=== PATIENT | male | born 1950 | race Caucasian/White ===

== ENCOUNTER → 2021-08-31 | Outpatient (CLI) | payer OTHER, SELFPAY ==
--- NOTE | 2021-08-31 08:19 | PR.HP_ITS ---
History of Present Illness Arrival date:: 08/31/21 Arrival time:: 08:23 Date of Referral:: 08/04/21 Date of Evaluation: 08/31/21 [facility] History of Present Illness: COPD [facility] Breathless Scale: When is the patient short of breath? Y/N Grade: Description of Breathlessness: 0 I only get breathless with strenuous exercise. 1 I get short of breath when hurrying on level ground or walking up a slight hill. 2 On level ground, I walk slower than people of the same age because of breathless, or have to stop for breath when walking at my own pace. 3 I stop for breath after walking 100 yards or after a few minutes on level ground. 4 I am too breathless to leave the house or I am breathless when dressing. Respiratory Problems: Yes: Fatigue, Able to Speak in Full Sentences, Dyspnea with Activity - Secretions Thin:: Yes Cough:: Yes A.T.C.: Yes Hx of Sleep Apnea: Yes Do you snore loudly (louder than talking or can be heard through closed doors)?: Yes Do you often feel tired/ fatigued/ sleepy during daytime?: Yes Has anyone observed you stop breathing during sleep?: Yes History of Hypertension (for STOP score): Yes - Patient diagnosed with DALIA; has home CPAP device STOP Results: Positive Home Medications: Home Medications albuterol 90 mcg/actuation aerosol inhaler mcg inhalation 08/31/21 albuterol sulfate 2.5 mg inhalation Q4H PRN Shortness Of Breath Or Wheezing 08/31/21 apple cider vinegar 300 mg tablet mg PO 08/31/21 atorvastatin 40 mg tablet 40 mg PO DAILY 08/31/21 benzonatate 100 mg capsule 100 mg PO TID PRN Cough 08/31/21 buspirone 5 mg tablet 5 mg PO BID 08/31/21 cetirizine 10 mg tablet 10 mg PO DAILY 08/31/21 cholecalciferol (vitamin D3) 125 mcg (5,000 unit) tablet 125 mcg PO DAILY 08/31/21 fluticasone propionate 50 mcg/actuation nasal spray,suspension 1 spray intranasa l DAILY 08/31/21 losartan 50 mg tablet 50 mg PO DAILY 08/31/21 mometasone-formoterol HFA 200 mcg-5 mcg/actuation aerosol inhaler 2 puff inhalation Q12H 08/31/21 tiotropium bromide 2.5 mcg/actuation mist for inhalation 2 puff inhalation DAILY 08/31/21 tumeric 100 mg-crow 150 mg-olive 50 mg-oreg 150 mg-caprylate capsule cap PO 08/31/21 vitamin B complex cap 08/31/21 Allergies/Adverse Reactions: Allergies meloxicam Adverse Reaction (Verified 08/31/21 08:32) Nausea Medical Utilization Do you use a peak flow meter at home?: No Do you use a spacer device with your inhalers?: No Number of hospital visits in the last year?: 0 Number of emergency room visits in the last year?: 1 Do you see your physician on a regular schedule?: Yes How often?: 3 months and as needed Advanced Directives - Advanced Directives Power of Patient Relations Manager: No Living Will: No Advance Directives Information Provided: Yes Advance Directives on File: No DNR Order?:: No - MOLST See MOLST form: No Past Medical History - Covid-19 Screening Fever: No Unexplained muscle aches: No - H/O Chronic Back Pain Current respiratory symptoms: Yes - CHRONIC OBSTRUCTIVE PULMONARY DISEASE Upper respiratory infections symptoms: No Gastro-intestinal symptoms: No Thx-Lpjs-Iwfdgy symptoms: No Has tested positive for COVID-19 in last 30 days: No Date of testin08/31/21 - has not been vaccinated Had contact w/person w/symptoms or Covid-19 (+) last 14 days: No Has High Risk Exposures ID'd by Health dept/Inf Control team: No 65 years or older:: Yes Lives in Assisted Living facility:: No Has a chronic lung disease or moderate to severe asthma:: Yes Immunocompromised:: No Severely obese (Body Mass Index of 40 or higher):: Yes Diabetic:: No Has chronic kidney disease undergoing dialysis:: No Has liver disease:: No Medical History: Past Medical History (Last Updated 08/31/21 @ 08:36 by Moreno Jones, FAB[employer]UT[employer], BLOCK SAWYER, BS) Allergic rhinitis J30.9 Chronic back pain M54.9, G89.29 Chronic sinusitis J32.9 COPD (chronic obstructive pulmonary disease) J44.9 Coronary artery disease I25.10 Former smoker Z87.891 Hyperlipidemia E78.5 Hypertension I10 DALIA (obstructive sleep apnea) G47.33 Social History - Smoking History Smoking Status: Former smoker Hx Tobacco Use: Yes Hx Smoking Exposure: Yes - Alcohol Use Alcohol Usage: Yes - 2-3 beers daily - Occupation Occupation (List type of work in comments):: Retired - - Hobbies, Recreation, Social Activities Hobbies: Sports - fishing & hunting, Other - grandchildren & great grandchildren Recreational Activities: I am able to engage in most, but not all activities, I am able to engage in a few activities Functioning ADL/IADL - Current Ability Current Ability: Independent Self-Care (e.g.,grooming, dressing, & bathing), Independent Ambulation, Independent Transfer, Independent Household tasks (e.g., light meal prep, laundry, shopping) - Pt Functioning Prior to Problem Prior Functioning: Self-Care (e.g.,grooming, dressing, & bathing): Independent, Ambulation: Independent, Transfer: Independent, Household tasks (e.g., light meal prep, laundry, shopping): Independent Social Environment - Status Marital Status: - - Current Living Arrangements Living Environment:: Spouse - Children How many children do you have?: 3 Do any of your children live nearby?: Yes - Safety Do you feel safe in your surroundings?: Yes - Assistance Do you need any assistance at home?: NO Review of Systems Review of Systems: Right click = Denies ([place]). Left click = Reports ([place]) Respiratory: Reports: Cough, SOB upon Exertion, Sputum production, Wheezing, Fatigue Is Patient Pain Free?: No Pain Location: back - crushed vertebrae in 1981 had several back surgeries Pain Level: 06/12 Risk Factor Assessment - Chief Complaint Chief Complaint: PURNIMA IS A 70 MALE [address]ET OF THE [employer] [facility] WHO PRESENTS TO PULMONARY REHAB TODAY FOR HIS COPD. - Vital Signs Temperature: 97.8 F Pulse Rate: 68 Pulse Rhythm: Regular Respiratory Rate: 18 Pulse Ox: 93 Blood Pressure: 132/68 - Diabetes Nutrition Referral for Diabetes: No - Obesity Height: 5 ft 6 in Weight:: 242 lb Weight in Pounds: 242.0 lbs Weight Source: Standing Scale Body Mass Index (BMI): 39.0 Nutritional Referral for Obesity: Yes - Physical Activity Physical Inactivity: None - Risk Stratification Risk Guidelines: Lowest Risk: Risk Factor for Smoking, Risk Factor for Dyslipidemia - N/A NO LABS PROVIDED, Risk Factor for Depression, Moderate Risk: Risk Factor for Hypertension - 132/68, Risk Factor for Sedentary Lifestyle, Highest Risk: Risk Factor for Obesity - BMI 39+ Motivation - Motivation to Participate On a scale of 1 to 10, how prepared are you to commit to attending program?: 10 What do you see as barriers to successfully being able to complete the program?: chronic back pain What do you see as the benefits of succesfully completing the program? In other words, what do you hope to get out of participating in the program?: health, relieve shortness of breath and congestion Are there issues you are dealing with that will interfere with completing the program?: chronic sinusitus Do you have a spouse or signficant other, family or friends who will help support you to complete the program?: yes Diagnostic Data Review - Pulmonary Function Test FEV1:: 1.59 - 59% PREDICTED FVC:: 3.02 - 88% PREDICTED FEV1/FVC%:: 52 - 68% PREDICTED
--- NOTE | 2021-08-31 09:01 | PCM.PR.TP ---
General Information2 - General Information Admitting Diagnosis: Chronic Obstructive Pulmonary Disease (COPD) Gold Classification:: GOLD 2: Moderate - PFT FEV1:: 1.59 FVC:: 3.02 FEV1/FVC%:: 52 - Personal Learning Style/Barriers Personal Learning Style:: Audio/Visual, Written Barriers to Learning: None Stage of change r/t lifestyle modifications: Prepared Educational Classes ND: Living with Chronic Lung Disease: Initial Assessment, Breathing Retraining: Initial Assessment, Exercise: Initial Assessment, Energy Conservation: Initial Assessment, Preventing infection: Initial Assessment - Education/Goals Individual Counseling: Initial Assessment: High Blood Pressure, Overweight/Obesity ND Patient Goals: Increase muscle strength: Initial Assessment, Experience less dyspnea: Initial Assessment, Improve energy level: Initial Assessment, Participate in home exercise: Initial Assessment, Improve the ability to cope with ADLs: Initial Assessment, Improve knowledge of lung disease: Initial Assessment, Understand how to use medications: Initial Assessment, Increase knowledge of oxygen use: Initial Assessment, Control panic/anxiety: Initial Assessment, Improve diet and nutrition: Initial Assessment, Improve my quality of life: Initial Assessment, Reduce Stress/relaxation techniques: Initial Assessment Exercise - Initial Assessment - Visit Date of Eval: 08/31/21 Session Number:: 0 - pre-pulm rehab - Problem/Goals Problems: Deconditioning, Knowledge deficit exercise guidelines, Knowledge deficit exercise safety Goals:: ND: 2-3/wk for 18 weeks [36 sessions] - Physician Prescribed Exercise Modalities: Treadmill, Airdyne, NuStep Frequency (days/week): 3 Duration (Minutes):: 30-45 Intensity: 60-80% of age predicted maximum heart rate reserve Current METSs:: 3.0 Target HR:: 128 - THHR 98-128 Resting Blood Pressure: 132/68 EKG Type: NSR - Plan Plan and Plan to Review:: Benefits of exercise, Core components of exercise, How to measure dyspnea level, How to monitor dyspnea level, Exercise intensity, Exercise safety guideline, Home exercise guidelines, Sheryl: 3-4/11-13 Nutrition/Wt Mgmt - Initial - Visit Date of Eval: 08/31/21 Session Number:: 0 - pre-pulm rehab - Problems/Goals Problems: Overweight Goals: Wt Loss 1-2 lbs per week - Weight Management Knowledge Deficit Management of:: Overweight Admit Height:: 5 ft 6 in Admit Weight:: 242 lb Admit BMI:: 39.0 - Intervention Referral to dietitian:: Yes - Why Weight Program Intervention/Plan: Instruct on ideal BMI & set weight loss goal w/patient, Assist pt to ID & incorporate diet changes for weight loss by S9, Refer to Structured Weight Loss program as appropriate, Encourage goal of using 250-300dcal per session for weight loss - Plan Nutrition Plan: Yes Review BMI or WC & identify target wt & strategies for wt control, Yes Nutrition education class:, Yes Weight control education class: Psychosocial - Initial Assess - Visit Date of Eval: 08/31/21 Session Number:: 0 - Pre-pulm rehab - Problems/Goals Psychosocial Goals: 1. Patient is free from overwhelming symtoms of depression (or anxiety, 2. Identifies personal stressors & states the strategies for managing, 3. Identifies activities to decrease isolation and/or symptoms of, 4. Improved psychosocial coping skills., 5. Verbalizes coping strategies., 6. Adequate treatment of depression., 7. Improved Q.O.L. - Psychosocial Test Tool Used:: Pulmonary QOL, PHQ-9 Questionnaire - Referral to Behavioral Health PS - Interventions: Yes Attend Stress Management Classes, No Referral to Behavioral Health if PHQ-9 score >9:, No Referral to [facility], No Referral to Physician if PHQ-9 if score is 5-9: - Intervention/Plan: See List Interventions/Plan:: Assess stressors,coping strategies & signs of derpression on admission, Instruct/assist pt to develop coping & personal stress Mgt strategies, Instruct patient to recognize signs & symptoms of depression, Instruct patient to recog Oxygen & Oxygen Titration Init - Visit Date of Eval: 08/31/21 Session Number:: 0 - pre-pulm rehab - Initial Assessment Oxygen on Admission: None Patient Reports:: Non-productive cough - Goal Oxygen & Oxygen Tritration Goals: Effective hypoxemia control - Plans Plan: Monitor SpO2 rest & with exercise, Train O2 safety & systems Reviewed prescribed medications:: Purpose, Schedule, Side effects, Importance of compliance Instruct correct technique/timing & care:: MDI, Nebulizer, Return demo use of inhaler Bronchial Hygiene Plan: Controlled cough, Vibratory PEP device, NS Nasal spray, Hydration, Hand hygiene, Evaluate sputum, When to call MD, Signs/symptoms to report: Core Components - Initial - Visit Date of Eval: 08/31/21 Session Number:: 0 - pre-pulm rehab - Hypertension Hypertension Diagnosis:: Hypertension ICD-10 I10 BP: 132/68 Citizen [place] [employer] Hypertension Guidelines: Citizen [place] [employer] Hypertension Guidelines. Normal BP Less than 120/80. Elevated BP 120/80. Hypertension Stage 1: BP 130-139/80-89. Hypertesnion Stage 2: BP 140 or higher/90 or higher. Hypertension Crisis: BP higher than 180/120 Blood Pressure: 132/68 Low Sodium diet: No Outcomes/Goals: Able to verbalize/achieve optimal blood pressure <130/80, Incorporates diet changes & exercise for blood pressure control by DC - Exacerbation Mgmt & Airway Clearance Problems:: Poor knowledge of O2 use/safety Bronchial Hygiene Problems:: Ineffective secretion clearance, Respiratory infection Prevention/Management Goals: Pt demonstrates effective cough, effective secretion clearance., Pt describes signs and symptoms of infection. Patient Reports:: Non-productive cough Plan: Monitor SpO2 rest & with exercise, Train O2 safety & systems Instruct correct technique/timing & care:: MDI, DPI, Nebulizer, Return demo use of inhaler Bronchial Hygiene Plan: Controlled cough, Vibratory PEP device, Hydration, Hand hygiene, When to call MD, Signs/symptoms to report: - Medication Interventions/plans: Instruct on medication effects & side effects Medication Goals: Correct technique/timing & care of MDI, DPI, nebulizer, and spacer. Medications: Yes MDI, Yes DPI, Yes NEB, No Spacer Reviewed prescribed medications:: Purpose, Schedule, Side effects, Importance of compliance - Diabetes Diabetes:: No Core Components - 30 DAYS Core Components - 60 DAYS Core Components - 90 DAYS Core Components - Final Patient Health Questionnaire Initial Assessment 1. Little interest or pleasure in doing things: Not at all 2. Feeling down, depressed, or hopeless: Not at all 3. Trouble falling or staying asleep, or sleeping too much: Not at all 4. Feeling tired or having little energy: Not at all 5. Poor appetite or overeating: Not at all 6. Feeling bad about yourself -- or that you are a failure or have let yourself or your family down: Not at all 7. Trouble concentrating on things, such as reading the newspaper or watching television: Not at all 8. Moving or speaking so slowly that other people could have noticed. Or the opposite - being so fidgety or restless that you have been moving around a lot more than usual: Not at all 9. Thoughts that you would be better off , or of hurting yourself in some way: Not at all How difficult have these problems made it for you to do your work, take care of things at home, or get along with other people?: Not difficult at all Total Score: 0 Knowledge Questionaire (BCKQ) - Information Information: [place] COPD Knowledge Questionnaire (BCKQ) This questionnaire is designed to find out what you know about your lung problem. It should be completed without help form anyone else. This usually takes between 10 and 20 minutes. Your answers will help us to find out what information you need to help you to understand and manage your lung condition. Gaurav the chenega which you think is the correct answer. - Questions b. COPD can only be confirmed by breathing tests: Don't know c. In COPD ther is usually gradual worsening over time: True d. In COPD oxygen levels in the blood are always low: False e. COPD is usually in people less than 40 years old: True Gerry than 80% of COPD cases are caused by cigarette smoking: Don't know b. COPD can be caused by occupational dust exposure: True c. Longstanding asthma can develop into COPD: True d. COPD is commonly an inherited disease: Don't know e. Women are less vunerable to the effects of cigarette than men: False a. Swelling of the ankles is common in COPD:: Don't know b. Fatigue [tiredness] is common in COPD: Don't know c. Wheezing is common in COPD: True d. Crushing chest pain is common in COPD: False e. Rapid weight loss is common in COPD: False a. Severe breathlessness prevents travel by air: Don't know b. Breathlessness can be worsened by eating large meals: True c. Breathlessness means that your oxygen levels are low: False d. Breathlessness is a normal response to exercise: False e. Breathlessness is primarily caused by a narrowing of the bronchial tubes: True a. Coughing phlegm is a common symptom in COPD: Don't know b. Clearing phlegm is more difficult if you get dehydrated: True c. Bronchodilator inhalers can help clear phlegm: Don't know d. Phlegm causes harm if swallowed: Don't know e. Clearing phlegm can be assisted by breathing exercises: Don't know a. Chest infections often cause coughing of blood: False b. Chest infection phlegm usually becomes coloured (ylw/grn): True cExerbations (episodes of worsening) can occur in the absence of chest infection: True d. Chest infections are always accompanied by a high temperature: False e. Steroid tablets should be taken whenever there is an exacerbation: Don't know aWalking excercises better than breathing to improve fitness: Don't know b. Exercise should be avoided as it strains the lungs: Don't know c. Exercise can help maintain your bone density: Don't know d. Exercise helps relieve depression: Don't know e. Exercise should be stopped if it makes you breathless: True a. Stopping smoking will reduce the risk of heart disease: True b. Stopping smoking will slow down further lung damage: True c. Stopping smoking is pointless as the damage is done: False d.Stopping smoking usually results in improved lung function: True eNicotine replacement therapy only available on prescription: Don't know a. A flu jab is recommended every year: True b. You can get flu from having a flu jab: False c. You can only have a flu jab if you are 65 or over: False d. A pneumonia jab protects against all forms of pneumonia: False e.You can have a pneumonia jab and a flu job on the same day: True a. Bronchodilators act quickly (within 10 minutes): False b. Both short & long acting bronchodilators can be taken on the same day: True c. Spacers (volumatic,nebuhaler,serochamber)should be dried w/atowel after washing: False d. A spacer device increases the medication to the lungs: False e. Tremor may be a side effect of bronchodilators: Don't know a. To be effective, the course should last at least 10 days: Don't know b. Excessive use of antibiotics can cause resistant bacteria (germs): Don't know c. Antibiotics will clear all chest infections: False d. Antibiotic treatment is necessary for an exacerbation (worsening) however mild: Don't know e. Seek advice if antibiotics cause severe diarrhoea: True a. Steroid tablets help strengthen muscles: Don't know b. Steroid tablets should be avoided if there is a chest infection: Don't know c. The risk of long-term side effects due to steroids is less w/short courses then w/continous treatment: Don't know dIndigestion is common side effect from using steroid tablet: Don't know e. Steroid tablets can increase your appetite: Don't know a. Inhaled steroids should be stopped if you are given steroid tablets: Don't know bSteroid inhalers can be used for rapid relief breathlessnes: Don't know c. Spacer devices reduce the risk of getting thrush in the mouth: Don't know d.Steroid inhaler should be taken before your bronchodilator: Don't know e. Inhaled steroids improve lung function in COPD: Don't know COPD Assessment Test [CAT] - Questions Never cough = 0, Cough all the time = 5: 2 No phlegm = 0, Chest full of phlegm = 5: 3 No chest tightness = 0, Chest very tight = 5: 1 No breathless w/exertion = 0, Very breathless w/exertion = 5: 4 No limitations w/activity = 0, Very limited w/activity = 5: 3 Confident leaving home = 0, Not at all confident = 5: 0 Sleep soundly = 0, Don't sleep soundly = 5: 1 Lots of energy = 0, No energy at all = 5: 3 Total CAT score:: 17 Self-Efficacy Initial Assessment We would like to know how confident you are in doing certain activities. Please select your confidence level for:: Select your confidence level for the following using the scale 1-10 where 1 is not at all confident and 10 is totally confident. Your score is the average of all 6 responses. Fatigue: How confident are you that you can keep the fatigue caused by your disease from interfering with the things you want to do? Select Number: 6 Physical Discomfort or Pain: How confident are you that you can keep the physical discomfort or pain of your disease from interfering with the things you want to do? Select Number: 6 Emotional Distress: How confident are you that you can keep the emotional distress caused by your disease from interfering with the things you want to do? Select Number: 8 Other Symptoms or Health Problems: How confident are you that you can keep other symptoms or health problems from interfering with the things you want to do? Select Number: 8 Different Tasks and Activities: How confident are you that you can do the different tasks and activities needed to manage your health condition so as to reduce your need to see a doctor? Select Number: 10 Medication: How confident are you that you can do things other than just taking medication to reduce how much your illness affects your everyday life? Select Number: 10 Total Score:: 8 Nutrition Survey - Nutrition Survey Initial Have you lost >10 lbs over the past 2 months without trying?: No Are you following a special diet at home for diabetes, low fat, or low salt?: No Are you interested in meeting with a dietitian for help understanding your diet?: Yes Do you eat less than 3 meals a day?: No Do you eat fatty meats (gonzalez, sausage, ribs, etc), fried foods, desserts, large amounts of salad dressings, margarine, butter, or cheese most days?: No Do you have food allergies? [Enter types in comment field]: No Do you eat in restaurants more than 3 times a week?: No Do you season food with salt, seasoning salt, or garlic salt?: No Do you used canned, boxed, frozen meals, or soups, seasoning packets?: Yes Total Score:: 2
[2021-08-31 09:22] VITALS: BP 132/68; PULSE 68; RESP 18; TEMP 36.6; O2SAT 93; BMI 39.0
[2021-08-31 09:46] VITALS: BP 132/68; BMI 39.0
== END | disposition home or self-care (01) ==
DX: J44.9 Chronic obstructive pulmonary disease, unspecified (principal); R06.09 Other forms of dyspnea; R53.83 Other fatigue; G47.30 Sleep apnea, unspecified

== ENCOUNTER 2021-09-30 10:30 | Outpatient (RCR) | payer OTHER, SELFPAY | END 2021-10-02 23:59 | LOC: PR 10:30 | DX: J44.9 Chronic obstructive pulmonary disease, unspecified (principal) | CPT/HCPCS: 97150; 94626 ==

== ENCOUNTER 2021-10-21 10:30 | Outpatient (RCR) | payer OTHER, SELFPAY ==
--- NOTE | 2021-10-28 09:11 | PR.ITP_ITS ---
General Information2 - General Information Admitting Diagnosis: Pt has not been attending pulmonary rehab Core Components - Initial Core Components - 30 DAYS Core Components - 60 DAYS Core Components - 90 DAYS Core Components - Final Knowledge Questionaire (BCKQ) - Information Information: [place] COPD Knowledge Questionnaire (BCKQ) This questionnaire is designed to find out what you know about your lung problem. It should be completed without help form anyone else. This usually takes between 10 and 20 minutes. Your answers will help us to find out what information you need to help you to understand and manage your lung condition. Gaurav the pala which you think is the correct answer. Nutrition Survey
== END 2021-11-02 23:59 ==
LOC: PR 10:30
DX: J44.9 Chronic obstructive pulmonary disease, unspecified (principal)
CPT/HCPCS: 97150; 94626

== ENCOUNTER 2021-11-04 07:13 | Outpatient (RCR) | payer OTHER, SELFPAY | END 2021-12-02 23:59 | LOC: PR 07:13 | DX: J44.9 Chronic obstructive pulmonary disease, unspecified (principal) | CPT/HCPCS: 97150; 94626 ==

== ENCOUNTER 2024-08-19 13:26 | Inpatient (IN) | payer OTHER, SELFPAY ==
[2024-08-19] VITALS (16 sets, daily range): BP systolic 149–190; BP diastolic 61–93; PULSE 98–113; RESP 16–22; TEMP 36.6–37.7; O2SAT 83–95; BMI 44.1; BMI 44.7
--- NOTE | 2024-08-19 14:00 | RAD_ITS ---
PROCEDURE: CHEST PA AND LATERAL 08/19/2024 REASON FOR EXAM: SOB TECHNIQUE: CHEST PA AND LATERAL COMPARISON: None FINDINGS: Right lower lobe opacity may reflect pneumonia, aspiration, and/or atelectasis. Likely underlying bibasilar subsegmental atelectasis. Mild pulmonary vascular congestion and interstitial edema. Mild cardiomegaly. No pneumothorax. Neurostimulator device is noted. No acute fractures. RAD/Chest PA and Lateral IMPRESSION: Right lower lobe opacity may reflect pneumonia, aspiration, and/or atelectasis. Likely underlying bibasilar subsegmental atelectasis. Mild pulmonary vascular congestion and interstitial edema. Mild cardiomegaly. No pneumothorax. Reading Location: [id number]
--- NOTE | 2024-08-19 14:00 | EKG12_ITS ---
Test Reason : SOB Blood Pressure : */* mmHG Vent. Rate : 111 BPM Atrial Rate : 111 BPM P-R Int : 166 ms QRS Dur : 68 ms QT Int : 328 ms P-R-T Axes : 35 11 38 degrees QTcB Int : 446 ms Sinus tachycardia Otherwise normal ECG Confirmed by YAJAIRA LESLIE, MY ([id number]), commissioning editor INDY ALMARAZ ([id number]) on 08/20/2024 8:25:52 AM Referred By: Confirmed By: MY GATES MD
--- NOTE | 2024-08-19 14:13 | EDS_ITS ---
HPI History of Present Illness Chief Complaint: Shortness of Breath Narrative Narrative: Patient is a 73-year-old male past medical history of COPD, hypertension, hyperlipidemia, CAD, DALIA who presents to the emergency department with chief complaint of fever, chills not feeling well overall. He states that he woke up this morning not feeling well and noted that he had a fever of 101.7 and states that he felt like he had bronchitis originally but given his fever and chills he came here for further evaluation management. Patient states that he does not wear oxygen on a regular basis. [facility] Medical History Hypertension Hyperlipidemia Chronic back pain Coronary artery disease Chronic sinusitis Allergic rhinitis Former smoker DALIA (obstructive sleep apnea) COPD (chronic obstructive pulmonary disease) Home Medications ?Medication ?Instructions ?Recorded ?Last Taken ?Type albuterol 90 mcg/actuation aerosol mcg inhalation 08/04 11/24 Unknown History inhaler albuterol sulfate 2.5 mg/3 mL 2.5 mg inhalation Q4H WI N 08/31/21 Unknown History (0.083 %) solution for nebulization Shortness Of Breat h Or Wheezing apple cider vinegar 300 mg tablet mg PO 08/31/21 Unkno wn History atorvastatin 40 mg tablet 40 mg PO DAILY 08/31/21 Unkn own History benzonatate 100 mg capsule 100 mg PO TID PRN Cough Unknown History buspirone 5 mg tablet 5 mg PO BID 08/31/21 Unknown History cetirizine 10 mg tablet 10 mg PO DAILY 08/31/21 Unkn own History cholecalciferol (vitamin D3) 125 125 mcg PO DAILY 08/04 11/24 Unknown History mcg (5,000 unit) tablet fluticasone propionate 50 1 spray intranasal DAILY Unknown History mcg/actuation nasal spray,suspension losartan 50 mg tablet 50 mg PO DAILY 08/31/21 Unkn own History mometasone-formoterol HFA 200 2 puff inhalation Q12H 0 08/31/21 Unknown History mcg-5 mcg/actuation aerosol inhaler tiotropium bromide 2.5 2 puff inhalation DAILY 08/04 11/24 Unknown History mcg/actuation mist for inhalation turmeric 100 mg-crow 150 cap PO 08/31/21 Unknown His tory mg-olive 50 mg-oreg 150 mg-capryl capsule vitamin B complex cap 08/31/21 Unknown History Allergy/AdvReac Type Severity Reaction Status Date / Time meloxicam AdvReac Nausea Verified 08/19/24 13:29 Social History Smoking Status: Former smoker ROS ROS ED ROS Narrative Constitutional: Complains of fever and chills noted above denies headache, l ightheadedness or dizziness Eyes: Denies change in vision double vision blurry vision Cardiovascular: Denies chest pain Respiratory: Complains of cough as noted above but states that his sputum produc tion is at his baseline Abdomen: Denies abdominal pain nausea vomit diarrhea : Denies any urinary symptoms Neurological: Denies numbness, weakness, tingling Musculoskeletal: Denies back pain Skin: Denies rashes or lesions EXAM Physical Exam Narrative Exam Narrative: General: Patient was lying in bed resting comfortably did not appear to be acute distress Head: Atraumatic, normocephalic Eyes: PERRL bilaterally, EOMI bilateral, no conjunctival injection noted Neck: Soft, supple, trachea midline Cardiovascular: Patient tachycardic with a regular rhythm Respiratory: Diminished breath sounds bilaterally Abdomen: Soft, nondistended, tender to palpation Extremities: +5/5 strength noted in the bilateral upper and lower extremities, radial pulses +2/4 in the bilateral extremities Neurological: Patient following commands knew that he was at [facility] the year is 2024 Skin: Warm, dry, tact no rashes or lesions noted Const Vital Signs: 08/19/24 13:29 08/19/24 13:34 08/19/24 13:40 Temperature 99.9 F H 99.9 F H Temperature Source Oral Oral Pulse Rate 111 H 111 H Respiratory Rate 22 H 22 H Respiratory Effort Respiratory Depth Respiratory Pattern Blood Pressure 190/61 H 190/61 H Blood Pressure Mean 104 104 Pulse Ox 88 88 83 Oxygen Delivery Method Room Air Room Air Room Air Oxygen Flow Rate (L/min) 08/19/24 13:41 08/19/24 13:43 Temperature Temperature Source Pulse Rate Respiratory Rate Respiratory Effort Short of Breath Short of Breath Labored Accessory Muscle Use Respiratory Depth Shallow Respiratory Pattern Tachypnea Tachypnea Blood Pressure Blood Pressure Mean Pulse Ox Oxygen Delivery Method Nasal Cannula Oxygen Flow Rate (L/min) 2 MDM MDM MDM Narrative Medical decision making narrative: Patient is a 73-year-old male who presents to the emergency department chief complaint of cough, fever and not feeling well. On the differential diagnosis includes but not limited to pneumonia, ACS, pneumothorax, COPD exacerbation. Once workup is obtained reviewed he will be reevaluated. Patient be given 3 DuoNebs and Solu-Medrol he will be given a 30 cc/kg bolus of IV fluids based on ideal body weight this was ordered at 1400. Once again the patient is requiring oxygen he is not chronically on oxygen at home. Discharge Plan Triage Chief Complaint: Shortness of Breath Other Complaint: Fever ED Provider: Froy Deleon Dx/Rx/DC Orders Prescriptions: No Action losartan 50 mg Tablet 50 mg PO DAILY atorvastatin 40 mg Tablet 40 mg PO DAILY buspirone 5 mg Tablet 5 mg PO BID albuterol sulfate 2.5 mg /3 mL (0.083 %) Solution For Nebulization 2.5 mg INHALATION Q4H PRN (Reason: Shortness Of Breath Or Wheezing) cetirizine 10 mg Tablet 10 mg PO DAILY benzonatate 100 mg Capsule 100 mg PO TID PRN (Reason: Cough) albuterol 90 mcg/actuation Aerosol INHALATION fluticasone propionate 50 mcg/actuation [place],Suspension 1 spray INTRANASAL DAILY Rx Instructions: administer into each nostril mometasone-formoterol 200-5 mcg/actuation Hfa Aerosol Inhaler 2 puff INHALATION Q12H tiotropium bromide 2.5 mcg/actuation Mist 2 puff INHALATION DAILY vitamin B complex Capsule apple cider vinegar 300 mg Tablet PO cholecalciferol (vitamin D3) 125 mcg (5,000 unit) Tablet 125 mcg PO DAILY pohdzqek-bliz-pyuvb-oreg-capry 100 mg-150 mg- 50 mg-150 mg Capsule PO [facility] [Primary Care Provider] - Print Language: Faroese
--- NOTE | 2024-08-19 14:13 | EX.ED.DYSGE1 ---
HPI History of Present Illness Chief Complaint: Shortness of Breath Narrative Narrative: Patient is a 73-year-old male past medical history of COPD, hypertension, hyperlipidemia, CAD, DALIA who presents to the emergency department with chief complaint of fever, chills not feeling well overall. He states that he woke up this morning not feeling well and noted that he had a fever of 101.7 and states that he felt like he had bronchitis originally but given his fever and chills he came here for further evaluation management. Patient states that he does not wear oxygen on a regular basis. [facility] Medical History Hypertension Hyperlipidemia Chronic back pain Coronary artery disease Chronic sinusitis Allergic rhinitis Former smoker DALIA (obstructive sleep apnea) COPD (chronic obstructive pulmonary disease) Home Medications ?Medication ?Instructions ?Recorded ?Last Taken ?Type albuterol sulfate 2.5 mg/3 mL 2.5 mg inhalation Q4H PRN 08/31/21 08/19/24 History (0.083 %) solution for nebulization Shortness Of Breath Or Wheezing atorvastatin 40 mg tablet 40 mg PO QHS 08/31/21 08/18/24 History benzonatate 100 mg capsule 100 mg PO TID PRN Cough 08/31/21 Unknown History buspirone 5 mg tablet 5 mg PO BID 08/31/21 08/19/24 History cetirizine 10 mg tablet 10 mg PO DAILY 08/31/21 08/19/24 History cholecalciferol (vitamin D3) 125 125 mcg PO DAILY 08/31/21 08/19/24 History mcg (5,000 unit) tablet fluticasone propionate 50 2 spray intranasal BID 08/31/21 08/19/24 History mcg/actuation nasal spray,suspension losartan 50 mg tablet 50 mg PO DAILY 08/31/21 08/19/24 History vitamin B complex 1 cap PO DAILY 08/31/21 08/19/24 History TURMUERIC CURCUMIN PO DAILY 08/19/24 08/19/24 History albuterol sulfate 90 mcg/actuation 2 inh inhalation Q6H PRN shortness 08/19/24 08/19/24 History breath activated powder inhaler of breath or wheezing aspirin 81 mg tablet,delayed 81 mg PO DAILY 08/19/24 08/19/24 History release (Adult Aspirin Regimen) budesonide 160 mcg-glycopyr 9 2 inh inhalation BID 08/19/24 08/19/24 History mcg-formot 4.8 mcg/actuation HFA inhaler (Breztri Riffynphere) Allergy/AdvReac Type Severity Reaction Status Date / Time meloxicam AdvReac Nausea Verified 08/19/24 13:29 Social History Smoking Status: Former smoker ROS ROS ED ROS Narrative Constitutional: Complains of fever and chills noted above denies headache, lightheadedness or dizziness Eyes: Denies change in vision double vision blurry vision Cardiovascular: Denies chest pain Respiratory: Complains of cough as noted above but states that his sputum production is at his baseline Abdomen: Denies abdominal pain nausea vomit diarrhea : Denies any urinary symptoms Neurological: Denies numbness, weakness, tingling Musculoskeletal: Denies back pain Skin: Denies rashes or lesions EXAM Physical Exam Narrative Exam Narrative: General: Patient was lying in bed resting comfortably did not appear to be acute distress Head: Atraumatic, normocephalic Eyes: PERRL bilaterally, EOMI bilateral, no conjunctival injection noted Neck: Soft, supple, trachea midline Cardiovascular: Patient tachycardic with a regular rhythm Respiratory: Diminished breath sounds bilaterally Abdomen: Soft, nondistended, tender to palpation Extremities: +5/5 strength noted in the bilateral upper and lower extremities, radial pulses +2/4 in the bilateral extremities Neurological: Patient following commands knew that he was at [facility] the year is 2024 Skin: Warm, dry, tact no rashes or lesions noted Const Vital Signs: 08/19/24 13:29 08/19/24 13:34 08/19/24 13:40 Temperature 99.9 F H 99.9 F H Temperature Source Oral Oral Pulse Rate 111 H 111 H Respiratory Rate 22 H 22 H Respiratory Effort Respiratory Depth Respiratory Pattern Blood Pressure 190/61 H 190/61 H Blood Pressure Mean 104 104 Pulse Ox 88 88 83 Oxygen Delivery Method Room Air Room Air Room Air Oxygen Flow Rate (L/min) 08/19/24 13:41 08/19/24 13:43 08/19/24 14:00 Temperature Temperature Source Pulse Rate Respiratory Rate Respiratory Effort Short of Breath Short of Breath Labored Accessory Muscle Use Respiratory Depth Shallow Respiratory Pattern Tachypnea Tachypnea Blood Pressure Blood Pressure Mean Pulse Ox 93 Oxygen Delivery Method Nasal Cannula Nasal Cannula Oxygen Flow Rate (L/min) 2 2 08/19/24 14:12 08/19/24 14:34 08/19/24 16:00 Temperature 99.6 F H 99 F Temperature Source Oral Oral Pulse Rate 113 H 109 H 101 H Respiratory Rate 16 18 18 Respiratory Effort Respiratory Depth Respiratory Pattern Blood Pressure 150/93 H 150/63 H Blood Pressure Mean 112 92 Pulse Ox 92 94 Oxygen Delivery Method Nasal Cannula Nasal Cannula Oxygen Flow Rate (L/min) 2 2 MDM MDM MDM Narrative Medical decision making narrative: Patient is a 73-year-old male who presents to the emergency department chief complaint of cough, fever and not feeling well. On the differential diagnosis includes but not limited to pneumonia, ACS, pneumothorax, COPD exacerbation. Once workup is obtained reviewed he will be reevaluated. Patient be given 3 DuoNebs and Solu-Medrol he will be given a 30 cc/kg bolus of IV fluids based on ideal body weight this was ordered at 1400. Once again the patient is requiring oxygen he is not chronically on oxygen at home. Patient CBC reviewed and showed a leukocytosis of 12,000, hemoglobin 15.7, plate count 171. Patient's sodium is 134, potassium normal at 4.6, creatinine normal at 0.81. Patient's AST and ALT were 39 and 33 respectively, troponin was noted to be 10. EKG reviewed showed sinus tachycardia with a rate of 111 bpm. Patient's proBNP normal at 64, urinalysis reviewed showed no evidence of infection. Patient chest x-ray reviewed by myself and by radiology which showed a right lower lobe opacity which may reflect pneumonia aspiration and/or atelectasis. Likely underlying basilar subsegmental atelectasis mild pulmonary vascular congestion and interstitial edema noted no pneumothorax. Patient was ordered Rocephin and azithromycin at 1604 for pneumonia. Reperfusion assessment was performed at 4:33 PM and patient remains hypertensive no indication for vasopressors. At this point in time will discuss case with hospitalist for admission for his acute hypoxic respiratory failure in the setting of pneumonia. Discussed case with hospitalist Dr. Black who accept patient for admission. He is requesting CT chest without contrast which was was ordered. Patient was notified as well as family bedside all course concerns answered. Lab Data Labs: Laboratory Results - last 24 hr 08/19/24 08/19/24 08/19/24 14:10 14:30 14:35 WBC 12.2 H RBC 4.69 Hgb 15.7 Hct 46.3 MCV 98.7 H MCH 33.5 H MCHC 33.9 RDW Std Deviation 50.5 H RDW Coeff of Madhavi 13.9 Plt Count 171 MPV 10.1 Immature Gran % (Auto) 0.200 Neut % (Auto) 83.9 H Lymph % (Auto) 8.3 L [place] % (Auto) 7.1 Eos % (Auto) 0.3 Baso % (Auto) 0.2 Absolute Neuts (auto) 10.3 H Absolute Lymphs (auto) 1.01 Nucleated RBC % 0 PT Cancelled INR Cancelled APTT Cancelled Sodium 134 Potassium 4.6 Chloride 100 Carbon Dioxide 21.4 Anion Gap 12 BUN 11 Creatinine 0.81 Estim Creat Clear Calc 103.31 Est GFR (MDRD) Non-Af 94 BUN/Creatinine Ratio 13.7 Glucose 95 Lactic Acid Cancelled Calcium 8.9 Total Bilirubin 1.17 AST 39 H ALT 33 Alkaline Phosphatase 101 Troponin T High Sens 10 Troponin T Hi Sens 2 Hr NT pro BNP II 64 Total Protein 6.6 Albumin 3.8 Globulin 2.9 Albumin/Globulin Ratio 1.3 Urine Color Yellow Urine Clarity Clear Urine pH 7.0 Ur Specific [place] 1.005 Urine Protein 15 H Urine Glucose (UA) Normal Urine Ketones Negative Urine Occult Blood Negative Urine Nitrite Negative Urine Bilirubin Negative Urine Urobilinogen Normal Ur Leukocyte Esterase Negative Urine RBC 0-5 SEEN Urine WBC 0-5 SEEN Ur Squamous Epith Cells 0-5 SEEN Urine Bacteria RARE Urine Mucus 2+ 08/19/24 08/19/24 15:15 16:45 WBC RBC Hgb Hct MCV MCH MCHC RDW Std Deviation RDW Coeff of Madhavi Plt Count MPV Immature Gran % (Auto) Neut % (Auto) Lymph % (Auto) [place] % (Auto) Eos % (Auto) Baso % (Auto) Absolute Neuts (auto) Absolute Lymphs (auto) Nucleated RBC % PT 14.4 INR 1.1 APTT 25.2 Sodium Potassium Chloride Carbon Dioxide Anion Gap BUN Creatinine Estim Creat Clear Calc Est GFR (MDRD) Non-Af BUN/Creatinine Ratio Glucose Lactic Acid Calcium Total Bilirubin AST ALT Alkaline Phosphatase Troponin T High Sens Troponin T Hi Sens 2 Hr 14 NT pro BNP II Total Protein Albumin Globulin Albumin/Globulin Ratio Urine Color Urine Clarity Urine pH Ur Specific [place] Urine Protein Urine Glucose (UA) Urine Ketones Urine Occult Blood Urine Nitrite Urine Bilirubin Urine Urobilinogen Ur Leukocyte Esterase Urine RBC Urine WBC Ur Squamous Epith Cells Urine Bacteria Urine Mucus Radiography Diagnostic Testing: Clinical Impression(s) from Imaging Studies Chest X-Ray 08/19/24 14:00 IMPRESSION: Right lower lobe opacity may reflect pneumonia, aspiration, and/or atelectasis. Likely underlying bibasilar subsegmental atelectasis. Mild pulmonary vascular congestion and interstitial edema. Mild cardiomegaly. No pneumothorax. Reading Location: [facility] Discharge Plan Triage Chief Complaint: Shortness of Breath Other Complaint: Fever ED Provider: Froy Deleon Dx/Rx/DC Orders Clinical Impression: Acute hypoxemic respiratory failure, Pneumonia, COPD exacerbation Prescriptions: No Action losartan 50 mg Tablet 50 mg PO DAILY atorvastatin 40 mg Tablet 40 mg PO QHS buspirone 5 mg Tablet 5 mg PO BID albuterol sulfate 2.5 mg /3 mL (0.083 %) Solution For Nebulization 2.5 mg INHALATION Q4H PRN (Reason: Shortness Of Breath Or Wheezing) cetirizine 10 mg Tablet 10 mg PO DAILY benzonatate 100 mg Capsule 100 mg PO TID PRN (Reason: Cough) fluticasone propionate 50 mcg/actuation [place],Suspension 2 spray INTRANASAL BID Rx Instructions: administer into each nostril vitamin B complex Capsule 1 cap PO DAILY cholecalciferol (vitamin D3) 125 mcg (5,000 unit) Tablet 125 mcg PO DAILY Breztri Aerosphere 160-9-4.8 mcg/actuation HFA aerosol inhaler 2 inh inhalation BID aspirin [Adult Aspirin Regimen] 81 mg tablet,delayed release (DR/EC) 81 mg PO DAILY albuterol sulfate 90 mcg/actuation aerosol powdr breath activated 2 inh inhalation Q6H PRN (Reason: shortness of breath or wheezing) TURMUERIC CURCUMIN PO DAILY [facility] [[facility] Provider] - Print Language: B[place]an Disposition Disposition: Acute Care Hospital [facility]
[2024-08-19] MEDS: Ipratropium/Albuterol Sulfate 3 ML AMPUL.NEB INHALATION ×5 (14:16→23:27)
[2024-08-19] MEDS: 0.9% Normal Saline (1000mL) 1,000 ML 999 ML IV ×3 (14:49→17:43)
[2024-08-19] MEDS: MethylPREDNISolone 125 MG/2 ML Vial IV (14:50)
[2024-08-19 14:55] LABS: Absolute Lymphocyte Count 1.01 X10^3/uL (0.83-4.51); Absolute Neutrophil Count 10.3 X10^3/uL (2.0-7.7); Basophil# 0.02 X10^3/uL; Basophil% 0.2 % (0-1); Eosinophil# 0.04 X10^3/uL; Eosinophils% 0.3 % (0-5); Hematocrit 46.3 % (40-54); Hemoglobin 15.7 g/dL (13.0-16.5); Lymphocyte # 1.01 X10^3/ul (0.83-4.51); Lymphocyte % 8.3 % (19-41); Mean Corp Hgb Conc 33.9 g/dL (32-36); Mean Corpuscular Hgb 33.5 pg (27.0-32.0); Mean Corpuscular Volume 98.7 fL (80-94); Mean Platelet Vol. 10.1 fl (6.2-12.0); Monocyte# 0.87 X10^3/uL; Monocyte% 7.1 % (0-10); NRBC Flagged by Analyzer 0 % (0-5); Neutrophil # 10.27 X10^3/uL (2.7-7.7); Neutrophil % 83.9 % (47-70); Platelet Count 171 K/mm3 (150-450); RBC Distribution Width CV 13.9 % (11.6-14.6); RBC Distribution Width SD 50.5 fl (35.1-43.9); Red Blood Count 4.69 M/mm3 (4.6-6.2); White Blood Count 12.2 K/mm3 (4.4-11.0)
[2024-08-19 15:05] LABS: Color, Urine Yellow (Yellow); Glucose, Dipstick Normal (Normal); Ketone-Dipstick Negative (Negative); Leukocyte Esterase-Dipstick Negative /ul (Negative); Nitrite-Dipstick Negative (Negative); Occult Blood-Urine Negative /ul (Negative); Protein-Dipstick 15 mg/dl (Negative); Specific Gravity, Urine 1.005 (1.002-1.030); Urine Bilirubin Dipstick Negative (Negative); Urine Clarity Clear (Clear); Urine Urobilinogen Normal (Normal)
[2024-08-19 15:26] LABS: Pro- Brain NATRIURETIC PEPTIDE 64 pg/mL (<=900); Troponin T High Sensitivity 10 ng/L (<=22)
[2024-08-19 15:40] LABS: Bacteria RARE /hpf (None Seen); Mucous, Urine 2+ /hpf (<or=2+); Red Blood Cells-Urine 0-5 SEEN /hpf (0-5); Squamous Epithelial Cells - UA 0-5 SEEN /hpf (0-5); White Blood Cells 0-5 SEEN /hpf (0-5)
[2024-08-19 15:49] LABS: ALB/GLOB Ratio 1.3 RATIO (0.9-2.4); AST(SGOT) 39 U/L (<=37); Alanine Aminotransfer ALT/SGPT 33 U/L (<=46); Albumin, Serum 3.8 g/dL (3.4-4.8); Alkaline Phosphatase 101 U/L (40-129); Anion Gap 12 (5-15); BUN 11 mg/dL (4-19); BUN/Creat Ratio 13.7 RATIO (10-20); Calcium,Total 8.9 mg/dL (7.6-11.0); Carbon Dioxide 21.4 mmol/L (21.0-32.0); Chloride 100 mmol/L (98-108); Creatinine, Serum 0.81 mg/dL (0.70-1.20); EST Glomerular Filtration Rate 94 (>60); Estimated Creatinine Clearance 103.31 ml/min (50-250); Globulin 2.9 g/dL (2.2-4.2); Glucose 95 mg/dL (70-99); Potassium 4.6 mmol/L (3.3-5.1); Protein, Total 6.6 g/dL (5.9-8.4); Sodium Level 134 mmol/L (133-145); Total Bilirubin 1.17 mg/dL (0.00-1.30)
[2024-08-19] MEDS: Ceftriaxone 2 GM in 0.9% Normal Saline (50mL MB+) 50 ML IV (16:13)
[2024-08-19] MEDS: Azithromycin 500 MG in 0.9% Normal Saline (250mL Bag) 250 ML 255 MG IV (16:15)
[2024-08-19 16:33] LABS: International Normalized Ratio 1.1; Prothrombin Time (Protime)PT. 14.4 SECONDS (11.7-14.9)
[2024-08-19 16:34] LABS: Partial Thromboplast Time 25.2 Seconds (24.1-36.2)
--- NOTE | 2024-08-19 17:00 | ED.RN ---
Pt stated that when he urinated it hurt.
--- NOTE | 2024-08-19 17:07 | PCM.HP.STD ---
HPI - General General Date of Admission: 08/19/24 Date of Service: 08/19/24 Chief Complaint: Shortness of breath and fever/chills HPI Narrative JOSE ALBERTO HERNANDEZ, is a 73 M who presented to [facility] ED on 08/19/2024 with worsening shortness of breath and fever/chills. Medical history significant for COPD, nonobstructive CAD, hypertension and hyperlipidemia. He follows with [facility] for [facility] care. 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 Patient stated he was feeling well until this morning when he developed acute onset worsening shortness of breath. He did 3 breathing treatments at home at that time with only mild improvement. He also reported fevers and chills at that time. Does not wear supplemental oxygen at baseline but does have a home pulse ox and noted that his saturations were around 70%, so he came in for further evaluation. In the ED he was in the mid 80s on room air at rest with improvement on 2 L nasal cannula. Chest x-ray showed concern for bilateral pneumonia versus pulmonary vascular congestion with interstitial edema. CT chest without contrast showed extensive bilateral lower lobe, right middle lobe and lingular airspace disease with minimal emphysematous changes. BNP normal. Patient did note that he had an echocardiogram done at the [facility] about a month ago that he was told was unremarkable. In the ED he was given a breathing treatment, IV Solu-Medrol and IV antibiotics and hospitalist was contacted for admission. I saw the patient at bedside in the ED, was present. Patient was mildly fatigued appearing but otherwise sitting back comfortably in bed, conversing normally, in no acute distress. He was breathing comfortably on 2 L nasal cannula at rest. Did note that he feels moderately improved now compared to this morning after the breathing treatment here. Denies any current fevers or chills but continues to feel fatigued and have malaise. No chest pain noted. No other acute concerns currently. Will be admitted for further management. FOR[facility]LY [facility], [facility] Medical History (Updated 08/20/24 @ 00:[address] Isiah Black, ) Depression Kidney stones GERD (gastroesophageal reflux disease) Sleep apnea Asthma Hypertension Hyperlipidemia Chronic back pain Coronary artery disease Chronic sinusitis Allergic rhinitis Former smoker DALIA (obstructive sleep apnea) COPD (chronic obstructive pulmonary disease) Home Medications ?Medication ?Instructions ?Recorded ?Last Taken ?Type albuterol sulfate 2.5 mg/3 mL 2.5 mg inhalation Q4H PRN 08/31/21 08/19/24 History (0.083 %) solution for nebulization Shortness Of Breath Or Wheezing atorvastatin 40 mg tablet 40 mg PO QHS 08/31/21 08/18/24 History benzonatate 100 mg capsule 100 mg PO TID PRN Cough 08/31/21 Unknown History buspirone 5 mg tablet 5 mg PO BID 08/31/21 08/19/24 History cetirizine 10 mg tablet 10 mg PO DAILY 08/31/21 08/19/24 History cholecalciferol (vitamin D3) 125 125 mcg PO DAILY 08/31/21 08/19/24 History mcg (5,000 unit) tablet fluticasone propionate 50 2 spray intranasal BID 08/31/21 08/19/24 History mcg/actuation nasal spray,suspension losartan 50 mg tablet 50 mg PO DAILY 08/31/21 08/19/24 History vitamin B complex 1 cap PO DAILY 08/31/21 08/19/24 History TURMUERIC CURCUMIN PO DAILY 08/19/24 08/19/24 History albuterol sulfate 90 mcg/actuation 2 inh inhalation Q6H PRN shortness 08/19/24 08/19/24 History breath activated powder inhaler of breath or wheezing aspirin 81 mg tablet,delayed 81 mg PO DAILY 08/19/24 08/19/24 History release (Adult Aspirin Regimen) budesonide 160 mcg-glycopyr 9 2 inh inhalation BID 08/19/24 08/19/24 History mcg-formot 4.8 mcg/actuation HFA inhaler (Breztri Aerosphere) carvedilol 6.25 mg tablet 6.25 mg PO BID blood pressure 08/19/24 Unknown History montelukast 10 mg tablet 10 mg PO QHS breathing 08/19/24 Unknown History (Fara) Allergy/AdvReac Type Severity Reaction Status Date / Time meloxicam AdvReac Nausea Verified 08/19/24 13:29 Surgical History (Updated 08/19/24 @ 17:52 by Olesya Braswell) History of appendectomy Social History Smoking Status: Former smoker ROS Constitutional Constitutional: Reports chills, fatigue, fever(s) and malaise; Denies weakness Eyes Eyes: Denies change in vision Cardiovascular Cardiovascular: Denies chest pain, dyspnea on exertion, edema or lightheadedness Respiratory/Chest Respiratory/Chest: Reports shortness of breath at rest; Denies cough, productive cough or wheezing Gastrointestinal Gastrointestinal: Denies abdominal pain Musculoskeletal Musculoskeletal: Denies arthralgias or myalgias Vital Signs Vital Signs Vital Signs: 08/19/24 13:29 08/19/24 13:34 08/19/24 13:40 Temperature 99.9 F H 99.9 F H Temperature Source Oral Oral Pulse Rate 111 H 111 H Respiratory Rate 22 H 22 H Respiratory Effort Respiratory Depth Respiratory Pattern Blood Pressure 190/61 H 190/61 H Blood Pressure Mean 104 104 Pulse Ox 88 88 83 Oxygen Delivery Method Room Air Room Air Room Air Oxygen Flow Rate (L/min) 08/19/24 13:41 08/19/24 13:43 08/19/24 14:00 Temperature Temperature Source Pulse Rate Respiratory Rate Respiratory Effort Short of Breath Short of Breath Labored Accessory Muscle Use Respiratory Depth Shallow Respiratory Pattern Tachypnea Tachypnea Blood Pressure Blood Pressure Mean Pulse Ox 93 Oxygen Delivery Method Nasal Cannula Nasal Cannula Oxygen Flow Rate (L/min) 2 2 08/19/24 14:12 08/19/24 14:34 08/19/24 16:00 Temperature 99.6 F H 99 F Temperature Source Oral Oral Pulse Rate 113 H 109 H 101 H Respiratory Rate 16 18 18 Respiratory Effort Respiratory Depth Respiratory Pattern Blood Pressure 150/93 H 150/63 H Blood Pressure Mean 112 92 Pulse Ox 92 94 Oxygen Delivery Method Nasal Cannula Nasal Cannula Oxygen Flow Rate (L/min) 2 2 Weight Weight: 125.8 kg Body Mass Index (BMI) 44.1 Physical Exam Const alert, oriented x3 and no apparent distress Constitutional Narrative: Pleasant elderly male, class III obesity, mildly fatigued appearing but otherwise sitting back comfortably in bed, conversing normally, in no acute distress. General Appearance: cooperative and comfortable HEENT normocephalic, head/scalp atraumatic, hearing grossly normal bilaterally, nasal mucous membranes and turbinates normal and moist oral mucous membranes Eyes PERRL, EOMs intact bilaterally and conjunctivae normal Neck full ROM Chest inspection of chest normal Resp normal respiratory effort and no use of accessory muscles Resp Narrative: Breathing comfortably on 2 L nasal cannula at rest. Diminished breath sounds in bilateral lung bases with crackles noted in the lower mid lung zones bilaterally. No wheezing noted. Cardio no murmurs and peripheral pulses 2+ throughout Cardio Narrative: Tachycardic, regular rhythm. GI normal to inspection, nondistended, normoactive bowel sounds, soft to palpation, non-tender and non-distended Back/Spine normal ROM Extremity normal to inspection, full ROM and no pedal edema Skin no rashes or lesions noted Psych mental status grossly normal Results Lab / Micro Data 08/19/24 14:35 08/19/24 14:30 Labs: Laboratory Results - last 24 hr 08/19/24 14:10: Urine Color Yellow, Urine Clarity Clear, Urine pH 7.0, Ur Specific [place] 1.005, Urine Protein 15 H, Urine Glucose (UA) Normal, Urine Ketones Negative, Urine Occult Blood Negative, Urine Nitrite Negative, Urine Bilirubin Negative, Urine Urobilinogen Normal, Ur Leukocyte Esterase Negative, Urine RBC 0-5 SEEN, Urine WBC 0-5 SEEN, Ur Squamous Epith Cells 0-5 SEEN, Urine Bacteria RARE, Urine Mucus 2+ 08/19/24 14:30: Sodium 134, Potassium 4.6, Chloride 100, Carbon Dioxide 21.4, Anion Gap 12, BUN 11, Creatinine 0.81, Estim Creat Clear Calc 103.31, Est GFR (MDRD) Non-Af 94, BUN/Creatinine Ratio 13.7, Glucose 95, Calcium 8.9, Total Bilirubin 1.17, AST 39 H, ALT 33, Alkaline Phosphatase 101, Troponin T High Sens 10, NT pro BNP II 64, Total Protein 6.6, Albumin 3.8, Globulin 2.9, Albumin/Globulin Ratio 1.3 08/19/24 14:35: WBC 12.2 H, RBC 4.69, Hgb 15.7, Hct 46.3, MCV 98.7 H, MCH 33.5 H, MCHC 33.9, RDW Std Deviation 50.5 H, RDW Coeff of Madhavi 13.9, Plt Count 171, MPV 10.1, Immature Gran % (Auto) 0.200, Neut % (Auto) 83.9 H, Lymph % (Auto) 8.3 L, Nance % (Auto) 7.1, Eos % (Auto) 0.3, Baso % (Auto) 0.2, Absolute Neuts (auto) 10.3 H, Absolute Lymphs (auto) 1.01, Nucleated RBC % 0, PT Cancelled, INR Cancelled, APTT Cancelled, Lactic Acid Cancelled 08/19/24 15:15: PT 14.4, INR 1.1, APTT 25.2 Micro: Microbiology 08/19/24 14:10 Mucosa - Nose SARS-CoV-2, Influenza & RSV (PCR) - Final Imaging Radiology Impression Chest X-Ray 08/19/24 14:00 IMPRESSION: Right lower lobe opacity may reflect pneumonia, aspiration, and/or atelectasis. Likely underlying bibasilar subsegmental atelectasis. Mild pulmonary vascular congestion and interstitial edema. Mild cardiomegaly. No pneumothorax. Reading Location: [facility] Assessment & Plan Assessment/Plan (1) Hypoxia: (2) COPD exacerbation: (3) Pneumonia: PLAN: Plan Patient is a 73-year-old male who presented to [facility] ED on 08/19/2024 with worsening shortness of breath and fever/chills. 1. Acute hypoxia secondary to COPD exacerbation with community-acquired pneumonia with bronchitis, history of chronic bronchitis ? Admit under inpatient status to PCU. Pulmonology consulted. History of COPD, follows with pulmonology at the [facility]. Not on home oxygen. Has history of chronic bronchitis and reports similar presentations in the past, though not with this degree of hypoxia in the past. CT chest without contrast showed extensive bilateral lower lobe, right middle lobe and lingular airspace disease with minimal emphysematous changes. Procalcitonin elevated. Infectious workup negative to this point. Will treat with IV steroids, IV antibiotics and scheduled DuoNebs for now. Wean supplemental oxygen as able. Continue home long-acting inhaler and Singulair. Appreciate pulmonology recommendations. 2. History of nonobstructive CAD, hypertension, hyperlipidemia ? Had echo done recently at [facility] with reportedly no concerning findings. Hypertensive to the 150s to 160s systolic and with sinus tachycardia to the low 100s on admit. Continue home aspirin, statin, Coreg and losartan. 3. Anxiety ? Continue home BuSpar. 4. Class III obesity ? BMI 44 on admit. Complicates hospital course, care and prognosis. DVT prophylaxis: Lovenox twice daily CODE STATUS: Full code, verified Expected disposition: Home, TBD Total clinical time spent by myself addressing the patient's medical issues, reviewing all the data, and collaborating with patient's care team: 75 minutes. Charges/Coding Visit Charges Inpatient E&M: 20891 Init Hosp L3
[2024-08-19 17:13] LABS: Troponin T High Sens 2 HR 14 ng/L (<=22)
--- NOTE | 2024-08-19 17:16 | CT_ITS ---
PROCEDURE: CHEST WITHOUT CONTRAST 08/19/2024 REASON FOR EXAM: SOB, PNEUMONIA TECHNIQUE: Chest CT without contrast. Coronal and Sagittal reconstruction series were provided. One or more dose reduction techniques were used (e.g., Automated exposure control, adjustment of the mA and/or kV according to patient size, use of iterative reconstruction technique RADIATION DOSE SUMMARY: CTDlvol: 19.39 mGy DLP: 712.14 mGycm COMPARISON: Current radiograph of the chest. FINDINGS: CT SCAN OF THE CHEST WITHOUT IV CONTRAST CLINICAL INDICATION: Pneumonia TECHNIQUE: Axial and reformatted sagittal and coronal images of the chest obtained without IV contrast administration. FINDINGS: Normal unenhanced main pulmonary artery and right and left pulmonary arteries. Normal bilateral peripheral pulmonary arteries. Normal thoracic aorta and visualized great vessels. Aortic arch is calcified. There is no demonstrated aortic aneurysm. Normal heart and pericardium. The coronary arteries are calcified. The aortic valve is calcified. Normal mediastinum. Normal hilar regions. Normal visualized trachea and bronchi. Extensive patches of alveolar and interstitial airspace disease is seen involving the lower lobes and to a lesser extent, right middle lobe and lingula. Minimal emphysematous changes are seen. Normal pleura. Normal chest wall structures. Normal osseous structures. Stim leads are seen with their tips at the level of T7. Normal visualized upper abdomen. CT/Chest without Contrast IMPRESSION: Extensive bilateral lower lobe, right middle lobe and lingular airspace disease . Minimal emphysematous changes. Atherosclerotic vascular disease. Reading Location[facility] [id number]
[2024-08-19 19:09] LABS: Procalcitonin 0.88 ng/mL (<=0.10)
[2024-08-19 20:52] LABS: Lactic Acid 1.7 mmol/L (0.0-2.0)
[2024-08-19 21:32] LABS: Troponin T High Sens 4 HR 11 ng/L (<=22)
[2024-08-19] MEDS: Fluticasone 0.05% 1 SPRAY NASAL.SRY 2 SPRAY NASAL (21:45)
[2024-08-19] MEDS: Acetaminophen 325 MG Tablet 650 MG PO (21:46)
[2024-08-19] MEDS: Atorvastatin Calcium 40 MG Tablet PO (21:46)
[2024-08-19] MEDS: busPIRone 5 MG Tablet PO (21:46)
[2024-08-19] MEDS: MethylPREDNISolone 125 MG/2 ML Vial 60 MG IV (21:47)
[2024-08-20] VITALS (9 sets, daily range): BP systolic 138–156; BP diastolic 60–81; PULSE 78–97; RESP 18–20; TEMP 36.2–36.6; O2SAT 90–96
--- OUTSIDE RECORDS SUMMARY | 2024-08-20 00:19 | XMS RPT_ITS | CCD ---
Author Organization [facility] Care Team Providers Care Loss Control Consultant Name Role Phone Conor Murdock MD [facility] Un[facility]ending [facility] Un[facility] Un[facility] Attending Unavailable Conor Murdock MD Primary Care Provider [phone] [facility] Unavailable Conor Murdock MD Primary Care Provider Unavailable Primary Care Provider UnavailZARI Cherry Referring Unavailabl e PROVIDER, UNKNOWN Attending Unavailable PROVIDER, UNKNOWN Admitting Unavailable [place] INTRAMURAL DIRECTOR.Sarah HARRIS Unavailable [place] INTRAMURAL DIRECTOR.STEVEN Jany A Unavailable [phone] [place] INTRAMURAL DIRECTOR.STEVEN Jany A Unavailable [phone] [place] INTRAMURAL DIRECTOR.STEVEN Jany A Unavailable [phone] Lay MCKEON, Prasanth Unavailable [phone] Lay MCKEON, Prasanth Unavailable [phone] Lay MCKEON, Prasanth Unavailable [phone] CONOR MURDOCK Referring Unavailable CONOR MURDOCK Primary Care Unavailable SELF Referring Unavailable CONOR MURDOCK Attending Unavailable CONOR MURDOCK Primary Care Unavailable BETO SHEFFIELD Referring Unavailable CONOR MURDOCK Primary Care Unavailable COONR MURDOCK Primary Care Unavailable SEVEN GRIDER Attending Unavailable CONOR MURDOCK Primary Care Unavailable CONOR MURDOCK Primary Care Unavailable CONOR MURDOCK [facility]ending [facility] Provider UnavailDr. Froy Sims DO Emergency Provider [phone] Dr. Isiah Black DO Admit Provider Dr. Isiah Black DO Attending Provider Allergies Allergy Classification Reported Allergen(s) Allergy Type Date of Onset Reaction(s) Facility NSAIDs (1 source) meloxicam Drug Allergy 02-02-2021 [facility] (20 sources) meloxicam; Translations: [MELOXICAM] Drug Allergy 02-02-2021 [facility] (1 source) meloxicam Drug Allergy 08-31-2021 [facility] Repository Medications Current Medications Medication Drug Class(es) Dates Sig (Normalized) Sig (Original) 200 actuat albuterol 0.09 mg/actuat dry powder inhaler (20 sources) beta2-Adrenergic Agonist Start: 08-19-2024 Albuterol Sulfate 90 mcg/actuation aerosol powdr breath activated Active 2 NMA INHALATION EVERY 6 HOURS as needed for shortness of breath or wheezing August 19, 2024 12:00am Start: 08-31-2021 albuterol (PRO VENTIL) 2.5 mg /3 mL (0.083 %) nebulizer solution Inhale 1 mcg as instructed. 08/31/2021 Active Start: 08-31-2021 take 2.5 mg by inhal ation every four hours as needed for wheezing Albuterol Sulfate 2.5 mg /3 mL (0.083 %) Solution For Nebulization Active 2.5 mg INHALATION Q4H as needed for Shortness Of Breath Or Wheezing August 31, 2021 12:00am Start: 08-31-2021 Albuterol Acti ve MCG INHALATION August 31, 2021 12:00am Comment on above: Inhale 1 mcg as inst ructed. amoxicillin 875 mg / clavulanate 125 mg oral tablet (8 sources) Penicillin-class Antibacterial Start: 5 End: 5 take 1 tablet by mouth twice daily amoxicillin-clavul anate potassium (AUGMENTIN) 875-125 mg per tablet Indications: Bacterial pneumonia Take 1 tablet by mouth two times a day for 5 days. 10 tablet 03/20/2024 03/25/2024 Active Start: 07-26-2023 End: 08-05-2023 take 1 tablet by mouth twice daily amoxicillin-clavulanate potassium (AUGMENTIN) 875-125 mg per tablet Indications: Acute frontal sinusitis, recurrence not specified , Acute bronchitis with chronic obstructive pulmonary disease (COPD) ([facility]) ([facility]) Take 1 tablet by mouth two times a day for 10 days. 20 tablet 0 07/26/2023 08/05/2023 Active Start: 07-16-2022 take 1 tablet by tamela th every twelve hours amoxicillin-clavulanic acid (AUGMENTIN) 875-125 mg per tablet Take 1 tablet by mouth every 12 hours 6am/6pm. 0 07/16/2022 Active Comment on above: Take 1 tablet by tamela th every 12 hours 6am/6pm. aspirin 81 mg delayed release oral tablet (5 sources) Platelet Aggregation Inhibitor, Nonsteroidal Anti-inflammatory Drug Start: 08-19-2024 take 1 tablet by mouth once daily Aspirin (Adult Aspirin Regimen) 81 mg tablet,delayed release (DR/EC) Active 81 mg PO DAILY August 19, 2024 12:00am take 1 tablet by mouth once demi y aspirin, enteric coated (ASPIRIN, ENTERIC COATED) 81 mg EC tablet Take 81 mg by mouth once daily. 0 Active Comment on above: Take 81 mg by mouth once daily. atorvastatin 40 mg oral tablet (20 sources) HMG-CoA Reductase Inhibitor Start: 3 End: take 0.5 tablet by mouth once daily atorvastatin (LIPITOR) 80 mg tablet Take 0.5 tablets by mouth once daily. 45 tablet 3 03/22/2023 11/26/2023 Discontinued (Other) Start: 08-31-2021 End: 02-10-2025 take 1 tablet by mouth once daily at bedtime atorvastatin (LIPITOR) 40 mg tablet Indications: Dyslipidemia Take 1 tablet by mouth daily at bedtime. 90 tablet 3 02/11/2024 02/10/2025 Active atorvastatin (LI PITOR) 80 mg tablet Take 40 mg by mouth once daily. 0 Active Comment on above: Take 40 mg by mouth once daily. Take 0.5 tablets by mouth once daily. azithromycin 250 mg oral tablet (1 source) Macrolide Antimicrobial Start: 03-20-19 End: 03-25-19 take 2 tablets by mouth once daily, then take 1 tablet by mouth once daily azithromycin (ZITHROMAX) 250 mg tablet Indications: Bacterial pneumonia Take 2 tablets by mouth once daily for 1 day, THEN 1 tablet once daily for 4 days. 6 tablet 03/20/2024 03/25/2024 Active benzonatate 100 mg oral capsule (14 sources) Non-narcotic Antitussive Start: 09-01-19 take 1 capsule by mouth three times daily as needed for cough Benzonatate 100 mg Capsule Active 100 mg PO THREE TIMES A DAY as needed for Cough August 31, 2021 12:00am Comment on above: Take by mouth. Dsothxwljg-Fmtclzrm-Y ormoterol (20 sources) Corticosteroid, beta2-Adrenergic Agonist Start: 08-20-19 Budesonide-Glycopyr- Formoterol (Breztri Aerosphere) 160-9-4.8 mcg/actuation HFA aerosol inhaler Active 2 NMA INHALATION TWICE A DAY August 19, 2024 12:00am Start: 07-31-2023 End: 07-30-2024 take 2 puff(s) by inhalation twice daily ditzzacosp-wzakvoxe-oylgzraevu (BREZTRI) 160-9-4.8 mcg/actuation HFA aerosol inhaler Inhale 2 Puffs as instructed two times a day. 3 Each 3 07/31/2023 07/30/2024 Active Start: 04-11-2023 End: 07-27-2023 take 2 puff(s) by inhalation twice daily xasatntsah-bohldsew-xgstmbcpco (BREZTRI) 160-9-4.8 mcg/actuation HFA aerosol inhaler Inhale 2 Puffs as instructed two times a day. 0 04/11/2023 07/27/2023 Discontinued busPIRone hydrochloride 5 mg oral tablet (20 sources) Start: 12-03-2023 End: 12-02-2024 take 1 tablet by mouth three times daily busPIRone (BUSPAR) 5 mg tablet Take 1 tablet by mouth three times a day. 90 tablet 11 12/03/2023 12/02/2024 Active Start: 11-13-2022 End: 11-13-2023 take 1 tablet by mouth three times daily busPIRone (BUSPAR) 5 mg tablet Take 1 tablet by mouth three times daily. 90 tablet 11 11/13/2022 11/13/2023 Active Start: 08-31-2021 take 1 tablet by tamela th twice daily Buspirone 5 mg Tablet Active 5 mg PO TWICE A DAY August 31, 2021 12:00am Comment on above: Take 5 mg by mouth t hree times daily. Take 1 tablet by tamela th three times daily. carvedilol 6.25 mg oral tablet (20 sources) alpha-Adrenergic Leesa, beta-Adrenergic Leesa Start: 03-22-2023 End: 06-20-2023 take 1 tablet by mouth twice daily at mealtime carvedilol (COREG) 6.25 mg tablet Take 1 tablet by mouth two times a day with meals. 60 tablet 05/21/2023 Active Start: 08-16-2022 End: 09-15-2022 take 1 tablet by mouth twice daily at mealtime carvedilol (COREG) 6.25 mg tablet Take 1 tablet by mouth twice daily with meals. 60 tablet 0 08/16/2022 Active Comment on above: Take 1 tablet by tamela th twice daily with meals. Take 1 tablet by tamela th two times a day with meals. cetirizine hydrochloride 10 mg oral tablet (20 sources) Histamine-1 Receptor Antagonist Start: 09-01-19 End: 12-29-19 take 1 tablet by mouth once daily cetirizine (ZYRTEC) 10 mg tablet Take 1 tablet by mouth once daily. 90 tablet 1 07/01/2024 12/28/2024 Active Comment on above: Take by mouth. cholecalciferol 0.125 mg oral tablet (20 sources) Vitamin D Start: 09-01-19 cholecalciferol (VITAMIN D3) 5,000 unit tab Take by mouth. 08/31/2021 Active Start: 08-31-2021 take 1 tablet by tamela th once daily Cholecalciferol (Vitamin D3) 125 mcg (5,000 unit) Tablet Active 125 ug PO DAILY August 31, 2021 12:00am Comment on above: Take by mouth. cider vinegar 300 mg oral tablet (20 sources) Start: 08-31-2021 End: 08-19-2024 Apple Cider Vinegar 300 mg tab Take by mouth. 08/31/2021 Active Start: 08-31-2021 Apple Cider Vi kait Active MG PO August 31, 2021 12:00am Comment on above: Take by mouth. cyclobenzaprine hydrochloride 10 mg oral tablet (1 source) Muscle Relaxant Start: 10-02-19 End: 10-09-19 take 1 tablet by mouth twice daily as needed for muscle spasms cyclobenzaprine (FLEXERIL) 10 mg tablet Indications: Acute midline low back pain with left-sided sciatica Take 1 tablet by mouth twice daily as needed for muscle spasm for up to 7 days. 14 tablet 0 10/01/2022 10/08/2022 Active Comment on above: Take 1 tablet by tamela twice daily as needed for muscle spasm for up to 7 days. doxycycline hyclate 100 mg oral tablet (3 sources) Tetracycline-cla ss Drug Start: 01-28-20 End: 02-07-20 take 1 tablet by mouth twice daily doxycycline (VIBRA-TABS) 100 mg tablet Indications: Acute bronchitis with chronic obstructive pulmonary disease (COPD) ([facility]) ([facility]) Take 1 tablet by mouth two times a day for 10 days. 20 tablet 01/28/2024 02/07/2024 Active Start: 08-07-2023 End: 08-17-2023 take 1 tablet by mouth twice daily doxycycline (VIBRA-TABS) 100 mg tablet Indications: Acute bronchitis with chronic obstructive pulmonary disease (COPD) (HCC) ([facility]) Take 1 tablet by mouth two times a day for 10 days. 20 tablet 0 08/07/2023 08/17/2023 Active fluticasone propionate 0.05 mg/actuat metered dose nasal spray (20 sources) Corticosteroid Start: 08-31-2021 fluticasone (F LONASE) 50 mcg/actuation nasal spray Use in the nose. 08/31/2021 Active Start: 08-31-2021 Fluticasone Pr opionate 50 mcg/actuation [place],Suspension Active 2 NMA INTRANASAL TWICE A DAY August 31, 2021 12:00am administer into each nostril Start: 08-31-2021 take 1 spray(s) nasa l route once daily Fluticasone Propionate Active 1 SPRAY INTRANASAL DAILY August 31, 2021 12:00am administer into each nostril Comment on above: Use in the nose. guaiFENesin 200 mg oral tablet (20 sources) take 2 tablets by mouth every four hours as needed guaiFENesin (HUMIBID E) 200 mg tablet Take 400 mg by mouth every 4 hours as needed. Active Comment on above: Take 400 mg by mouth every 4 hours as needed. methylPREDNISolone (2 sources) Corticosteroid Start: 2023 End: 2023 methylPREDNISolone (MEDROL, DEIRDRE,) 4 mg Dose-Pack Indications: Acute bronchitis with chronic obstructive pulmonary disease (COPD) (HCC) (HCC) Follow dosing instructions, take with food. 21 tablet 0 08/07/2023 08/13/2023 Active Start: 10-13-2022 End: 10-19-2022 methylPREDNISolone (MEDROL, DEIRDRE,) 4 mg Dose-Pack Follow dosing instructions, take with food. 21 tablet 0 10/13/2022 10/19/2022 Active Comment on above: Follow dosing instru ctions, take with food. Mometasone-Formoter ol (2 sources) Start: 09-01-19 22 take 1 puff(s) by inhalation every twelve hours Mometasone-Formoter ol Active 2 PUFF INHALATION Q12H August 31, 2021 12:00am montelukast 10 mg oral tablet (20 sources) Leukotriene Receptor Antagonist Start: 08-05-19 End: 11-14-19 23 take 1 tablet by mouth once daily at bedtime montelukast (SINGULAIR) 10 mg tablet Take 1 tablet by mouth daily at bedtime. 90 tablet 1 11/13/2022 Active Comment on above: Take 10 mg by mouth daily at bedtime. Take 1 tablet by tamela th daily at bedtime. omeprazole 40 mg delayed release oral capsule (20 sources) Proton Pump Inhibitor Start: 11-18-19 24 take 1 capsule by mouth once omeprazole (PRILOSEC) 40 mg capsule Take 1 capsule by mouth every afternoon. 11/18/2023 Active predniSONE 50 mg oral tablet (4 sources) Start: 03-20-19 End: 03-25-19 25 take 1 tablet by mouth once daily predniSONE (DELTASONE) 50 mg Indications: Bacterial pneumonia Take 1 tablet by mouth once daily for 5 days. 5 tablet 03/20/2024 03/25/2024 Active Start: 01-28-2024 End: 02-06-2024 predniSONE (DELTASONE) 10 mg tablet Indications: Acute bronchitis with chronic obstructive pulmonary disease (COPD) (HCC) (HCC) Take 4 tabs daily for 3 days, then 2 tabs daily for 3 days, then 1 tab daily for 3 days with food. 21 tablet 01/28/2024 02/06/2024 Active Start: 10-13-2022 End: 10-13-2022 take 2 tablets by mouth once daily at mealtime predniSONE (DELTASONE) 20 mg tablet Take 2 tablets by mouth once daily for 4 days. Take daily with food. 8 tablet 0 10/13/2022 10/13/2022 Discontinued (Side Effects) Start: 10-01-2022 End: 10-10-2022 predniSONE (DELTASONE) 10 mg tablet Indications: Acute midline low back pain with left-sided sciatica Take 4 tabs daily for 3 days, then 2 tabs daily for 3 days, then 1 tab daily for 3 days with food. 21 tablet 0 10/01/2022 10/10/2022 Active Comment on above: Take 4 tabs daily fo r 3 days, then 2 tabs daily for 3 days, then 1 tab daily for 3 days with food. Take 2 tablets by mo ut once daily for 4 days. Take daily with food. roflumilast 0.5 mg oral tablet (20 sources) Phosphodiesterase 4 Inhibitor Start: 09-10-2023 roflumilast (DALIRESP) 500 mcg tab Take 500 mcg by mouth. 09/10/2023 Active Mpdwpac-Nvyj-Zshbc-Ore g-Capryl (2 sources) Start: 08-31-2021 Uwkwpme-Vcdh-Fllut-Ore g-Capryl Active CAP PO August 31, 2021 12:00am TURMUERIC CURCUMIN (1 source) Start: 08-19-2024 TURMUERIC CURCUMIN Active PO DAILY August 19, 2024 12:00am Vitamin B Complex (2 sources) Start: 08-31-2021 Vitamin B Complex Active CAP August 31, 2021 12:00am Vitamin B Complex Capsule (1 source) Start: 08-31-2021 Vitamin B Complex Capsule Active 1 NMA PO DAILY August 31, 2021 12:00am VITAMIN B COMPLEX ORAL (20 sources) Start: 08-31-2021 VITAMIN B COMPLEX ORAL Vitamin B Complex Active CAP August 31, 2021 12:00am 08/31/2021 Active Start: 08-31-2021 VITAMIN B COMP TAHIR ORAL Vitamin B Complex Active CAP August 31, 2021 12:00am 0 08/31/2021 Active Comment on above: Vitamin B Complex Ac tive CAP August 31, 2021 12:00am Completed/Discontinued Medications Medication Drug Class(es) Dates Sig (Normalized) Sig (Original) Albuterol 90 mcg/actuation Aerosol (1 source) Start: 08-31-2021 End: 08-19-2024 Albuterol 90 mcg/actuation Aerosol Discontinued 90 ug INHALATION August 31, 2021 12:00am August 19, 2024 3:34pm Budesonide / formoterol (3 sources) Corticosteroid, beta2-Adrenergic Agonist End: 03-13-2022 take 2 puff(s) by inhalation twice daily budesonide-formoter ol (SYMBICORT) 80-4.5 mcg/actuation inhaler Inhale 2 Puffs as instructed twice daily. 0 03/13/2022 Discontinued (Other) take 2 puff(s) by in halation twice daily budesonide-formoterol (SYMBICORT) 80-4.5 mcg/actuation inhaler Inhale 2 Puffs as instructed twice daily. 0 Active Comment on above: Inhale 2 Puffs as in structed twice daily. 60 actuat formoterol fumarate 0.005 mg/actuat / mometasone furoate 0.2 mg/actuat metered dose inhaler (13 sources) Corticosteroid, beta2-Adrenergic Agonist Start: 3 End: take 2 puff(s) by inhalation twice daily mometasone-formotero l (DULERA) 200-5 mcg/actuation inhaler Indications: COPD with chronic bronchitis (HCC) Inhale 2 Puffs as instructed twice daily. 18 g 11 08/28/2022 05/24/2023 Discontinued Start: 01-31-2022 End: 08-28-2022 take 2 puff(s) by inhalation twice daily mometasone-formoterol (DULERA) 200-5 mcg/actuation inhaler Inhale 2 Puffs as instructed twice daily. 0 01/31/2022 08/28/2022 Discontinued Comment on above: Inhale 2 Puffs as in structed twice daily. iv contrast (will be provided with radiology test) (2 sources) Start: 05-24-2023 End: 05-25-2023 iv contrast (will be provided with radiology test) Indications: Abnormal results of liver function studies , Bile duct abnormality MRI PANC/ZAIN Inject, intravenously, once for 1 dose. No IV access, insert saline lock prior to the beginning of sedation, infusion, injection of imaging exam. Discontinue saline lock post exam. If Pt. has a central line or IVAD, may access for administration according to line specific nursing protocol. Once exam is complete flush line and de-access according to line specific nursing protocol in the MR contrast administration guidelines link. 1 Each 0 05/24/2023 05/25/2023 Start: 04-16-2023 End: 04-17-2023 iv contrast (will be provide d with radiology test) Indications: Abnormal results of liver function studies MRI PANC/ZAIN Inject, intravenously, once for 1 dose. No IV access, insert saline lock prior to the beginning of sedation, infusion, injection of imaging exam. Discontinue saline lock post exam. If Pt. has a central line or IVAD, may access for administration according to line specific nursing protocol. Once exam is complete flush line and de-access according to line specific nursing protocol in the MR contrast administration guidelines link. 1 Each 0 04/16/2023 04/17/2023 Comment on above: MRI PANC/ZAIN Inject, intravenously, once for 1 dose. No IV access, insert saline lock prior to the beginning of sedation, infusion, injection of imaging exam. Discontinue saline lock post exam. If Pt. has a central line or IVAD, may access for administration according to line specific nursing protocol. Once exam is complete flush line and de-access according to line specific nursing protocol in the MR contrast administration guidelines link. losartan potassium 50 mg oral tablet (20 sources) Angiotensin 2 Receptor Leesa Start: 08-03-2022 take 0.5 tablet by mouth once daily losartan (COZAAR) 100 mg tablet Take 0.5 tablets by mouth once daily. 90 tablet 08/03/2022 Active Start: 08-31-2021 End: 11-26-2023 take 1 tablet by mouth once daily losartan (COZAAR) 50 mg tablet Take 50 mg by mouth once daily. 05/23/2023 11/26/2023 Discontinued (Other) Start: 12-16-2020 End: 08-03-2022 losartan (COZAAR) 100 mg tab let Take 50 mg by mouth once daily. 0 12/16/2020 08/03/2022 Discontinued Start: 12-16-2020 take 1 tablet by tamela th once daily losartan (COZAAR) 100 mg tablet Take 1 tablet by mouth once daily. 0 12/16/2020 Active Comment on above: Take 1 tablet by tamela th once daily. Take 50 mg by mouth once daily. Take 0.5 tablets by mouth once daily. metoprolol tartrate 25 mg oral tablet (6 sources) beta-Adrenergic Leesa Start: 06-21-2021 End: 08-16-2022 take 0.5 tablet by mouth twice daily metoprolol tartrate, short acting, (LOPRESSOR) 25 mg tablet Take 0.5 tablets by mouth twice daily. 30 tablet 2 06/21/2021 08/16/2022 Discontinued Comment on above: Take 0.5 tablets by mouth twice daily. Mometasone-Formotero l 200-5 mcg/actuation Hfa Aerosol Inhaler (1 source) Start: 08-31-2021 End: 08-19-2024 Mometasone-Formoterol 200-5 mcg/actuation Hfa Aerosol Inhaler Discontinued 2 NMA INHALATION Q12H August 31, 2021 12:00am August 19, 2024 3:25pm MOMETASONE-FORMOTERO L INHALATION (8 sources) Start: 08-31-2021 End: 08-28-2022 MOMETASONE-FORMOTEROL INHALATION Inhale as instructed. 0 08/31/2021 08/28/2022 Discontinued Start: 08-31-2021 MOMETASONE-FOR MOTEROL INHALATION Inhale as instructed. 0 08/31/2021 Active Comment on above: Inhale as instructed . 10 actuat tiotropium 0.0025 mg/actuat inhalation spray (20 sources) Anticholinergic Start: 08-29-19 End: 05-24-19 take 2 puff(s) by inhalation once daily tiotropium bromide (SPIRIVA RESPIMAT) 2.5 mcg/actuation inhaler Inhale 2 Puffs as instructed once daily. 1 g 0 08/28/2022 05/24/2023 Discontinued Start: 08-31-2021 End: 08-19-2024 Tiotropium [place] 2.5 mcg/actuation Mist Discontinued 2 NMA INHALATION DAILY August 31, 2021 12:00am August 19, 2024 3:26pm Start: 08-31-2021 take 1 puff(s) by in halation once daily Tiotropium [place] Active 2 PUFF INHALATION DAILY August 31, 2021 12:00am End: 08-28-2022 take 2 puff(s) by inhalation once daily tiotropium bromide (SPIRIVA RESPIMAT) 2.5 mcg/actuation inhaler Inhale 2 Puffs as instructed once daily. 0 08/28/2022 Discontinued Comment on above: Inhale 2 Puffs as in structed once daily. Turmeric extract (20 sources) Start: 08-19-2024 End: 08-19-2024 take 1 capsule by mouth once daily Turmeric 400 mg capsule Discontinued 400 mg PO DAILY August 19, 2024 12:00am August 19, 2024 3:35pm take 1500 mg by mouth once daily TURMERIC ORAL Take 1,500 mg by mouth once daily. Active take 1500 mg by mouth once daily TURMERIC ORAL Take 1,500 mg by mouth once daily. 0 Active Comment on above: Take 1,500 mg by tamela th once daily. Ruvfusxg-Vvyy-Bcdvq-Or eg-Capry 100 mg-150 mg- 50 mg-150 mg Capsule (1 source) Start: 08-31-2021 End: 08-19-2024 Kqrguhwm-Rggk-Jtihk-Oreg-C apry 100 mg-150 mg- 50 mg-150 mg Capsule Discontinued NMA PO August 31, 2021 12:00am August 19, 2024 3:26pm Problems Active Problems Problem Classification Problem Date Documented Da te Episodic/Chronic Alcohol-related disorders (20 sources) Alcohol dependence; Translations: [Alcohol dependence, uncomplicated] Onset: 01-13-2021 03-30-2023 Chronic Anxiety disorders (20 sources) Panic attack; Translations: [Panic disorder [episodic paroxysmal anxiety]] Onset: 01-13-2021 01-13-2021 Chronic Asthma (20 sources) Asthma; Translations: [Unspecified asthma, uncomplicated] Onset: 03-29-2023 Resolved: 06-02-2024 03-29-2023 Chronic Biliary tract disease (2 sources) Disorder of bile duct; Translations: [Disease of biliary tract, unspecified] 04-16-2023 Chronic Cataract (20 sources) Bilateral age-related nuclear cataracts; Translations: [Age-related nuclear cataract, bilateral] Onset: 03-30-2023 03-30-2023 Chronic Chronic obstructive pulmonary disease and bronchiectasis (20 sources) Emphysematous bronchitis; Translations: [Chronic obstructive pulmonary disease, unspecified] Onset: 01-13-2021 01-13-2021 Chronic Chronic obstructive pulmonary disease and bronchiectasis (1 source) Chronic obstructive pulmonary disease and bronchiectasis; Translations: [COPD with chronic bronchitis (HCC)] Onset: 01-13-2021 Coagulation and hemorrhagic disorders (20 sources) Platelet count below reference range; Translations: [Thrombocytopenia, unspecified] Onset: 03-30-2023 03-30-2023 Chronic Coronary atherosclerosis and other heart disease (20 sources) Coronary atherosclerosis; Translations: [Atherosclerotic heart disease of [place] coronary artery without angina pectoris] Onset: 09-07-2021 Chronic Disorders of lipid metabolism (20 sources) Mixed hyperlipidemia; Translations: [Mixed hyperlipidemia] Onset: 01-13-2021 01-13-2021 Chronic Essential hypertension (20 sources) Essential hypertension; Translations: [Essential (primary) hypertension] Onset: 01-13-2021 01-13-2021 Chronic Gout and other crystal arthropathies (20 sources) Chondrocalcinosis; Translations: [Other chondrocalcinosis, unspecified site] Onset: 03-29-2023 03-29-2023 Chronic Nutritional deficiencies (20 sources) Vitamin D deficiency; Translations: [Vitamin D deficiency, unspecified] Onset: 03-29-2023 03-29-2023 Chronic Occlusion or stenosis of precerebral arteries (20 sources) Bilateral stenosis of carotid arteries; Translations: [Occlusion and stenosis of bilateral carotid arteries] Onset: 03-30-2023 03-30-2023 Chronic Osteoarthritis (20 sources) Osteoarthritis of knee; Translations: [Osteoarthritis of knee, unspecified] Onset: 03-29-2023 03-29-2023 Chronic Other ear and sense organ disorders (20 sources) Acquired hearing loss; Translations: [Unspecified hearing loss, left ear] Onset: 01-13-2021 01-13-2021 Chronic Other hematologic conditions (1 source) Macrocytosis; Translations: [Other specified diseases of blood and blood-forming organs] Chronic Other liver diseases (2 sources) Elevated liver enzymes level; Translations: [Abnormal levels of other serum enzymes] 04-16-2023 Episodic Other lower respiratory disease (1 source) Dyspnea, unspecified; Translations: [Dyspnea, unspecified] Onset: 08-24-2023 Episodic Other lower respiratory disease (1 source) Cough; Translations: [Acute cough] 03-20-2024 Episodic Other male genital disorders (20 sources) Male erectile dysfunction, unspecified; Translations: [Impotence of organic origin] Onset: 03-29-2023 03-29-2023 Chronic Other nervous system disorders (20 sources) Mononeuritis; Translations: [Mononeuropathy, unspecified] Onset: 03-30-2023 03-30-2023 Chronic Other nervous system disorders (1 source) Other chronic pain; Translations: [Chronic pain of left knee] Onset: 06-02-2024 Chronic Other non-traumatic joint disorders (3 sources) Pain of left hip joint; Translations: [Pain in left hip] 06-02-2024 Episodic Other non-traumatic joint disorders (3 sources) Pain in left knee; Translations: [Pain in joint, lower leg] Onset: 06-02-2024 06-02-2024 Episodic Other non-traumatic joint disorders (1 source) Pain in left hip; Translations: [Pain in joint of left hip] Onset: 06-02-2024 Episodic Other nutritional; endocrine; and metabolic disorders (20 sources) Obese class II; Translations: [Obesity, unspecified] Onset: 01-13-2021 01-13-2021 Chronic Other screening for suspected conditions (not mental disorders or infectious disease) (3 sources) Plain X-ray result abnormal; Translations: [Abnormal findings on diagnostic imaging of other specified body structures] Onset: 06-02-2024 06-02-2024 Chronic Other screening for suspected conditions (not mental disorders or infectious disease) (3 sources) Liver function tests abnormal; Translations: [Abnormal results of liver function studies] 04-16-2023 Episodic Other upper respiratory disease (20 sources) Allergic rhinitis; Translations: [Allergic rhinitis, unspecified] Onset: 03-29-2023 03-29-2023 Chronic Pneumonia (except that caused by tuberculosis or sexually transmitted disease) (2 sources) Bacterial pneumonia; Translations: [Unspecified bacterial pneumonia] 03-20-2024 Episodic Residual codes; unclassified (20 sources) Postprocedural state finding; Translations: [Presence of other specified functional implants] Onset: 03-13-2022 Chronic Residual codes; unclassified (20 sources) Obstructive sleep apnea syndrome; Translations: [Obstructive sleep apnea (adult) (pediatric)] Onset: 09-27-2022 09-27-2022 Chronic Residual codes; unclassified (1 source) Obstructive sleep apnea (adult) (pediatric); Translations: [DALIA (obstructive sleep apnea)] Onset: 09-27-2022 Chronic Residual codes; unclassified (1 source) Presence of other specified functional implants; Translations: [Spinal cord stimulator status] Onset: 03-13-2022 Chronic Respiratory failure; insufficiency; arrest (adult) (1 source) Acute hypoxemic respiratory failure; Translations: [Acute respiratory failure with hypoxia] 08-19-2024 Episodic Spondylosis; intervertebral disc disorders; other back problems (20 sources) Post-laminectomy syndrome; Translations: [Postlaminectomy syndrome, not elsewhere classified] Onset: 03-29-2023 03-29-2023 Chronic Unclassified (1 source) Chronic pain of left knee 06-02-2024 Unclassified (1 source) Acute cough; Translations: [Acute cough] Onset: 03-20-2024 Past or Other Problems Problem Classification Problem Date Documented Da te Episodic/Chronic Administrative/social admission (20 sources) Reduced mobility; Translations: [Other reduced mobility] Onset: 03-29-2023 03-29-2023 Episodic Allergic reactions (20 sources) Allergic contact dermatitis; Translations: [Allergic contact dermatitis, unspecified cause] Onset: 03-29-2023 03-29-2023 Episodic Hemorrhoids (20 sources) Hemorrhoids without complication; Translations: [Unspecified hemorrhoids] Onset: 03-30-2023 03-30-2023 Episodic Joint disorders and dislocations; trauma-related (20 sources) Tear of medial meniscus of knee; Translations: [Tear of medial cartilage or meniscus of knee, current] Onset: 03-30-2023 03-30-2023 Episodic Other aftercare (20 sources) Long-term current use of benzodiazepine; Translations: [Other joint terminal attack controller (current) drug therapy] Onset: 01-13-2021 Resolved: 09-07-2021 01-13-2021 Episodic Other and unspecified benign neoplasm (20 sources) Polyp of colon; Translations: [Polyp of colon] Onset: 03-29-2023 03-29-2023 Episodic Other and unspecified benign neoplasm (20 sources) Benign neoplasm of skin of left upper limb; Translations: [Other benign neoplasm of skin of left upper limb, including shoulder] Onset: 03-29-2023 Resolved: 03-30-2023 03-30-2023 Episodic Other gastrointestinal disorders (20 sources) Functional disorder of intestine; Translations: [Functional intestinal disorder, unspecified] Onset: 03-30-2023 03-30-2023 Episodic Other lower respiratory disease (20 sources) Snoring; Translations: [Snoring] Onset: 01-13-2021 01-13-2021 Episodic Other lower respiratory disease (20 sources) Dyspnea; Translations: [Shortness of breath] Onset: 03-29-2023 Resolved: 03-30-2023 03-30-2023 Episodic Other nervous system disorders (20 sources) Abnormal gait; Translations: [Unspecified abnormalities of gait and mobility] Onset: 03-29-2023 03-29-2023 Episodic Other non-traumatic joint disorders (20 sources) Pain in right knee; Translations: [Pain in joint, lower leg] Onset: 03-29-2023 Resolved: 03-30-2023 03-30-2023 Episodic Other non-traumatic joint disorders (20 sources) Pain in lower limb; Translations: [Pain in unspecified knee] Onset: 03-30-2023 Resolved: 03-30-2023 03-30-2023 Episodic Other skin disorders (20 sources) Actinic keratosis; Translations: [Actinic keratosis] Onset: 03-29-2023 03-29-2023 Episodic Other skin disorders (20 sources) Epidermoid cyst of skin; Translations: [Epidermal cyst] Onset: 03-29-2023 03-29-2023 Episodic Other skin disorders (20 sources) Asteatosis cutis; Translations: [Xerosis cutis] Onset: 03-30-2023 03-30-2023 Episodic Other upper respiratory infections (20 sources) Acute frontal sinusitis; Translations: [Acute frontal sinusitis, unspecified] Onset: 03-29-2023 Resolved: 03-30-2023 07-26-2023 Episodic Residual codes; unclassified (20 sources) Absence of sensation; Translations: [Unspecified symptoms and signs involving general sensations and perceptions] Onset: 01-13-2021 Resolved: 03-30-2023 01-13-2021 Episodic Residual codes; unclassified (20 sources) Current drinker; Translations: [Other problems related to lifestyle] Onset: 01-13-2021 01-13-2021 Episodic Residual codes; unclassified (20 sources) Pain; Translations: [Pain, unspecified] Onset: 03-29-2023 Resolved: 03-30-2023 03-30-2023 Episodic Screening and history of mental health and substance abuse codes (20 sources) Tobacco use and exposure - finding; Translations: [Personal history of nicotine dependence] Onset: 03-30-2023 03-30-2023 Episodic Spondylosis; intervertebral disc disorders; other back problems (20 sources) Spinal stenosis of lumbar region; Translations: [Spinal stenosis, lumbar region with neurogenic claudication] Onset: 01-13-2021 Resolved: 03-30-2023 01-13-2021 Episodic Results Test Name Value Interpretation Reference Range Facility Absolute lymphocyte countOrd ered By: Froy Deleon on 08-19-2024 Lymphocytes Auto (Unsp spec) [#/Vol] 1.01 10*3/uL 0.83-4.51 [facility] Absolute neutrophil countOrd ered By: Froy Deleon on 08-19-2024 Neutrophils (Bld) [#/Vol] 10.3 10*3/uL High 2.0-7.7 [facility] Activated partial thrombopla stin time (aPTT) in platelet poor plasma by coagulation aOrdered By: Froy Deleon on 08-19-2024 aPTT Coag (PPP) [Time] 25.2 s 24.1-36.2 [facility] Anion gap in Serum or Plasma Ordered By: Froy Deleon on 08-19-2024 Anion gap [Moles/Vol] 12 mmol/L 5-15 [facility] Automated lymphocyte count a s percentage of total leukocytesOrdered By: Froy Deleon on 08-19-2024 Lymphocytes/100 WBC Auto (Unsp spec) 8.3 % Low 19-41 [facility] BUN/creatinine ratioOrdered By: Froy Deleon on 08-19-2024 Urea nitrogen/Creatinine [Mass ratio] 13.7 mg/mg 10-20 [facility] Basophil percentageOrdered B y: Froy Deleon on 08-19-2024 Basophils/100 WBC (Bld) 0.2 % 0-1 [facility] Bilirubin Test strip Ql (U)O rdered By: Froy Deleon on 08-19-2024 Bilirubin Ql (U) Negative Negative [facility] Bilirubin, totalOrdered By: Froy Deleon on 08-19-2024 Bilirubin [Mass/Vol] 1.17 mg/dL 0.00-1.30 [facility] Carbon dioxide, total [Moles /volume] in Central venous bloodOrdered By: Froy Deleon on 08-19-2024 CO2 [Moles/Vol] 21.4 mmol/L 21.0-32.0 [facility] Chloride assayOrdered By: Low Deleon on 08-19-2024 Chloride [Moles/Vol] 100 mmol/L 98-108 [facility] Eosinophil percentageOrdered By: Froy Deleon on 08-19-2024 Eosinophils/100 WBC (Bld) 0.3 % 0-5 [facility] Erythrocyte distribution wid th ratioOrdered By: Froy Deleon on 08-19-2024 Erythrocyte distribution width (RBC) [Ratio] 13.9 % 11.6-14.6 [facility] Erythrocyte distribution wid th standard deviationOrdered By: Froy Deleon on 08-19-2024 Erythrocyte distribution width (RBC) [Ratio] 50.5 fl High 35.1-43.9 [facility] Glomerular filtration rate ( GFR) estimation/1.73 sq m using serum, plasma, or whole bOrdered By: Froy Deleon on 08-19-2024 GFR/1.73 sq M.predicted among non-blacks MDRD (S/P/Bld) [Vol rate/Area] 94 mL/min/{1.73_m2} >60 [facility] Comment on above: mL/min/1.73m2 CKD-EP I Creatinine Equation (2020) Hematocrit Auto (Bld) [Volum e fraction]Ordered By: Froy Deleon on 08-19-2024 Hematocrit (Bld) [Volume fraction] 46.3 % 40-54 [facility] Hemoglobin measurementOrdere d By: Froy Deleon on 08-19-2024 Hemoglobin (Bld) [Mass/Vol] 15.7 g/dL 13.0-16.5 [facility] Immature granulocytes/100 WB C Auto (Bld)Ordered By: Froy Deleon on 08-19-2024 Immature granulocytes/100 WBC (Bld) 0.200 % 0.0-0.9 [facility] Comment on above: IG% - Immature Granu locytes (promyelocytes, myelocytes and metamyelocytes) > 1% indicates that a LEFT SHIFT is Present. Influenza virus A and B and SARS-CoV-2 (COVID-19) and Respiratory syncytial virus RNAOrdered By: Froy Deleon on 08-19-2024 SARS-CoV-2 (COVID-19) RNA MELISSA+probe Ql (Unsp spec) [facility] International normalized rat io (INR) calculationOrdered By: Froy Deleon on 08-19-2024 INR Coag (Bld) [Relative time] 1.1 {INR} [facility] Ketones Test strip Ql (U)Ord ered By: Froy Deleon on 08-19-2024 Ketones Ql (U) Negative Negative [facility] Laboratory - Chemistry and C hemistry - challengeOrdered By: Froy Deleon on 08-19-2024 AST [Catalytic activity/Vol] 39 U/L High <38 [facility] Comment on above: Hemolysis present, R esults could be affected. MCV (mean corpuscular volume ) determinationOrdered By: Froy Deleon on 08-19-2024 MCV (RBC) [Entitic vol] 98.7 fL High 80-94 [facility] Mean corpuscular hemoglobin (MCH) determinationOrdered By: Froy Deleon on 08-19-2024 MCH (RBC) [Entitic mass] 33.5 pg High 27.0-32.0 [facility] Mean corpuscular hemoglobin concentration (MCHC) determinationOrdered By: Froy Deleon on 08-19-2024 MCHC (RBC) [Mass/Vol] 33.9 g/dL 32-36 [facility] Mean platelet volume determi nationOrdered By: Froy Deleon on 08-19-2024 Platelet mean volume (Bld) [Entitic vol] 10.1 fL 6.2-12.0 [facility] Microscopic analysis of urin e for red blood cells (RBC)Ordered By: Froy Deleon on 08-19-2024 Microscopic analysis of urine for red blood cells (RBC) 0-5 SEEN /hpf 0-5 [facility] Monocyte percentageOrdered B y: Froy Deleon on 08-19-2024 Monocytes/100 WBC (Bld) 7.1 % 0-10 [facility] Mucus LM Ql (Urine sed)Order ed By: Froy Deleon on 08-19-2024 Mucus Ql (Urine sed) 2+ /hpf [facility] Natriuretic peptide.B prohor alma N-Terminal [Mass/volume] in Serum or PlasmaOrdered By: Froy Deleon on 08-19-2024 Natriuretic peptide.B prohormone N-Terminal [Mass/Vol] 64 pg/mL <900 [facility] Comment on above: Heart Failure Unlike ly: < 300 pg/mLHeart Failure Likely< 50 Years: > 450 pg/mL50-75 Years: > 900 pg/mL>75 Years: > 1800 pg/mL Neutrophil percentageOrdered By: Froy Deleon on 08-19-2024 Neutrophils/100 WBC (Bld) 83.9 % High 47-70 [facility] Nitrite Test strip Ql (U)Ord ered By: Froy Deleon on 08-19-2024 Nitrite Ql (U) Negative Negative [facility] Nucleated red blood cell per centageOrdered By: Froy Deleon on 08-19-2024 Nucleated RBC/100 WBC (Bld) [Ratio] 0 % 0-5 [facility] Platelet countOrdered By: Low Deleon on 08-19-2024 Platelets (Bld) [#/Vol] 171 10*3/uL 150-450 [facility] Potassium measurement (mass/ volume)Ordered By: Froy Deleon on 08-19-2024 Potassium (Unsp spec) [Mass/Vol] 4.6 mmol/L 3.3-5.1 [facility] Comment on above: Hemolysis present, R esults could be affected. Protein Test strip Ql (U)Ord ered By: Froy Deleon on 08-19-2024 Protein Ql (U) 15 mg/dl High Negative [facility] Prothrombin timeOrdered By: Froy Deleon on 08-19-2024 PT Coag (PPP) [Time] 14.4 s 11.7-14.9 [facility] RBC Auto (Bld) [#/Vol]Ordere d By: Froy Deleon on 08-19-2024 RBC (Bld) [#/Vol] 4.69 10*6/uL 4.6-6.2 [facility] Serum creatinine measurement (mass/volume)Ordered By: Froy Deleon on 08-19-2024 Creatinine [Mass/Vol] 0.81 mg/dL 0.70-1.20 [facility] Serum globulin measurementOr dered By: Froy Deleon on 08-19-2024 Globulin (S) [Mass/Vol] 2.9 g/dL 2.2-4.2 [facility] Serum glucose measurement (m ass/volume)Ordered By: Froy Deleon on 08-19-2024 Glucose [Mass/Vol] 95 mg/dL 70-99 [facility] Serum or plasma alanine monzon otransferase (ALT) measurementOrdered By: Froy Deleon on 08-19-2024 ALT [Catalytic activity/Vol] 33 U/L <47 [facility] Serum or plasma albumin angela urement (mass/volume)Ordered By: Froy Deleon on 08-19-2024 Albumin [Mass/Vol] 3.8 g/dL 3.4-4.8 [facility] Serum or plasma albumin/glob ulin mass ratioOrdered By: Froy Deleon on 08-19-2024 Albumin/Globulin [Mass ratio] 1.3 {ratio} 0.9-2.4 [facility] Serum or plasma alkaline eloy sphatase measurementOrdered By: Froy Deleon on 08-19-2024 ALP [Catalytic activity/Vol] 101 U/L 40-129 [facility] Serum or plasma calcium angela urement (mass/volume)Ordered By: Froy Deleon on 08-19-2024 Calcium [Mass/Vol] 8.9 mg/dL 7.6-11.0 [facility] Serum or plasma urea nitroge n measurement (mass/volume)Ordered By: Froy Deleon on 08-19-2024 Urea nitrogen [Mass/Vol] 11 mg/dL 4-19 [facility] Sodium levelOrdered By: Michael Deleon on 08-19-2024 Sodium [Moles/Vol] 134 mmol/L 133-145 [facility] Squamous epithelial cells de tection in urine sediment by light microscopyOrdered By: Froy Deleon on 08-19-2024 Epithelial cells.squamous LM Ql (Urine sed) 0-5 SEEN /hpf 0-5 [facility] Total proteinOrdered By: Elbert Deleon on 08-19-2024 Protein [Mass/Vol] 6.6 g/dL 5.9-8.4 [facility] Troponin T.cardiac [Mass/vol ume] in Serum or Plasma by High sensitivity methodOrdered By: Froy Deleon on 08-19-2024 Troponin T.cardiac High sensitivity method [Mass/Vol] 14 ng/L <22 [facility] Troponin T.cardiac High sensitivity method [Mass/Vol] 10 ng/L <22 [facility] Urine clarityOrdered By: Elbert Deleon on 08-19-2024 Clarity (U) Clear Clear [facility] Urine color determinationOrd ered By: Froy Deleon on 08-19-2024 Color (U) Yellow Yellow [facility] Urine glucose detectionOrder ed By: Froy Deleon on 08-19-2024 Glucose Ql (U) Normal mg/dl Normal [facility] Urine leukocyte esterase det ection by dipstickOrdered By: Froy Deleon on 08-19-2024 Leukocyte esterase Test strip Ql (U) Negative Negative [facility] Urine pHOrdered By: Froy grimaldo on 08-19-2024 pH (U) 7.0 [pH] 5.0 - 8.0 [facility] Urine sediment bacteria coun t by microscopy (number/high power field)Ordered By: Froy Deleon on 08-19-2024 Bacteria LM.HPF (Urine sed) [#/Area] RARE /hpf None Seen [facility] Urine specific gravity measu rementOrdered By: Froy Deleon on 08-19-2024 Specific gravity (U) [Rel density] 1.005 1.002-1.030 [facility] Urine urobilinogen measureme ntOrdered By: Froy Deleon on 08-19-2024 Urobilinogen Ql (U) Normal mg/dl Normal [facility] White blood cell (WBC) count Ordered By: Froy Deleon on 08-19-2024 WBC (Bld) [#/Vol] 12.2 10*3/uL High 4.4-11.0 [facility] White blood cell countOrdere d By: Froy Deleon on 08-19-2024 White blood cell count 0-5 SEEN /hpf 0-5 [facility] aPTTon 08-19-2024 aPTT [facility] CNOVon 06-02-2024 MARCELA Office Visit (FAMPWS) SG HERNANDEZ ([id number]) 1950 M DEF Date Time Provider Department 06/02/24 1:40 PM CONOR MURDOCK FAMPWS During your visit today, we recorded the following information about you: Pulse Blood pressure Weight Height 80/minute 136/58 126.1 kg 1.67 m Conor Mudrock MD 06/02/2024 2:39 PM Signed Patient presents with: 6 Month Exam HPI: Patient presents today for office visit for follow up[facility] app[facility] with [facility] next week and derm as well. HLD: No myalgias. HTN: Denies chest pain Some worsening shortness of breath. Sees Pulmonary. No new or worsening edema. Is actually much better. Has actually lost weight by dieting. Wears compression wraps. No headaches or dizziness. Refers to his oxygen being as low as 80%. Readjusts itself quickly. [facility] is aware of it. Offered to work up but he declines due to cost and wants or to evaluate. They have been adjusting meds. No cough He has another appt for his cpap. Has not had it recently but they are working on getting a new machine. Is more tired and fatigued. Treated for possible pneumonia just in March. I would like to recheck xray. Willing to do so. Left knee and left hip pain. Fell back in March and then again towards the end of April. Fell on left side. No swelling currently. [facility] aware but has not had xrays. Can bare weight on it. No swelling. Has declined follow up with cardiology in the past. No chest pain. Did have EKG and is scheduled for an echo at the [facility] No heartburn. Uses hot sauce to control it. Bp is well controlled. Buspar helping his anxeity. Bp well controlled. Also suggested he could consider checking his carotids. Has been 5 or six months. Suggested he discuss with [facility] MEDICATIONS: Current Outpatient Medications Medication Sig atorvastatin (LIPITOR) 40 mg tablet Take 1 tablet by mouth daily at bedtime. cetirizine (ZYRTEC) 10 mg tablet Take 1 tablet by mouth once daily. roflumilast (DALIRESP) 500 mcg tab Take 500 mcg by mouth. busPIRone (BUSPAR) 5 mg tablet Take 1 tablet by mouth three times a day. omeprazole (PRILOSEC) 40 mg capsule Take 1 capsule by mouth every afternoon. budesonide-glycopyr- formoterol (BREZTRI) 160-9-4.8 mcg/actuation HFA aerosol inhaler Inhale 2 Puffs as instructed two times a day. carvedilol (COREG) 6.25 mg tablet Take 1 tablet by mouth two times a day with meals. montelukast (SINGULAIR) 10 mg tablet Take 1 tablet by mouth daily at bedtime. guaiFENesin (HUMIBID E) 200 mg tablet Take 400 mg by mouth every 4 hours as needed. TURMERIC ORAL Take 1,500 mg by mouth once daily. losartan (COZAAR) 100 mg tablet Take 0.5 tablets by mouth once daily. albuterol (PROVENTIL) 2.5 mg /3 mL (0.083 %) nebulizer solution Inhale 1 mcg as instructed. cholecalciferol (VITAMIN D3) 5,000 unit tab Take by mouth. Apple Cider Vinegar 300 mg tab Take by mouth. fluticasone (FLONASE) 50 mcg/actuation nasal spray Use in the nose. VITAMIN B COMPLEX ORAL Vitamin B Complex Active CAP August 31, 2021 12:00am No current facility-administere d medications for this visit. ALLERGIES: ALLERGIES Allergen Reactions Meloxicam GI Upset PAST MEDICAL HISTORY Diagnosis Date H/O gastroesophageal reflux (GERD) claims got it to go away with hot sauce History of spinal fracture L4/L5 with fragment in spinal cord Mixed hyperlipidemia Moderate persistent asthma without complication Other emphysema (HCC) Primary hypertension Spinal stenosis of lumbar region with neurogenic claudication PAST SURGICAL HISTORY Procedure Laterality Date APPENDECTOMY LAMINECTOMY,LUMBAR Bilateral L4/L5 PAST SURGICAL HISTORY OF left knee meniscus repair PAST SURGICAL HISTORY OF right knee repair twice PAST SURGICAL HISTORY OF lymphectomy left collarbone TONSILLECTOMY AND ADENOIDECTOMY No family history on file. Social History Tobacco Use Smoking status: Former Types: Cigarettes Start date: 04/15/2002 Smokeless tobacco: Never Substance Use Topics Alcohol use: Yes Alcohol/week: 12.0 standard drinks of alcohol Types: 12 Cans of Beer (12oz) per week Drug use: Not Currently Comment: remote marijuana, LSD, mushrooms young adult Reviewed current medications, allergies, past medical history, surgical history, family history and social history today. REVIEW OF SYSTEMS All other reviewed and negative other than HPI. HEALTH MAINTENANCE: Reviewed health maintenance issues today and recommended the following in detail. Spirometry Never done Colorectal Cancer Screening -had colonoscopy done in [place] he believes was normal 10 years ago. Having increased gas and bloating. Will try and see gi at the [facility]. Advance Directive Discussion due on 03/05/2024 LDL Cholesterol -done by the [facility] VITALS: BP 136/58 Pulse 80 Ht 167 cm (5' 5.75) Wt 126.1 kg (278 lb) (more content not included)... Normal [facility] XR CHEST 2V FRONTAL/LATon XR CHEST 2V FRONTAL/LAT * * *Final Repor t* * * DATE OF EXAM: Jun 02 2024 2:52PM [id number] - XR CHEST 2V FRONTAL/LAT / PROCEDURE REASON: Abnormal x-ray * * * * Physician Interpretation * * * * EXAMINATION: CHEST RADIOGRAPH (2 VIEW FRONTAL and LATERAL) CLINICAL HISTORY: Abnormal x-ray MQ: [id number] EXAM DATE/TIME: 06/02/2024 2:52 PM COMPARISON: 03/20/2024 RESULT: Lines, tubes, and devices: None. Lungs and pleura: No consolidation. No lung mass. No pleural effusion. No pneumothorax. Cardiomediastinal silhouette: Normal cardiomediastinal silhouette. Bones and soft tissues: Unremarkable. Neurostimulator wires are in place. IMPRESSION: No acute radiographic abnormality. 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[facility] Transcribe Date/Time: Jun 03 2024 1:57P Dictated by : NIKHIL CHAN MD This examination was interpreted and the report reviewed and electronically signed by: NIKHIL CHAN MD on Jun 03 2024 2:00PM EST [id number] CN Normal [facility] XR HIP 3V PELV+ AP/LAT LTon 06-02-2024 XR HIP 3V PELV+ AP/LAT LT * * *Final Report* * * DATE OF EXAM: Jun 02 2024 2:52PM WOX [id number] - XR HIP 3V PELV+ AP/LAT LT / PROCEDURE REASON: Pain in joint of left hip * * * * Physician Interpretation * * * * PROCEDURE: Pelvis and left hip, left knee INDICATION: Chronic pain of left knee. Chronic left hip pain.. TECHNIQUE: XR KNEE 4V AP/PA BOTH+LAT/TOPHER LT, XR HIP 3V PELV+ AP/LAT LT COMPARISON: None FINDINGS: Pelvis and left hip: Mild to moderate bilateral hip osteoarthrosis. No fracture or dislocation. Sacroiliac joints and symphysis pubis are maintained. Significant degenerative disc disease lower lumbar spine. Advanced atherosclerotic calcifications. Generator overlies the lower lumbar spine. Left knee: Significant medial joint compartment narrowing, nearly [id number] in appearance. Minimal marginal spurring. No fracture or joint effusion. 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: [facility] Transcribe Date/Time: Jun 04 2024 8:07A Dictated by : SEBASTIAN LOFTON MD This examination was interpreted and the report reviewed and electronically signed by: SEBASTIAN LOFTON MD on Jun 04 2024 8:09AM EST [id number] CN Normal [facility] XR KNEE 4V AP/PA BOTH+LAT/ME R LTon 06-02-2024 XR KNEE 4V AP/PA BOTH+LAT/TOPHER LT * * *Final Report* * * DATE OF EXAM: Jun 02 2024 2:52PM WOX 5202 - XR KNEE 4V AP/PA BOTH+LAT/TOPHER LT / PROCEDURE REASON: multiple diagnoses * * * * Physician Interpretation * * * * PROCEDURE: Pelvis and left hip, left knee INDICATION: Chronic pain of left knee. Chronic left hip pain.. TECHNIQUE: XR KNEE 4V AP/PA BOTH+LAT/TOPHER LT, XR HIP 3V PELV+ AP/LAT LT COMPARISON: None FINDINGS: Pelvis and left hip: Mild to moderate bilateral hip osteoarthrosis. No fracture or dislocation. Sacroiliac joints and symphysis pubis are maintained. Significant degenerative disc disease lower lumbar spine. Advanced atherosclerotic calcifications. Generator overlies the lower lumbar spine. Left knee: Significant medial joint compartment narrowing, nearly [id number] in appearance. Minimal marginal spurring. No fracture or joint effusion. 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 During your visit today, we recorded the following information about you: Marilee Lara LPN 05/26/2024 10:57 AM Signed No show letter #1 printed and mailed to patient. Allergies As of Date: 05/26/2024 Noted Allergy Reaction MELOXICAM 02/02/2021 8 - GI Upset Date Reviewed: 03/20/2024 Reviewed by: Beto Sheffield APRN.[employer] REPRESENTATIVE [employer] - Fully Assessed Reason for Visit: Letter [264] Cmt: No Show #1 Prescriptions as of 05/26/2024 - atorvastatin (LIPITOR) 40 mg tablet Take 1 tablet by mouth daily at bedtime. - cetirizine (ZYRTEC) 10 mg tablet Take 1 tablet by mouth once daily. - roflumilast (DALIRESP) 500 mcg tab Take 500 mcg by mouth. - busPIRone (BUSPAR) 5 mg tablet Take 1 tablet by mouth three times a day. - omeprazole (PRILOSEC) 40 mg capsule Take 1 capsule by mouth every afternoon. - budesonide-glycopyr- formoterol (BREZTRI) 160-9-4.8 mcg/actuation HFA aerosol inhaler Inhale 2 Puffs as instructed two times a day. - carvedilol (COREG) 6.25 mg tablet Take 1 tablet by mouth two times a day with meals. - montelukast (SINGULAIR) 10 mg tablet Take 1 tablet by mouth daily at bedtime. - guaiFENesin (HUMIBID E) 200 mg tablet Take 400 mg by mouth every 4 hours as needed. - TURMERIC ORAL Take 1,500 mg by mouth once daily. - losartan (COZAAR) 100 mg tablet Take 0.5 tablets by mouth once daily. - albuterol (PROVENTIL) 2.5 mg /3 mL (0.083 %) nebulizer solution Inhale 1 mcg as instructed. - cholecalciferol (VITAMIN D3) 5,000 unit tab Take by mouth. - Apple Cider Vinegar 300 mg tab Take by mouth. - fluticasone (FLONASE) 50 mcg/actuation nasal spray Use in the nose. - VITAMIN B COMPLEX ORAL Vitamin B Complex Active CAP August 31, 2021 12:00am Problem List As Of Date 05/26/2024 Noted Resolved Hx of placement of stent in circumflex branch o*01/13/2021 Hyperlipidemia, mixed [E78.2] 01/13/2021 Hypertension, essential [I10] 01/13/2021 COPD with chronic bronchitis (HCC) [J44.89] 01/13/2021 Panic attacks [F41.0] 01/13/2021 Lumbar stenosis with neurogenic claudication [M*01/13/2021 03/30/2023 Acquired deafness, left [H91.92] 01/13/2021 Snoring [R06.83] 01/13/2021 Obesity, Class II, BMI 35-39.9 [E66.812] 01/13/2021 Focal sensory loss [R44.9] 01/13/2021 03/30/2023 Chronic prescription benzodiazepine use [Z79.89*01/13/2021 09/07/2021 Alcohol use [Z78.9] 01/13/2021 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*09/07/2021 Spinal cord stimulator status [Z96.89] 03/13/2022 DALIA (obstructive sleep apnea) [G47.33] 09/27/2022 Actinic keratosis [L57.0] 03/29/2023 Diagnosed: 03/29/2023 Allergic contact dermatitis [L23.9] 03/29/2023 Diagnosed: 03/29/2023 Allergic rhinitis [J30.9] 03/29/2023 Diagnosed: 03/29/2023 Chondrocalcinosis [M11.20] 03/29/2023 Diagnosed: 03/29/2023 Asthma [J45.909] 03/29/2023 Diagnosed: 03/29/2023 Encounter for other preprocedural examination [*03/29/2023 03/30/2023 Diagnosed: 03/29/2023 Epidermal cyst [L72.0] 03/29/2023 Diagnosed: 03/29/2023 Erectile dysfunction [N52.9] 03/29/2023 Diagnosed: 03/29/2023 History of percutaneous transluminal coronary a*03/29/2023 Diagnosed: 03/29/2023 Mild persistent asthma [J45.30] 03/29/2023 Diagnosed: 03/29/2023 Osteoarthritis of knee [M17.9] 03/29/2023 Diagnosed: 03/29/2023 Other benign neoplasm of skin of left upper whalen*03/29/2023 03/30/2023 Diagnosed: 03/29/2023 Other reduced mobility [Z74.09] 03/29/2023 Diagnosed: 03/29/2023 Pain in right knee [M25.561] 03/29/2023 03/30/2023 Diagnosed: 03/29/2023 Pain, unspecified [R52] 03/29/2023 03/30/2023 Diagnosed: 03/29/2023 Polyp of colon [K63.5] 03/29/2023 Diagnosed: 03/29/2023 Postlaminectomy syndrome, not elsewhere classif*03/29/2023 Diagnosed: 03/29/2023 Postnasal drip [R09.82] 03/29/2023 03/30/2023 Diagnosed: 03/29/2023 Shortness of breath [R06.02] 03/29/2023 03/30/2023 Diagnosed: 03/29/2023 Unspecified abnormalities of gait and mobility *03/29/2023 Diagnosed: 03/29/2023 Vitamin D deficiency [E55.9] 03/29/2023 Diagnosed: 03/29/2023 Age-related nuclear cataract, bilateral [H25.13]03/30/2023 Diagnosed: 03/30/2023 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] 03/30/2023 Diagnosed: 03/30/2023 Functional disorder of intestine [K59.9] 03/30/2023 Diagnosed: 03/30/2023 Hemorrhoids without complication [K64.9] 03/30/2023 Diagnosed: 03/30/2023 Mononeuritis [G58.9] 03/30/2023 Diagnosed: 03/30/2023 Bilateral carotid artery stenosis [I65.23] 03/30/2023 Diagnosed: 03/30/2023 Other and unspecified alcohol dependence, unspe*03/30/2023 Diagnosed: 03/30/2023 Pain in joint, lower leg [M25.569] 03/30/2023 03/30/2023 Diagnosed: 03/30/2023 Personal history of tobacco use, presenting haz*03/30/2023 Diagnosed: 03/30/2023 Tear of medial carti (more content not included)... Normal [facility] CNOVon 03-20-2024 CNOV Office Visit (UCWSTR) SG HERNANDEZ ([id number]) 1950 M DEF Date Time Provider Department 03/20/24 5:45 PM BETO SHEFFIELD [facility] During your visit today, we recorded the following information about you: Temperature Pulse Respiration Blood pressure 98.2 degrees 86/minute 24/minute 180/79 Weight 129.9 kg Beto Sheffield, INTRAMURAL DIRECTOR.SALES REPRESENTATIVE MEATS 03/20/2024 6:47 PM Signed This note was created using [employer]. Subjective Sg Hernandez is a 73 year old male. HPI For the last week pt has had fever, cough, and shortness of breath. He states that very fall he gets several bouts this Review of Systems Objective BP 180/79 Pulse 86 Temp 36.8 ?C (98.2 ?F) (Right Tympanic) Resp 24 Wt 129.9 kg (286 lb 6 oz) SpO2 93% BMI 46.57 kg/m? Physical Exam Vitals and nursing note reviewed. Constitutional: General: He is not in acute distress. Appearance: Normal appearance. He is not ill-appearing. HENT: Head: Normocephalic. Mouth/Throat: Mouth: Mucous membranes are moist. Eyes: Conjunctiva/sclera: Conjunctivae normal. Cardiovascular: Rate and Rhythm: Normal rate and regular rhythm. Pulmonary: Effort: Pulmonary effort is normal. Breath sounds: Wheezing present. Musculoskeletal: General: Normal range of motion. Cervical back: Normal range of motion. Skin: General: Skin is warm and dry. Neurological: General: No focal deficit present. Mental Status: He is alert. Psychiatric: Mood and Affect: Mood normal. Behavior: Behavior normal. Assessment and Plan ASSESSMENT/PLAN: 1. Bacterial pneumonia - ICD9: 482.9, ICD10: J15.9 -Chest x-ray today concerning for possible left lower lobe pneumonia. As patient does have multiple chronic medical conditions he was started on Augmentin and azithromycin and also given a 5-day prescription for prednisone. He will continue to use his home inhalers and nebulizers. Recommended close follow-up with PCP. -Patient's blood pressure was elevated at 180/79. Patient states that this is typical for him when he goes to a doctor's office but it will resolve once he rests. - XR CHEST 2V FRONTAL/LAT - PREDNISONE 50 MG TABLET - AZITHROMYCIN 250 MG TABLET - AMOXICILLIN 875 MG-POTASSIUM CLAVULANATE 125 MG TABLET Beto Sheffield APRN.CNP Allergies As of Date: 03/20/2024 Noted Allergy Reaction MELOXICAM 02/02/2021 8 - GI Upset Date Reviewed: 03/20/2024 Reviewed by: Beto Sheffield APRN.STEVEN - Fully Assessed Reason for Visit: Cough [28] Cmt: With SOB/wheeze, nasal drainage AND intermittent fever x1 week ; SOB AND wheeze worsen x 2 days Primary Visit Diagnosis:Bacterial pneumonia [J15.9] Order(s):XR CHEST 2V FRONTAL/LAT [[id number]] Order #: [id number] FUTURE predniSONE (DELTASONE) 50 mgTake 1 tablet by mouth once daily for 5 days.Disp: 5 tabletRfl: 0 azithromycin (ZITHROMAX) 250 mg tabletTake 2 tablets by mouth once daily for 1 day, THEN 1 tablet once daily for 4 days.Disp: 6 tabletRfl: 0 amoxicillin-clavulan ate potassium (AUGMENTIN) 875-125 mg per tabletTake 1 tablet by mouth two times a day for 5 days.Disp: 10 tabletRfl: 0 Prescriptions as of 03/20/2024 - predniSONE (DELTASONE) 50 mg Take 1 tablet by mouth once daily for 5 days. - azithromycin (ZITHROMAX) 250 mg tablet Take 2 tablets by mouth once daily for 1 day, THEN 1 tablet once daily for 4 days. - amoxicillin-clavulan ate potassium (AUGMENTIN) 875-125 mg per tablet Take 1 tablet by mouth two times a day for 5 days. - atorvastatin (LIPITOR) 40 mg tablet Take 1 tablet by mouth daily at bedtime. - cetirizine (ZYRTEC) 10 mg tablet Take 1 tablet by mouth once daily. - roflumilast (DALIRESP) 500 mcg tab Take 500 mcg by mouth. - busPIRone (BUSPAR) 5 mg tablet Take 1 tablet by mouth three times a day. - omeprazole (PRILOSEC) 40 mg capsule Take 1 capsule by mouth every afternoon. - budesonide-glycopyr- formoterol (BREZTRI) 160-9-4.8 mcg/actuation HFA aerosol inhaler Inhale 2 Puffs as instructed two times a day. - carvedilol (COREG) 6.25 mg tablet Take 1 tablet by mouth two times a day with meals. - montelukast (SINGULAIR) 10 mg tablet Take 1 tablet by mouth daily at bedtime. - guaiFENesin (HUMIBID E) 200 mg tablet Take 400 mg by mouth every 4 hours as needed. - TURMERIC ORAL Take 1,500 mg by mouth once daily. - losartan (COZAAR) 100 mg tablet Take 0.5 tablets by mouth once daily. - albuterol (PROVENTIL) 2.5 mg /3 mL (0.083 %) nebulizer solution Inhale 1 mcg as instructed. - cholecalciferol (VITAMIN D3) 5,000 unit tab Take by mouth. - Apple Cider Vinegar 300 mg tab Take by mouth. - fluticasone (FLONASE) 50 mcg/actuation nasal spray Use in the nose. - VITAMIN B COMPLEX ORAL Vitamin B Complex Active CAP August 31, 2021 12:00am Problem List As Of Date 03/20/2024 Noted Resolved Hx of placement of stent in circumflex branch o*01/13/2021 Hyperlipidemia, mixed [E78.2] 01/13/ (more content not included)... Normal [facility] XR CHEST 2V FRONTAL/LATon XR CHEST 2V FRONTAL/LAT * * *Final Repor t* * * DATE OF EXAM: Mar 20 2024 6:03PM WOX 5291 - XR CHEST 2V FRONTAL/LAT / PROCEDURE REASON: Acute cough * * * * Physician Interpretation * * * * EXAM: CHEST X-RAY CLINICAL HISTORY: One week of worsening cough TECHNIQUE: Frontal and lateral views COMPARISON: None. RESULT: Heart/mediastinum: Within normal limits. Lungs/pleura: Mild opacities projecting over left lower lung field. Right lung is clear. No pleural effusion. Bones/soft tissues: Unremarkable. Lines/tubes/devices: Electrodes projecting over the thoracic spinal canal. IMPRESSION: Mild left lung base opacities which could represent atelectasis, scarring or mild infection. There are no prior exams to determine the chronicity of the left lung opacities. 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: PSCB Transcribe Date/Time: Mar 20 2024 6:29P Dictated by : GIULIANO LEARY MD This examination was interpreted and the report reviewed and electronically signed by: GIULIANO LEARY MD on Mar 20 2024 6:31PM EST [id number] CN Normal [facility] XR Chest PA and Lateralon IMPRESSION: Mild left lung base opacities which could represent atelectasis, scarring or mild infection. There are no prior exams to determine the chronicity of the left lung opacities. 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: PSCB Transcribe Date/Time: Mar 20 2024 6:29P Dictated by : GIULIANO LEARY MD This examination was interpreted and the report reviewed and electronically signed by: GIULIANO LEARY MD on Mar 20 2024 6:31PM EST DIVISION OF RADIOLOGY * * *Final Report* * * DATE OF EXAM: Mar 20 2024 6:03PM WOX 5291 - XR CHEST 2V FRONTAL/LAT / PROCEDURE REASON: Acute cough * * * * Physician Interpretation * * * * EXAM: CHEST X-RAY CLINICAL HISTORY: One week of worsening cough TECHNIQUE: Frontal and lateral views COMPARISON: None. RESULT: Heart/mediastinum: Within normal limits. Lungs/pleura: Mild opacities projecting over left lower lung field. Right lung is clear. No pleural effusion. Bones/soft tissues: Unremarkable. Lines/tubes/devices: Electrodes projecting over the thoracic spinal canal. DIVISION OF RADIOLOGY Provider, [facility] [place] - 03/20/2024 * * *Final Report* * * DATE OF EXAM: Mar 20 2024 6:03PM WOX 5291 - XR CHEST 2V FRONTAL/LAT / PROCEDURE REASON: Acute cough * * * * Physician Interpretation * * * * EXAM: CHEST X-RAY CLINICAL HISTORY: One week of worsening cough TECHNIQUE: Frontal and lateral views COMPARISON: None. RESULT: Heart/mediastinum: Within normal limits. Lungs/pleura: Mild opacities projecting over left lower lung field. Right lung is clear. No pleural effusion. Bones/soft tissues: Unremarkable. Lines/tubes/devices: Electrodes projecting over the thoracic spinal canal. IMPRESSION IMPRESSION: Mild left lung base opacities which could represent atelectasis, scarring or mild infection. There are no prior exams to determine the chronicity of the left lung opacities. 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: NANETTE Transcribe Date/Time: Mar 20 2024 6:29P Dictated by : GIULIANO LEARY MD This examination was interpreted and the report reviewed and electronically signed by: GIULIANO LEARY MD on Mar 20 2024 6:31PM EST [facility] Radiology Study observation (narrative) Pierre owen [facility] XR Chest PA and LateralOrder ed By: [facility] Provider on 03-20-2024 [facility] CNOVon 01-28-2024 CNOV Office Visit (ANGELWS) SG HERNANDEZ ([id number]) 1950 M DEF Date Time Provider Department 01/28/24 10:40 AM SE[facility]ID[facility] During your visit today, we recorded the following information about you: Pulse Respiration Blood pressure Weight 79/minute 20/minute 134/70 127 kg Seven Grider APRN.[facility] 01/28/2024 10:47 AM Signed Chief Complaint Patient presents with: Chest Congestion: Cough, drainage x3 days HPI Sg Adama Hernandez is a 73 year old male who presents here today for Above Complaints. Patient is here with complaints of chest congestion, cough, sinus drainage. Has complaints of wheezing, shortness of breath with long distances. Present for about a week but stating that it is getting worse over the past 3 days. Has been having to wake up at night to give himself nebulizer treatments. Patient has a history of chronic bronchitis, COPD. Patient states that he gets symptoms like this a few times a year and has to be treated adequately. Occasionally needing a second round of antibiotics. Patient is using his Breztri inhaler as prescribed. He denies any fevers. States that he has some sick contacts including grandson. Patient stating that he does not wish to have COVID/flu/RSV testing completed today. Requesting treated with antibiotics and steroids. Past medical history, appointments, medications, allergies reviewed. EXAM: BP 134/70 Pulse 79 Resp 20 Wt 127 kg (280 lb) SpO2 98% BMI 45.54 kg/m? General Appearance: Well appearing, alert, in no acute distress, well-hydrated, well nourished. and Overweight. Oropharynx: Lips, mucosa, and tongue normal, teeth and gums normal, oropharynx normal. Neck: Supple, no adenopathy Lungs: Positive findings: wheezing Cough. Heart: RRR without murmur, gallop, or rubs. No ectopy. ASSESSMENT/PLAN: 1. Acute bronchitis with chronic obstructive pulmonary disease (COPD) ([facility]) ([facility]) - ICD9: 491.22, ICD10: J44.0, J20.9 -With acute exacerbation. Start antibiotic, prednisone as prescribed. Discussed plenty of fluids. Discussed using inhalers as prescribed, nebulizers routinely as recommended. Discussed follow-up if he is worsening or not improving. Discussed to the nearest emergency room for shortness of breath that does not resolve. - PREDNISONE 10 MG TABLET - DOXYCYCLINE HYCLATE 100 MG TABLET Seven Grider APRN.CNP Medical Decision Making: Problems: Moderate: 1+ chronic illnesses with change Risk: Moderate: Drug management Medical Decision Making Level: 4 - Moderate This note was partly generated using [employer] voice recognition dictation and may contain some misspelled or inaccurate words missed on review. Referring Provider: SELF [[id number]] Allergies As of Date: 01/28/2024 Noted Allergy Reaction MELOXICAM 02/02/2021 8 - GI Upset Date Reviewed: 01/28/2024 Reviewed by: Jany Washington LPN - Fully Assessed Reason for Visit: Chest Congestion [236] Cmt: Cough, drainage x3 days Primary Visit Diagnosis:Acute bronchitis with chronic obstructive pulmonary disease (COPD) ([facility]) ([facility]) [J44.0, J20.9] Order(s):predniSONE (DELTASONE) 10 mg tabletTake 4 tabs daily for 3 days, then 2 tabs daily for 3 days, then 1 tab daily for 3 days with food.Disp: 21 tabletRfl: 0 doxycycline (VIBRA-TABS) 100 mg tabletTake 1 tablet by mouth two times a day for 10 days.Disp: 20 tabletRfl: 0 Prescriptions as of 01/28/2024 - roflumilast (DALIRESP) 500 mcg tab Take 500 mcg by mouth. - predniSONE (DELTASONE) 10 mg tablet Take 4 tabs daily for 3 days, then 2 tabs daily for 3 days, then 1 tab daily for 3 days with food. - doxycycline (VIBRA-TABS) 100 mg tablet Take 1 tablet by mouth two times a day for 10 days. - busPIRone (BUSPAR) 5 mg tablet Take 1 tablet by mouth three times a day. - omeprazole (PRILOSEC) 40 mg capsule Take 1 capsule by mouth every afternoon. - budesonide-glycopyr- formoterol (BREZTRI) 160-9-4.8 mcg/actuation HFA aerosol inhaler Inhale 2 Puffs as instructed two times a day. - atorvastatin (LIPITOR) 40 mg tablet Take 1 tablet by mouth daily at bedtime. - carvedilol (COREG) 6.25 mg tablet Take 1 tablet by mouth two times a day with meals. - montelukast (SINGULAIR) 10 mg tablet Take 1 tablet by mouth daily at bedtime. - guaiFENesin (HUMIBID E) 200 mg tablet Take 400 mg by mouth every 4 hours as needed. - TURMERIC ORAL Take 1,500 mg by mouth once daily. - losartan (COZAAR) 100 mg tablet Take 0.5 tablets by mouth once daily. - albuterol (PROVENTIL) 2.5 mg /3 mL (0.083 %) nebulizer solution Inhale 1 mcg as instructed. - cholecalciferol (VITAMIN D3) 5,000 unit tab Take by mouth. - Apple Cider Vinegar 300 mg tab Take by mouth. - fluticasone (FLONASE) 50 mcg/actuation nasal spray Use in the nose. - VITAMIN B COMPLEX ORAL Vitamin B Complex Active CAP August 31, 2021 12:00am Problem List As Of Date 01/28/2024 No (more content not included)... [facility] SG HERNANDEZ ([id number]) 1950 M DEF Date Time Provider Department 12/03/23 CONOR MURDOCK During your visit today, we recorded the following information about you: Azul Butts 12/03/2023 1:39 PM Signed Wilson is calling Conor Murdock MD today to request medication, not on his current list: Disp Refills Start End busPIRone (BUSPAR) 5 mg tablet 90 tablet 11 11/13/2022 11/13/2023 Sig: Take 1 tablet by mouth three times daily. Sent to pharmacy as: busPIRone (BUSPAR) 5 mg tablet Class: Normal Route: ORAL Order: [id number] E-Prescribing Status: Receipt confirmed by pharmacy (11/13/2022 1:11 PM EDT) Please send to Micki Reynoso today, he is out of medication. Patient has been identified by name and birthdate. Duration of symptoms: N/A Person calling: self Call patient at: on cell [phone] (home) [phone] (cell) Was an appointment scheduled: No Closing statement: Results or non-symptom based questions: Thank you for calling [facility], your call will be returned within the next business day. Azul Braga Pss Allergies As of Date: 12/03/2023 Noted Allergy Reaction MELOXICAM 02/02/2021 8 - GI Upset Date Reviewed: 11/26/2023 Reviewed by: Deedee Carmen MA - Fully Assessed Reason for Visit: Medication Request [138] Cmt: Buspirone Order(s):busPIRone (BUSPAR) 5 mg tabletTake 1 tablet by mouth three times a day.Disp: 90 tabletRfl: 11 Prescriptions as of 12/03/2023 - busPIRone (BUSPAR) 5 mg tablet Take 1 tablet by mouth three times a day. - omeprazole (PRILOSEC) 40 mg capsule Take 1 capsule by mouth every afternoon. - budesonide-glycopyr- formoterol (BREZTRI) 160-9-4.8 mcg/actuation HFA aerosol inhaler Inhale 2 Puffs as instructed two times a day. - cetirizine (ZYRTEC) 10 mg tablet Take 1 tablet by mouth once daily. - atorvastatin (LIPITOR) 40 mg tablet Take 1 tablet by mouth daily at bedtime. - carvedilol (COREG) 6.25 mg tablet Take 1 tablet by mouth two times a day with meals. - montelukast (SINGULAIR) 10 mg tablet Take 1 tablet by mouth daily at bedtime. - guaiFENesin (HUMIBID E) 200 mg tablet Take 400 mg by mouth every 4 hours as needed. - TURMERIC ORAL Take 1,500 mg by mouth once daily. - losartan (COZAAR) 100 mg tablet Take 0.5 tablets by mouth once daily. - albuterol (PROVENTIL) 2.5 mg /3 mL (0.083 %) nebulizer solution Inhale 1 mcg as instructed. - cholecalciferol (VITAMIN D3) 5,000 unit tab Take by mouth. - Apple Cider Vinegar 300 mg tab Take by mouth. - fluticasone (FLONASE) 50 mcg/actuation nasal spray Use in the nose. - VITAMIN B COMPLEX ORAL Vitamin B Complex Active CAP August 31, 2021 12:00am Problem List As Of Date 12/03/2023 Noted Resolved Hx of placement of stent in circumflex branch o*01/13/2021 Hyperlipidemia, mixed [E78.2] 01/13/2021 Hypertension, essential [I10] 01/13/2021 COPD with chronic bronchitis (HCC) [J44.89] 01/13/2021 Panic attacks [F41.0] 01/13/2021 Lumbar stenosis with neurogenic claudication [M*01/13/2021 03/30/2023 Acquired deafness, left [H91.92] 01/13/2021 Snoring [R06.83] 01/13/2021 Obesity, Class II, BMI 35-39.9 [E66.9] 01/13/2021 Focal sensory loss [R44.9] 01/13/2021 03/30/2023 Chronic prescription benzodiazepine use [Z79.89*01/13/2021 09/07/2021 Alcohol use [Z78.9] 01/13/2021 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*09/07/2021 Spinal cord stimulator status [Z96.89] 03/13/2022 DALIA (obstructive sleep apnea) [G47.33] 09/27/2022 Actinic keratosis [L57.0] 03/29/2023 Diagnosed: 03/29/2023 Allergic contact dermatitis [L23.9] 03/29/2023 Diagnosed: 03/29/2023 Allergic rhinitis [J30.9] 03/29/2023 Diagnosed: 03/29/2023 Chondrocalcinosis [M11.20] 03/29/2023 Diagnosed: 03/29/2023 Asthma [J45.909] 03/29/2023 Diagnosed: 03/29/2023 Encounter for other preprocedural examination [*03/29/2023 03/30/2023 Diagnosed: 03/29/2023 Epidermal cyst [L72.0] 03/29/2023 Diagnosed: 03/29/2023 Erectile dysfunction [N52.9] 03/29/2023 Diagnosed: 03/29/2023 History of percutaneous transluminal coronary a*03/29/2023 Diagnosed: 03/29/2023 Mild persistent asthma [J45.30] 03/29/2023 Diagnosed: 03/29/2023 Osteoarthritis of knee [M17.9] 03/29/2023 Diagnosed: 03/29/2023 Other benign neoplasm of skin of left upper whalen*03/29/2023 03/30/2023 Diagnosed: 03/29/2023 Other reduced mobility [Z74.09] 03/29/2023 Diagnosed: 03/29/2023 Pain in right knee [M25.561] 03/29/2023 03/30/2023 Diagnosed: 03/29/2023 Pain, unspecified [R52] 03/29/2023 03/30/2023 Diagnosed: 03/29/2023 Polyp of colon [K63.5] 03/29/2023 Diagnosed: 03/29/2023 Postlaminectomy syndrome, not elsewhere classif*03/29/2023 Diagnosed: 03/29/2023 Postnasal drip [R09.82] 03/29/2023 03/30/2023 Diagnosed: 03/29/2023 Shortness of breath [R06.02] 03/29/2023 03/30/2023 Diagnosed: 03/29/2023 (more content not included)... Normal [facility] CNOVon 11-26-2023 CNOV Office Visit (FAMPWS) SG HERNANDEZ ([id number]) 1950 M AMELIA Date Time Provider Department 11/26/23 2:[address] [facility] During your visit today, we recorded the following information about you: Pulse Blood pressure Weight Height 77/minute 138/64 121 kg 1.67 m Conor Murdock MD 11/26/2023 3:06 PM Signed Patient presents with: 6 Month Exam HPI: Patient presents today for office visit for follow up. Saw ENT for complaints of post nasal drip. Was scoped in office and told he has GERD. Saw Pulmonary who also diagnosed it. Offered second opinion. Declines. Red flags for re-assessment reviewed with patient in detail. Was given Omeprazole 40 mg daily. No relief. Still with post nasal drip. Continues on his nasal sprays. Denies any heartburn symptoms. States he's never had heartburn. No indigestion. No GI concerns. Denies any abdominal pain. No nausea or vomiting. Denies any bloody or black stool. Chronic back pain. Has spinal cord stimulator Follows with [place] pain [facility]. HLD: No myalgias. HTN: Monitors BP at home. Avg 100's/60's Stable. Denies chest pain. No new or worsening shortness of breath. Denies headaches and dizziness. Denies palpitations and syncope. Edema to left ankle and foot if on it for long periods of time. Wears compression stockings. HLD:no issues with meds. Declines follow up [facility] cardiology etc. Has had ekgs Had a stress test a few years ago. Red flags for re-assessment reviewed with patient in detail. [facility]. Reviewed labs done by [place] in the spring. MEDICATIONS: Current Outpatient Medications Medication Sig omeprazole (PRILOSEC) 40 mg capsule Take 1 capsule by mouth every afternoon. budesonide-glycopyr- formoterol (BREZTRI) 160-9-4.8 mcg/actuation HFA aerosol inhaler Inhale 2 Puffs as instructed two times a day. cetirizine (ZYRTEC) 10 mg tablet Take 1 tablet by mouth once daily. atorvastatin (LIPITOR) 40 mg tablet Take 1 tablet by mouth daily at bedtime. carvedilol (COREG) 6.25 mg tablet Take 1 tablet by mouth two times a day with meals. montelukast (SINGULAIR) 10 mg tablet Take 1 tablet by mouth daily at bedtime. guaiFENesin (HUMIBID E) 200 mg tablet Take 400 mg by mouth every 4 hours as needed. TURMERIC ORAL Take 1,500 mg by mouth once daily. losartan (COZAAR) 100 mg tablet Take 0.5 tablets by mouth once daily. albuterol (PROVENTIL) 2.5 mg /3 mL (0.083 %) nebulizer solution Inhale 1 mcg as instructed. cholecalciferol (VITAMIN D3) 5,000 unit tab Take by mouth. Apple Cider Vinegar 300 mg tab Take by mouth. fluticasone (FLONASE) 50 mcg/actuation nasal spray Use in the nose. VITAMIN B COMPLEX ORAL Vitamin B Complex Active CAP August 31, 2021 12:00am No current facility-administere d medications for this visit. ALLERGIES: ALLERGIES Allergen Reactions Meloxicam GI Upset PAST MEDICAL HISTORY Diagnosis Date H/O gastroesophageal reflux (GERD) claims got it to go away with hot sauce History of spinal fracture L4/L5 with fragment in spinal cord Mixed hyperlipidemia Moderate persistent asthma without complication Other emphysema (HCC) Primary hypertension Spinal stenosis of lumbar region with neurogenic claudication PAST SURGICAL HISTORY Procedure Laterality Date APPENDECTOMY LAMINECTOMY,LUMBAR Bilateral L4/L5 PAST SURGICAL HISTORY OF left knee meniscus repair PAST SURGICAL HISTORY OF right knee repair twice PAST SURGICAL HISTORY OF lymphectomy left collarbone TONSILLECTOMY AND ADENOIDECTOMY No family history on file. Social History Tobacco Use Smoking status: Former Types: Cigarettes Start date: 04/15/2002 Smokeless tobacco: Never Substance Use Topics Alcohol use: Yes Alcohol/week: 12.0 standard drinks of alcohol Types: 12 Cans of Beer (12oz) per week Drug use: Not Currently Comment: remote marijuana, LSD, mushrooms young adult Reviewed current medications, allergies, past medical history, surgical history, family history and social history today. REVIEW OF SYSTEMS All other reviewed and negative other than HPI. HEALTH MAINTENANCE: Reviewed health maintenance issues today and recommended the following in detail. Depression Screening Never done Colorectal Cancer Screening- had colonscopy done he believes two or three years ago and was told it was ok for 10 years. Done at [place]. BP Controlled (<130/80) due on 09/28/2023 Covid-19 Vaccine( season) Never done Influenza Vaccine(1) due on 11/04/2023 VITALS: BP 138/64 Pulse 77 Ht 167 cm (5' 5.75) Wt 121 kg (266 lb 12.8 oz) SpO2 95% BMI 43.39 kg/m? Last 4 Encounter Wt Readings: Date: Wt: 08/07/2023 117 kg (258 lb) 07/26/2023 115.2 kg (254 lb) 03/30/2023 106.6 kg (235 lb) 10/13/2022 105.1 kg (231 lb 12.8 oz) PHYSICAL EXAMINATION: G (more content not included)... Normal [facility] XR CHEST PA+LAT 2 VIEWSon XR CHEST PA+LAT 2 VIEWS EXAMINATION: XR CHEST PA+LAT 2 VIEWS 08/24/2023 11:46 AM CLINICAL HISTORY: Dyspnea ASSOCIATED DIAGNOSIS: Dyspnea, unspecified type ORDERING PROVIDER: ZARI MATAMOROS [employer] NOTE: COMPARISON: None FINDINGS: Cardiomediastinal silhouette: The cardiac silhouette is normal in size. Atherosclerotic calcifications are present in the thoracic aorta. Lungs/Pleura: No focal pulmonary consolidation, effusion or pneumothorax. Musculoskeletal: Mild degenerative changes of the thoracic spine. Partially imaged are neural stimulator leads IMPRESSION: No radiographic evidence of acute parenchymal consolidation. MACRO: None Normal [facility] XR Chest PA and Lateralon EXAMINATION: XR CHEST PA+LAT 2 VIEWS 08/24/2023 11:46 AM CLINICAL HISTORY: Dyspnea ASSOCIATED DIAGNOSIS: Dyspnea, unspecified type ORDERING PROVIDER: ZARI MATAMOROS [employer]CHN[employer]ISTS NOTE: COMPARISON: None FINDINGS: Cardiomediastinal silhouette: The cardiac silhouette is normal in size. Atherosclerotic calcifications are present in the thoracic aorta. Lungs/Pleura: No focal pulmonary consolidation, effusion or pneumothorax. Musculoskeletal: Mild degenerative changes of the thoracic spine. Partially imaged are neural stimulator leads IMPRESSION: No radiographic evidence of acute parenchymal consolidation. MACRO: None RADIOLOGY Lisa Goldstein MD - 08/24/2023 EXAMINATION: XR CHEST PA+LAT 2 VIEWS 08/24/2023 11:46 AM CLINICAL HISTORY: Dyspnea ASSOCIATED DIAGNOSIS: Dyspnea, unspecified type ORDERING PROVIDER: [employer] MAT[employer] NOTE: COMPARISON: None FINDINGS: Cardiomediastinal silhouette: The cardiac silhouette is normal in size. Atherosclerotic calcifications are present in the thoracic aorta. Lungs/Pleura: No focal pulmonary consolidation, effusion or pneumothorax. Musculoskeletal: Mild degenerative changes of the thoracic spine. Partially imaged are neural stimulator leads IMPRESSION: No radiographic evidence of acute parenchymal consolidation. MACRO: None [facility] Radiology Study observation (narrative) [facility] XR Chest PA and LateralOrder ed By: Lisa Goldstein on 08-24-2023 [facility] Work Phone: XR Lumbar spine AP and Later patricia 05-31-2023 [facility] No Panel Informationon 04-16 [facility] MT - Individual Treatment Pl anon 10-28-2021 MT - Individual Treatment Plan [facility] Pulmonary Rehab Reports [address] [place] [address] MT - Individual Treatment Plan MR#: [id number] Acct: [id number] Name: JOSE ALBERTO HERNANDEZ Rep #: [id number] : 1950 71 From: Beto PHILLIPS, RVT PCP: [place] General Information2 - General Information Admitting Diagnosis: Pt has not been attending pulmonary rehab Core Components - Initial Core Components - 30 DAYS Core Components - 60 DAYS Core Components - 90 DAYS Core Components - Final Knowledge Questionaire (BCKQ) - Information Information: [place] COPD Knowledge Questionnaire (BCKQ) This questionnaire is designed to find out what you know about your lung problem. It should be completed without help form anyone else. This usually takes between 10 and 20 minutes. Your answers will help us to find out what information you need to help you to understand and manage your lung condition. Gaurav the tunica-biloxi which you think is the correct answer. Nutrition Survey 10/28/21 0913 Date Beto PHILLIPS, RVT Outcome assessment reviewed. Exercise plan approved as documented. Treatment plan and goals support patient needs/abilities. Continue with current plan. I certify the patient demonstrates improvement and remains willing and capable of participation. the patient continues to benefit from pulmonary services/training. The patient may continue at current intensity, endurance and modality and progress per protocol. Cosigner Signature: Date CC: Signed Normal [facility] MT - History AND Physicalon 08-31-2021 MT - History & Physical [facility] Pulmonary Rehab Reports [address] [place] [address] MT - History Physical MR#: [id number] Acct: [id number] Name: JOSE ALBERTO HERNANDEZ Rep #: [id number] : 1950 70 From: Moreno Jones DIRECTOR [employer], [employer], BS PCP: [place] History of Present Illness Arrival date:: 08/31/21 Arrival time:: 08:23 Date of Referral:: 08/04/21 Date of Evaluation: 08/31/21 Referring Physician: [facility] Primary Diagnosis: COPD History of Present Illness: COPD mMRC Breathless Scale: When is the patient short of breath? Y/N Grade: Description of Breathlessness: 0 I only get breathless with strenuous exercise. 1 I get short of breath when hurrying on level ground or walking up a slight hill. 2 On level ground, I walk slower than people of the same age because of breathless, or have to stop for breath when walking at my own pace. 3 I stop for breath after walking 100 yards or after a few minutes on level ground. 4 I am too breathless to leave the house or I am breathless when dressing. Respiratory Problems: Yes: Fatigue, Able to Speak in Full Sentences, Dyspnea with Activity - Secretions Thin:: Yes Cough:: Yes A.T.C.: Yes Hx of Sleep Apnea: Yes Do you snore loudly (louder than talking or can be heard through closed doors)?: Yes Do you often feel tired/ fatigued/ sleepy during daytime?: Yes Has anyone observed you stop breathing during sleep?: Yes History of Hypertension (for STOP score): Yes - Patient diagnosed with DALIA; has home CPAP device STOP Results: Positive Home Medications: Home Medications albuterol 90 mcg/actuation aerosol inhaler mcg inhalation 08/31/21 albuterol sulfate 2.5 mg inhalation Q4H PRN Shortness Of Breath Or Wheezing 08/31/21 apple cider vinegar 300 mg tablet mg PO 08/31/21 atorvastatin 40 mg tablet 40 mg PO DAILY 08/31/21 benzonatate 100 mg capsule 100 mg PO TID PRN Cough 08/31/21 buspirone 5 mg tablet 5 mg PO BID 08/31/21 cetirizine 10 mg tablet 10 mg PO DAILY 08/31/21 cholecalciferol (vitamin D3) 125 mcg (5,000 unit) tablet 125 mcg PO DAILY 08/31/21 fluticasone propionate 50 mcg/actuation nasal spray,suspension 1 spray intranasal DAILY 08/31/21 losartan 50 mg tablet 50 mg PO DAILY 08/31/21 mometasone-formotero l HFA 200 mcg-5 mcg/actuation aerosol inhaler 2 puff inhalation Q12H 08/31/21 tiotropium bromide 2.5 mcg/actuation mist for inhalation 2 puff inhalation DAILY 08/31/21 tumeric 100 mg-crow 150 mg-olive 50 mg-oreg 150 mg-caprylate capsule cap PO 08/31/21 vitamin B complex cap 08/31/21 Allergies/Adverse Reactions: Allergies meloxicam Adverse Reaction (Verified 08/31/21 08:32) Nausea Medical Utilization Do you use a peak flow meter at home?: No Do you use a spacer device with your inhalers?: No Number of hospital visits in the last year?: 0 Number of emergency room visits in the last year?: 1 Do you see your physician on a regular schedule?: Yes How often?: 3 months and as needed Advanced Directives - Advanced Directives Power of Razor Grinder: No Living Will: No Advance Directives Information Provided: Yes Advance Directives on File: No DNR Order?:: No - MOLST See MOLST form: No Past Medical History - Covid-19 Screening Fever: No Unexplained muscle aches: No - H/O Chronic Back Pain Current respiratory symptoms: Yes - CHRONIC OBSTRUCTIVE PULMONARY DISEASE Upper respiratory infections symptoms: No Gastro-intestinal symptoms: No Oig-Lwyn-Hvbupm symptoms: No Has tested positive for COVID-19 in last 30 days: No Date of testin08/31/21 - has not been vaccinated Had contact w/person w/symptoms or Covid-19 (+) last 14 days: No Has High Risk Exposures ID'd by Health dept/Inf Control team: No 65 years or older:: Yes Lives in Assisted Living facility:: No Has a chronic lung disease or moderate to severe asthma:: Yes Immunocompromised:: No Severely obese (Body Mass Index of 40 or higher):: Yes Diabetic:: No Has chronic kidney disease undergoing dialysis:: No Has liver disease:: No Medical History: Past Medical History (Last Updated 08/31/21 @ 08:36 by Moreno Jones, DIRECTOR [employer], [employer], BS) Allergic rhinitis J30.9 Chronic back pain M54.9, G89.29 Chronic sinusitis J32.9 COPD (chronic obstructive pulmonary disease) J44.9 Coronary artery disease I25.10 Former smoker Z87.891 Hyperlipidemia E78.5 Hypertension I10 DALIA (obstructive sleep apnea) G47.33 Social History - Smoking History Smoking Status: Former smoker Hx Tobacco Use: Yes Hx Smoking Exposure: Yes - Alcohol Use Alcohol Usage: Yes - 2-3 beers daily - Occupation Occupation (List type of work in comments):: Retired - - Hobbies, Recreation, Social Activities Hobbies: Sports - fishing hunting, Other - grandchildren great grandchildren Recreational Activities: I am able to engage in most, but not all activities, I am able to eng (more content not included)... Normal [facility] MT - Individual Treatment Pl anon 08-31-2021 MT - Individual Treatment Plan [facility] Pulmonary Rehab Reports [address] [place] [address] MT - Individual Treatment Plan MR#: [id number] Acct: [id number] Name: JOSE ALBERTO HERNANDEZ Rep #: [id number] : 1950 70 From: Moreno Jones DIRECTOR [employer], [employer] P[employer], BS [place] [place] General Information2 - General Information Admitting Diagnosis: Chronic Obstructive Pulmonary Disease (COPD) Gold Classification:: GOLD 2: Moderate - PFT FEV1:: 1.59 FVC:: 3.02 FEV1/FVC%:: 52 - Personal Learning Style/Barriers Personal Learning Style:: Audio/Visual, Written Barriers to Learning: None Stage of change r/t lifestyle modifications: Prepared Educational Classes MT: Living with Chronic Lung Disease: Initial Assessment, Breathing Retraining: Initial Assessment, Exercise: Initial Assessment, Energy Conservation: Initial Assessment, Preventing infection: Initial Assessment - Education/Goals Individual Counseling: Initial Assessment: High Blood Pressure, Overweight/Obesity MT Patient Goals: Increase muscle strength: Initial Assessment, Experience less dyspnea: Initial Assessment, Improve energy level: Initial Assessment, Participate in home exercise: Initial Assessment, Improve the ability to cope with ADLs: Initial Assessment, Improve knowledge of lung disease: Initial Assessment, Understand how to use medications: Initial Assessment, Increase knowledge of oxygen use: Initial Assessment, Control panic/anxiety: Initial Assessment, Improve diet and nutrition: Initial Assessment, Improve my quality of life: Initial Assessment, Reduce Stress/relaxation techniques: Initial Assessment Exercise - Initial Assessment - Visit Date of Eval: 08/31/21 Session Number:: 0 - pre-pulm rehab - Problem/Goals Problems: Deconditioning, Knowledge deficit exercise guidelines, Knowledge deficit exercise safety Goals:: MT: 2-3/wk for 18 weeks [36 sessions] - Physician Prescribed Exercise Modalities: Treadmill, Airdyne, NuStep Frequency (days/week): 3 Duration (Minutes):: 30-45 Intensity: 60-80% of age predicted maximum heart rate reserve Current METSs:: 3.0 Target HR:: 128 - THHR 98-128 Resting Blood Pressure: 132/68 EKG Type: NSR - Plan Plan and Plan to Review:: Benefits of exercise, Core components of exercise, How to measure dyspnea level, How to monitor dyspnea level, Exercise intensity, Exercise safety guideline, Home exercise guidelines, Sheryl: 3-4/11-13 Nutrition/Wt Mgmt - Initial - Visit Date of Eval: 08/31/21 Session Number:: 0 - pre-pulm rehab - Problems/Goals Problems: Overweight Goals: Wt Loss 1-2 lbs per week - Weight Management Knowledge Deficit Management of:: Overweight Admit Height:: 5 ft 6 in Admit Weight:: 242 lb Admit BMI:: 39.0 - Intervention Referral to dietitian:: Yes - Why Weight Program Intervention/Plan: Instruct on ideal BMI set weight loss goal w/patient, Assist pt to ID incorporate diet changes for weight loss by S9, Refer to Structured Weight Loss program as appropriate, Encourage goal of using 250-300dcal per session for weight loss - Plan Nutrition Plan: Yes Review BMI or WC identify target wt strategies for wt control, Yes Nutrition education class:, Yes Weight control education class: Psychosocial - Initial Assess - Visit Date of Eval: 08/31/21 Session Number:: 0 - Pre-pulm rehab - Problems/Goals Psychosocial Goals: 1. Patient is free from overwhelming symtoms of depression (or anxiety, 2. Identifies personal stressors states the strategies for managing, 3. Identifies activities to decrease isolation and/or symptoms of, 4. Improved psychosocial coping skills., 5. Verbalizes coping strategies., 6. Adequate treatment of depression., 7. Improved Q.O.L. - Psychosocial Test Tool Used:: Pulmonary QOL, PHQ-9 Questionnaire - Referral to Behavioral Health PS - Interventions: Yes Attend Stress Management Classes, No Referral to Behavioral Health if PHQ-9 score >9:, No Referral to [facility], No Referral to Physician if PHQ-9 if score is 5-9: - Intervention/Plan: See List Interventions/Plan:: Assess stressors,coping strategies signs of derpression on admission, Instruct/assist pt to develop coping personal stress Mgt strategies, Instruct patient to recognize signs symptoms of depression, Instruct patient to recog Oxygen Oxygen Titration Init - Visit Date of Eval: 08/31/21 Session Number:: 0 - pre-pulm rehab - Initial Assessment Oxygen on Admission: None Patient Reports:: Non-productive cough - Goal Oxygen Oxygen Tritration Goals: Effective hypoxemia control - Plans Plan: Monitor SpO2 rest with exercise, Train O2 safety systems Reviewed prescribed medications:: Purpose, Schedule, Side effects, Importance of compliance Instruct correct technique/timing care:: MDI, Nebulizer, Return demo use of inhaler Bronchial Hygiene Plan: Controlled cough, Vibratory PEP (more content not included)... Normal [facility] Vital Signs Date Time Vital Sign Value Performing Clinician Facility 08-19-2024 17:44-0400 Body temperature 98.3 [degF] [facility] 08-19-2024 17:44-0400 Diastolic blood pressure 61 mm[Hg] [facility] 08-19-2024 17:44-0400 Heart rate 100 /min [facility] 08-19-2024 17:44-0400 Respiratory rate 16 /min [facility] 08-19-2024 17:44-0400 SaO2% (BldA) [Mass fraction] 93 % [facility] 08-19-2024 17:44-0400 Systolic blood pressure 154 mm[Hg] [facility] 08-19-2024 17:00-0400 Inhaled oxygen flow rate 2 L/min [facility] 08-19-2024 13:39-0400 Body mass index (BMI) [Ratio] 44.1 kg/m2 [facility] 08-19-2024 13:39-0400 Body weight 125.8 kg [facility] 08-19-2024 13:29-0400 Body height 168.91 cm [facility] 06-02-2024 13:23-0400 Body height 167 cm Conor Murdock MD Work Phone: [facility] 06-02-2024 13:23-0400 Body mass index (BMI) [Ratio] 45.21 kg/m2 Conor Murdock MD Work Phone: [facility] 06-02-2024 13:23-0400 Body weight 126.1 kg Conor Murdock MD Work Phone: [facility] 06-02-2024 13:23-0400 Diastolic blood pressure 58 mm[Hg] Conor Murdock MD Work Phone: [facility] 06-02-2024 13:23-0400 Heart rate 80 /min Conor Murdock MD Work Phone: [facility] 06-02-2024 13:23-0400 SaO2% (BldA) [Mass fraction] 97 % Conor Murdock MD Work Phone: [facility] 06-02-2024 13:23-0400 Systolic blood pressure 136 mm[Hg] Conor Murdock MD Work Phone: [facility] 03-20-2024 17:42-0500 Body mass index (BMI) [Ratio] 46.57 kg/m2 Beto Moomaw INTRAMURAL DIRECTOR.SALES REPRESENTATIVE MEATS Work Phone: [facility] 03-20-2024 17:42-0500 Body temperature 98.2 [degF] Beto Moomaw INTRAMURAL DIRECTOR.SALES REPRESENTATIVE MEATS Work Phone: [facility] 03-20-2024 17:42-0500 Body weight 129.9 kg Beto Moomaw INTRAMURAL DIRECTOR.SALES REPRESENTATIVE [employer]ATS Work Phone: [facility] 03-20-2024 17:42-0500 Diastolic blood pressure 79 mm[Hg] Beto Moomaw INTRAMURAL DIRECTOR.SALES REPRESENTATIVE MEATS Work Phone: [facility] 03-20-2024 17:42-0500 Heart rate 86 /min Beto Moomaw INTRAMURAL DIRECTOR.SALES REPRESENTATIVE MEATS Work Phone: [facility] 03-20-2024 17:42-0500 Respiratory rate 24 /min Beto Moomaw INTRAMURAL DIRECTOR.SALES REPRESENTATIVE [employer]ATS Work Phone: [facility] 03-20-2024 17:42-0500 SaO2% (BldA) [Mass fraction] 93 % Beto Moomaw INTRAMURAL DIRECTOR.SALES REPRESENTATIVE [employer]ATS Work Phone: [facility] 03-20-2024 17:42-0500 Systolic blood pressure 180 mm[Hg] Beto Moomaw INTRAMURAL DIRECTOR.SALES REPRESENTATIVE [employer]ATS Work Phone: [facility] 01-28-2024 10:32-0500 Body mass index (BMI) [Ratio] 45.54 kg/m2 Seven Grider INTRAMURAL DIRECTOR.SALES REPRESENTATIVE [employer]ATS Work Phone: [facility] 01-28-2024 10:32-0500 Body weight 127.01 kg Seven John INTRAMURAL DIRECTOR.SALES REPRESENTATIVE [employer]ATS Work Phone: [facility] 01-28-2024 10:32-0500 Diastolic blood pressure 70 mm[Hg] Seven John INTRAMURAL DIRECTOR.SALES REPRESENTATIVE [employer]ATS Work Phone: [facility] 01-28-2024 10:32-0500 Heart rate 79 /min Seven John INTRAMURAL DIRECTOR.SALES REPRESENTATIVE [employer]ATS Work Phone: [facility] 01-28-2024 10:32-0500 Respiratory rate 20 /min Seven John INTRAMURAL DIRECTOR.SALES REPRESENTATIVE [employer]ATS Work Phone: [facility] 01-28-2024 10:32-0500 SaO2% (BldA) [Mass fraction] 98 % Seven John INTRAMURAL DIRECTOR.SALES REPRESENTATIVE [employer]ATS Work Phone: [facility] 01-28-2024 10:32-0500 Systolic blood pressure 134 mm[Hg] Seven John INTRAMURAL DIRECTOR.SALES REPRESENTATIVE [employer]ATS Work Phone: [facility] 11-26-2023 15:04-0400 Diastolic blood pressure 64 mm[Hg] Conor Murdock MD Work Phone: [facility] 11-26-2023 15:04-0400 Systolic blood pressure 138 mm[Hg] Conor Murdock MD Work Phone: [facility] 11-26-2023 14:35-0400 Body height 167 cm Conor Murodck MD Work Phone: [facility] 11-26-2023 14:35-0400 Body mass index (BMI) [Ratio] 43.39 kg/m2 Conor Murdock MD Work Phone: [facility] 11-26-2023 14:35-0400 Body weight 121.02 kg Conor Murdock MD Work Phone: [facility] 11-26-2023 14:35-0400 Heart rate 77 /min Conor Murdock MD Work Phone: [facility] 11-26-2023 14:35-0400 SaO2% (BldA) [Mass fraction] 95 % Conor Murdock MD Work Phone: [facility] 08-07-2023 15:21-0400 Body mass index (BMI) [Ratio] 41.96 kg/m2 Jany Suppan INTRAMURAL DIRECTOR.EMERGENCY ROOM SPECIALIST Work Phone: [facility] 08-07-2023 15:21-0400 Body temperature 99.39 [degF] Jnay Suppan INTRAMURAL DIRECTOR.EMERGENCY ROOM SPECIALIST Work Phone: [facility] 08-07-2023 15:21-0400 Body weight 117.03 kg Jany Suppan INTRAMURAL DIRECTOR.EMERGENCY ROOM SPECIALIST Work Phone: [facility] 08-07-2023 15:21-0400 Diastolic blood pressure 66 mm[Hg] Jany Suppan INTRAMURAL DIRECTOR.EMERGENCY ROOM SPECIALIST Work Phone: [facility] 08-07-2023 15:21-0400 Heart rate 75 /min Jany Suppan INTRAMURAL DIRECTOR.EMERGENCY ROOM SPECIALIST [facility] [place] 08-07-2023 15:21-0400 Respiratory rate 22 /min Jany Suppan INTRAMURAL DIRECTOR.EMERGENCY ROOM SPECIALIST Work Phone: [facility] 08-07-2023 15:21-0400 SaO2% (BldA) [Mass fraction] 95 % Jany Suppan INTRAMURAL DIRECTOR.EMERGENCY ROOM SPECIALIST Work Phone: [facility] 08-07-2023 15:21-0400 Systolic blood pressure 148 mm[Hg] Jany Suppan INTRAMURAL DIRECTOR.EMERGENCY ROOM SPECIALIST Work Phone: [facility] 07-26-2023 10:37-0400 Body mass index (BMI) [Ratio] 41.31 kg/m2 Jany Suppan INTRAMURAL DIRECTOR.EMERGENCY ROOM SPECIALIST Work Phone: [facility] 07-26-2023 10:37-0400 Body weight 115.21 kg Jany Suppan INTRAMURAL DIRECTOR.EMERGENCY ROOM SPECIALIST Work Phone: [facility] 07-26-2023 10:37-0400 Diastolic blood pressure 68 mm[Hg] Jany Suppan INTRAMURAL DIRECTOR.EMERGENCY ROOM SPECIALIST Work Phone: [facility] 07-26-2023 10:37-0400 Heart rate 75 /min Jany Suppan INTRAMURAL DIRECTOR.EMERGENCY ROOM SPECIALIST Work Phone: [facility] 07-26-2023 10:37-0400 Respiratory rate 20 /min Jany Suppan INTRAMURAL DIRECTOR.EMERGENCY ROOM SPECIALIST Work Phone: [facility] 07-26-2023 10:37-0400 SaO2% (BldA) [Mass fraction] 95 % Jany Suppan INTRAMURAL DIRECTOR.EMERGENCY ROOM SPECIALIST Work Phone: [facility] 07-26-2023 10:37-0400 Systolic blood pressure 142 mm[Hg] Jany Suppan INTRAMURAL DIRECTOR.EMERGENCY ROOM SPECIALIST Work Phone: [facility] 10-13-2022 12:52-0400 Body temperature 97.59 [degF] Krislyn Aberegg PA Work Phone: [facility] 10-13-2022 12:52-0400 Body weight 105.14 kg Krislyn Aberegg PA Work Phone: [facility] 10-13-2022 12:52-0400 Diastolic blood pressure 82 mm[Hg] Krislyn Aberegg PA Work Phone: [facility] 10-13-2022 12:52-0400 Heart rate 71 /min Krislyn Aberegg PA Work Phone: [facility] 10-13-2022 12:52-0400 Respiratory rate 18 /min Krislyn Aberegg PA Work Phone: [facility] 10-13-2022 12:52-0400 SaO2% (BldA) [Mass fraction] 96 % Krislyn Aberegg PA Work Phone: [facility] 10-13-2022 12:52-0400 Systolic blood pressure 154 mm[Hg] Krislyn Aberegg PA Work Phone: [facility] 10-01-2022 12:09-0400 Body temperature 97.81 [degF] Babita Gamez APRN.SALES REPRESENTATIVE MEATS Work Phone: [facility] 10-01-2022 12:09-0400 Body weight 104.78 kg Babita Gamez APRN.SALES REPRESENTATIVE MEATS Work Phone: [facility] 10-01-2022 12:09-0400 Diastolic blood pressure 70 mm[Hg] Babita Gamez INTRAMURAL DIRECTOR.SALES REPRESENTATIVE MEATS Work Phone: [facility] 10-01-2022 12:09-0400 Heart rate 70 /min Babita Gamez APRN.SALES REPRESENTATIVE MEATS Work Phone: [facility] 10-01-2022 12:09-0400 Respiratory rate 18 /min Babita Gamez APRN.SALES REPRESENTATIVE MEATS Work Phone: [facility] 10-01-2022 12:09-0400 SaO2% (BldA) [Mass fraction] 95 % Babita Gamez APRN.SALES REPRESENTATIVE MEATS Work Phone: [facility] 10-01-2022 12:09-0400 Systolic blood pressure 134 mm[Hg] Babita Gamez APRN.SALES REPRESENTATIVE MEATS Work Phone: [facility] 03-13-2022 11:08-0500 Body height 167 cm Conor Murdock MD Work Phone: [facility] 03-13-2022 11:08-0500 Body weight 107.5 kg Conor Murdock MD Work Phone: [facility] 03-13-2022 11:08-0500 Diastolic blood pressure 62 mm[Hg] Conor Murdock MD Work Phone: [facility] 03-13-2022 11:08-0500 Heart rate 86 /min Conor Murdock MD Work Phone: [facility] 03-13-2022 11:08-0500 SaO2% (BldA) [Mass fraction] 97 % Conor Murdock MD Work Phone: [facility] 03-13-2022 11:08-0500 Systolic blood pressure 138 mm[Hg] Conor Murdock MD Work Phone: [facility] 09-07-2021 12:09-0400 Diastolic blood pressure 62 mm[Hg] Conor Murdock MD Work Phone: [facility] 09-07-2021 12:09-0400 Systolic blood pressure 128 mm[Hg] Conor Murdock MD Work Phone: [facility] 09-07-2021 11:33-0400 Body weight 107.96 kg Conor Murdock MD Work Phone: [facility] 09-07-2021 11:33-0400 Heart rate 80 /min Conor Murdock MD Work Phone: [facility] 08-31-2021 09:46-0400 Body height 167.64 cm [facility] Work Phone: 08-31-2021 09:46-0400 Body mass index (BMI) [Ratio] 39 kg/m2 [facility] Work Phone: 08-31-2021 09:46-0400 Body weight 109.76 kg [facility] Work Phone: 08-31-2021 09:22-0400 Body temperature 97.8 [degF] [facility] Work Phone: 08-31-2021 09:22-0400 Diastolic blood pressure 68 mm[Hg] [facility] Work Phone: 08-31-2021 09:22-0400 Heart rate 68 /min [facility] Work Phone: 08-31-2021 09:22-0400 Respiratory rate 18 /min [facility] Work Phone: 08-31-2021 09:22-0400 SaO2% (BldA) [Mass fraction] 93 % [facility] Work Phone: 08-31-2021 09:22-0400 Systolic blood pressure 132 mm[Hg] [facility] Work Phone: Encounters Encounter Date Encounter Type Care Provider Facility Start: 08-19-2024 Evaluation and management of inpatient Dr. Isiah Black DO -Progressive Care Unit Work Phone: Start: 08-15-2024 End: 08-15-2024 ambulatory Prasanth Mulligan RN Work Phone: [facility] Comment on above: Bi-Weekly Outreach ( Recurring) for Chronic Disease Management Start: 08-13-2024 End: 08-13-2024 Patient Outreach Mary Abdullahi RN Work Phone: [facility] Comment on above: Transition Of Care ( Inbound call ) Bi-Weekly Outreach ( Recurring) for Chronic Disease Management Start: 08-04-2024 End: 08-04-2024 ambulatory Conor Murdock MD [facility] [place] Start: 08-04-2024 End: 08-04-2024 Patient encounter procedure Conor Murdock MD Work Phone: [facility] [place] Comment on above: Population Health Na vigation Outreach ([employer] [place] ) Start: 07-29-2024 End: 07-29-2024 ambulatory Prasanth Mulligan RN Work Phone: [facility] Comment on above: Bi-Weekly Outreach ( Recurring) for Chronic Disease Management Start: 07-07-2024 End: 07-07-2024 ambulatory Prasanth Mulligan RN Work Phone: [facility] Comment on above: Bi-Weekly Outreach ( Recurring) for Chronic Disease Management Start: 07-03-2024 End: 07-03-2024 ambulatory Conor Murdock MD [facility] [place] Start: 07-03-2024 End: 07-03-2024 Patient encounter procedure Conor Murdock MD Work Phone: [facility] [place] Comment on above: Population Health Na vigation Outreach ([employer] [place]) Start: 07-01-2024 End: 07-01-2024 Refill Conor Murdock MD Work Phone: [facility] [place] Comment on above: Refill Request Start: 06-19-2024 End: 06-19-2024 ambulatory Prasanth Mulligan RN Work Phone: [facility] Comment on above: Bi-Weekly Outreach ( Recurring) for Chronic Disease Management Start: 06-05-2024 End: 06-05-2024 ambulatory Prasanth Mulligan RN Work Phone: [facility] Comment on above: Bi-Weekly Outreach ( Recurring) for Chronic Disease Management Start: 06-03-2024 End: 08-03-2024 Follow-up encounter Conor Murdock MD Work Phone: Family [facility] [place] Start: 06-02-2024 End: 06-02-2024 Subsequent hospital visit by physician Xr [facility] [place] Work Phone: Radiology Comment on above: Abnormal x-ray [R93. 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; Chronic ischemic heart disease; Vitamin D deficiency; Chronic pain of left knee; Pain in joint of left hip; Bilateral carotid artery stenosis; SOB (shortness of breath) Start: 05-30-2024 End: 05-30-2024 ambulatory Conor Murdock MD Work Phone: [facility] [place] Start: 05-30-2024 End: 05-30-2024 Patient encounter procedure Conor Murdock MD Work Phone: [facility] [place] Comment on above: Population Health Na vigation Outreach ([employer] [place] ) Start: 05-26-2024 End: 05-26-2024 Telephone encounter Conor Murdock MD Work Phone: [facility] [place] Comment on above: Letter (No Show #1) Start: 05-22-2024 End: 05-22-2024 ambulatory Prasanth Mulligan RN Work Phone: [facility] Comment on above: Bi-Weekly Outreach ( Recurring) for Chronic Disease Management Start: 05-05-2024 End: 05-05-2024 ambulatory Prasanth Mulligan RN Work Phone: [facility] Comment on above: Initial enrollment jacinto pandya for Chronic Disease Management Start: 03-20-2024 End: 03-20-2024 Subsequent hospital visit by physician Tiffanie [facility] [place] Work Phone: Radiology Comment on above: Acute cough [R05.1] Start: 03-20-2024 End: 03-20-2024 ambulatory CONOR MURDOCK Facility:[facility] Start: 03-20-2024 End: 03-20-2024 Patient encounter procedure Beto Derickwilliam INTRAMURAL DIRECTOR.SALES REPRESENTATIVE MEATS Work Phone: [place] Comment on above: Bacterial pneumonia (Primary Dx) Start: 02-11-2024 End: 02-11-2024 Refill Conor Murdock MD Work Phone: [facility] [place] Comment on above: Refill Request Start: 02-07-2024 End: 02-07-2024 ambulatory Coymarley Hammonds MA [facility] [place] Start: 02-07-2024 End: 02-07-2024 Patient encounter procedure [facility] Comment on above: Population Health Na vigation Outreach ([facility] [place] Start: 01-28-2024 End: 01-28-2024 ambulatory SEVEN GRIEDR Facility:[facility] Start: 01-28-2024 End: 01-28-2024 Office outpatient visit 25 minutes Seven Grider INTRAMURAL DIRECTOR.SALES REPRESENTATIVE MEATS Work Phone: [facility] [place] Comment on above: Acute bronchitis wit h chronic obstructive pulmonary disease (COPD) (HCC) (HCC) (Primary Dx) Start: 12-03-2023 End: 12-03-2023 Telephone encounter Conor Murdock MD Work Phone: [facility] [place] Comment on above: Medication Request ( Buspirone) Start: 11-26-2023 End: 11-26-2023 ambulatory CONOR MURDOCK Facility:[facility] Start: 11-26-2023 End: 11-26-2023 Patient encounter procedure Conor Murdock MD Work Phone: [facility] [place] Comment on above: Hypertension, essent ial (Primary Dx); Hyperlipidemia, mixed; 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 Comment on above: Dyspnea, unspecified type Start: 08-07-2023 End: 08-07-2023 Office outpatient visit 15 minutes Jany Zaman INTRAMURAL DIRECTOR.EMERGENCY ROOM SPECIALIST Work Phone: [facility] [place] Comment on above: Acute bronchitis wit h chronic obstructive pulmonary disease (COPD) (HCC) (HCC) (Primary Dx) Start: 07-27-2023 Refill Conor Murdock MD Work Phone: [facility] [place] Comment on above: Refill Request Start: 07-26-2023 Refill Conor Murdock MD Work Phone: Family [facility] [place] Comment on above: Refill Request Start: 07-26-2023 End: 07-26-2023 Office outpatient visit 15 minutes Jany Zaman INTRAMURAL DIRECTOR.EMERGENCY ROOM SPECIALIST Work Phone: [facility] [place] Comment on above: Acute frontal sinusi tis, recurrence not specified (Primary Dx); Acute bronchitis with chronic obstructive pulmonary disease (COPD) (HCC) (HCC); Dyslipidemia Start: 05-30-2023 Telephone encounter Conor Murdock MD Work Phone: [facility] [place] Start: 05-24-2023 Telephone encounter Conor Murdock MD Work Phone: Pulmonology [facility] Comment on above: Patient Update Start: 05-22-2023 End: 05-22-2023 Subsequent hospital visit by physician Mri Radio [facility] (I-Stat/1.5t) Work Phone: Radiology Comment on above: Canceled (CC cx: Equ ipment, Prep, Appropriateness) Start: 05-21-2023 Refill Conor Murdock MD Work Phone: [facility] [place] Comment on above: Refill Request Start: 04-23-2023 Refill Conor Murdock MD Work Phone: [facility] [place] Comment on above: Refill Request Start: 04-16-2023 Telephone encounter Conor Murdock MD Work Phone: [facility] [place] Comment on above: Results Start: 04-16-2023 End: 04-16-2023 Subsequent hospital visit by physician [facility] Work Phone: Radiology Comment on above: Elevated liver enzym es [R74.8] Start: 04-01-2023 Telephone encounter Conor Murdock MD Work Phone: [facility] [place] Comment on above: Results Start: 03-29-2023 End: 03-30-2023 Patient encounter status Jany Zaman APRN.EMERGENCY ROOM SPECIALIST Work Phone: [facility] Start: 01-03-2023 Refill Conor Murdock MD Work Phone: [facility] [place] Comment on above: Refill Request Start: 11-13-2022 Refill Conor Murdock MD Work Phone: [address] [place] [address] Comment on above: Refill Request Start: 10-13-2022 End: 10-13-2022 Patient encounter procedure Jeanette PATEL Work Phone: [facility] Comment on above: Neck pain (Primary D x) Start: 10-01-2022 End: 10-01-2022 Patient encounter procedure Babita Gamez APRN.SALES REPRESENTATIVE MEATS Work Phone: [facility] Comment on above: Acute midline low ba ck pain with left-sided sciatica (Primary Dx) Start: 08-28-2022 Refill Conor Murdock MD Work Phone: [facility] [place] Comment on above: Refill Request Medication Request ( Dulera inhaler) Start: 08-17-2022 Refill Conor Murdock MD Work Phone: [facility] [place] Comment on above: Opened In Error Start: 08-16-2022 ambulatory Elinor Elvira [facility]ante [facility] [place] Comment on above: Population Health Na vigation Outreach ([employer] ) Start: 08-04-2022 Refill Conor Murdock MD Work Phone: Family [facility] [place] Start: 08-03-2022 Refill Conor Murdock MD Work Phone: [facility] [place] Comment on above: Refill Request Start: 03-13-2022 End: 03-13-2022 Patient encounter procedure Conor Murdock MD Work Phone: [facility] [place] Comment on above: Hypertension, essent ial (Primary Dx); Hyperlipidemia, mixed; 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; Panic attacks; Obesity, Class II, BMI 35-39.9; Hx of placement of stent in circumflex branch of left coronary artery; Macrocytosis; Spinal cord stimulator status; COPD with chronic bronchitis (HCC) Start: 12-13-2021 [facility] Facility:[facility] Start: 11-04-2021 End: 12-03-2021 [facility] Facility:[facility] Start: 10-21-2021 End: 11-03-2021 [facility] Facility:[facility] Start: 09-30-2021 End: 10-03-2021 [facility] Facility:[facility] Start: 09-30-2021 End: 10-02-2021 Discharged Recurring [facility] Start: 09-07-2021 End: 09-07-2021 Patient encounter procedure Conor Murdock MD Work Phone: [facility] Comment on above: Hyperlipidemia, mixe d (Primary Dx); Hypertension, essential; COPD with chronic bronchitis (HCC); Lumbar stenosis with neurogenic claudication; 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 Start: 08-31-2021 End: 08-31-2021 [facility] Facility:[facility] Start: 08-31-2021 End: 08-31-2021 Patient encounter procedure [facility] Start: 06-29-2021 [facility] [place] Comment on above: Population Health Na vigation Outreach ([employer] ) Procedures Date Procedure Procedure Detail Performing Clinician Start: 08-19-2024 Prothrombin time [facility] Start: 08-19-2024 Estimated creatinine clearance [facility] Start: 08-19-2024 Urnls dip stick/tablet reagent auto microscopy [facility] Start: 08-19-2024 SARS-CoV-2, Influenza & RSV (PCR) [facility] Start: 08-19-2024 X-ray of chest, PA and lateral views [facility] Start: 03-20-2024 Radiologic exam chest 2 views Beto Sheffield INTRAMURAL DIRECTOR.SALES REPRESENTATIVE MEATS Work Phone: Start: 11-26-2023 Adult depression screening assessment Conor Murdock MD Work Phone: Start: 08-24-2023 Radiologic exam chest 2 views Zari Whitemarva Matamoros Work Phone: Start: 05-23-2023 Lipid 1996 panel - Serum or Plasma Conor Murdock MD Work Phone: Start: 04-16-2023 Us abdominal real time w/image limited Conor Murdock MD Work Phone: Start: 03-29-2023 History of percutaneous transluminal coronary angioplasty History of percutaneous transluminal coronary angioplasty Us 1 Work Phone: Start: 09-27-2022 Lipid 1996 panel - Serum or Plasma Conor Murdock MD Work Phone: Start: 09-07-2021 Adult depression screening assessment Conor Murdock MD Work Phone: Start: 01-13-2021 History of placement of stent in anterior descending branch of left coronary artery Hx of placement of stent in circumflex branch of left coronary artery Ariana Pereira MA History of placement of stent in anterior descending branch of left coronary artery Hx of placement of stent in circumflex branch of left coronary artery Conor Murdock MD Work Phone: Plan of Treatment Date Care Activity Detail Author Start: 05-22-2028 Lipid panel Lipid Screening [facility] Start: 11-01-2027 Urine microalbumin profile [facility] Start: 09-28-2027 Lipid 1996 panel - Serum or Plasma Lipid Screening [facility] Start: 09-28-2027 Lipid panel Lipid Screening [facility] Start: 09-28-2027 LIPID SCREEN LIPID SCREEN [facility] Start: 05-22-2026 Diabetes Screening Diabetes Screenin g [facility] Start: 09-27-2025 DIABETES SCREEN DIABETES SCREEN [facility] Start: 09-27-2025 Diabetes Screening Diabetes Screenin g [facility] Start: 06-02-2025 Annual PCP Team Prescription Clerk evelin Disease Visit Annual PCP Team Chronic Disease Visit [facility] Start: 01-27-2025 Annual PCP Team Prescription Clerk evelin Disease Visit Annual PCP Team Chronic Disease Visit [facility] Start: 11-25-2024 Annual PCP Team Prescription Clerk evelin Disease Visit Annual PCP Team Chronic Disease Visit [facility] Start: 11-25-2024 BP Controlled (<130/80) BP Controlle d (<130/80) [facility] Start: 11-25-2024 Covid-19 Vaccine ( season) Covid-19 Vaccine ( season) [facility] Comment on above: Postponed from 11/03 (Declined at this time) Start: 11-25-2024 Depression Screening Depression Scre ening [facility] Start: 11-03-2024 Influenza vaccination Influenz a Vaccine (Season Ended) [facility] Start: 09-03-2024 End: 09-03-2024 Patient encounter procedure 09/03/2024 9:20 AM EDT Office Visit [facility] [place] [address] [place], [place] [id number] Conor Murdock MD [address] [place], [place] [id number] medicare wellness, hcc gap closure, bp, colonoscopy [facility] [place] Comment on above: medicare wellness, h cc gap closure, bp, colonoscopy Start: 09-01-2024 Influenza vaccination Influenza Vacc ine (#1) [facility] Comment on above: Postponed from 11/03 (Declined at this time) Start: 08-19-2024 Respiratory pathogen s DNA and RNA panel - Respiratory specimen by MELISSA with probe detection [facility] Start: 08-19-2024 Streptococcus pneumoniae antigen assay [facility] Start: 08-19-2024 Verification routine [facility] Start: 08-19-2024 [facility] Start: 08-[facility]-2024 CT Chest WO contrast [facility] Start: 08-19-2024 CT of chest without contrast Chest without Contrast [facility] Start: 08-19-2024 Hospital admission, emergency, from emergency room, medical nature [facility] Start: 08-19-2024 [facility] Start: 08-19-2024 End: 08-19-2024 [facility] Start: 08-19-2024 Bacteria identified in Blood by Culture Blood Culture [facility] Start: 08-19-2024 Bacteria identified in Urine by Culture Urine Culture [facility] Start: 06-02-2024 End: 06-02-2024 Patient encounter procedure 06/02/2024 1:40 PM EDT Office Visit [facility] [place] [address] [place] [address] Conor Murdock MD [address] [place] [address] 6 month f/u [facility] Comment on above: 6 month f/u Start: 05-26-2024 End: 05-26-2024 Patient encounter procedure 05/26/2024 10:20 AM EDT Office Visit [facility] Lien [facility] [address] [place] [address] Conor Murdock MD [address] [place] [address] 6 month follow up [facility] Comment on above: 6 month follow up Start: 05-22-2024 Hepatitis B surface antibody level LDL Cholesterol [facility] Start: 03-30-2024 Annual PCP Team Prescription Clerk evelin Disease Visit Annual PCP Team Chronic Disease Visit [facility] Start: 03-30-2024 RSV Vaccine (1 - 1-d ose 60+ series) RSV Vaccine (1 - 1-dose 60+ series) [facility] Comment on above: Postponed from 10/13 (Declined at this time) Start: 03-30-2024 RSV Vaccine (1 - Ris k 60-74 years 1-dose series) RSV Vaccine (1 - Risk 60-74 years 1-dose series) [facility] Comment on above: Postponed from 10/13 (Declined at this time) Start: 03-30-2024 Spirometry Spirometry [facility] Comment on above: Postponed from 10/13 (Declined at this time) Start: 03-05-2024 Advance Directive Discussion Advance Directive Discussion [facility] Start: 03-05-2024 Medicare Advantage Annual Wellness Visit Medicare [facility] Annual Wellness Visit [facility] Start: 11-04-2023 Influenza vaccination Influenz a Vaccine (Season Ended) [facility] Start: 09-28-2023 ANNUAL PCP TEAM NETWORK MANAGER EVELIN DISEASE VISIT ANNUAL PCP TEAM CHRONIC DISEASE VISIT [facility] Start: 09-28-2023 BP CONTROLLED (<130/80) BP CONTROLLE D (<130/80) [facility] Start: 09-28-2023 COVID-19 VACCINE (#1) COVID-19 VACCI NE (#1) [facility] Comment on above: Postponed from 04/15 (Declined at this time) Start: 09-28-2023 Hepatitis B surface antibody level LDL CHOLESTEROL [facility] Start: 09-28-2023 End: 09-28-2023 Patient encounter procedure 09/28/2023 11:00 AM EDT Office Visit Family Lien Reynoso [address] [place] [id number] Conor Murodck MD [address] [place], [place] [id number] 6 month follow up Family Lien Reynoso Comment on above: 6 month follow up Start: 09-02-2023 Influenza vaccination Influenza Vacc ine (#1) [facility] Comment on above: Postponed from 11/03 (Declined at this time) Start: 04-01-2023 End: 07-01-2023 Hepatic function 2000 panel - Serum or Plasma HEPATIC FUNCTION PNL Lab Routine Elevated liver enzymes Expected: 04/01/2023, Expires: 07/01/2023 [facility] Work Phone: Comment on above: Expected: 04/01/2023 , Expires: 07/01/2023 Start: 03-13-2023 ANNUAL PCP TEAM NETWORK MANAGER EVELIN DISEASE VISIT ANNUAL PCP TEAM CHRONIC DISEASE VISIT [facility] Start: 03-05-2023 Behavioral Health Screening Behavioral Health Screening [facility] Start: 11-03-2022 Covid-19 Vaccine ( season) Covid-19 Vaccine ( season) [facility] Start: 11-03-2022 Influenza vaccination [facility] Start: 09-07-2022 Adult depression screening assessment DEPRESSION SCREENING [facility] Start: 09-07-2022 ANNUAL PCP TEAM NETWORK MANAGER EVELIN DISEASE VISIT ANNUAL PCP TEAM CHRONIC DISEASE VISIT [facility] Start: 09-07-2022 BP CONTROLLED (<130/80) BP CONTROLLE D (<130/80) [facility] Start: 04-27-2022 ANNUAL PCP TEAM NETWORK MANAGER EVELIN DISEASE VISIT ANNUAL PCP TEAM CHRONIC DISEASE VISIT [facility] Start: 03-13-2022 End: 05-13-2022 Cobalamin (Vitamin B12) [Mass/volume] in Serum or Plasma [facility] Work Phone: Comment on above: Expected: 03/13/2022 , Expires: 05/13/2022 Start: 03-13-2022 End: 05-13-2022 Folate [Mass/volume] in Serum or Plasma [facility] Work Phone: Comment on above: Expected: 03/13/2022 , Expires: 05/13/2022 Start: 01-13-2022 COVID-19 VACCINE (#1) COVID-19 VACCI NE (#1) [facility] Comment on above: Postponed from 04/15 (Declined at this time) Start: 01-13-2022 COVID-19 VACCINE (1) COVID-19 VACCIN E (1) [facility] Comment on above: Postponed from 10/13 (Declined at this time) Start: 11-03-2021 Influenza vaccination [facility] Start: 08-31-2021 [facility] Work Phone: Start: 08-31-2021 Patient referral to dietitian [facility] Work Phone: Start: 03-05-2021 ADVANCE DIRECTIVE DISCUSSION ADVANCE DIRECTIVE DISCUSSION [facility] Start: 10-13-2016 Pneumococcal vaccination Pneumococcal Vaccine(s) (65+ yrs) (1 of 1 - PCV) [facility] Start: 10-13-2016 PNEUMOVAX AGE 65 AND OVER WITH 5YR LOOKBACK (#1) PNEUMOVAX AGE 65 AND OVER WITH 5YR LOOKBACK (#1) [facility] Start: 2011 Hepatitis B (HBV) Vaccine (optional start 60+ years) Hepatitis B (HBV) Vaccine (optional start 60+ years) [facility] Start: 2011 RSV Vaccine (1 - 1-d ose 60+ series) RSV Vaccine (1 - 1-dose 60+ series) [facility] Start: 2011 RSV Vaccine (1 - Ris k 60-74 years 1-dose series) RSV Vaccine (1 - Risk 60-74 years 1-dose series) [facility] Start: 2011 RSV vaccine (optiona l 60+ years) RSV vaccine (optional 60+ years) [facility] Start: 10-13-2001 Shingles (RZV) Vacci ne (1 of 2) Shingles (RZV) Vaccine (1 of 2) [facility] Start: 10-13-2001 SHINGRIX VACCINE (1 of 2) SHINGRIX VACCINE (1 of 2) [facility] Start: 10-13-1996 COLOGUARD (FIT-DNA) COLOGUARD (FIT-D NA) [facility] Start: 10-13-1996 Colonoscopy COLONOSCOPY [facility] Start: 10-13-1996 COLORECTAL CANCER SCREENING COLORECTAL CANCER SCREENING [facility] Start: 10-13-[address] COLONOGRAPHY [facility] Start: 10-13-1996 DIABETES SCREEN DIABETES SCREEN [facility] Start: 10-13-1996 FECAL OCCULT BLOOD FECAL OCCULT BLOO D [facility] Start: 10-13-1996 Screening for malign ant neoplasm of colon [facility] Start: 10-13-1996 SIGMOIDOSCOPY SIGMOIDOSCOPY [facility] Start: 10-13-1986 [facility]id [facility] Start: 10-13-1986 LIPID SCREEN LIPID SCREEN [facility] Start: 10-13-1981 Zoledronic acid therapy ALPHA- 1 ANTITRYPSIN DEFICIENCY SCREENING [facility] Start: 10-13-1970 Hepatitis A (HAV) Vaccine (optional start 19+ years) Hepatitis A (HAV) Vaccine (optional start 19+ years) [facility] Start: 10-13-1970 Tetanus vaccination Tetanus (T d or Tdap) Booster [facility] Start: 10-13-1970 Urine microalbumin profile DTAP,TDAP,TD (1 - Tdap) [facility] Start: 10-13-1969 BP CONTROLLED (<130/80) BP CONTROLLE D (<130/80) [facility] Start: 10-13-1969 Hepatitis B surface antibody level LDL CHOLESTEROL [facility] Start: 10-13-1969 HEPATITIS C SCREENING HEPATITIS C SC REENING [facility] Start: 10-13-1969 Hepatitis C screening Hepatitis C An tibody [facility] Start: 10-13-1969 SPIROMETRY SPIROMETRY [facility] Start: 10-13-1969 Tetanus + diphtheria + acellular pertussis vaccine (product) Tdap Booster [facility] Start: 1963 Adult depression screening assessment DEPRESSION SCREENING [facility] Start: 10-13-1957 PNEUMOCOCCAL: 65+ (1 - PCV) PNEUMOCOCCAL: 65+ (1 - PCV) [facility] Start: 04-15-1952 COVID-19 VACCINE (#1) COVID-19 VACCI NE (#1) [facility] Start: 1950 ABDOMINAL AORTIC ANEURYSM SCREENING ABDOMINAL AORTIC ANEURYSM SCREENING [facility] Start: 1950 Screening for malign ant neoplasm of colon Colonoscopy [facility] Lactic acid measurement [facility] Legionella pneumophi la Ag [Presence] in Urine [facility] End: 05-15-2024 MR Biliary ducts and Pancreatic duct WO and W contrast IV MRI PANC/ZAIN WO/W IVCON Radiology Routine Abnormal results of liver function studies 1 Occurrences starting 04/16/2023 until 05/15/2024 [facility] Work Phone: Comment on above: 1 Occurrences starti ng 04/16/2023 until 05/15/2024 End: 06-22-2024 MR Biliary ducts and Pancreatic duct WO and W contrast IV MRI PANC/ZAIN WO/W IVCON Radiology Routine Abnormal results of liver function studies Bile duct abnormality 1 Occurrences starting 05/24/2023 until 06/22/2024 [facility] Work Phone: Comment on above: 1 Occurrences starti ng 05/24/2023 until 06/22/2024 End: 05-15-2024 MR Unspecified body region 3D post processing MRI 3D POST PROCESSING Radiology Routine Abnormal results of liver function studies 1 Occurrences starting 04/16/2023 until 05/15/2024 [facility] Work Phone: Comment on above: 1 Occurrences starti ng 04/16/2023 until 05/15/2024 End: 06-22-2024 MR Unspecified body region 3D post processing MRI 3D POST PROCESSING Radiology Routine Abnormal results of liver function studies Bile duct abnormality 1 Occurrences starting 05/24/2023 until 06/22/2024 [facility] Work Phone: Comment on above: 1 Occurrences starti ng 05/24/2023 until 06/22/2024 Patient referral [facility] Work Phone: Procalcitonin [Mass/volume] in Serum or Plasma by Immunoassay [facility] Troponin T.cardiac [Mass/volume] in Serum or Plasma by High sensitivity method [facility] Urine culture [facility] End: 07-02-2025 XR Chest PA and Lateral XR CHEST 2V FRONTAL/LAT Radiology Routine Abnormal x-ray 1 Occurrences starting 06/02/2024 until 07/02/2025 [facility] Work Phone: Comment on above: 1 Occurrences starti ng 06/02/2024 until 07/02/2025 XR Chest PA and Lateral XR CHEST 2V FRONTAL/LAT Radiology Routine Abnormal x-ray 06/02/2024 2:52 PM EDT [facility] End: 07-02-2025 XR Knee - left 4 Views XR KNEE GENERAL 4V AP BOTH/PA BOTH/LAT/MERC LEFT Radiology Routine Chronic pain of left knee 1 Occurrences starting 06/02/2024 until 07/02/2025 [facility] Comment on above: 1 Occurrences starti ng 06/02/2024 until 07/02/2025 XR Knee - left 4 Views XR KNEE G ENERAL 4V AP BOTH/PA BOTH/LAT/MERC LEFT Radiology Routine Chronic pain of left knee 06/02/2024 2:52 PM EDT [facility] End: 07-02-2025 XR Pelvis and Hip - left AP and Lateral frog XR HIP GENERAL 3V PELV/AP/LAT LEFT Radiology Routine Pain in joint of left hip 1 Occurrences starting 06/02/2024 until 07/02/2025 [facility] Comment on above: 1 Occurrences starti ng 06/02/2024 until 07/02/2025 XR Pelvis and Hip - left AP and Lateral frog XR HIP GENERAL 3V PELV/AP/LAT LEFT Radiology Routine Pain in joint of left hip 06/02/2024 2:52 PM EDT [facility] Immunizations Immunization Date Immunization Notes Care Provider Fa cility 04-23-2024 respiratory syncytia l virus (RSV) vaccine, bivalent (ABRYSVO) Conor Murdock MD Work Phone: [facility] 03-16-2020 zoster vaccine recombinant Babita Gamez APRN.SALES REPRESENTATIVE [employer] Work Phone: [facility] Work Phone: 12-10-2019 zoster vaccine recombinant Babita Gamez APRN.SALES REPRESENTATIVE [employer] Work Phone: [facility] Work Phone: 12-09-2018 influenza, injectabl e, quadrivalent, preservative free Us 1 Work Phone: [facility] 12-09-2018 influenza virus vacc ine, unspecified formulation Conor Murdock MD Work Phone: [facility] 10-31-2017 tetanus toxoid, redu neela diphtheria toxoid, and acellular pertussis vaccine, adsorbed Babita Gamez APRN.SALES REPRESENTATIVE [employer] Work Phone: [facility] Work Phone: 05-02-2017 influenza nasal, unspecified formulation Us 1 Work Phone: [facility] 05-02-2017 influenza virus vacc ine, unspecified formulation Conor Murdock MD Work Phone: [facility] 05-02-2017 pneumococcal polysaccharide vaccine, 23 valent Babita Gamez APRN.[employer]ALES REPRESENTATIVE [employer] Work Phone: [facility] Work Phone: 12-07-2015 pneumococcal conjuga te vaccine, 13 valent Babita Sebastian INTRAMURAL DIRECTOR.SALES REPRESENTATIVE [employer] Work Phone: [facility] Work Phone: 09-22-2015 pneumococcal conjuga te vaccine, 13 valent Babita Gamez INTRAMURAL DIRECTOR.SALES REPRESENTATIVE [employer] Work Phone: [facility] Work Phone: 11-03-2014 influenza nasal, unspecified formulation Us 1 Work Phone: [facility] 11-03-2014 influenza virus vacc ine, unspecified formulation Conor Murdock MD Work Phone: [facility] 09-09-2014 tetanus toxoid, redu neela diphtheria toxoid, and acellular pertussis vaccine, adsorbed Us 1 Work Phone: [facility] 12-25-2013 influenza nasal, unspecified formulation Us 1 Work Phone: [facility] 12-25-2013 influenza virus vacc ine, unspecified formulation Conor Murdock MD Work Phone: [facility] 09-13-2011 zoster vaccine, live Marty Gamez INTRAMURAL DIRECTOR.SALES REPRESENTATIVE [employer] Work Phone: [facility] Work Phone: 03-05-2011 pneumococcal polysaccharide vaccine, 23 valent Babita Gamez INTRAMURAL DIRECTOR.SALES REPRESENTATIVE [employer] Work Phone: [facility] Work Phone: 01-23-2011 influenza nasal, unspecified formulation Us 1 Work Phone: [facility] 01-23-2011 influenza virus vacc ine, unspecified formulation Conor Murdock MD Work Phone: [facility] 12-21-2009 influenza nasal, unspecified formulation Us 1 Work Phone: [facility] 12-21-2009 influenza virus vacc ine, unspecified formulation Conor Murdock MD Work Phone: [facility] 03-16-2009 novel influenza-H1N1 -09, all formulations Us 1 Work Phone: [facility] 01-15-2009 influenza nasal, unspecified formulation Us 1 Work Phone: [facility] 01-15-2009 influenza virus vacc ine, unspecified formulation Conor Murdock MD Work Phone: [facility] 12-27-2007 influenza nasal, unspecified formulation Us 1 Work Phone: [facility] 12-27-2007 influenza virus vacc ine, unspecified formulation Conor Murdock MD Work Phone: [facility] 12-04-2007 pneumococcal polysaccharide vaccine, 23 valent Babita Gamez INTRAMURAL DIRECTOR.SALES REPRESENTATIVE [employer] Work Phone: [facility] Work Phone: 12-29-2006 influenza nasal, unspecified formulation Us 1 Work Phone: [facility] 12-29-2006 influenza virus vacc ine, unspecified formulation Conor Murdock MD Work Phone: [facility] 07-14-2005 pneumococcal polysaccharide vaccine, 23 valent Babita Gamez INTRAMURAL DIRECTOR.SALES REPRESENTATIVE [employer] Work Phone: [facility] Work Phone: 07-14-2005 pneumococcal vaccine , unspecified formulation Us 1 Work Phone: [facility] 07-14-2005 TD(adult) unspecifie d formulation Us 1 Work Phone: [facility] Payers Date Payer Category Payer Medicare (Managed Care) [employer] G O[employer]US [id number] 2021 Self-pay [id number] 2021 Unknown [id number] 2019 Medicare HUMANA MEDICARE [employer] GOLD PLUS [id number] 2019-Present [phone] [address] [address] [place] [address] O [id number] 2019 Medicare [id number] 2019 Private Health Insurance [id number] Unknown [id number] Unknown [id number] Unknown [id number] Unknown [id number] Unknown [id number] Social History Date Type Detail Facility Start: 01-13-2021 End: 08-19-2024 Tobacco smoking status NYIS Ex-smoker [facility] Start: 04-15-2002 History of tobacco use Smoker [facility] Start: 01-13-2021 End: 11-26-2023 Tobacco use and exposure Smokeless tobacco non-user [facility] Start: 04-27-2021 End: 06-02-2024 Alcohol intake Current drinker of alcohol (finding) [facility] Start: 04-27-2021 End: 03-30-2023 Alcohol intake [facility] Work Phone: Start: 1950 Sex Assigned At Not on file [facility] Start: 08-31-2021 Tobacco smoking stat [facility] Unknown if ever smoked [facility] Work Phone: Start: 1950 Sex Assigned At Male [facility] Start: 08-28-2021 End: 09-07-2021 Exposure to SARS-CoV-2 (event) Not sure [facility] Start: 04-15-2002 History of tobacco use Cigarette Smo ker [facility] Start: 10-01-2022 End: 03-30-2023 Tobacco use panel [facility] Work Phone: Adult Depression Screening Assessment 0 [facility] Work Phone: Has the [employer], [employer], [employer], or [employer] threatened to shut off services in your home in past 12Mo No [facility] Are you now , , , , never or living with a partner? [facility] How often to you hav e a drink containing alcohol? 4 or more times a week [facility] How many standard drinks containing alcohol do you have on a typical day? 1 or 2 [facility] How often do you hav e 6 or more drinks on 1 occasion? Never [facility] Do you feel stress - tense, restless, nervous, or anxious, or unable to sleep at night because your mind is troubled all the time - these days [OSQ] Not at all [facility] (I/We) worried whe er (my/our) food would run out before (I/we) got money to buy more. Never true [facility] Medical Equipment Procedure Code Equipment Code Equipment Original Text Equipment Identifier Dates Stimulator- [id number] Start: 01-11-2022 Comment on above: Description: [employer] Spinal Cord Stimulator Model# [id number] Serial #[id number] Linear Leads [id number] Info obtained from [employer] Pt Care Dept. Mental Status Date Assessment Result Facility 08-19-2024 Cognitive function Level Of Cons ciousness Awake;Alert;Appropriate;Follow s Commands [facility] Work Phone: Clinical Notes 01-13-2021 to 08-19-2024 Note Date & Type Note Facility 08-19-2024 Discharge summary [facility] 08-19-2024 Radiology Diagnostic study note [facility] [address] [place] [address] Chest PA and Lateral MR#: [id number] Acct: [id number] Name: MARYJOSE ALBERTO MENDES Rep #: [id number] : 1950 M 73 From: Chiquis Bermeo MD PCP: [facility] Status: REG ER Study:Chest PA and Lateral Date of Exam: 08/19/24 Exam# [id number] Ordering Dr: Edwin Deleon DO PROCEDURE: CHEST PA AND LATERAL 08/19/2024 REASON FOR EXAM: SOB TECHNIQUE: CHEST PA AND LATERAL COMPARISON: None FINDINGS: Right lower lobe opacity may reflect pneumonia, aspiration, and/or atelectasis. Likely underlying bibasilar subsegmental atelectasis. Mild pulmonary vascular congestion and interstitial edema. Mild cardiomegaly. No pneumothorax. Neurostimulator device is noted. No acute fractures. RAD/Chest PA and Lateral IMPRESSION: Right lower lobe opacity may reflect pneumonia, aspiration, and/or atelectasis. Likely underlying bibasilar subsegmental atelectasis. Mild pulmonary vascular congestion and interstitial edema. Mild cardiomegaly. No pneumothorax. Reading Location: [id number] CC: Dr. Froy Deleon DO; [facility] ~ 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: Signed [facility] 08-19-2024 Discharge summary Note Date/Time August 19, 2024 5:18pm [facility] Medical Records Department [address] [place] [id number] Emergency Department Summary 08/19/24 MR#: [id number] Acct: [id number] Name: JOSE ALBERTO HERNANDEZ Rep #:[id number] : 1950 73 From: Froy Deleon DO PCP: [facility] Status:REG ER Location: ED HPI History of Present Illness Chief Complaint: Shortness of Breath Narrative Narrative: Patient is a 73-year-old male past medical history of COPD, hypertension, hyperlipidemia, CAD, DALIA who presents to the emergency department with chief complaint of fever, chills not feeling well overall. He states that he woke up this morning not feeling well and noted that he had a fever of 101.7 and states that he felt like he had bronchitis originally but given his fever and chills hecame here for further evaluation management. Patient states that he does not wear oxygen on a regular basis. [facility] Medical History Hypertension Hyperlipidemia Chronic back pain Coronary artery disease Chronic sinusitis Allergic rhinitis Former smoker DALIA (obstructive sleep apnea) COPD (chronic obstructive pulmonary disease) Home Medications ?Medication ?Instructions ?Recorded ?Last Taken ?Type albuterol sulfate 2.5 mg/3 mL 2.5 mg inhalation Q4H MT N 08/31/21 08/19/24 History (0.083 %) solution for nebulization Shortness Of Breat h Or Wheezing atorvastatin 40 mg tablet 40 mg PO QHS 08/31/21 History benzonatate 100 mg capsule 100 mg PO TID PRN Cough Unknown History buspirone 5 mg tablet 5 mg PO BID 08/31/21 5 History cetirizine 10 mg tablet 10 mg PO DAILY 08/31/2108/03 History cholecalciferol (vitamin D3) 125 125 mcg PO DAILY 08/0408/19/24 History mcg (5,000 unit) tablet fluticasone propionate 50 2 spray intranasal BID 08/3108/19/24 History mcg/actuation nasal spray,suspension losartan 50 mg tablet 50 mg PO DAILY 08/31/2108/03 History vitamin B complex 1 cap PO DAILY 08/31/2108/03 History TURMUERIC CURCUMIN PO DAILY 08/19/24 08/19/24 H istory albuterol sulfate 90 mcg/actuation 2 inh inhalation Q6 H PRN shortness 08/19/24 08/19/24 History breath activated powder inhaler of breath or wheezing aspirin 81 mg tablet,delayed 81 mg PO DAILY 08/19/24 0 08/19/24 History release (Adult Aspirin Regimen) budesonide 160 mcg-glycopyr 9 2 inh inhalation BID 08/19/24 History mcg-formot 4.8 mcg/actuation HFA inhaler (Breztri Aerosphere) Allergy/AdvReac Type Severity Reaction Status Date / Time meloxicam AdvReac Nausea Verified 08/19/24 13:29 Social History Smoking Status: Former smoker ROS ROS ED ROS Narrative Constitutional: Complains of fever and chills noted above denies headache, lightheadedness or dizziness Eyes: Denies change in vision double vision blurry vision Cardiovascular: Denies chest pain Respiratory: Complains of cough as noted above but states that his sputum production is at his baseline Abdomen: Denies abdominal pain nausea vomit diarrhea : Denies any urinary symptoms Neurological: Denies numbness, weakness, tingling Musculoskeletal: Denies back pain Skin: Denies rashes or lesions EXAM Physical Exam Narrative Exam Narrative: General: Patient was lying in bed resting comfortably did not appear to be acutedistress Head: Atraumatic, normocephalic Eyes: PERRL bilaterally, EOMI bilateral, no conjunctival injection noted Neck: Soft, supple, trachea midline Cardiovascular: Patient tachycardic with a regular rhythm Respiratory: Diminished breath sounds bilaterally Abdomen: Soft, nondistended, tender to palpation Extremities: +5/5 strength noted in the bilateral upper and lower extremities, radial pulses +2/4 in the bilateral extremities Neurological: Patient following commands knew that he was at [facility] the year is 2024 Skin: Warm, dry, tact no rashes or lesions noted Const Vital Signs: 08/19/24 13:29 08/19/24 13:34 08/19/24 13:40 Temperature 99.9 F H 99.9 F H Temperature Source Oral Oral Pulse Rate 111 H 111 H Respiratory Rate 22 H 22 H Respiratory Effort Respiratory Depth Respiratory Pattern Blood Pressure 190/61 H 190/61 H Blood Pressure Mean 104 104 Pulse Ox 88 88 83 Oxygen Delivery Method Room Air Room Air Room Air Oxygen Flow Rate (L/min) 08/19/24 13:41 08/19/24 13:43 08/19/24 14:00 Temperature Temperature Source Pulse Rate Respiratory Rate Respiratory Effort Short of Breath Short of Breath Labored Accessory Muscle Use Respiratory Depth Shallow Respiratory Pattern Tachypnea Tachypnea Blood Pressure Blood Pressure Mean Pulse Ox 93 Oxygen Delivery Method Nasal Cannula Nasal Cannula Oxygen Flow Rate (L/min) 2 2 08/19/24 14:12 08/19/24 14:34 08/19/24 16:00 Temperature 99.6 F H 99 F Temperature Source Oral Oral Pulse Rate 113 H 109 H 101 H Respiratory Rate 16 18 18 Respiratory Effort Respiratory Depth Respiratory Pattern Blood Pressure 150/93 H 150/63 H Blood Pressure Mean 112 92 Pulse Ox 92 94 Oxygen Delivery Method Nasal Cannula Nasal Cannula Oxygen Flow Rate (L/min) 2 2 MDM MDM MDM Narrative Medical decision making narrative: Patient is a 73-year-old male who presents to the emergency department chief complaint of cough, fever and not feeling well. On the differential diagnosis includes but not limited to pneumonia, ACS, pneumothorax, COPD exacerbation. Once workup is obtained reviewed he will be reevaluated. Patient be given 3 DuoNebs and Solu-Medrol he will be given a 30 cc/kg bolus of IV fluids based on ideal body weight this was ordered at 1400. Once again the patient is requiringoxygen he is not chronically on oxygen at home. Patient CBC reviewed and showed a leukocytosis of 12,000, hemoglobin 15.7, platecount 171. Patient's sodium is 134, potassium normal at 4.6, creatinine normal at 0.81. Patient's AST and ALT were 39 and 33 respectively, troponin was noted to be 10. EKG reviewed showed sinus tachycardia with a rate of 111 bpm. Patient's proBNP normal at 64, urinalysis reviewed showed no evidence of infection. Patient chest x-ray reviewed by myself and by radiology which showeda right lower lobe opacity which may reflect pneumonia aspiration and/or atelectasis. Likely underlying basilar subsegmental atelectasis mild pulmonary vascular congestion and interstitial edema noted no pneumothorax. Patient was ordered Rocephin and azithromycin at 1604 for pneumonia. Reperfusion assessment was performed at 4:33 PM and patient remains hypertensiveno indication for vasopressors. At this point in time will discuss case with hospitalist for admission for his acute hypoxic respiratory failure in the setting of pneumonia. Discussed case with hospitalist Dr. Black who accept patient for admission. He is requesting CT chest without contrast which was was ordered. Patient was notified as well as family bedside all course concerns answered. Lab Data Labs: Laboratory Results - last 24 hr 08/19/24 08/19/24 08/19/24 14:10 14:30 14:35 WBC 12.2 H RBC 4.69 Hgb 15.7 Hct 46.3 MCV 98.7 H MCH 33.5 H MCHC 33.9 RDW Std Deviation 50.5 H RDW Coeff of Madhavi 13.9 Plt Count 171 MPV 10.1 Immature Gran % (Auto) 0.200 Neut % (Auto) 83.9 H Lymph % (Auto) 8.3 L [place] % (Auto) 7.1 Eos % (Auto) 0.3 Baso % (Auto) 0.2 Absolute Neuts (auto) 10.3 H Absolute Lymphs (auto) 1.01 Nucleated RBC % 0 PT Cancelled INR Cancelled APTT Cancelled Sodium 134 Potassium 4.6 Chloride 100 Carbon Dioxide 21.4 Anion Gap 12 BUN 11 Creatinine 0.81 Estim Creat Clear Calc 103.31 Est GFR (MDRD) Non-Af 94 BUN/Creatinine Ratio 13.7 Glucose 95 Lactic Acid Cancelled Calcium 8.9 Total Bilirubin 1.17 AST 39 H ALT 33 Alkaline Phosphatase 101 Troponin T High Sens 10 Troponin T Hi Sens 2 Hr NT pro BNP II 64 Total Protein 6.6 Albumin 3.8 Globulin 2.9 Albumin/Globulin Ratio 1.3 Urine Color Yellow Urine Clarity Clear Urine pH 7.0 Ur Specific [place] 1.005 Urine Protein 15 H Urine Glucose (UA) Normal Urine Ketones Negative Urine Occult Blood Negative Urine Nitrite Negative Urine Bilirubin Negative Urine Urobilinogen Normal Ur Leukocyte Esterase Negative Urine RBC 0-5 SEEN Urine WBC 0-5 SEEN Ur Squamous Epith Cells 0-5 SEEN Urine Bacteria RARE Urine Mucus 2+ 08/19/24 08/19/24 15:15 16:45 WBC RBC Hgb Hct MCV MCH MCHC RDW Std Deviation RDW Coeff of Madhavi Plt Count MPV Immature Gran % (Auto) Neut % (Auto) Lymph % (Auto) [place] % (Auto) Eos % (Auto) Baso % (Auto) Absolute Neuts (auto) Absolute Lymphs (auto) Nucleated RBC % PT 14.4 INR 1.1 APTT 25.2 Sodium Potassium Chloride Carbon Dioxide Anion Gap BUN Creatinine Estim Creat Clear Calc Est GFR (MDRD) Non-Af BUN/Creatinine Ratio Glucose Lactic Acid Calcium Total Bilirubin AST ALT Alkaline Phosphatase Troponin T High Sens Troponin T Hi Sens 2 Hr 14 NT pro BNP II Total Protein Albumin Globulin Albumin/Globulin Ratio Urine Color Urine Clarity Urine pH Ur Specific [place] Urine Protein Urine Glucose (UA) Urine Ketones Urine Occult Blood Urine Nitrite Urine Bilirubin Urine Urobilinogen Ur Leukocyte Esterase Urine RBC Urine WBC Ur Squamous Epith Cells Urine Bacteria Urine Mucus Radiography Diagnostic Testing: Clinical Impression(s) from Imaging Studies Chest X-Ray 08/19/24 14:00 IMPRESSION: Right lower lobe opacity may reflect pneumonia, aspiration, and/or atelectasis. Likely underlying bibasilar subsegmental atelectasis. Mild pulmonary vascular congestion and interstitial edema. Mild cardiomegaly. No pneumothorax. Reading Location: [facility] Discharge Plan Triage Chief Complaint: Shortness of Breath Other Complaint: Fever ED Provider: Froy Deleon Dx/Rx/DC Orders Clinical Impression: Acute hypoxemic respiratory failure, Pneumonia, COPD exacerbation Prescriptions: No Action losartan 50 mg Tablet 50 mg PO DAILY atorvastatin 40 mg Tablet 40 mg PO QHS buspirone 5 mg Tablet 5 mg PO BID albuterol sulfate 2.5 mg /3 mL (0.083 %) Solution For Nebulization 2.5 mg INHALATION Q4H PRN (Reason: Shortness Of Breath Or Wheezing) cetirizine 10 mg Tablet 10 mg PO DAILY benzonatate 100 mg Capsule 100 mg PO TID PRN (Reason: Cough) fluticasone propionate 50 mcg/actuation [place],Suspension 2 spray INTRANASAL BID Rx Instructions: administer into each nostril vitamin B complex Capsule 1 cap PO DAILY cholecalciferol (vitamin D3) 125 mcg (5,000 unit) Tablet 125 mcg PO DAILY Breztri Aerosphere 160-9-4.8 mcg/actuation HFA aerosol inhaler 2 inh inhalation BID aspirin [Adult Aspirin Regimen] 81 mg tablet,delayed release (DR/EC) 81 mg PO DAILY albuterol sulfate 90 mcg/actuation aerosol powdr breath activated 2 inh inhalation Q6H PRN (Reason: shortness of breath or wheezing) TURMUERIC CURCUMIN PO DAILY [facility] [place] [facility] [facility] [Primary Care Provider] - Print Language: Ukrainian Disposition Disposition: Acute Care Hospital [facility] What to do if you have Problems For any increased pain, shortness of breath, bleeding, nausea or vomiting, chestpain, or any unexpected problems, contact your Primary Care Provider. Call [facility] ([phone]) or report to the closest Emergency Room. Call 911 if necessary. 08/19/247 <Electronically signed by Froy Deleon DO> Cosigner Signature (if applicable): CC: [facility] ~ Signed [facility] Work Phone: 1(237) 590-937006-13-2025 NoteHNO ID: [id number] Author: PRASANTH MULLIGAN RN Service: ? Author Type: Registered Nurse Type: Progress Notes Filed: 08/15/2024 14:04 Note Text: [facility] Care Path Telephonic Outreach Provider Action/FYI Patient identified by Name and Date of . Discussed care with patient. Program Details Chronic Disease Management Status: Graduated Patient Graduated Effective Dates: 05/05/2024 - 08/15/2024 Responsible Staff: Prasanth Mulligan RN Support and Services: None active Program Goals Targets Target Due Completed Completed By Outcome Comprehensive COPD education provided 08/05/2024 08/15/2024 Prasanth Mulligan RN Complete Comprehensive HTN education provided 08/05/2024 08/15/2024 Prasanth Mulligan RN Complete Annual Pulmonology visit addressed 08/05/2024 07/29/2024 Prasanth Mulligan RN Complete/Scheduled HTN lab care gaps addressed 08/05/2024 07/29/2024 Prasanth Mulligan RN Complete/Scheduled Patient-stated goal addressed (add comment) 08/05/2024 07/07/2024 Prasanth Mulligan RN Complete Wish I could do more around the home like I used to Biannual PCP visit addressed 08/05/2024 06/19/2024 Prasanth Mulligan RN Complete/Scheduled General education provided (managing stress, where to go/how to contact, etc.) 06/05/2024 06/05/2024 Prasanth Mulligan RN Complete Intake assessments completed: ADLs, Fall Risk, SDOH 06/05/2024 05/05/2024 Prasanth Mulligan RN Complete Annual Medicare Wellness visit addressed 08/05/2024 05/05/2024 Prasanth Mulligan RN Complete/Scheduled Scheduled 09/03/24 Assessments No documentation this encounter Interventions No episode Prasanth Mulligan RN August 15, 2024 2:03 [facility]06-13-2025 History of Present illness Narrative* Prasanth Mulligan RN - 08/15/2024 2:03 PM EDT Images from the original note were not included. [facility] Care Path Telephonic Outreach Provider Action/FYI Patient identified by Name and Date of . Discussed care with patient. Program Details Chronic Disease Management Status: Graduated Patient Graduated Effective Dates: 05/05/2024 - 08/15/2024 Responsible Staff: Prasanth Mulligan RN Support and Services: None active Program Goals Targets Target Due Completed Completed By Outcome Comprehensive COPD education provided 08/05/2024 08/15/2024 Prasanth Mulligan RN Complete Comprehensive HTN education provided 08/05/2024 08/15/2024 Prasanth Mulligan RN Complete Annual Pulmonology visit addressed 08/05/2024 07/29/2024 Prasanth Mulligan RN Complete/Scheduled HTN lab care gaps addressed 08/05/2024 07/29/2024 Prasanth Mulligan RN Complete/Scheduled Patient-stated goal addressed (add comment) 08/05/2024 07/07/2024 Prasanth Mulligan RN Complete Wish I could do more around the home like I used to Biannual PCP visit addressed 08/05/2024 06/19/2024 Prasanth Mulligan RN Complete/Scheduled General education provided (managing stress, where to go/how to contact, etc.) 06/05/2024 06/05/2024 Prasanth Mulligan RN Complete Intake assessments completed: ADLs, Fall Risk, SDOH 06/05/2024 05/05/2024 Prasanth Mulligan RN Complete Annual Medicare Wellness visit addressed 08/05/2024 05/05/2024 Prasanth Mulligan RN Complete/Scheduled Scheduled 09/03/24 Assessments No documentation this encounter Interventions No episode Prasanth Mulligan RN August 15, 2024 2:03 PM [facility] NotePatient Outreach ([facility]) SG HERNANDEZ ([id number]) 1950 M DEF Date Time Provider Department 08/15/24 PRASANTH MULLIGAN AMBNENAG During your visit today, we recorded the following information about you: Prasanth Mulligan RN 08/15/2024 2:04 PM Signed CD Care Path Telephonic Outreach Provider Action/FYI Patient identified by Name and Date of . Discussed care with patient. Program Details Chronic Disease Management Status: Graduated Patient Graduated Effective Dates: 05/05/2024 - 08/15/2024 Responsible Staff: Prasanth Mulligan RN Support and Services: None active Program Goals Targets Target Due Completed Completed By Outcome Comprehensive COPD education provided 08/05/2024 08/15/2024 Prasanth Mulligan RN Complete Comprehensive HTN education provided 08/05/2024 08/15/2024 Prasanth Mulligan RN Complete Annual Pulmonology visit addressed 08/05/2024 07/29/2024 Prasanth Mulligan RN Complete/Scheduled HTN lab care gaps addressed 08/05/2024 07/29/2024 Prasanth Mulligan RN Complete/Scheduled Patient-stated goal addressed (add comment) 08/05/2024 07/07/2024 Prasanth Mulligan RN Complete Wish I could do more around the home like I used to Biannual PCP visit addressed 08/05/2024 06/19/2024 Prasanth Mulligan RN Complete/Scheduled General education provided (managing stress, where to go/how to contact, etc.) 06/05/2024 06/05/2024 Prasanth Mulligan RN Complete Intake assessments completed: ADLs, Fall Risk, SDOH 06/05/2024 05/05/2024 Prasanth Mulligan RN Complete Annual Medicare Wellness visit addressed 08/05/2024 05/05/2024 Prasanth Mulligan RN Complete/Scheduled Scheduled 09/03/24 Assessments No documentation this encounter Interventions No episode Prasanth Mulligan RN August 15, 2024 2:03 PM Allergies As of Date: 08/15/2024 Noted Allergy Reaction MELOXICAM 02/02/2021 8 - GI Upset Date Reviewed: 06/02/2024 Reviewed by: Deedee Carmen MA - Fully Assessed Prescriptions as of 08/15/2024 - cetirizine (ZYRTEC) 10 mg tablet Take 1 tablet by mouth once daily. - atorvastatin (LIPITOR) 40 mg tablet Take 1 tablet by mouth daily at bedtime. - roflumilast (DALIRESP) 500 mcg tab Take 500 mcg by mouth. - busPIRone (BUSPAR) 5 mg tablet Take 1 tablet by mouth three times a day. - omeprazole (PRILOSEC) 40 mg capsule Take 1 capsule by mouth every afternoon. - carvedilol (COREG) 6.25 mg tablet Take 1 tablet by mouth two times a day with meals. - montelukast (SINGULAIR) 10 mg tablet Take 1 tablet by mouth daily at bedtime. - guaiFENesin (HUMIBID E) 200 mg tablet Take 400 mg by mouth every 4 hours as needed. - TURMERIC ORAL Take 1,500 mg by mouth once daily. - losartan (COZAAR) 100 mg tablet Take 0.5 tablets by mouth once daily. - albuterol (PROVENTIL) 2.5 mg /3 mL (0.083 %) nebulizer solution Inhale 1 mcg as instructed. - cholecalciferol (VITAMIN D3) 5,000 unit tab Take by mouth. - Apple Cider Vinegar 300 mg tab Take by mouth. - fluticasone (FLONASE) 50 mcg/actuation nasal spray Use in the nose. 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] 01/13/2021 Panic attacks [F41.0] 01/13/2021 Lumbar stenosis with neurogenic claudication [M*01/13/2021 03/30/2023 Acquired deafness, left [H91.92] 01/13/2021 Snoring [R06.83] 01/13/2021 Obesity, Class II, BMI 35-39.9 [E66.812] 01/13/2021 Focal sensory loss [R44.9] 01/13/2021 03/30/2023 Chronic prescription benzodiazepine use [Z79.89*01/13/2021 09/07/2021 Alcohol use [F10.90] 01/13/2021 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*09/07/2021 Spinal cord stimulator status [Z96.89] 03/13/2022 DALIA (obstructive sleep apnea) [G47.33] 09/27/2022 Actinic keratosis [L57.0] 03/29/2023 Diagnosed: 03/29/2023 Allergic contact dermatitis [L23.9] 03/29/2023 Diagnosed: 03/29/2023 Allergic rhinitis [J30.9] 03/29/2023 Diagnosed: 03/29/2023 Chondrocalcinosis [M11.20] 03/29/2023 Diagnosed: 03/29/2023 Asthma [J45.909] 03/29/2023 Diagnosed: 03/29/2023 Encounter for other preprocedural examination [*03/29/2023 03/30/2023 Diagnosed: 03/29/2023 Epidermal cyst [L72.0] 03/29/2023 Diagnosed: 03/29/2023 Erectile dysfunction [N52.9] 03/29/2023 Diagnosed: 03/29/2023 History of percutaneous transluminal coronary a*03/29/2023 Diagnosed: 03/29/2023 Mild persistent asthma [J45.30] 03/29/2023 06/02/2024 Diagnosed: 03/29/2023 Osteoarthritis of knee [M17.9] 03/29/2023 Diagnosed: 03/29/2023 Other benign neoplasm of skin of left upper whalen*03/29/2023 03/30/2023 Diagnosed: 03/29/2023 Other reduced mobility [Z74.09] 03/29/2023 Diagnosed: 03/29/2023 Pain in right knee [M25.561] 03/29/2023 03/30/2023 Diagn (more content not included)...[facility]06-11-2025 NoteHNO ID: [id number] Author: PRASANTH MULLIGAN RN Service: ? Author Type: Registered Nurse Type: Progress Notes Filed: 08/13/2024 17:17 Note Text: [facility] Care Path Telephonic Outreach Provider Action/FYI Patient identified by Name and Date of . Discussed care with patient. Program Details Chronic Disease Management Status: Enrolled Effective Dates: 05/05/2024 - present Responsible Staff: Prasanth Mulligan RN Support and Services: Chronic Obstructive Pulmonary Disease (COPD), Hypertension Program Goals Targets Target Due Completed Completed By Outcome Comprehensive COPD education provided 08/05/2024 -- -- -- Comprehensive HTN education provided 08/05/2024 -- -- -- Annual Pulmonology visit addressed 08/05/2024 07/29/2024 Prasanth Mulligan RN Complete/Scheduled HTN lab care gaps addressed 08/05/2024 07/29/2024 Prasanth Mulligan RN Complete/Scheduled Patient-stated goal addressed (add comment) 08/05/2024 07/07/2024 Prasanth Mulligan RN Complete Wish I could do more around the home like I used to Biannual PCP visit addressed 08/05/2024 06/19/2024 Prasanth Mulligan RN Complete/Scheduled General education provided (managing stress, where to go/how to contact, etc.) 06/05/2024 06/05/2024 Prasanth Mulligan RN Complete Intake assessments completed: ADLs, Fall Risk, SDOH 06/05/2024 05/05/2024 Prasanth Mulligan RN Complete Annual Medicare Wellness visit addressed 08/05/2024 05/05/2024 Prasanth Mulligan RN Complete/Scheduled Scheduled 09/03/24 Assessments CDM Assessment Medications: Do you have any questions about taking your medications or which medications you should be taking?: No Do you need any medication refills at this time, including any of the medication you might take only when needed?: No Social: It can be normal to feel anxious or down during a time like this. Would you like to talk to a mental health professional about how you have been feeling?: No Symptoms: Are you experiencing any new or worsening symptoms that you need to talk about today?: No ADLs No documentation this encounter Fall Risk No documentation this encounter SDOH No documentation this encounter Interventions The following were addressed during this visit: - Month 3: Schedule/Order BMP Lab - Bi-Weekly Outreach (Recurring) Disposition Based on director of instructional technology, the following disposition is advised: No action needed Prasanth Mulligan RN August 13, 2024 5:14 [facility]06-11-2025 History of Present illness Narrative* Prasanth Mulligan RN - 08/13/2024 5:14 PM EDT Images from the original note were not included. [facility] Care Path Telephonic Outreach Provider Action/FYI Patient identified by Name and Date of . Discussed care with patient. Program Details Chronic Disease Management Status: Enrolled Effective Dates: 05/05/2024 - present Responsible Staff: Prasanth Mulligan RN Support and Services: Chronic Obstructive Pulmonary Disease (COPD), Hypertension Program Goals Targets Target Due Completed Completed By Outcome Comprehensive COPD education provided 08/05/2024 -- -- -- Comprehensive HTN education provided 08/05/2024 -- -- -- Annual Pulmonology visit addressed 08/05/2024 07/29/2024 Prasanth Mulligan RN Complete/Scheduled HTN lab care gaps addressed 08/05/2024 07/29/2024 Prasanth Mulligan RN Complete/Scheduled Patient-stated goal addressed (add comment) 08/05/2024 07/07/2024 Prasanth Mulligan RN Complete Wish I could do more around the home like I used to Biannual PCP visit addressed 08/05/2024 06/19/2024 Prasanth Mulligan RN Complete/Scheduled General education provided (managing stress, where to go/how to contact, etc.) 06/05/2024 06/05/2024 Prasanth Mulligan RN Complete Intake assessments completed: ADLs, Fall Risk, SDOH 06/05/2024 05/05/2024 Prasanth Mulligan RN Complete Annual Medicare Wellness visit addressed 08/05/2024 05/05/2024 Prasanth Mulligan RN Complete/Scheduled Scheduled 09/03/24 Assessments CDM Assessment Medications: Do you have any questions about taking your medications or which medications you should be taking?:No Do you need any medication refills at this time, including any of the medication you might take only when needed?: No Social: It can be normal to feel anxious or down during a time like this. Would you like to talk to a mental health professional about how you have been feeling?: No Symptoms: Are you experiencing any new or worsening symptoms that you need to talk about today?: No ADLs No documentation this encounter Fall Risk No documentation this encounter SDOH No documentation this encounter Interventions The following were addressed during this visit: - Month 3: Schedule/Order BMP Lab - Bi-Weekly Outreach (Recurring) Disposition Based on director of instructional technology, the following disposition is advised: No action needed Prasanth Mulligan RN August 13, 2024 5:14 PM documented in [facility] encounterReg[facility] NoteHNO ID: [id number] Author: MARY ABDULLAHI RN Service: ? Author Type: Registered Nurse Type: Progress Notes Filed: 08/13/2024 15:48 Note Text: Value Based Care Management Inbound Call Provider Action / FYI: PCC - Please call patient back. Date of Call: 08/13/2024 Time of Call: 3:46 PM Caller Name: Jose Alberto Hernandez Caller relationship to the patient: Patient Patient identified by Name and Date of : Yes Reason for Call / Main Concern Returning call to Network Systems Integrator Summary of Callers Concern Patient calling PCC Prasanth Mulligan RN back. Action Taken / Plan Routed to Patient's Network Systems Integrator Mary Abdullahi RN August 13, 2024 3:[facility] History of Present illness Narrative* Mary Abdullahi RN - 08/13/2024 3:46 PM EDT Value Based Care Management Inbound Call Provider Action / FYI: PCC - Please call patient back. Date of Call: 08/13/2024 Time of Call: 3:46 PM Caller Name: Jose Alberto Hernandez Caller relationship to the patient: Patient Patient identified by Name and Date of : Yes Reason for Call / Main Concern Returning call to Network Systems Integrator Summary of Callers Concern Patient calling PCC Prasanth Mulligan RN back. Action Taken / Plan Routed to Patient's Network Systems Integrator Mary Abdullahi RN August 13, 2024 3:46 PM documented in this encounterReg[facility] NotePatient Outreach ([facility]) SG HERNANDEZ ([id number]) 1950 M DEF Date Time Provider Department 08/13/24 MARY ABDULLAHI During your visit today, we recorded the following information about you: Mary Abdullahi RN 08/13/2024 3:48 PM Signed Value Based Care Management Inbound Call Provider Action / FYI: PCC - Please call patient back. Date of Call: 08/13/2024 Time of Call: 3:46 PM Caller Name: Jose Alberto Hernandez Caller relationship to the patient: Patient Patient identified by Name and Date of : Yes Reason for Call / Main Concern Returning call to Network Systems Integrator Summary of Callers Concern Patient calling PCC Prasanth Mulligan RN back. Action Taken / Plan Routed to Patient's Network Systems Integrator Mary Abdullahi RN August 13, 2024 3:46 PM Allergies As of Date: 08/13/2024 Noted Allergy Reaction MELOXICAM 02/02/2021 8 - GI Upset Date Reviewed: 06/02/2024 Reviewed by: Deedee Carmen MA - Fully Assessed Reason for Visit: Transition Of Care [4074] Cmt: Inbound call Prescriptions as of 08/13/2024 - cetirizine (ZYRTEC) 10 mg tablet Take 1 tablet by mouth once daily. - atorvastatin (LIPITOR) 40 mg tablet Take 1 tablet by mouth daily at bedtime. - roflumilast (DALIRESP) 500 mcg tab Take 500 mcg by mouth. - busPIRone (BUSPAR) 5 mg tablet Take 1 tablet by mouth three times a day. - omeprazole (PRILOSEC) 40 mg capsule Take 1 capsule by mouth every afternoon. - carvedilol (COREG) 6.25 mg tablet Take 1 tablet by mouth two times a day with meals. - montelukast (SINGULAIR) 10 mg tablet Take 1 tablet by mouth daily at bedtime. - guaiFENesin (HUMIBID E) 200 mg tablet Take 400 mg by mouth every 4 hours as needed. - TURMERIC ORAL Take 1,500 mg by mouth once daily. - losartan (COZAAR) 100 mg tablet Take 0.5 tablets by mouth once daily. - albuterol (PROVENTIL) 2.5 mg /3 mL (0.083 %) nebulizer solution Inhale 1 mcg as instructed. - cholecalciferol (VITAMIN D3) 5,000 unit tab Take by mouth. - Apple Cider Vinegar 300 mg tab Take by mouth. - fluticasone (FLONASE) 50 mcg/actuation nasal spray Use in the nose. 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] 01/13/2021 Panic attacks [F41.0] 01/13/2021 Lumbar stenosis with neurogenic claudication [M*01/13/2021 03/30/2023 Acquired deafness, left [H91.92] 01/13/2021 Snoring [R06.83] 01/13/2021 Obesity, Class II, BMI 35-39.9 [E66.812] 01/13/2021 Focal sensory loss [R44.9] 01/13/2021 03/30/2023 Chronic prescription benzodiazepine use [Z79.89*01/13/2021 09/07/2021 Alcohol use [F10.90] 01/13/2021 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*09/07/2021 Spinal cord stimulator status [Z96.89] 03/13/2022 DALIA (obstructive sleep apnea) [G47.33] 09/27/2022 Actinic keratosis [L57.0] 03/29/2023 Diagnosed: 03/29/2023 Allergic contact dermatitis [L23.9] 03/29/2023 Diagnosed: 03/29/2023 Allergic rhinitis [J30.9] 03/29/2023 Diagnosed: 03/29/2023 Chondrocalcinosis [M11.20] 03/29/2023 Diagnosed: 03/29/2023 Asthma [J45.909] 03/29/2023 Diagnosed: 03/29/2023 Encounter for other preprocedural examination [*03/29/2023 03/30/2023 Diagnosed: 03/29/2023 Epidermal cyst [L72.0] 03/29/2023 Diagnosed: 03/29/2023 Erectile dysfunction [N52.9] 03/29/2023 Diagnosed: 03/29/2023 History of percutaneous transluminal coronary a*03/29/2023 Diagnosed: 03/29/2023 Mild persistent asthma [J45.30] 03/29/2023 06/02/2024 Diagnosed: 03/29/2023 Osteoarthritis of knee [M17.9] 03/29/2023 Diagnosed: 03/29/2023 Other benign neoplasm of skin of left upper whalen*03/29/2023 03/30/2023 Diagnosed: 03/29/2023 Other reduced mobility [Z74.09] 03/29/2023 Diagnosed: 03/29/2023 Pain in right knee [M25.561] 03/29/2023 03/30/2023 Diagnosed: 03/29/2023 Pain, unspecified [R52] 03/29/2023 03/30/2023 Diagnosed: 03/29/2023 Polyp of colon [K63.5] 03/29/2023 Diagnosed: 03/29/2023 Postlaminectomy syndrome, not elsewhere classif*03/29/2023 Diagnosed: 03/29/2023 Postnasal drip [R09.82] 03/29/2023 03/30/2023 Diagnosed: 03/29/2023 Shortness of breath [R06.02] 03/29/2023 03/30/2023 Diagnosed: 03/29/2023 Unspecified abnormalities of gait and mobility *03/29/2023 Diagnosed: 03/29/2023 Vitamin D deficiency [E55.9] 03/29/2023 Diagnosed: 03/29/2023 Age-related nuclear cataract, bilateral [H25.13]03/30/2023 Diagnosed: 03/30/2023 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] 03/30/2023 Diagnosed: 03/30/2023 Functional disorder of intestine [K59.9] 03/30/2023 Diagnosed: 03/30/2023 Hemorrhoids without complication [K64.9] 03/30/2023 Diagnosed: 03/30/2023 Mononeuritis [G58.9] 03/30/2023 Diagnose (more content not included)...[facility]06-11-2025 Note Patient Outreach ([facility]) SG HERNANDEZ ([id number]) 1950 M DEF Date Time Provider Department 08/13/24 PRASANTH MULLIGAN [facility] During your visit today, we recorded the following information about you: Prasanth Mulligan RN 08/13/2024 5:17 PM Signed [facility] Care Path Telephonic Outreach Provider Action/FYI Patient identified by Name and Date of . Discussed care with patient. Program Details Chronic Disease Management Status: Enrolled Effective Dates: 05/05/2024 - present Responsible Staff: Prasanth Mulligan RN Support and Services: Chronic Obstructive Pulmonary Disease (COPD), Hypertension Program Goals Targets Target Due Completed Completed By Outcome Comprehensive COPD education provided 08/05/2024 -- -- -- Comprehensive HTN education provided 08/05/2024 -- -- -- Annual Pulmonology visit addressed 08/05/2024 07/29/2024 Prasanth Mulligan RN Complete/Scheduled HTN lab care gaps addressed 08/05/2024 07/29/2024 Prasanth Mulligan RN Complete/Scheduled Patient-stated goal addressed (add comment) 08/05/2024 07/07/2024 Prasanth Mulligan RN Complete Wish I could do more around the home like I used to Biannual PCP visit addressed 08/05/2024 06/19/2024 Prasanth Mulligan RN Complete/Scheduled General education provided (managing stress, where to go/how to contact, etc.) 06/05/2024 06/05/2024 Prasanth Mulligan RN Complete Intake assessments completed: ADLs, Fall Risk, SDOH 06/05/2024 05/05/2024 Prasanth Mulligan RN Complete Annual Medicare Wellness visit addressed 08/05/2024 05/05/2024 Prasanth Mulligan RN Complete/Scheduled Scheduled 09/03/24 Assessments CDM Assessment Medications: Do you have any questions about taking your medications or which medications you should be taking?: No Do you need any medication refills at this time, including any of the medication you might take only when needed?: No Social: It can be normal to feel anxious or down during a time like this. Would you like to talk to a mental health professional about how you have been feeling?: No Symptoms: Are you experiencing any new or worsening symptoms that you need to talk about today?: No ADLs No documentation this encounter Fall Risk No documentation this encounter SDOH No documentation this encounter Interventions The following were addressed during this visit: - Month 3: Schedule/Order BMP Lab - Bi-Weekly Outreach (Recurring) Disposition Based on director of instructional technology, the following disposition is advised: No action needed Prasanth Mulligan RN August 13, 2024 5:14 PM Allergies As of Date: 08/13/2024 Noted Allergy Reaction MELOXICAM 02/02/2021 8 - GI Upset Date Reviewed: 06/02/2024 Reviewed by: Deedee Carmen MA - Fully Assessed Prescriptions as of 08/13/2024 - cetirizine (ZYRTEC) 10 mg tablet Take 1 tablet by mouth once daily. - atorvastatin (LIPITOR) 40 mg tablet Take 1 tablet by mouth daily at bedtime. - roflumilast (DALIRESP) 500 mcg tab Take 500 mcg by mouth. - busPIRone (BUSPAR) 5 mg tablet Take 1 tablet by mouth three times a day. - omeprazole (PRILOSEC) 40 mg capsule Take 1 capsule by mouth every afternoon. - carvedilol (COREG) 6.25 mg tablet Take 1 tablet by mouth two times a day with meals. - montelukast (SINGULAIR) 10 mg tablet Take 1 tablet by mouth daily at bedtime. - guaiFENesin (HUMIBID E) 200 mg tablet Take 400 mg by mouth every 4 hours as needed. - TURMERIC ORAL Take 1,500 mg by mouth once daily. - losartan (COZAAR) 100 mg tablet Take 0.5 tablets by mouth once daily. - albuterol (PROVENTIL) 2.5 mg /3 mL (0.083 %) nebulizer solution Inhale 1 mcg as instructed. - cholecalciferol (VITAMIN D3) 5,000 unit tab Take by mouth. - Apple Cider Vinegar 300 mg tab Take by mouth. - fluticasone (FLONASE) 50 mcg/actuation nasal spray Use in the nose. 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] 01/13/2021 Panic attacks [F41.0] 01/13/2021 Lumbar stenosis with neurogenic claudication [M*01/13/2021 03/30/2023 Acquired deafness, left [H91.92] 01/13/2021 Snoring [R06.83] 01/13/2021 Obesity, Class II, BMI 35-39.9 [E66.812] 01/13/2021 Focal sensory loss [R44.9] 01/13/2021 03/30/2023 Chronic prescription benzodiazepine use [Z79.89*01/13/2021 09/07/2021 Alcohol use [F10.90] 01/13/2021 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*09/07/2021 Spinal cord stimulator status [Z96.89] 03/13/2022 DALIA (obstructive sleep apnea) [G47.33] 09/27/2022 Actinic keratosis [L57.0] 03/29/2023 Diagnosed: 03/29/2023 Allergic contact dermatitis [L23.9] 03/29/2023 Diagnosed: 03/29/2023 Allergic rhinitis [J30.9] 03/29/2023 Diagnosed: (more content not included)...[facility] 08-04-2024 NoteHNO ID: [id number] Author: ?, ?, ? Service: ? Author Type: ? Type: Progress Notes Filed: 08/04/2024 10:53 Note Text: POPULATION HEALTH NAVIGATION OUTREACH Action/FYI Patient outreach for Hcc gaps; COLO. [facility] with [facility] and [facility] Sukhdeep went through records and did not find colo results. Pt will speak to pcp about at [facility]. Reason for Outreach Care Gap/HCC or Scheduling Wellness Visits Care Gaps due: Colorectal Cancer Screening Patient Contacted: Spoke to patient/parent/or legal guardian Patient identified by name and : Yes Care Gap/HCC/Scheduling Wellness actions taken: Patient declined: Patient will contact office directly to schedule HCC related Navigation Signature: Mel Celaya August 04, 2024 10:[address] [facility]06-02-2025 History of Present illness Narrative* Mel Stovall - 08/04/2024 10:30 AM EDT POPULATION HEALTH NAVIGATION OUTREACH Action/FYI Patient outreach for Hcc gaps; COLO. Spoke with patient and [facility] 10 [facility]. [facility] Sukhdeep went through records and did not find colo results. Pt will speak to pcp about at [facility]. Reason for Outreach Care Gap/HCC or Scheduling Wellness Visits Care Gaps due: Colorectal Cancer Screening Patient Contacted: Spoke to patient/parent/or legal guardian Patient identified by name and : Yes Care Gap/HCC/Scheduling Wellness actions taken: Patient declined: Patient will contact office directly to schedule HCC related Navigation Signature: Mel Celaya August 04, 2024 10:30 [facility] NotePatient Outreach ([facility]) SG HERNANDEZ ([id number]) 1950 M DEF Date Time Provider Department 08/04/24 CONOR MURDOCK During your visit today, we recorded the following information about you: Eli CelayaMel 08/04/2024 10:53 AM Signed POPULATION HEALTH NAVIGATION OUTREACH Action/FYI Patient outreach for Hcc gaps; COLO. Spoke with patient and said he had it done at the [facility] and would not need it for 10 years. Was at the [facility] in 2021. Sukhdeep went through records and did not find colo results. Pt will speak to pcp about at [facility]. Reason for Outreach Care Gap/HCC or Scheduling Wellness Visits Care Gaps due: Colorectal Cancer Screening Patient Contacted: Spoke to patient/parent/or legal guardian Patient identified by name and : Yes Care Gap/HCC/Scheduling Wellness actions taken: Patient declined: Patient will contact office directly to schedule HCC related Navigation Signature: Mel Celaya August 04, 2024 10:30 AM Allergies As of Date: 08/04/2024 Noted Allergy Reaction MELOXICAM 02/02/2021 8 - GI Upset Date Reviewed: 06/02/2024 Reviewed by: Deedee Carmen MA - Fully Assessed Reason for Visit: Population Health Navigation Outreach [3910] Cmt: Vinita Reynoso Prescriptions as of 08/04/2024 - cetirizine (ZYRTEC) 10 mg tablet Take 1 tablet by mouth once daily. - atorvastatin (LIPITOR) 40 mg tablet Take 1 tablet by mouth daily at bedtime. - roflumilast (DALIRESP) 500 mcg tab Take 500 mcg by mouth. - busPIRone (BUSPAR) 5 mg tablet Take 1 tablet by mouth three times a day. - omeprazole (PRILOSEC) 40 mg capsule Take 1 capsule by mouth every afternoon. - carvedilol (COREG) 6.25 mg tablet Take 1 tablet by mouth two times a day with meals. - montelukast (SINGULAIR) 10 mg tablet Take 1 tablet by mouth daily at bedtime. - guaiFENesin (HUMIBID E) 200 mg tablet Take 400 mg by mouth every 4 hours as needed. - TURMERIC ORAL Take 1,500 mg by mouth once daily. - losartan (COZAAR) 100 mg tablet Take 0.5 tablets by mouth once daily. - albuterol (PROVENTIL) 2.5 mg /3 mL (0.083 %) nebulizer solution Inhale 1 mcg as instructed. - cholecalciferol (VITAMIN D3) 5,000 unit tab Take by mouth. - Apple Cider Vinegar 300 mg tab Take by mouth. - fluticasone (FLONASE) 50 mcg/actuation nasal spray Use in the nose. 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] 01/13/2021 Panic attacks [F41.0] 01/13/2021 Lumbar stenosis with neurogenic claudication [M*01/13/2021 03/30/2023 Acquired deafness, left [H91.92] 01/13/2021 Snoring [R06.83] 01/13/2021 Obesity, Class II, BMI 35-39.9 [E66.812] 01/13/2021 Focal sensory loss [R44.9] 01/13/2021 03/30/2023 Chronic prescription benzodiazepine use [Z79.89*01/13/2021 09/07/2021 Alcohol use [F10.90] 01/13/2021 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*09/07/2021 Spinal cord stimulator status [Z96.89] 03/13/2022 DALIA (obstructive sleep apnea) [G47.33] 09/27/2022 Actinic keratosis [L57.0] 03/29/2023 Diagnosed: 03/29/2023 Allergic contact dermatitis [L23.9] 03/29/2023 Diagnosed: 03/29/2023 Allergic rhinitis [J30.9] 03/29/2023 Diagnosed: 03/29/2023 Chondrocalcinosis [M11.20] 03/29/2023 Diagnosed: 03/29/2023 Asthma [J45.909] 03/29/2023 Diagnosed: 03/29/2023 Encounter for other preprocedural examination [*03/29/2023 03/30/2023 Diagnosed: 03/29/2023 Epidermal cyst [L72.0] 03/29/2023 Diagnosed: 03/29/2023 Erectile dysfunction [N52.9] 03/29/2023 Diagnosed: 03/29/2023 History of percutaneous transluminal coronary a*03/29/2023 Diagnosed: 03/29/2023 Mild persistent asthma [J45.30] 03/29/2023 06/02/2024 Diagnosed: 03/29/2023 Osteoarthritis of knee [M17.9] 03/29/2023 Diagnosed: 03/29/2023 Other benign neoplasm of skin of left upper whalen*03/29/2023 03/30/2023 Diagnosed: 03/29/2023 Other reduced mobility [Z74.09] 03/29/2023 Diagnosed: 03/29/2023 Pain in right knee [M25.561] 03/29/2023 03/30/2023 Diagnosed: 03/29/2023 Pain, unspecified [R52] 03/29/2023 03/30/2023 Diagnosed: 03/29/2023 Polyp of colon [K63.5] 03/29/2023 Diagnosed: 03/29/2023 Postlaminectomy syndrome, not elsewhere classif*03/29/2023 Diagnosed: 03/29/2023 Postnasal drip [R09.82] 03/29/2023 03/30/2023 Diagnosed: 03/29/2023 Shortness of breath [R06.02] 03/29/2023 03/30/2023 Diagnosed: 03/29/2023 Unspecified abnormalities of gait and mobility *03/29/2023 Diagnosed: 03/29/2023 Vitamin D deficiency [E55.9] 03/29/2023 Diagnosed: 03/29/2023 Age-related nuclear cataract, bilateral [H25.13]03/30/2023 Diagnosed: 03/30/2023 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] 01 (more content not included)... [facility]05-27-2025 NoteHNO ID: [id number] Author: PRASANTH MULLIGAN RN Service: ? Author Type: Registered Nurse Type: Progress Notes Filed: 07/29/2024 16:08 Note Text: CD[facility] Care Path Telephonic Outreach Provider Action/FYI Patient identified by Name and Date of . Discussed care with patient. Program Details Chronic Disease Management Status: Enrolled Effective Dates: 05/05/2024 - present Responsible Staff: Prasanth Mulligan RN Support and Services: Chronic Obstructive Pulmonary Disease (COPD), Hypertension Program Goals Targets Target Due Completed Completed By Outcome Comprehensive COPD education provided 08/05/2024 -- -- -- Comprehensive HTN education provided 08/05/2024 -- -- -- Annual Pulmonology visit addressed 08/05/2024 07/29/2024 Prasanth Mulligan RN Complete/Scheduled HTN lab care gaps addressed 08/05/2024 07/29/2024 Prasanth Mulligan RN Complete/Scheduled Patient-stated goal addressed (add comment) 08/05/2024 07/07/2024 Prasanth Mulligan RN Complete Wish I could do more around the home like I used to Biannual PCP visit addressed 08/05/2024 06/19/2024 Prasanth Mulligan RN Complete/Scheduled General education provided (managing stress, where to go/how to contact, etc.) 06/05/2024 06/05/2024 Prasanth Mulligan RN Complete Intake assessments completed: ADLs, Fall Risk, SDOH 06/05/2024 05/05/2024 Prasanth Mulligan RN Complete Annual Medicare Wellness visit addressed 08/05/2024 05/05/2024 Prasanth Mulligan RN Complete/Scheduled Scheduled 09/03/24 Assessments CDM Assessment Medications: Do you have any questions about taking your medications or which medications you should be taking?: No Do you need any medication refills at this time, including any of the medication you might take only when needed?: No Social: It can be normal to feel anxious or down during a time like this. Would you like to talk to a mental health professional about how you have been feeling?: No Symptoms: Are you experiencing any new or worsening symptoms that you need to talk about today?: Yes (Intermittent Sinus Drainage) ADLs No documentation this encounter Fall Risk No documentation this encounter SDOH No documentation this encounter Interventions The following were addressed during this visit: - Annual Pulmonology visit addressed - HTN lab care gaps addressed Disposition Based on director of instructional technology, the following disposition is advised: No action needed Prasanth Mulligan RN July 29, 2024 4:02 [facility]05-27-2025 History of Present illness Narrative* Prasanth Mulligan RN - 07/29/2024 4:02 PM EDT Images from the original note were not included. CDM Care Path Telephonic Outreach Provider Action/FYI Patient identified by Name and Date of . Discussed care with patient. Program Details Chronic Disease Management Status: Enrolled Effective Dates: 05/05/2024 - present Responsible Staff: Prasanth Mulligan RN Support and Services: Chronic Obstructive Pulmonary Disease (COPD), Hypertension Program Goals Targets Target Due Completed Completed By Outcome Comprehensive COPD education provided 08/05/2024 -- -- -- Comprehensive HTN education provided 08/05/2024 -- -- -- Annual Pulmonology visit addressed 08/05/2024 07/29/2024 Prasanth Mulligan RN Complete/Scheduled HTN lab care gaps addressed 08/05/2024 07/29/2024 Prasanth Mulligan RN Complete/Scheduled Patient-stated goal addressed (add comment) 08/05/2024 07/07/2024 Prasanth Mulligan RN Complete Wish I could do more around the home like I used to Biannual PCP visit addressed 08/05/2024 06/19/2024 Prasanth Mulligan RN Complete/Scheduled General education provided (managing stress, where to go/how to contact, etc.) 06/05/2024 06/05/2024 Prasanth Mulligan RN Complete Intake assessments completed: ADLs, Fall Risk, SDOH 06/05/2024 05/05/2024 Prasanth Mulligan RN Complete Annual Medicare Wellness visit addressed 08/05/2024 05/05/2024 Prasanth Mulligan RN Complete/Scheduled Scheduled 09/03/24 Assessments CD Assessment Medications: Do you have any questions about taking your medications or which medications you should be taking?:No Do you need any medication refills at this time, including any of the medication you might take only when needed?: No Social: It can be normal to feel anxious or down during a time like this. Would you like to talk to a mental health professional about how you have been feeling?: No Symptoms: Are you experiencing any new or worsening symptoms that you need to talk about today?: Yes (Intermittent Sinus Drainage) ADLs No documentation this encounter Fall Risk No documentation this encounter SDOH No documentation this encounter Interventions The following were addressed during this visit: - Annual Pulmonology visit addressed - HTN lab care gaps addressed Disposition Based on director of instructional technology, the following disposition is advised: No action needed Prasanth Mulligan RN July 29, 2024 4:02 PM [facility] NotePatient Outreach ([facility]) SG HERNANDEZ ([id number]) 1950 M DEF Date Time Provider Department 07/29/24 PRASANTH MULLIGAN During your visit today, we recorded the following information about you: Prasanth Mulligan RN 07/29/2024 4:08 PM Signed [facility] Care Path Telephonic Outreach Provider Action/FY Patient identified by Name and Date of . Discussed care with patient. Program Details Chronic Disease Management Status: Enrolled Effective Dates: 05/05/2024 - present Responsible Staff: Prasanth Mulligan RN Support and Services: Chronic Obstructive Pulmonary Disease (COPD), Hypertension Program Goals Targets Target Due Completed Completed By Outcome Comprehensive COPD education provided 08/05/2024 -- -- -- Comprehensive HTN education provided 08/05/2024 -- -- -- Annual Pulmonology visit addressed 08/05/2024 07/29/2024 Prasanth Mulligan RN Complete/Scheduled HTN lab care gaps addressed 08/05/2024 07/29/2024 Prasanth Mulligan RN Complete/Scheduled Patient-stated goal addressed (add comment) 08/05/2024 07/07/2024 Prasanth Mulligan RN Complete Wish I could do more around the home like I used to Biannual PCP visit addressed 08/05/2024 06/19/2024 Prasanth Mulligan RN Complete/Scheduled General education provided (managing stress, where to go/how to contact, etc.) 06/05/2024 06/05/2024 Prasanth Mulligan RN Complete Intake assessments completed: ADLs, Fall Risk, SDOH 06/05/2024 05/05/2024 Prasanth Mulligan RN Complete Annual Medicare Wellness visit addressed 08/05/2024 05/05/2024 Prasanth Mulligan RN Complete/Scheduled Scheduled 09/03/24 Assessments CDM Assessment Medications: Do you have any questions about taking your medications or which medications you should be taking?: No Do you need any medication refills at this time, including any of the medication you might take only when needed?: No Social: It can be normal to feel anxious or down during a time like this. Would you like to talk to a mental health professional about how you have been feeling?: No Symptoms: Are you experiencing any new or worsening symptoms that you need to talk about today?: Yes (Intermittent Sinus Drainage) ADLs No documentation this encounter Fall Risk No documentation this encounter SDOH No documentation this encounter Interventions The following were addressed during this visit: - Annual Pulmonology visit addressed - HTN lab care gaps addressed Disposition Based on director of instructional technology, the following disposition is advised: No action needed Prasanth Mulligan RN July 29, 2024 4:02 PM Allergies As of Date: 07/29/2024 Noted Allergy Reaction MELOXICAM 02/02/2021 8 - GI Upset Date Reviewed: 06/02/2024 Reviewed by: Deedee Carmen MA - Fully Assessed Prescriptions as of 07/29/2024 - cetirizine (ZYRTEC) 10 mg tablet Take 1 tablet by mouth once daily. - atorvastatin (LIPITOR) 40 mg tablet Take 1 tablet by mouth daily at bedtime. - roflumilast (DALIRESP) 500 mcg tab Take 500 mcg by mouth. - busPIRone (BUSPAR) 5 mg tablet Take 1 tablet by mouth three times a day. - omeprazole (PRILOSEC) 40 mg capsule Take 1 capsule by mouth every afternoon. - acoopuwqeu-ziuculzx-nevfgecbhv (BREZTRI) 160-9-4.8 mcg/actuation HFA aerosol inhaler Inhale 2 Puffs as instructed two times a day. - carvedilol (COREG) 6.25 mg tablet Take 1 tablet by mouth two times a day with meals. - montelukast (SINGULAIR) 10 mg tablet Take 1 tablet by mouth daily at bedtime. - guaiFENesin (HUMIBID E) 200 mg tablet Take 400 mg by mouth every 4 hours as needed. - TURMERIC ORAL Take 1,500 mg by mouth once daily. - losartan (COZAAR) 100 mg tablet Take 0.5 tablets by mouth once daily. - albuterol (PROVENTIL) 2.5 mg /3 mL (0.083 %) nebulizer solution Inhale 1 mcg as instructed. - cholecalciferol (VITAMIN D3) 5,000 unit tab Take by mouth. - Apple Cider Vinegar 300 mg tab Take by mouth. - fluticasone (FLONASE) 50 mcg/actuation nasal spray Use in the nose. 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] 01/13/2021 Panic attacks [F41.0] 01/13/2021 Lumbar stenosis with neurogenic claudication [M*01/13/2021 03/30/2023 Acquired deafness, left [H91.92] 01/13/2021 Snoring [R06.83] 01/13/2021 Obesity, Class II, BMI 35-39.9 [E66.812] 01/13/2021 Focal sensory loss [R44.9] 01/13/2021 03/30/2023 Chronic prescription benzodiazepine use [Z79.89*01/13/2021 09/07/2021 Alcohol use [F10.90] 01/13/2021 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 Author Type: Registered Nurse Type: Progress Notes Filed: 07/07/2024 16:05 Note Text: [facility] Care Path Telephonic Outreach Provider Action/FYI Patient identified by Name and Date of . Discussed care with patient. Program Details Chronic Disease Management Status: Enrolled Effective Dates: 05/05/2024 - present Responsible Staff: Prasanth Mulligan RN Support and Services: Chronic Obstructive Pulmonary Disease (COPD), Hypertension Program Goals Targets Target Due Completed Completed By Outcome Annual Pulmonology visit addressed 08/05/2024 -- -- -- Comprehensive COPD education provided 08/05/2024 -- -- -- Comprehensive HTN education provided 08/05/2024 -- -- -- HTN lab care gaps addressed 08/05/2024 -- -- -- Patient-stated goal addressed (add comment) 08/05/2024 07/07/2024 Prasanth Mulligan RN Complete Wish I could do more around the home like I used to Biannual PCP visit addressed 08/05/2024 06/19/2024 Prasanth Mulligan RN Complete/Scheduled General education provided (managing stress, where to go/how to contact, etc.) 06/05/2024 06/05/2024 Prasanth Mulligan RN Complete Intake assessments completed: ADLs, Fall Risk, SDOH 06/05/2024 05/05/2024 Prasanth Mulligan RN Complete Annual Medicare Wellness visit addressed 08/05/2024 05/05/2024 Prasanth Mulligan RN Complete/Scheduled Scheduled 09/03/24 Assessments CD Assessment Medications: Do you have any questions about taking your medications or which medications you should be taking?: No Do you need any medication refills at this time, including any of the medication you might take only when needed?: No Social: It can be normal to feel anxious or down during a time like this. Would you like to talk to a mental health professional about how you have been feeling?: No Symptoms: Are you experiencing any new or worsening symptoms that you need to talk about today?: No ADLs No documentation this encounter Fall Risk No documentation this encounter SDOH No documentation this encounter Interventions The following were addressed during this visit: - Patient-stated goal addressed (add comment) Disposition Based on director of instructional technology, the following disposition is advised: No action needed Prasanth Mulligan RN July 07, 2024 4:02 [facility]05-05-2025 History of Present illness Narrative* Prasanth Mulligan RN - 07/07/2024 4:02 PM EDT Images from the original note were not included. [facility] Care Path Telephonic Outreach Provider Action/FYI Patient identified by Name and Date of . Discussed care with patient. Program Details Chronic Disease Management Status: Enrolled Effective Dates: 05/05/2024 - present Responsible Staff: Prasanth Mulligan RN Support and Services: Chronic Obstructive Pulmonary Disease (COPD), Hypertension Program Goals Targets Target Due Completed Completed By Outcome Annual Pulmonology visit addressed 08/05/2024 -- -- -- Comprehensive COPD education provided 08/05/2024 -- -- -- Comprehensive HTN education provided 08/05/2024 -- -- -- HTN lab care gaps addressed 08/05/2024 -- -- -- Patient-stated goal addressed (add comment) 08/05/2024 07/07/2024 Prasanth Mulligan RN Complete Wish I could do more around the home like I used to Biannual PCP visit addressed 08/05/2024 06/19/2024 Prasanth Mulligan RN Complete/Scheduled General education provided (managing stress, where to go/how to contact, etc.) 06/05/2024 06/05/2024 Prasanth Mulligan RN Complete Intake assessments completed: ADLs, Fall Risk, SDOH 06/05/2024 05/05/2024 Prasanth Mulligan RN Complete Annual Medicare Wellness visit addressed 08/05/2024 05/05/2024 Prasanth Mulligan RN Complete/Scheduled Scheduled 09/03/24 Assessments CDM Assessment Medications: Do you have any questions about taking your medications or which medications you should be taking?:No Do you need any medication refills at this time, including any of the medication you might take only when needed?: No Social: It can be normal to feel anxious or down during a time like this. Would you like to talk to a mental health professional about how you have been feeling?: No Symptoms: Are you experiencing any new or worsening symptoms that you need to talk about today?: No ADLs No documentation this encounter Fall Risk No documentation this encounter SDOH No documentation this encounter Interventions The following were addressed during this visit: - Patient-stated goal addressed (add comment) Disposition Based on director of instructional technology, the following disposition is advised: No action needed Prasanth Mulligan RN July 07, 2024 4:02 PM [facility] NotePatient Outreach ([facility]) SG HERNANDEZ ([id number]) 1950 M [facility] Date Time Provider Department 07/07/24 PRASANTH MULLIGAN During your visit today, we recorded the following information about you: Prasanth Mulligan RN 07/07/2024 4:05 PM Signed [facility] Care Path Telephonic Outreach Provider Action/FYI Patient identified by Name and Date of . Discussed care with patient. Program Details Chronic Disease Management Status: Enrolled Effective Dates: 05/05/2024 - present Responsible Staff: Prasanth Mulligan, MIKE Support and Services: Chronic Obstructive Pulmonary Disease (COPD), Hypertension Program Goals Targets Target Due Completed Completed By Outcome Annual Pulmonology visit addressed 08/05/2024 -- -- -- Comprehensive COPD education provided 08/05/2024 -- -- -- Comprehensive HTN education provided 08/05/2024 -- -- -- HTN lab care gaps addressed 08/05/2024 -- -- -- Patient-stated goal addressed (add comment) 08/05/2024 07/07/2024 Prasanth Mulligan RN Complete Wish I could do more around the home like I used to Biannual PCP visit addressed 08/05/2024 06/19/2024 Prasanth Mulligan RN Complete/Scheduled General education provided (managing stress, where to go/how to contact, etc.) 06/05/2024 06/05/2024 Prasanth Mulligan RN Complete Intake assessments completed: ADLs, Fall Risk, SDOH 06/05/2024 05/05/2024 Prasanth Mulligan RN Complete Annual Medicare Wellness visit addressed 08/05/2024 05/05/2024 Prasanth Mulligan RN Complete/Scheduled Scheduled 09/03/24 Assessments CDM Assessment Medications: Do you have any questions about taking your medications or which medications you should be taking?: No Do you need any medication refills at this time, including any of the medication you might take only when needed?: No Social: It can be normal to feel anxious or down during a time like this. Would you like to talk to a mental health professional about how you have been feeling?: No Symptoms: Are you experiencing any new or worsening symptoms that you need to talk about today?: No ADLs No documentation this encounter Fall Risk No documentation this encounter SDOH No documentation this encounter Interventions The following were addressed during this visit: - Patient-stated goal addressed (add comment) Disposition Based on director of instructional technology, the following disposition is advised: No action needed Prasanth Mulligan RN July 07, 2024 4:02 PM Allergies As of Date: 07/07/2024 Noted Allergy Reaction MELOXICAM 02/02/2021 8 - GI Upset Date Reviewed: 06/02/2024 Reviewed by: Deedee Carmen MA - Fully Assessed Prescriptions as of 07/07/2024 - cetirizine (ZYRTEC) 10 mg tablet Take 1 tablet by mouth once daily. - atorvastatin (LIPITOR) 40 mg tablet Take 1 tablet by mouth daily at bedtime. - roflumilast (DALIRESP) 500 mcg tab Take 500 mcg by mouth. - busPIRone (BUSPAR) 5 mg tablet Take 1 tablet by mouth three times a day. - omeprazole (PRILOSEC) 40 mg capsule Take 1 capsule by mouth every afternoon. - wninydkhhx-oxbghtvb-rzqncuznem (BREZTRI) 160-9-4.8 mcg/actuation HFA aerosol inhaler Inhale 2 Puffs as instructed two times a day. - carvedilol (COREG) 6.25 mg tablet Take 1 tablet by mouth two times a day with meals. - montelukast (SINGULAIR) 10 mg tablet Take 1 tablet by mouth daily at bedtime. - guaiFENesin (HUMIBID E) 200 mg tablet Take 400 mg by mouth every 4 hours as needed. - TURMERIC ORAL Take 1,500 mg by mouth once daily. - losartan (COZAAR) 100 mg tablet Take 0.5 tablets by mouth once daily. - albuterol (PROVENTIL) 2.5 mg /3 mL (0.083 %) nebulizer solution Inhale 1 mcg as instructed. - cholecalciferol (VITAMIN D3) 5,000 unit tab Take by mouth. - Apple Cider Vinegar 300 mg tab Take by mouth. - fluticasone (FLONASE) 50 mcg/actuation nasal spray Use in the nose. 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] 01/13/2021 Panic attacks [F41.0] 01/13/2021 Lumbar stenosis with neurogenic claudication [M*01/13/2021 03/30/2023 Acquired deafness, left [H91.92] 01/13/2021 Snoring [R06.83] 01/13/2021 Obesity, Class II, BMI 35-39.9 [E66.812] 01/13/2021 Focal sensory loss [R44.9] 01/13/2021 03/30/2023 Chronic prescription benzodiazepine use [Z79.89*01/13/2021 09/07/2021 Alcohol use [F10.90] 01/13/2021 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*09/07/2021 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 Service: ? Author Type: ? Type: Progress Notes Filed: 07/03/2024 10:42 Note Text: POPULATION HEALTH NAVIGATION OUTREACH Action/FYI Patient outreach for HCC gaps; COLO. Spoke with patient and declined for now but asked for a reach out in a few weeks after he gets back from vacation . Reason for Outreach Care Gap/HCC or Scheduling Wellness Visits Care Gaps due: Colorectal Cancer Screening Patient Contacted: Spoke to patient/parent/or legal guardian Patient identified by name and : Yes Care Gap/HCC/Scheduling Wellness actions taken: Patient declined: Patient requested call back from navigator/ will call navigator back Navigation Signature: Mel Celaya July 03, 2024 10:[address] [facility]05-01-2025 History of Present illness Narrative* Mel Stovall - 07/03/2024 10:33 AM EDT POPULATION HEALTH NAVIGATION OUTREACH Action/FYI Patient outreach for HCC gaps; COLO. Spoke with patient and declined for now but asked for a reach out in a few weeks after he gets back from vacation . Reason for Outreach Care Gap/HCC or Scheduling Wellness Visits Care Gaps due: Colorectal Cancer Screening Patient Contacted: Spoke to patient/parent/or legal guardian Patient identified by name and : Yes Care Gap/HCC/Scheduling Wellness actions taken: Patient declined: Patient requested call back from navigator/ will call navigator back Navigation Signature: Mel Celaya July 03, 2024 10:34 AM documented in this encounterReg[facility]25 NotePatient Outreach ([facility]) SG HERNANDEZ ([id number]) 1950 M [facility] Date Time Provider Department 07/03/24 CONOR MURDOCK During your visit today, we recorded the following information about you: Mel Stovall 07/03/2024 10:42 AM Signed POPULATION HEALTH NAVIGATION OUTREACH Action/FYI Patient outreach for HCC gaps; COLO. Spoke with patient and declined for now but asked for a reach out in a few weeks after he gets back from vacation . Reason for Outreach Care Gap/HCC or Scheduling Wellness Visits Care Gaps due: Colorectal Cancer Screening Patient Contacted: Spoke to patient/parent/or legal guardian Patient identified by name and : Yes Care Gap/HCC/Scheduling Wellness actions taken: Patient declined: Patient requested call back from navigator/ will call navigator back Navigation Signature: Mel Celaya July 03, 2024 10:34 AM Allergies As of Date: 07/03/2024 Noted Allergy Reaction MELOXICAM 02/02/2021 8 - GI Upset Date Reviewed: 06/02/2024 Reviewed by: Deedee Carmen MA - Fully Assessed Reason for Visit: Population Health Navigation Outreach [3910] Cmt: Vinita Reynoso Prescriptions as of 07/03/2024 - cetirizine (ZYRTEC) 10 mg tablet Take 1 tablet by mouth once daily. - atorvastatin (LIPITOR) 40 mg tablet Take 1 tablet by mouth daily at bedtime. - roflumilast (DALIRESP) 500 mcg tab Take 500 mcg by mouth. - busPIRone (BUSPAR) 5 mg tablet Take 1 tablet by mouth three times a day. - omeprazole (PRILOSEC) 40 mg capsule Take 1 capsule by mouth every afternoon. - lmnkfwgifx-ugyzvcqm-voedcvchfh (BREZTRI) 160-9-4.8 mcg/actuation HFA aerosol inhaler Inhale 2 Puffs as instructed two times a day. - carvedilol (COREG) 6.25 mg tablet Take 1 tablet by mouth two times a day with meals. - montelukast (SINGULAIR) 10 mg tablet Take 1 tablet by mouth daily at bedtime. - guaiFENesin (HUMIBID E) 200 mg tablet Take 400 mg by mouth every 4 hours as needed. - TURMERIC ORAL Take 1,500 mg by mouth once daily. - losartan (COZAAR) 100 mg tablet Take 0.5 tablets by mouth once daily. - albuterol (PROVENTIL) 2.5 mg /3 mL (0.083 %) nebulizer solution Inhale 1 mcg as instructed. - cholecalciferol (VITAMIN D3) 5,000 unit tab Take by mouth. - Apple Cider Vinegar 300 mg tab Take by mouth. - fluticasone (FLONASE) 50 mcg/actuation nasal spray Use in the nose. 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] 01/13/2021 Panic attacks [F41.0] 01/13/2021 Lumbar stenosis with neurogenic claudication [M*01/13/2021 03/30/2023 Acquired deafness, left [H91.92] 01/13/2021 Snoring [R06.83] 01/13/2021 Obesity, Class II, BMI 35-39.9 [E66.812] 01/13/2021 Focal sensory loss [R44.9] 01/13/2021 03/30/2023 Chronic prescription benzodiazepine use [Z79.89*01/13/2021 09/07/2021 Alcohol use [F10.90] 01/13/2021 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*09/07/2021 Spinal cord stimulator status [Z96.89] 03/13/2022 DALIA (obstructive sleep apnea) [G47.33] 09/27/2022 Actinic keratosis [L57.0] 03/29/2023 Diagnosed: 03/29/2023 Allergic contact dermatitis [L23.9] 03/29/2023 Diagnosed: 03/29/2023 Allergic rhinitis [J30.9] 03/29/2023 Diagnosed: 03/29/2023 Chondrocalcinosis [M11.20] 03/29/2023 Diagnosed: 03/29/2023 Asthma [J45.909] 03/29/2023 Diagnosed: 03/29/2023 Encounter for other preprocedural examination [*03/29/2023 03/30/2023 Diagnosed: 03/29/2023 Epidermal cyst [L72.0] 03/29/2023 Diagnosed: 03/29/2023 Erectile dysfunction [N52.9] 03/29/2023 Diagnosed: 03/29/2023 History of percutaneous transluminal coronary a*03/29/2023 Diagnosed: 03/29/2023 Mild persistent asthma [J45.30] 03/29/2023 06/02/2024 Diagnosed: 03/29/2023 Osteoarthritis of knee [M17.9] 03/29/2023 Diagnosed: 03/29/2023 Other benign neoplasm of skin of left upper whalen*03/29/2023 03/30/2023 Diagnosed: 03/29/2023 Other reduced mobility [Z74.09] 03/29/2023 Diagnosed: 03/29/2023 Pain in right knee [M25.561] 03/29/2023 03/30/2023 Diagnosed: 03/29/2023 Pain, unspecified [R52] 03/29/2023 03/30/2023 Diagnosed: 03/29/2023 Polyp of colon [K63.5] 03/29/2023 Diagnosed: 03/29/2023 Postlaminectomy syndrome, not elsewhere classif*03/29/2023 Diagnosed: 03/29/2023 Postnasal drip [R09.82] 03/29/2023 03/30/2023 Diagnosed: 03/29/2023 Shortness of breath [R06.02] 03/29/2023 03/30/2023 Diagnosed: 03/29/2023 Unspecified abnormalities of gait and mobility *03/29/2023 Diagnosed: 03/29/2023 Vitamin D deficiency [E55.9] 03/29/2023 Diagnosed: 03/29/2023 Age-related nuclear cataract, bilateral [H25.13]03/30/2023 Diagnosed: (more content not included)...[facility]04-29-2025 Telephone encounter Note* Telephone Encounter - Elizabeth Ulloa LPN - 07/01/2024 10:37 AM EDT Pt calls for a refill. Per med chart pt should still have a months worth. [facility]. Apple reports pt does not have any refills left. Prescription Refill Information The patient has been identified by name and date of : Yes Caregiver verified no other encounters exist for this prescription request: Yes Caregiver confirmed with patient/requestor that no other refills are due, in the near future, with this provider at this time: Yes The last office visit in the department: 06/02/24 Does the patient have a future office visit with this provider/department: Yes 09/03/24 Requested Prescriptions Pending Prescriptions Disp Refills cetirizine (ZYRTEC) 10 mg tablet 90 tablet 1 Sig: Take 1 tablet by mouth once daily. Elizabeth Ulloa LPN July 01, 2024 10:39 AM [facility]04-29-2025 Miscellaneous Notes* Telephone Encounter - Elizabeth Ulloa LPN - 07/01/2024 10:37 AM EDT Pt calls for a refill. Per med chart pt should still have a months worth. Called [facility] and spoke to Apple. Apple reports pt does not have any refills left. Prescription Refill Information The patient has been identified by name and date of : Yes Caregiver verified no other encounters exist for this prescription request: Yes Caregiver confirmed with patient/requestor that no other refills are due, in the near future, with this provider at this time: Yes The last office visit in the department: 06/02/24 Does the patient have a future office visit with this provider/department: Yes 09/03/24 Requested Prescriptions Pending Prescriptions Disp Refills cetirizine (ZYRTEC) 10 mg tablet 90 tablet 1 Sig: Take 1 tablet by mouth once daily. Elizabeth Ulloa LPN July 01, 2024 10:39 AM documented in this encounterReg[facility]04-17-2025 NoteHNO ID: [id number] Author: PRASANTH MULLIGAN RN Service: ? Author Type: Registered Nurse Type: Progress Notes Filed: 06/19/2024 17:05 Note Text: CDM Care Path Telephonic Outreach Provider Action/FYI Patient identified by Name and Date of . Discussed care with patient. Program Details Chronic Disease Management Status: Enrolled Effective Dates: 05/05/2024 - present Responsible Staff: Prasanth Mulligan RN Support and Services: Chronic Obstructive Pulmonary Disease (COPD), Hypertension Program Goals Targets Target Due Completed Completed By Outcome Annual Pulmonology visit addressed 08/05/2024 -- -- -- Comprehensive COPD education provided 08/05/2024 -- -- -- Comprehensive HTN education provided 08/05/2024 -- -- -- HTN lab care gaps addressed 08/05/2024 -- -- -- Patient-stated goal addressed (add comment) 08/05/2024 -- -- -- Wish I could do more around the home like I used to Biannual PCP visit addressed 08/05/2024 06/19/2024 Prasanth Mulligan RN Complete/Scheduled General education provided (managing stress, where to go/how to contact, etc.) 06/05/2024 06/05/2024 Prasanth Mulligan RN Complete Intake assessments completed: ADLs, Fall Risk, SDOH 06/05/2024 05/05/2024 Prasanth Mulligan RN Complete Annual Medicare Wellness visit addressed 08/05/2024 05/05/2024 Prasanth Mulligan RN Complete/Scheduled Scheduled 09/03/24 Assessments CDM Assessment Medications: Do you have any questions about taking your medications or which medications you should be taking?: No Do you need any medication refills at this time, including any of the medication you might take only when needed?: No Social: It can be normal to feel anxious or down during a time like this. Would you like to talk to a mental health professional about how you have been feeling?: No Symptoms: Are you experiencing any new or worsening symptoms that you need to talk about today?: No ADLs No documentation this encounter Fall Risk No documentation this encounter SDOH No documentation this encounter Interventions The following were addressed during this visit: - Month 2: Provide COPD MARYCRUZ Education - Schedule Annual COPD Pulmonology Appointment - Biannual PCP visit addressed - Bi-Weekly Outreach (Recurring) Disposition Based on director of instructional technology, the following disposition is advised: No action needed Prasanth Mulligan RN June 19, 2024 5:01 [facility]04-17-2025 History of Present illness Narrative* Prasanth Mulligan RN - 06/19/2024 5:01 PM EDT Images from the original note were not included. CDM Care Path Telephonic Outreach Provider Action/FYI Patient identified by Name and Date of . Discussed care with patient. Program Details Chronic Disease Management Status: Enrolled Effective Dates: 05/05/2024 - present Responsible Staff: Prasanth Mulligan RN Support and Services: Chronic Obstructive Pulmonary Disease (COPD), Hypertension Program Goals Targets Target Due Completed Completed By Outcome Annual Pulmonology visit addressed 08/05/2024 -- -- -- Comprehensive COPD education provided 08/05/2024 -- -- -- Comprehensive HTN education provided 08/05/2024 -- -- -- HTN lab care gaps addressed 08/05/2024 -- -- -- Patient-stated goal addressed (add comment) 08/05/2024 -- -- -- Wish I could do more around the home like I used to Biannual PCP visit addressed 08/05/2024 06/19/2024 Prasanth Mulligan RN Complete/Scheduled General education provided (managing stress, where to go/how to contact, etc.) 06/05/2024 06/05/2024 Prasanth Mulligan RN Complete Intake assessments completed: ADLs, Fall Risk, SDOH 06/05/2024 05/05/2024 Prasanth Mulligan RN Complete Annual Medicare Wellness visit addressed 08/05/2024 05/05/2024 Prasanth Mulligan RN Complete/Scheduled Scheduled 09/03/24 Assessments CDM Assessment Medications: Do you have any questions about taking your medications or which medications you should be taking?:No Do you need any medication refills at this time, including any of the medication you might take only when needed?: No Social: It can be normal to feel anxious or down during a time like this. Would you like to talk to a mental health professional about how you have been feeling?: No Symptoms: Are you experiencing any new or worsening symptoms that you need to talk about today?: No ADLs No documentation this encounter Fall Risk No documentation this encounter SDOH No documentation this encounter Interventions The following were addressed during this visit: - Month 2: Provide COPD MARYCRUZ Education - Schedule Annual COPD Pulmonology Appointment - Biannual PCP visit addressed - Bi-Weekly Outreach (Recurring) Disposition Based on director of instructional technology, the following disposition is advised: No action needed Prasanth Mulligan RN June 19, 2024 5:01 PM documented in this encounterRegency [facility]04-[facility]-2025 NotePatient Outreach ([facility]) SG HERNANDEZ ([id number]) 1950 M [facility] Date Time Provider Department 06/19/24 PRASANTH MULLIGAN [facility] During your visit today, we recorded the following information about you: Prasanth Mulligan RN 06/19/2024 5:05 PM Signed CDM Care Path Telephonic Outreach Provider Action/FYI Patient identified by Name and Date of . Discussed care with patient. Program Details Chronic Disease Management Status: Enrolled Effective Dates: 05/05/2024 - present Responsible Staff: Prasanth Mulligan, RN Support and Services: Chronic Obstructive Pulmonary Disease (COPD), Hypertension Program Goals Targets Target Due Completed Completed By Outcome Annual Pulmonology visit addressed 08/05/2024 -- -- -- Comprehensive COPD education provided 08/05/2024 -- -- -- Comprehensive HTN education provided 08/05/2024 -- -- -- HTN lab care gaps addressed 08/05/2024 -- -- -- Patient-stated goal addressed (add comment) 08/05/2024 -- -- -- Wish I could do more around the home like I used to Biannual PCP visit addressed 08/05/2024 06/19/2024 Prasanth Mulligan RN Complete/Scheduled General education provided (managing stress, where to go/how to contact, etc.) 06/05/2024 06/05/2024 Prasanth Mulligan RN Complete Intake assessments completed: ADLs, Fall Risk, SDOH 06/05/2024 05/05/2024 Prasanth Mulligan RN Complete Annual Medicare Wellness visit addressed 08/05/2024 05/05/2024 Prasanth Mulligan RN Complete/Scheduled Scheduled 09/03/24 Assessments CDM Assessment Medications: Do you have any questions about taking your medications or which medications you should be taking?: No Do you need any medication refills at this time, including any of the medication you might take only when needed?: No Social: It can be normal to feel anxious or down during a time like this. Would you like to talk to a mental health professional about how you have been feeling?: No Symptoms: Are you experiencing any new or worsening symptoms that you need to talk about today?: No ADLs No documentation this encounter Fall Risk No documentation this encounter SDOH No documentation this encounter Interventions The following were addressed during this visit: - Month 2: Provide COPD MARYCRUZ Education - Schedule Annual COPD Pulmonology Appointment - Biannual PCP visit addressed - Bi-Weekly Outreach (Recurring) Disposition Based on director of instructional technology, the following disposition is advised: No action needed Prasanth Mulligan RN June 19, 2024 5:01 PM Allergies As of Date: 06/19/2024 Noted Allergy Reaction MELOXICAM 02/02/2021 8 - GI Upset Date Reviewed: 06/02/2024 Reviewed by: Deedee Carmen MA - Fully Assessed Prescriptions as of 06/19/2024 - atorvastatin (LIPITOR) 40 mg tablet Take 1 tablet by mouth daily at bedtime. - cetirizine (ZYRTEC) 10 mg tablet Take 1 tablet by mouth once daily. - roflumilast (DALIRESP) 500 mcg tab Take 500 mcg by mouth. - busPIRone (BUSPAR) 5 mg tablet Take 1 tablet by mouth three times a day. - omeprazole (PRILOSEC) 40 mg capsule Take 1 capsule by mouth every afternoon. - jrwszcuqsl-irihalaq-mfajvxopbz (BREZTRI) 160-9-4.8 mcg/actuation HFA aerosol inhaler Inhale 2 Puffs as instructed two times a day. - carvedilol (COREG) 6.25 mg tablet Take 1 tablet by mouth two times a day with meals. - montelukast (SINGULAIR) 10 mg tablet Take 1 tablet by mouth daily at bedtime. - guaiFENesin (HUMIBID E) 200 mg tablet Take 400 mg by mouth every 4 hours as needed. - TURMERIC ORAL Take 1,500 mg by mouth once daily. - losartan (COZAAR) 100 mg tablet Take 0.5 tablets by mouth once daily. - albuterol (PROVENTIL) 2.5 mg /3 mL (0.083 %) nebulizer solution Inhale 1 mcg as instructed. - cholecalciferol (VITAMIN D3) 5,000 unit tab Take by mouth. - Apple Cider Vinegar 300 mg tab Take by mouth. - fluticasone (FLONASE) 50 mcg/actuation nasal spray Use in the nose. 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] 01/13/2021 Panic attacks [F41.0] 01/13/2021 Lumbar stenosis with neurogenic claudication [M*01/13/2021 03/30/2023 Acquired deafness, left [H91.92] 01/13/2021 Snoring [R06.83] 01/13/2021 Obesity, Class II, BMI 35-39.9 [E66.812] 01/13/2021 Focal sensory loss [R44.9] 01/13/2021 03/30/2023 Chronic prescription benzodiazepine use [Z79.89*01/13/2021 09/07/2021 Alcohol use [F10.90] 01/13/2021 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*09/07/2021 Spinal cord stimulator status [Z96.89] 03/13/2022 DALIA (obstructive sleep apnea) [G47.33] 09/27/2022 Actinic keratosis [L57.0] 03/29/2023 Diagnosed: 03/29/2023 Allergic contact (more content not included)...[facility] 06-05-2024 NoteHNO ID: [id number] Author: PRASANTH MULLIGAN RN Service: ? Author Type: Registered Nurse Type: Progress Notes Filed: 06/05/2024 16:53 Note Text: CDM Care Path Telephonic Outreach Provider Action/FYI Patient identified by Name and Date of . Discussed care with patient [facility] Derm and Pulmonary. Program Details Chronic Disease Management Status: Enrolled Effective Dates: 05/05/2024 - present Responsible Staff: Prasanth Mulligan RN Support and Services: Chronic Obstructive Pulmonary Disease (COPD), Hypertension Program Goals Targets Target Due Completed Completed By Outcome Annual Pulmonology visit addressed 08/05/2024 -- -- -- Biannual PCP visit addressed 08/05/2024 -- -- -- Comprehensive COPD education provided 08/05/2024 -- -- -- Comprehensive HTN education provided 08/05/2024 -- -- -- HTN lab care gaps addressed 08/05/2024 -- -- -- Patient-stated goal addressed (add comment) 08/05/2024 -- -- -- Wish I could do more around the home like I used to General education provided (managing stress, where to go/how to contact, etc.) 06/05/2024 06/05/2024 Prasanth Mulligan RN Complete Intake assessments completed: ADLs, Fall Risk, SDOH 06/05/2024 05/05/2024 Prasanth Mulligan RN Complete Annual Medicare Wellness visit addressed 08/05/2024 05/05/2024 Prasanth Mulligan RN Complete/Scheduled Scheduled 09/03/24 Assessments CD Assessment Medications: Do you have any questions about taking your medications or which medications you should be taking?: No Do you need any medication refills at this time, including any of the medication you might take only when needed?: No Symptoms: Are you experiencing any new or worsening symptoms that you need to talk about today?: No ADLs No documentation this encounter Fall Risk No documentation this encounter SDOH No documentation this encounter Interventions The following were addressed during this visit: - Month 2: Provide COPD Education: COPD Education on Medications - What Inhalers Do - General education provided (managing stress, where to go/how to contact, etc.) - Bi-Weekly Outreach (Recurring) Disposition Based on director of instructional technology, the following disposition is advised: No action needed Prasanth Mulligan RN June 05, 2024 4:[facility] of Present illness Narrative* Prasanth Mulligan RN - 06/05/2024 4:44 PM EDT Images from the original note were not included. [facility] Care Path Telephonic Outreach Provider Action/FYI Patient identified by Name and Date of . Discussed care with patient [facility] Derm and Pulmonary. Program Details Chronic Disease Management Status: Enrolled Effective Dates: 05/05/2024 - present Responsible Staff: Prasanth Mulligan RN Support and Services: Chronic Obstructive Pulmonary Disease (COPD), Hypertension Program Goals Targets Target Due Completed Completed By Outcome Annual Pulmonology visit addressed 08/05/2024 -- -- -- Biannual PCP visit addressed 08/05/2024 -- -- -- Comprehensive COPD education provided 08/05/2024 -- -- -- Comprehensive HTN education provided 08/05/2024 -- -- -- HTN lab care gaps addressed 08/05/2024 -- -- -- Patient-stated goal addressed (add comment) 08/05/2024 -- -- -- Wish I could do more around the home like I used to General education provided (managing stress, where to go/how to contact, etc.) 06/05/2024 06/05/2024 Prasanth Mulligan RN Complete Intake assessments completed: ADLs, Fall Risk, SDOH 06/05/2024 05/05/2024 Prasanth Mulligan RN Complete Annual Medicare Wellness visit addressed 08/05/2024 05/05/2024 Prasanth Mulligan RN Complete/Scheduled Scheduled 09/03/24 Assessments CDM Assessment Medications: Do you have any questions about taking your medications or which medications you should be taking?:No Do you need any medication refills at this time, including any of the medication you might take only when needed?: No Symptoms: Are you experiencing any new or worsening symptoms that you need to talk about today?: No ADLs No documentation this encounter Fall Risk No documentation this encounter SDOH No documentation this encounter Interventions The following were addressed during this visit: - Month 2: Provide COPD Education: COPD Education on Medications - What Inhalers Do - General education provided (managing stress, where to go/how to contact, etc.) - Bi-Weekly Outreach (Recurring) Disposition Based on director of instructional technology, the following disposition is advised: No action needed Prasanth Mulligan RN June 05, 2024 4:44 PM [facility] NotePatient Outreach ([facility]) SG HERNANDEZ ([id number]) 1950 M [facility] Date Time Provider Department 06/05/24 PRASANTH MULLIGAN [facility] During your visit today, we recorded the following information about you: Prasanth Mulligan RN 06/05/2024 4:53 PM Signed CDM Care Path Telephonic Outreach Provider Action/ Patient identified by Name and Date of . Discussed care with patient [facility] Derm and Pulmonary. Program Details Chronic Disease Management Status: Enrolled Effective Dates: 05/05/2024 - present Responsible Staff: Prasanth Mulligan RN Support and Services: Chronic Obstructive Pulmonary Disease (COPD), Hypertension Program Goals Targets Target Due Completed Completed By Outcome Annual Pulmonology visit addressed 08/05/2024 -- -- -- Biannual PCP visit addressed 08/05/2024 -- -- -- Comprehensive COPD education provided 08/05/2024 -- -- -- Comprehensive HTN education provided 08/05/2024 -- -- -- HTN lab care gaps addressed 08/05/2024 -- -- -- Patient-stated goal addressed (add comment) 08/05/2024 -- -- -- Wish I could do more around the home like I used to General education provided (managing stress, where to go/how to contact, etc.) 06/05/2024 06/05/2024 Prasanth Mulligan RN Complete Intake assessments completed: ADLs, Fall Risk, SDOH 06/05/2024 05/05/2024 Prasanth Mulligan RN Complete Annual Medicare Wellness visit addressed 08/05/2024 05/05/2024 Prasanth Mulligan RN Complete/Scheduled Scheduled 09/03/24 Assessments CDM Assessment Medications: Do you have any questions about taking your medications or which medications you should be taking?: No Do you need any medication refills at this time, including any of the medication you might take only when needed?: No Symptoms: Are you experiencing any new or worsening symptoms that you need to talk about today?: No ADLs No documentation this encounter Fall Risk No documentation this encounter SDOH No documentation this encounter Interventions The following were addressed during this visit: - Month 2: Provide COPD Education: COPD Education on Medications - What Inhalers Do - General education provided (managing stress, where to go/how to contact, etc.) - Bi-Weekly Outreach (Recurring) Disposition Based on director of instructional technology, the following disposition is advised: No action needed Prasanth Mulligan RN June 05, 2024 4:44 PM Allergies As of Date: 06/05/2024 Noted Allergy Reaction MELOXICAM 02/02/2021 8 - GI Upset Date Reviewed: 06/02/2024 Reviewed by: Deedee Carmen MA - Fully Assessed Prescriptions as of 06/05/2024 - atorvastatin (LIPITOR) 40 mg tablet Take 1 tablet by mouth daily at bedtime. - cetirizine (ZYRTEC) 10 mg tablet Take 1 tablet by mouth once daily. - roflumilast (DALIRESP) 500 mcg tab Take 500 mcg by mouth. - busPIRone (BUSPAR) 5 mg tablet Take 1 tablet by mouth three times a day. - omeprazole (PRILOSEC) 40 mg capsule Take 1 capsule by mouth every afternoon. - ycdnmbssce-ciyxjzvq-iileowkpjw (BREZTRI) 160-9-4.8 mcg/actuation HFA aerosol inhaler Inhale 2 Puffs as instructed two times a day. - carvedilol (COREG) 6.25 mg tablet Take 1 tablet by mouth two times a day with meals. - montelukast (SINGULAIR) 10 mg tablet Take 1 tablet by mouth daily at bedtime. - guaiFENesin (HUMIBID E) 200 mg tablet Take 400 mg by mouth every 4 hours as needed. - TURMERIC ORAL Take 1,500 mg by mouth once daily. - losartan (COZAAR) 100 mg tablet Take 0.5 tablets by mouth once daily. - albuterol (PROVENTIL) 2.5 mg /3 mL (0.083 %) nebulizer solution Inhale 1 mcg as instructed. - cholecalciferol (VITAMIN D3) 5,000 unit tab Take by mouth. - Apple Cider Vinegar 300 mg tab Take by mouth. - fluticasone (FLONASE) 50 mcg/actuation nasal spray Use in the nose. 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] 01/13/2021 Panic attacks [F41.0] 01/13/2021 Lumbar stenosis with neurogenic claudication [M*01/13/2021 03/30/2023 Acquired deafness, left [H91.92] 01/13/2021 Snoring [R06.83] 01/13/2021 Obesity, Class II, BMI 35-39.9 [E66.812] 01/13/2021 Focal sensory loss [R44.9] 01/13/2021 03/30/2023 Chronic prescription benzodiazepine use [Z79.89*01/13/2021 09/07/2021 Alcohol use [F10.90] 01/13/2021 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*09/07/2021 Spinal cord stimulator status [Z96.89] 03/13/2022 DALIA (obstructive sleep apnea) [G47.33] 09/27/2022 Actinic keratosis [L57.0] 03/29/2023 Diagnosed: 03/29/2023 Allergic contact dermatitis [L23.9] 03/29/2023 Diagnosed: 03/29/2023 Allergic rhinitis [J30.9] 03/29/2023 Diagnosed: 03/29/2023 Chondroca (more content not included)...[facility]03-31-2025 History of Present illness Narrative* Stephanie Baxter Tech - 06/02/2024 2:10 PM EDT Radiology Service Progress Note PATIENT NAME: Sg Hernandez DATE OF SERVICE: June 02, 2024 TIME: 2:10 PM PATIENT IDENTITY VERIFICATION COMPLETED USING TWO (2) IDENTIFIERS: Name and Date of confirmedby patient verbally. FALL SCREENING: Has the patient had 2 falls in the last year or 1 fall with injury or currently using an Ambulatory Assistive Device (Walker, Cane, Wheelchair, Crutches, etc.)? No PATIENT GENDER DATA: Assigned male at PATIENT RELEVANT IMPLANT DATA REVIEWED: Not Applicable PATIENT PRESENTS WITH AN IMPLANTABLE OR ATTACHED SERVICE PROMOTER SALESPERSON: No RADIOLOGY DEPARTMENT: General X-ray: Exam(s) Completed: Chest X-Ray Pelvis X-Ray: Pelvis with Hip Left Lower Extremity X-Ray(s): Knee, AP / Lat / Tunne / Merchant Left PERIPHERAL IV DATA: Not applicable SIGNED BY: Miracle Parmar June 02, 2024 2:10 PM documented in this encounterRegency [facility]03-31-2025 NoteHNO ID: [id number] Author: STEPHANIE BAXTER Tech Service: ? Author Type: Technologist Type: Progress Notes Filed: 06/02/2024 14:53 Note Text: Radiology Service Progress Note PATIENT NAME: Sg Hernandez DATE OF SERVICE: June 02, 2024 TIME: 2:10 PM PATIENT IDENTITY VERIFICATION COMPLETED USING TWO (2) IDENTIFIERS: Name and Date of confirmed by patient verbally. FALL SCREENING: Has the patient had 2 falls in the last year or 1 fall with injury or currently using an Ambulatory Assistive Device (Walker, Cane, Wheelchair, Crutches, etc.)? No PATIENT GENDER DATA: Assigned male at PATIENT RELEVANT IMPLANT DATA REVIEWED: Not Applicable PATIENT PRESENTS WITH AN IMPLANTABLE OR ATTACHED SERVICE PROMOTER SALESPERSON: No RADIOLOGY DEPARTMENT: General X-ray: Exam(s) Completed: Chest X-Ray Pelvis X-Ray: Pelvis with Hip Left Lower Extremity X-Ray(s): Knee, AP / Lat / Tunne / Merchant Left PERIPHERAL IV DATA: Not applicable SIGNED BY: Miracle Parmar June 02, 2024 2:10 [facility]03-31-2025 NoteHNO ID: [id number] Author: CONOR MURDOCK MD Service: ? Author Type: Physician Type: Progress Notes Filed: 06/02/2024 14:39 Note Text: Patient presents with: 6 Month Exam HPI: Patient presents today for office visit for follow up[facility] Has an appt with pulmonary next week and derm as well. HLD: No myalgias. HTN: Denies chest pain Some worsening shortness of breath. Sees Pulmonary. No new or worsening edema. Is actually much better. Has actually lost weight by dieting. Wears compression wraps. No headaches or dizziness. Refers to his oxygen being as low as 80%. Readjusts itself quickly. [facility] is aware [facility]. Offered to work up but he declines due to cost and wants or to evaluate. They have been adjusting meds. No cough He has another appt for his cpap. Has not had it recently but they are working on getting a new machine. Is more tired and fatigued. Treated for possible pneumonia just in March. I would like to recheck xray. Willing to do so. Left knee and left hip pain. Fell back in March and then again towards the end of April. Fell on left side. No swelling currently. [facility] aware but has not had xrays. Can bare weight on it. No swelling. Has declined follow up with cardiology in the past. No chest pain. Did have EKG and is scheduled for an echo at the [facility] No heartburn. Uses hot sauce to control it. Bp is well controlled. Buspar helping his anxeity. Bp well controlled. Also suggested he could consider checking his carotids. Has been 5 or six months. Suggested he discuss with [facility] MEDICATIONS: Current Outpatient Medications Medication Sig atorvastatin (LIPITOR) 40 mg tablet Take 1 tablet by mouth daily at bedtime. cetirizine (ZYRTEC) 10 mg tablet Take 1 tablet by mouth once daily. roflumilast (DALIRESP) 500 mcg tab Take 500 mcg by mouth. busPIRone (BUSPAR) 5 mg tablet Take 1 tablet by mouth three times a day. omeprazole (PRILOSEC) 40 mg capsule Take 1 capsule by mouth every afternoon. qowtpavwkl-cutwxwsy-kmqidyqnsa (BREZTRI) 160-9-4.8 mcg/actuation HFA aerosol inhaler Inhale 2 Puffs as instructed two times a day. carvedilol (COREG) 6.25 mg tablet Take 1 tablet by mouth two times a day with meals. montelukast (SINGULAIR) 10 mg tablet Take 1 tablet by mouth daily at bedtime. guaiFENesin (HUMIBID E) 200 mg tablet Take 400 mg by mouth every 4 hours as needed. TURMERIC ORAL Take 1,500 mg by mouth once daily. losartan (COZAAR) 100 mg tablet Take 0.5 tablets by mouth once daily. albuterol (PROVENTIL) 2.5 mg /3 mL (0.083 %) nebulizer solution Inhale 1 mcg as instructed. cholecalciferol (VITAMIN D3) 5,000 unit tab Take by mouth. Apple Cider Vinegar 300 mg tab Take by mouth. fluticasone (FLONASE) 50 mcg/actuation nasal spray Use in the nose. VITAMIN B COMPLEX ORAL Vitamin B Complex Active CAP August 31, 2021 12:00am No current facility-administered medications for this visit. ALLERGIES: ALLERGIES Allergen Reactions Meloxicam GI Upset PAST MEDICAL HISTORY Diagnosis Date H/O gastroesophageal reflux (GERD) claims got it to go away with hot sauce History of spinal fracture L4/L5 with fragment in spinal cord Mixed hyperlipidemia Moderate persistent asthma without complication Other emphysema (HCC) Primary hypertension Spinal stenosis of lumbar region with neurogenic claudication PAST SURGICAL HISTORY Procedure Laterality Date APPENDECTOMY LAMINECTOMY,LUMBAR Bilateral L4/L5 PAST SURGICAL HISTORY OF left knee meniscus repair PAST SURGICAL HISTORY OF right knee repair twice PAST SURGICAL HISTORY OF lymphectomy left collarbone TONSILLECTOMY AND ADENOIDECTOMY No family history on file. Social History Tobacco Use Smoking status: Former Types: Cigarettes Start date: 04/15/2002 Smokeless tobacco: Never Substance Use Topics Alcohol use: Yes Alcohol/week: 12.0 standard drinks of alcohol Types: 12 Cans of Beer (12oz) per week Drug use: Not Currently Comment: remote marijuana, LSD, mushrooms young adult Reviewed current medications, allergies, past medical history, surgical history, family history and social history today. REVIEW OF SYSTEMS All other reviewed and negative other than HPI. HEALTH MAINTENANCE: Reviewed health maintenance issues today and recommended the following in detail. Spirometry Never done Colorectal Cancer Screening -had colonoscopy done in [place] he believes was normal 10 years ago. Having increased gas and bloating. [facility] Advance Directive Discussion due on 03/05/2024 LDL Cholesterol -done by the [facility] VITALS: BP 136/58 Pulse 80 Ht 167 cm (5' 5.75) Wt 126.1 kg (278 lb) SpO2 97% BMI 45.21 kg/m? Last 4 Encounter Wt Readings: Date: Wt: 03/20/2024 129.9 kg (286 lb 6 oz) 01/28/2024 127 kg (280 lb) 11/26/2023 121 kg (266 lb 12.8 oz) 08/07/2023 117 kg (258 lb) PHYSICAL EXAMINATION: General appearance: Well appearing, alert (more content not included)... [facility]03-31-2025 History of Present illness Narrative* Conor Murdock MD - 06/02/2024 1:23 PM EDT Patient presents with: 6 Month Exam HPI: Patient presents today for office visit for follow up. [facility]. Has an appt with pulmonary next week and derm as well. HLD: No myalgias. HTN: Denies chest pain Some worsening shortness of breath. Sees Pulmonary. No new or worsening edema. Is actually much better. Has actually lost weight by dieting. Wears compression wraps. No headaches or dizziness. Refers to his oxygen being as low as 80%. Readjusts itself quickly. [facility] is aware [facility]. Offered to work up but he declines due to cost and wants or to evaluate. They have been adjusting meds. No cough He has another appt for his cpap. Has not had it recently but they are working on getting a new machine. Is more tired and fatigued. Treated for possible pneumonia just in March. I would like to recheck xray. Willing to do so. Left knee and left hip pain. Fell back in March and then again towards the end of April. Fell on left side. No swelling currently. [facility] aware but has not had xrays. Can bare weight on it. No swelling. Has declined follow up with cardiology in the past. No chest pain. Did have EKG and is scheduled for an echo at the [facility] No heartburn. Uses hot sauce to control it. Bp is well controlled. Buspar helping his anxeity. Bp well controlled. Also suggested he could consider checking his carotids. Has been 5 or six months. Suggested he discuss with [facility] MEDICATIONS: Current Outpatient Medications Medication Sig atorvastatin (LIPITOR) 40 mg tablet Take 1 tablet by mouth daily at bedtime. cetirizine (ZYRTEC) 10 mg tablet Take 1 tablet by mouth once daily. roflumilast (DALIRESP) 500 mcg tab Take 500 mcg by mouth. busPIRone (BUSPAR) 5 mg tablet Take 1 tablet by mouth three times a day. omeprazole (PRILOSEC) 40 mg capsule Take 1 capsule by mouth every afternoon. gssghyuyrp-kjmvslqa-zexsdmuoex (BREZTRI) 160-9-4.8 mcg/actuation HFA aerosol inhaler Inhale 2 Puffsas instructed two times a day. carvedilol (COREG) 6.25 mg tablet Take 1 tablet by mouth two times a day with meals. montelukast (SINGULAIR) 10 mg tablet Take 1 tablet by mouth daily at bedtime. guaiFENesin (HUMIBID E) 200 mg tablet Take 400 mg by mouth every 4 hours as needed. TURMERIC ORAL Take 1,500 mg by mouth once daily. losartan (COZAAR) 100 mg tablet Take 0.5 tablets by mouth once daily. albuterol (PROVENTIL) 2.5 mg /3 mL (0.083 %) nebulizer solution Inhale 1 mcg as instructed. cholecalciferol (VITAMIN D3) 5,000 unit tab Take by mouth. Apple Cider Vinegar 300 mg tab Take by mouth. fluticasone (FLONASE) 50 mcg/actuation nasal spray Use in the nose. VITAMIN B COMPLEX ORAL Vitamin B Complex Active CAP August 31, 2021 12:00am No current facility-administered medications for this visit. ALLERGIES: ALLERGIES Allergen Reactions Meloxicam GI Upset PAST MEDICAL HISTORY Diagnosis Date H/O gastroesophageal reflux (GERD) claims got it to go away with hot sauce History of spinal fracture L4/L5 with fragment in spinal cord Mixed hyperlipidemia Moderate persistent asthma without complication Other emphysema (HCC) Primary hypertension Spinal stenosis of lumbar region with neurogenic claudication PAST SURGICAL HISTORY Procedure Laterality Date APPENDECTOMY LAMINECTOMY,LUMBAR Bilateral L4/L5 PAST SURGICAL HISTORY OF left knee meniscus repair PAST SURGICAL HISTORY OF right knee repair twice PAST SURGICAL HISTORY OF lymphectomy left collarbone TONSILLECTOMY & ADENOIDECTOMY <AGE 13 No family history on file. Social History Tobacco Use Smoking status: Former Types: Cigarettes Start date: 04/15/2002 Smokeless tobacco: Never Substance Use Topics Alcohol use: Yes Alcohol/week: 12.0 standard drinks of alcohol Types: 12 Cans of Beer (12oz) per week Drug use: Not Currently Comment: remote marijuana, LSD, mushrooms young adult Reviewed current medications, allergies, past medical history, surgical history, family history andsocial history today. REVIEW OF SYSTEMS All other reviewed and negative other than HPI. HEALTH MAINTENANCE: Reviewed health maintenance issues today and recommended the following in detail. Spirometry Never done Colorectal Cancer Screening -had colonoscopy done in [place] he believes was normal 10 years ago. Having increased gas and bloating. Will try and see gi at the [facility]. Advance Directive Discussion due on 03/05/2024 LDL Cholesterol -done by the [facility] VITALS: BP 136/58 Pulse 80 Ht 167 cm (5' 5.75) Wt 126.1 kg (278 lb) SpO2 97% BMI 45.21 kg/m Last 4 Encounter Wt Readings: Date: Wt: 03/20/2024 129.9 kg (286 lb 6 oz) 01/28/2024 127 kg (280 lb) 11/26/2023 121 kg (266 lb 12.8 oz) 08/07/2023 117 kg (258 lb) PHYSICAL EXAMINATION: General appearance: Well appearing, alert, in no acute distress, well-hydrated, well nourished. Skin: Skin color, texture, turgor normal, no suspicious rashes or lesions Head: Normocephalic, no masses, lesions, tenderness or abnormalities Eyes: Anicteric sclera. Pupils are equally round and reactive to light. Extraocular movements are intact. Lungs: Lungs clear to auscultation. No wheezing, rhonchi, rales Heart: RRR without murmur, gallop, or rubs. No ectopy Abdomen: Normal abdominal exam, Abdomen soft, non-tender. Bowel sounds normal. No masses, organomegaly Extremities: No deformities, edema, skin discoloration, clubbing or cyanosis. Good capillary refill. Hip. Normal range of motion. No instability. Non tender in hip. Normal. Range of motion ASSESSMENT/PLAN: 1. Abnormal x-ray - ICD9: 793.99, ICD10: R93.89 (primary diagnosis) Recheck xray. Follow with pulmonary at [facility] - XR CHEST 2V FRONTAL/LAT 2. Dyslipidemia - ICD9: 272.4, ICD10: E78.5 - labs done by [facility] 3. DALIA (obstructive sleep apnea) - ICD9: 327.23, ICD10: G47.33 - getting set up for cpap 4. Hypertension, essential - ICD9: 401.9, ICD10: I10 - Controlled - Continue current medications 5. COPD with chronic bronchitis (HCC) - ICD9: 491.20, ICD10: J44.89 - stable. 6. 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 Wants us to hold on work up here. Red flags for re-assessment reviewed with patientin detail. 7. Chronic ischemic heart disease - ICD9: 414.9, ICD10: I25.9 - as above 8. Vitamin D deficiency - ICD9: 268.9, ICD10: E55.9 - stable. 9. Chronic pain of left knee - ICD9: 719.46, 338.29, ICD10: M25.562, G89.2 - XR KNEE GENERAL 4V AP BOTH/PA BOTH/LAT/MERC LEFT 10. Pain in joint of left hip - ICD9: 719.45, ICD10: M25.552 - XR HIP GENERAL 3V PELV/AP/LAT LEFT 11. Bilateral carotid artery stenosis - ICD9: 433.10, 433.30, ICD10: I65.23 - recommended getting checked. 12. SOB (shortness of breath) - ICD9: 786.05, ICD10: R06.02 As above. Red flags for re-assessment reviewed with patient in detail. Conor Murdock MD documented in this encounterRegency [facility]03-28-2025 NoteHNO ID: [id number] Author: ?, ?, ? Service: ? Author Type: ? Type: Progress Notes Filed: 05/30/2024 12:28 Note Text: POPULATION HEALTH NAVIGATION OUTREACH Action/FYI Patient outreach for COLO. AWV scheduled 09/26. BP to be done. Mychart sent. Reason for Outreach Care Gap/HCC or Scheduling Wellness Visits Care Gaps due: Colorectal Cancer Screening Patient Contacted: Unable or unnecessary to reach patient: MyChart message sent HCC related Navigation Signature: Mel Celaya May 30, 2024 12:27 [facility] [facility]03-28-2025 History of Present illness Narrative* eMl Stovall - 05/30/2024 12:27 PM EDT POPULATION HEALTH NAVIGATION OUTREACH Action/FYI Patient outreach for COLO. AWV scheduled 09/26. BP to be done. Mychart sent. Reason for Outreach Care Gap/HCC or Scheduling Wellness Visits Care Gaps due: Colorectal Cancer Screening Patient Contacted: Unable or unnecessary to reach patient: MyChart message sent HCC related Navigation Signature: Mel Celaya May 30, 2024 12:27 PM documented in [facility] encounter[facility] NotePatient Outreach (NETNAV) SG HERNANDEZ ([id number]) 1950 M DEF Date Time Provider Department 05/30/24 CONOR MURDOCK During your visit today, we recorded the following information about you: Mel Stovall 05/30/2024 12:28 PM Signed POPULATION HEALTH NAVIGATION OUTREACH Action/FYI Patient outreach for COLO. AWV scheduled 09/26. BP to be done. Mychart sent. Reason for Outreach Care Gap/HCC or Scheduling Wellness Visits Care Gaps due: Colorectal Cancer Screening Patient Contacted: Unable or unnecessary to reach patient: [place] message sent HCC related Navigation Signature: Mel Celaya May 30, 2024 12:27 PM Allergies As of Date: 05/30/2024 Noted Allergy Reaction MELOXICAM 02/02/2021 8 - GI Upset Date Reviewed: 03/20/2024 Reviewed by: Beto Sheffield APRN.[employer] - Fully Assessed Reason for Visit: Population Health Navigation Outreach [3910] Cmt: Vinita Reynoso Prescriptions as of 05/30/2024 - atorvastatin (LIPITOR) 40 mg tablet Take 1 tablet by mouth daily at bedtime. - cetirizine (ZYRTEC) 10 mg tablet Take 1 tablet by mouth once daily. - roflumilast (DALIRESP) 500 mcg tab Take 500 mcg by mouth. - busPIRone (BUSPAR) 5 mg tablet Take 1 tablet by mouth three times a day. - omeprazole (PRILOSEC) 40 mg capsule Take 1 capsule by mouth every afternoon. - oqztmlbjqj-awqfhfuj-cvgeqfrylr (BREZTRI) 160-9-4.8 mcg/actuation HFA aerosol inhaler Inhale 2 Puffs as instructed two times a day. - carvedilol (COREG) 6.25 mg tablet Take 1 tablet by mouth two times a day with meals. - montelukast (SINGULAIR) 10 mg tablet Take 1 tablet by mouth daily at bedtime. - guaiFENesin (HUMIBID E) 200 mg tablet Take 400 mg by mouth every 4 hours as needed. - TURMERIC ORAL Take 1,500 mg by mouth once daily. - losartan (COZAAR) 100 mg tablet Take 0.5 tablets by mouth once daily. - albuterol (PROVENTIL) 2.5 mg /3 mL (0.083 %) nebulizer solution Inhale 1 mcg as instructed. - cholecalciferol (VITAMIN D3) 5,000 unit tab Take by mouth. - Apple Cider Vinegar 300 mg tab Take by mouth. - fluticasone (FLONASE) 50 mcg/actuation nasal spray Use in the nose. - VITAMIN B COMPLEX ORAL Vitamin B Complex Active CAP August 31, 2021 12:00am Problem List As Of Date 05/30/2024 Noted Resolved Hx of placement of stent in circumflex branch o*01/13/2021 Hyperlipidemia, mixed [E78.2] 01/13/2021 Hypertension, essential [I10] 01/13/2021 COPD with chronic bronchitis (HCC) [J44.89] 01/13/2021 Panic attacks [F41.0] 01/13/2021 Lumbar stenosis with neurogenic claudication [M*01/13/2021 03/30/2023 Acquired deafness, left [H91.92] 01/13/2021 Snoring [R06.83] 01/13/2021 Obesity, Class II, BMI 35-39.9 [E66.812] 01/13/2021 Focal sensory loss [R44.9] 01/13/2021 03/30/2023 Chronic prescription benzodiazepine use [Z79.89*01/13/2021 09/07/2021 Alcohol use [Z78.9] 01/13/2021 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*09/07/2021 Spinal cord stimulator status [Z96.89] 03/13/2022 DALIA (obstructive sleep apnea) [G47.33] 09/27/2022 Actinic keratosis [L57.0] 03/29/2023 Diagnosed: 03/29/2023 Allergic contact dermatitis [L23.9] 03/29/2023 Diagnosed: 03/29/2023 Allergic rhinitis [J30.9] 03/29/2023 Diagnosed: 03/29/2023 Chondrocalcinosis [M11.20] 03/29/2023 Diagnosed: 03/29/2023 Asthma [J45.909] 03/29/2023 Diagnosed: 03/29/2023 Encounter for other preprocedural examination [*03/29/2023 03/30/2023 Diagnosed: 03/29/2023 Epidermal cyst [L72.0] 03/29/2023 Diagnosed: 03/29/2023 Erectile dysfunction [N52.9] 03/29/2023 Diagnosed: 03/29/2023 History of percutaneous transluminal coronary a*03/29/2023 Diagnosed: 03/29/2023 Mild persistent asthma [J45.30] 03/29/2023 Diagnosed: 03/29/2023 Osteoarthritis of knee [M17.9] 03/29/2023 Diagnosed: 03/29/2023 Other benign neoplasm of skin of left upper whalen*03/29/2023 03/30/2023 Diagnosed: 03/29/2023 Other reduced mobility [Z74.09] 03/29/2023 Diagnosed: 03/29/2023 Pain in right knee [M25.561] 03/29/2023 03/30/2023 Diagnosed: 03/29/2023 Pain, unspecified [R52] 03/29/2023 03/30/2023 Diagnosed: 03/29/2023 Polyp of colon [K63.5] 03/29/2023 Diagnosed: 03/29/2023 Postlaminectomy syndrome, not elsewhere classif*03/29/2023 Diagnosed: 03/29/2023 Postnasal drip [R09.82] 03/29/2023 03/30/2023 Diagnosed: 03/29/2023 Shortness of breath [R06.02] 03/29/2023 03/30/2023 Diagnosed: 03/29/2023 Unspecified abnormalities of gait and mobility *03/29/2023 Diagnosed: 03/29/2023 Vitamin D deficiency [E55.9] 03/29/2023 Diagnosed: 03/29/2023 Age-related nuclear cataract, bilateral [H25.13]03/30/2023 Diagnosed: 03/30/2023 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] 03/30/2023 Diagnosed: 03/30/2023 Functional disorder of intestine [K59.9] 03/30/2023 Diagnosed: 03/30/2023 Hemorrhoids without complication [K64.9] 03/30/2023 Diagnosed: (more content not included)...[facility]03-24-2025 Telephone encounter Note* Telephone Encounter - Marilee Lara LPN - 05/26/2024 10:55 AM EDT No show letter #1 printed and mailed to patient. [facility]03-24-[facility]25 Miscellaneous Notes* Telephone Encounter - Marilee Lara LPN - 05/26/2024 10:55 AM EDT No show letter #1 printed and mailed to patient. documented in this encounterReg[facility]03-20-2025 NoteHNO ID: [id number] Author: PRASANTH MULLIGAN RN Service: ? Author Type: Registered Nurse Type: Progress Notes Filed: 05/22/2024 17:13 Note Text: CDM Care Path Telephonic Outreach Provider Action/FYI Patient identified by Name and Date of . Discussed care with patient. Program Details Chronic Disease Management Status: Enrolled Effective Dates: 05/05/2024 - present Responsible Staff: Prasanth Mulligan RN Support and Services: Chronic Obstructive Pulmonary Disease (COPD), Hypertension Program Goals Targets Target Due Completed Completed By Outcome General education provided (managing stress, where to go/how to contact, etc.) 06/05/2024 -- -- -- Annual Pulmonology visit addressed 08/05/2024 -- -- -- Biannual PCP visit addressed 08/05/2024 -- -- -- Comprehensive COPD education provided 08/05/2024 -- -- -- Comprehensive HTN education provided 08/05/2024 -- -- -- HTN lab care gaps addressed 08/05/2024 -- -- -- Patient-stated goal addressed (add comment) 08/05/2024 -- -- -- Wish I could do more around the home like I used to Intake assessments completed: ADLs, Fall Risk, SDOH 06/05/2024 05/05/2024 Prasanth Mulligan RN Complete Annual Medicare Wellness visit addressed 08/05/2024 05/05/2024 Prasanth Mulligan RN Complete/Scheduled Scheduled 09/03/24 Assessments CD Assessment Medications: Do you have any questions about taking your medications or which medications you should be taking?: No Do you need any medication refills at this time, including any of the medication you might take only when needed?: No Social: It can be normal to feel anxious or down during a time like this. Would you like to talk to a mental health professional about how you have been feeling?: No Symptoms: Are you experiencing any new or worsening symptoms that you need to talk about today?: No ADLs No documentation this encounter Fall Risk No documentation this encounter SDOH No documentation this encounter Interventions The following were addressed during this visit: - Month 1: Provide COPD Education: Action Plan - Month 1: Provide COPD Education: Meter Dose Inhaler/How to Use - Month 1: Provide COPD Education: Understanding COPD AND COPD Zones - Month 1: Review Individual Blood Pressure Target (If established by provider) - Month 1: Provide HTN Education: What is High Blood Pressure - Month 1: Provide HTN Education: When to call your Doctor, When to seek Emergency Care - Schedule Biannual PCP Appointment - Schedule Annual Wellness Visit - Month 1: Provide General Education: Managing Stress AND Anxiety - Month 1: Provide General Education: Where to Go for Care - Month 1: Provide General Education: How to Contact Your Physician Team - Develop a Patient-Stated Goal (add to Target comments) - Bi-Weekly Outreach (Recurring) Disposition Based on director of instructional technology, the following disposition is advised: No action needed Prasanth Mulligan RN May 22, 2024 5:08 [facility]03-20-2025 History of Present illness Narrative* Prasanth Mulligan RN - 05/22/2024 5:08 PM EDT Images from the original note were not included. CDM Care Path Telephonic Outreach Provider Action/FYI Patient identified by Name and Date of . Discussed care with patient. Program Details Chronic Disease Management Status: Enrolled Effective Dates: 05/05/2024 - present Responsible Staff: Prasanth Mulligan, RN Support and Services: Chronic Obstructive Pulmonary Disease (COPD), Hypertension Program Goals Targets Target Due Completed Completed By Outcome General education provided (managing stress, where to go/how to contact, etc.) 06/05/2024 -- -- -- Annual Pulmonology visit addressed 08/05/2024 -- -- -- Biannual PCP visit addressed 08/05/2024 -- -- -- Comprehensive COPD education provided 08/05/2024 -- -- -- Comprehensive HTN education provided 08/05/2024 -- -- -- HTN lab care gaps addressed 08/05/2024 -- -- -- Patient-stated goal addressed (add comment) 08/05/2024 -- -- -- Wish I could do more around the home like I used to Intake assessments completed: ADLs, Fall Risk, SDOH 06/05/2024 05/05/2024 Prasanth Mulligan RN Complete Annual Medicare Wellness visit addressed 08/05/2024 05/05/2024 Prasanth Mulligan RN Complete/Scheduled Scheduled 09/03/24 Assessments CDM Assessment Medications: Do you have any questions about taking your medications or which medications you should be taking?:No Do you need any medication refills at this time, including any of the medication you might take only when needed?: No Social: It can be normal to feel anxious or down during a time like this. Would you like to talk to a mental health professional about how you have been feeling?: No Symptoms: Are you experiencing any new or worsening symptoms that you need to talk about today?: No ADLs No documentation this encounter Fall Risk No documentation this encounter SDOH No documentation this encounter Interventions The following were addressed during this visit: - Month 1: Provide COPD Education: Action Plan - Month 1: Provide COPD Education: Meter Dose Inhaler/How to Use - Month 1: Provide COPD Education: Understanding COPD & COPD Zones - Month 1: Review Individual Blood Pressure Target (If established by provider) - Month 1: Provide HTN Education: What is High Blood Pressure - Month 1: Provide HTN Education: When to call your Doctor, When to seek Emergency Care - Schedule Biannual PCP Appointment - Schedule Annual Wellness Visit - Month 1: Provide General Education: Managing Stress & Anxiety - Month 1: Provide General Education: Where to Go for Care - Month 1: Provide General Education: How to Contact Your Physician Team - Develop a Patient-Stated Goal (add to Target comments) - Bi-Weekly Outreach (Recurring) Disposition Based on director of instructional technology, the following disposition is advised: No action needed Prasanth Mulligan RN May 22, 2024 5:08 PM documented in this encounterRegency [facility]03-20-2025 NotePatient Outreach ([facility]) SG HERNANDEZ ([id number]) 1950 M DEF Date Time Provider Department 05/22/24 PRASANTH MULLIGAN [facility] During your visit today, we recorded the following information about you: Prasanth Mulligan RN 05/22/2024 5:13 PM Signed [facility] Care Path Telephonic Outreach Provider Action/FYI Patient identified by Name and Date of . Discussed care with patient. Program Details Chronic Disease Management Status: Enrolled Effective Dates: 05/05/2024 - present Responsible Staff: Prasanth Mulligan, MIKE Support and Services: Chronic Obstructive Pulmonary Disease (COPD), Hypertension Program Goals Targets Target Due Completed Completed By Outcome General education provided (managing stress, where to go/how to contact, etc.) 06/05/2024 -- -- -- Annual Pulmonology visit addressed 08/05/2024 -- -- -- Biannual PCP visit addressed 08/05/2024 -- -- -- Comprehensive COPD education provided 08/05/2024 -- -- -- Comprehensive HTN education provided 08/05/2024 -- -- -- HTN lab care gaps addressed 08/05/2024 -- -- -- Patient-stated goal addressed (add comment) 08/05/2024 -- -- -- Wish I could do more around the home like I used to Intake assessments completed: ADLs, Fall Risk, SDOH 06/05/2024 05/05/2024 Prasanth Mulligan RN Complete Annual Medicare Wellness visit addressed 08/05/2024 05/05/2024 Prasanth Mulligan RN Complete/Scheduled Scheduled 09/03/24 Assessments CDM Assessment Medications: Do you have any questions about taking your medications or which medications you should be taking?: No Do you need any medication refills at this time, including any of the medication you might take only when needed?: No Social: It can be normal to feel anxious or down during a time like this. Would you like to talk to a mental health professional about how you have been feeling?: No Symptoms: Are you experiencing any new or worsening symptoms that you need to talk about today?: No ADLs No documentation this encounter Fall Risk No documentation this encounter SDOH No documentation this encounter Interventions The following were addressed during this visit: - Month 1: Provide COPD Education: Action Plan - Month 1: Provide COPD Education: Meter Dose Inhaler/How to Use - Month 1: Provide COPD Education: Understanding COPD AND COPD Zones - Month 1: Review Individual Blood Pressure Target (If established by provider) - Month 1: Provide HTN Education: What is High Blood Pressure - Month 1: Provide HTN Education: When to call your Doctor, When to seek Emergency Care - Schedule Biannual PCP Appointment - Schedule Annual Wellness Visit - Month 1: Provide General Education: Managing Stress AND Anxiety - Month 1: Provide General Education: Where to Go for Care - Month 1: Provide General Education: How to Contact Your Physician Team - Develop a Patient-Stated Goal (add to Target comments) - Bi-Weekly Outreach (Recurring) Disposition Based on director of instructional technology, the following disposition is advised: No action needed Prasanth Mulligan RN May 22, 2024 5:08 PM Allergies As of Date: 05/22/2024 Noted Allergy Reaction MELOXICAM 02/02/2021 8 - GI Upset Date Reviewed: 03/20/2024 Reviewed by: Beto Sheffield, VERNON.[employer]PRES[employer] - Fully Assessed Prescriptions as of 05/22/2024 - atorvastatin (LIPITOR) 40 mg tablet Take 1 tablet by mouth daily at bedtime. - cetirizine (ZYRTEC) 10 mg tablet Take 1 tablet by mouth once daily. - roflumilast (DALIRESP) 500 mcg tab Take 500 mcg by mouth. - busPIRone (BUSPAR) 5 mg tablet Take 1 tablet by mouth three times a day. - omeprazole (PRILOSEC) 40 mg capsule Take 1 capsule by mouth every afternoon. - erwakydyfr-jgdygbxz-gxhkgljwgt (BREZTRI) 160-9-4.8 mcg/actuation HFA aerosol inhaler Inhale 2 Puffs as instructed two times a day. - carvedilol (COREG) 6.25 mg tablet Take 1 tablet by mouth two times a day with meals. - montelukast (SINGULAIR) 10 mg tablet Take 1 tablet by mouth daily at bedtime. - guaiFENesin (HUMIBID E) 200 mg tablet Take 400 mg by mouth every 4 hours as needed. - TURMERIC ORAL Take 1,500 mg by mouth once daily. - losartan (COZAAR) 100 mg tablet Take 0.5 tablets by mouth once daily. - albuterol (PROVENTIL) 2.5 mg /3 mL (0.083 %) nebulizer solution Inhale 1 mcg as instructed. - cholecalciferol (VITAMIN D3) 5,000 unit tab Take by mouth. - Apple Cider Vinegar 300 mg tab Take by mouth. - fluticasone (FLONASE) 50 mcg/actuation nasal spray Use in the nose. 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 Author Type: Registered Nurse Type: Progress Notes Filed: 05/05/2024 15:47 Note Text: CDM ENROLLMENT Provider Action / FYI: Patient identified by name and date of . Discussed care with patient. Program Details Chronic Disease Management Status: Enrolled Effective Dates: 05/05/2024 - present Responsible Staff: Prasanth Mulligan RN Support and Services: Chronic Obstructive Pulmonary Disease (COPD), Hypertension Assessments CDM Assessment Medications: Do you have any questions about taking your medications or which medications you should be taking?: No Do you need any medication refills at this time, including any of the medication you might take only when needed?: No Social: It can be normal to feel anxious or down during a time like this. Would you like to talk to a mental health professional about how you have been feeling?: No Symptoms: Are you experiencing any new or worsening symptoms that you need to talk about today?: No ADLs Patients can perform the following activities without help: Dressing: No ( has to help, cannot bend down) Bathing: No Doing laundry: No Climbing a flight of stairs: No Walking briskly: No Instrumental activities of daily living Do you drive a car?: Yes Do you need help from others to take care of things inside the house, for example: laundry, house cleaning, preparing meals?: Yes Did you have the help you needed?: Yes Do you need help from others with errands outside the house, for example: shopping for groceries or clothes, going medical appointments?: Yes Did you have the help you needed?: Yes Fall Risk One or more falls in the last year:: Yes (Muscle pulls - No ED) Any near falls in the last year?: No Advised to use a cane or walker to get around safely:: Yes (Cane and Walker use) Feels unsteady when walking:: No Steadies self on furniture while walking at home:: No Worried about falling:: No Needs to push with hands when rising from a chair:: Yes Has trouble stepping up onto a curb:: No Often has to sung to the toilet:: No Has lost some feeling in feet:: Yes (Spinal Stenosis) Takes medicine that makes him/her feel lightheaded or more tired than usual:: No Takes medicine to sleep or improve mood:: No SDOH Financial Resource Strain How hard is it for you to pay for the very basics like food, housing, medical care, and heating?: Not hard at all Housing Stability In the last 12 months, was there a time when you were not able to pay the mortgage or rent on time?: No At any time in the past 12 months, were you homeless or living in a fdc (including now)?: No Transportation Needs In the past 12 months, has lack of transportation kept you from medical appointments or from getting medications?: No In the past 12 months, has lack of transportation kept you from meetings, work, or from getting things needed for daily living?: No Food Insecurity Within the past 12 months, you worried that your food would run out before you got the money to buy more.: Never true Within the past 12 months, the food you bought just didn't last and you didn't have money to get more.: Never true Tobacco Use Patient reports that he has quit smoking. His smoking use included cigarettes. He started smoking about 22 years ago. He has never used smokeless tobacco. Interventions The following were addressed during this visit: - Initial enrollment outreach - Intake assessments completed: ADLs, Fall Risk, SDOH - Annual Medicare Wellness visit addressed Disposition Based on director of instructional technology, the following disposition is advised: No action needed Prasanth Mulligan RN May 05, 2024 3:30 [facility]03-03-2025 History of Present illness Narrative* Prasanth Mulligan RN - 05/05/2024 3:30 PM EST [facility] ENROLLMENT Provider Action / FYI: Patient identified by name and date of . Discussed care with patient. Program Details Chronic Disease Management Status: Enrolled Effective Dates: 05/05/2024 - present Responsible Staff: Prasanth Mulligan RN Support and Services: Chronic Obstructive Pulmonary Disease (COPD), Hypertension Assessments CDM Assessment Medications: Do you have any questions about taking your medications or which medications you should be taking?:No Do you need any medication refills at this time, including any of the medication you might take only when needed?: No Social: It can be normal to feel anxious or down during a time like this. Would you like to talk to a mental health professional about how you have been feeling?: No Symptoms: Are you experiencing any new or worsening symptoms that you need to talk about today?: No ADLs Patients can perform the following activities without help: Dressing: No ( has to help, cannot bend down) Bathing: No Doing laundry: No Climbing a flight of stairs: No Walking briskly: No Instrumental activities of daily living Do you drive a car?: Yes Do you need help from others to take care of things inside the house, for example: laundry, house cleaning, preparing meals?: Yes Did you have the help you needed?: Yes Do you need help from others with errands outside the house, for example: shopping for groceries orclothes, going medical appointments?: Yes Did you have the help you needed?: Yes Fall Risk One or more falls in the last year:: Yes (Muscle pulls - No ED) Any near falls in the last year?: No Advised to use a cane or walker to get around safely:: Yes (Cane and Walker use) Feels unsteady when walking:: No Steadies self on furniture while walking at home:: No Worried about falling:: No Needs to push with hands when rising from a chair:: Yes Has trouble stepping up onto a curb:: No Often has to sung to the toilet:: No Has lost some feeling in feet:: Yes (Spinal Stenosis) Takes medicine that makes him/her feel lightheaded or more tired than usual:: No Takes medicine to sleep or improve mood:: No SDOH Financial Resource Strain How hard is it for you to pay for the very basics like food, housing, medical care, and heating?: Not hard at all Housing Stability In the last 12 months, was there a time when you were not able to pay the mortgage or rent on time?: No At any time in the past 12 months, were you homeless or living in a fdc (including now)?: No Transportation Needs In the past 12 months, has lack of transportation kept you from medical appointments or from getting medications?: No In the past 12 months, has lack of transportation kept you from meetings, work, or from getting things needed for daily living?: No Food Insecurity Within the past 12 months, you worried that your food would run out before you got the money to buymore.: Never true Within the past 12 months, the food you bought just didn't last and you didn't have money to get more.: Never true Tobacco Use Patient reports that he has quit smoking. His smoking use included cigarettes. He started smoking about 22 years ago. He has never used smokeless tobacco. Interventions The following were addressed during this visit: - Initial enrollment outreach - Intake assessments completed: ADLs, Fall Risk, SDOH - Annual Medicare Wellness visit addressed Disposition Based on director of instructional technology, the following disposition is advised: No action needed Prasanth Mulligan RN May 05, 2024 3:30 PM documented in this encounterReg[facility]25 NotePatient Outreach ([facility]) SG HERNANDEZ ([id number]) 1950 M DEF Date Time Provider Department 05/05/24 PRASANTH MULLIGAN [facility] During your visit today, we recorded the following information about you: Prasanth Mulligan RN 05/05/2024 3:47 PM Signed CDM ENROLLMENT Provider Action / FYI: Patient identified by name and date of . Discussed care with patient. Program Details Chronic Disease Management Status: Enrolled Effective Dates: 05/05/2024 - present Responsible Staff: Prasanth Mulligan RN Support and Services: Chronic Obstructive Pulmonary Disease (COPD), Hypertension Assessments CDM Assessment Medications: Do you have any questions about taking your medications or which medications you should be taking?: No Do you need any medication refills at this time, including any of the medication you might take only when needed?: No Social: It can be normal to feel anxious or down during a time like this. Would you like to talk to a mental health professional about how you have been feeling?: No Symptoms: Are you experiencing any new or worsening symptoms that you need to talk about today?: No ADLs Patients can perform the following activities without help: Dressing: No ( has to help, cannot bend down) Bathing: No Doing laundry: No Climbing a flight of stairs: No Walking briskly: No Instrumental activities of daily living Do you drive a car?: Yes Do you need help from others to take care of things inside the house, for example: laundry, house cleaning, preparing meals?: Yes Did you have the help you needed?: Yes Do you need help from others with errands outside the house, for example: shopping for groceries or clothes, going medical appointments?: Yes Did you have the help you needed?: Yes Fall Risk One or more falls in the last year:: Yes (Muscle pulls - No ED) Any near falls in the last year?: No Advised to use a cane or walker to get around safely:: Yes (Cane and Walker use) Feels unsteady when walking:: No Steadies self on furniture while walking at home:: No Worried about falling:: No Needs to push with hands when rising from a chair:: Yes Has trouble stepping up onto a curb:: No Often has to sung to the toilet:: No Has lost some feeling in feet:: Yes (Spinal Stenosis) Takes medicine that makes him/her feel lightheaded or more tired than usual:: No Takes medicine to sleep or improve mood:: No SDOH Financial Resource Strain How hard is it for you to pay for the very basics like food, housing, medical care, and heating?: Not hard at all Housing Stability In the last 12 months, was there a time when you were not able to pay the mortgage or rent on time?: No At any time in the past 12 months, were you homeless or living in a fdc (including now)?: No Transportation Needs In the past 12 months, has lack of transportation kept you from medical appointments or from getting medications?: No In the past 12 months, has lack of transportation kept you from meetings, work, or from getting things needed for daily living?: No Food Insecurity Within the past 12 months, you worried that your food would run out before you got the money to buy more.: Never true Within the past 12 months, the food you bought just didn't last and you didn't have money to get more.: Never true Tobacco Use Patient reports that he has quit smoking. His smoking use included cigarettes. He started smoking about 22 years ago. He has never used smokeless tobacco. Interventions The following were addressed during this visit: - Initial enrollment outreach - Intake assessments completed: ADLs, Fall Risk, SDOH - Annual Medicare Wellness visit addressed Disposition Based on director of instructional technology, the following disposition is advised: No action needed Prasanth Mulligan RN May 05, 2024 3:30 PM Allergies As of Date: 05/05/2024 Noted Allergy Reaction MELOXICAM 02/02/2021 8 - GI Upset Date Reviewed: 03/20/2024 Reviewed by: Beto Sheffield, VERNON.SALES REPRESENTATIVE MEATS - Fully Assessed Prescriptions as of 05/05/2024 - atorvastatin (LIPITOR) 40 mg tablet Take 1 tablet by mouth daily at bedtime. - cetirizine (ZYRTEC) 10 mg tablet Take 1 tablet by mouth once daily. - roflumilast (DALIRESP) 500 mcg tab Take 500 mcg by mouth. - busPIRone (BUSPAR) 5 mg tablet Take 1 tablet by mouth three times a day. - omeprazole (PRILOSEC) 40 mg capsule Take 1 capsule by mouth every afternoon. - bicbqejjea-fapdjmky-puanegzioo (BREZTRI) 160-9-4.8 mcg/actuation HFA aerosol inhaler Inhale 2 Puffs as instructed two times a day. - carvedilol (COREG) 6.25 mg tablet Take 1 tablet by mouth two times a day with meals. - montelukast (SINGULAIR) 10 mg tablet Take 1 tablet by mouth daily at bedtime. - guaiFENesin (HUMIBID E) 200 mg tablet Take 400 mg by mouth every 4 hours as needed. - TURMERIC ORAL Take 1,500 mg by (more content not included)...[facility] 03-20-2024 History of Present illness Narrative* Sachin Victor, RT(R) - 03/20/2024 6:00 PM EST Radiology Service Progress Note PATIENT NAME: Sg Hernandez DATE OF SERVICE: March 20, 2024 TIME: 5:52 PM PATIENT IDENTITY VERIFICATION COMPLETED USING TWO (2) IDENTIFIERS: Name and Date of confirmedby patient verbally. FALL SCREENING: Has the patient had 2 falls in the last year or 1 fall with injury or currently using an Ambulatory Assistive Device (Walker, Cane, Wheelchair, Crutches, etc.)? No PATIENT GENDER DATA: Assigned male at PATIENT RELEVANT IMPLANT DATA REVIEWED: Yes PATIENT PRESENTS WITH AN IMPLANTABLE OR ATTACHED SERVICE PROMOTER SALESPERSON: No RADIOLOGY DEPARTMENT: General X-ray: Exam(s) Completed: Chest X-Ray PERIPHERAL IV DATA: Not applicable SIGNED BY: RT Oswald(Oriana) March 20, 2024 5:52 PM documented in [facility] encounterReg[facility]25 NoteHNO ID: [id number] Author: SACHIN VICTOR RT(R) Service: ? Author Type: Sheet Rock Taper Helper Type: Progress Notes Filed: 03/20/2024 18:02 Note Text: Radiology Service Progress Note PATIENT NAME: Sg Hernandez DATE OF SERVICE: March 20, 2024 TIME: 5:52 PM PATIENT IDENTITY VERIFICATION COMPLETED USING TWO (2) IDENTIFIERS: Name and Date of confirmed by patient verbally. FALL SCREENING: Has the patient had 2 falls in the last year or 1 fall with injury or currently using an Ambulatory Assistive Device (Walker, Cane, Wheelchair, Crutches, etc.)? No PATIENT GENDER DATA: Assigned male at PATIENT RELEVANT IMPLANT DATA REVIEWED: Yes PATIENT PRESENTS WITH AN IMPLANTABLE OR ATTACHED SERVICE PROMOTER SALESPERSON: No RADIOLOGY DEPARTMENT: General X-ray: Exam(s) Completed: Chest X-Ray PERIPHERAL IV DATA: Not applicable SIGNED BY: RT Oswald(Oriana) March 20, 2024 5:52 [facility]01-16-2025 NoteHNO ID: [id number] Author: BETO SHEFFIELD APRN.SALES REPRESENTATIVE MEATS Service: ? Author Type: Nurse Practitioner Type: Progress Notes Filed: 03/20/2024 18:47 Note Text: This note was created using [employer]. Subjective Sg Hernandez is a 73 year old male. HPI For the last week pt has had fever, cough, and shortness of breath. He states that very fall he gets several bouts this Review of Systems Objective BP 180/79 Pulse 86 Temp 36.8 ?C (98.2 ?F) (Right Tympanic) Resp 24 Wt 129.9 kg (286 lb 6 oz) SpO2 93% BMI 46.57 kg/m? Physical Exam Vitals and nursing note reviewed. Constitutional: General: He is not in acute distress. Appearance: Normal appearance. He is not ill-appearing. HENT: Head: Normocephalic. Mouth/Throat: Mouth: Mucous membranes are moist. Eyes: Conjunctiva/sclera: Conjunctivae normal. Cardiovascular: Rate and Rhythm: Normal rate and regular rhythm. Pulmonary: Effort: Pulmonary effort is normal. Breath sounds: Wheezing present. Musculoskeletal: General: Normal range of motion. Cervical back: Normal range of motion. Skin: General: Skin is warm and dry. Neurological: General: No focal deficit present. Mental Status: He is alert. Psychiatric: Mood and Affect: Mood normal. Behavior: Behavior normal. Assessment and Plan ASSESSMENT/PLAN: 1. Bacterial pneumonia - ICD9: 482.9, ICD10: J15.9 -Chest x-ray today concerning for possible left lower lobe pneumonia. As patient does have multiple chronic medical conditions he was started on Augmentin and azithromycin and also given a 5-day prescription for prednisone. He will continue to use his home inhalers and nebulizers. Recommended close follow-up with PCP. -Patient's blood pressure was elevated at 180/79. Patient states that this is typical for him when he goes to a doctor's office but it will resolve once he rests. - XR CHEST 2V FRONTAL/LAT - PREDNISONE 50 MG TABLET - AZITHROMYCIN 250 MG TABLET - AMOXICILLIN 875 MG-POTASSIUM CLAVULANATE 125 MG TABLET Beto Sheffield APRN.[facility]EN[facility]01-[facility] History of Present illness Narrative* Beto Sheffield APRN.SALES REPRESENTATIVE MEATS - 03/20/2024 5:45 PM EST This note was created using [employer]. Subjective Sg Hernandez is a 73 year old male. HPI For the last week pt has had fever, cough, and shortness of breath. He states that very fall he gets several bouts this Review of Systems Objective BP 180/79 Pulse 86 Temp 36.8 C (98.2 F) (Right Tympanic) Resp 24 Wt 129.9 kg (286 lb 6 oz) SpO2 93% BMI 46.57 kg/m Physical Exam Vitals and nursing note reviewed. Constitutional: General: He is not in acute distress. Appearance: Normal appearance. He is not ill-appearing. HENT: Head: Normocephalic. Mouth/Throat: Mouth: Mucous membranes are moist. Eyes: Conjunctiva/sclera: Conjunctivae normal. Cardiovascular: Rate and Rhythm: Normal rate and regular rhythm. Pulmonary: Effort: Pulmonary effort is normal. Breath sounds: Wheezing present. Musculoskeletal: General: Normal range of motion. Cervical back: Normal range of motion. Skin: General: Skin is warm and dry. Neurological: General: No focal deficit present. Mental Status: He is alert. Psychiatric: Mood and Affect: Mood normal. Behavior: Behavior normal. Assessment and Plan ASSESSMENT/PLAN: 1. Bacterial pneumonia - ICD9: 482.9, ICD10: J15.9 -Chest x-ray today concerning for possible left lower lobe pneumonia. As patient does have multiplechronic medical conditions he was started on Augmentin and azithromycin and also given a 5-day prescription for prednisone. He will continue to use his home inhalers and nebulizers. Recommended closefollow-up with PCP. -Patient's blood pressure was elevated at 180/79. Patient states that this is typical for him when he goes to a doctor's office but it will resolve once he rests. - XR CHEST 2V FRONTAL/LAT - PREDNISONE 50 MG TABLET - AZITHROMYCIN 250 MG TABLET - AMOXICILLIN 875 MG-POTASSIUM CLAVULANATE 125 MG TABLET Beto Sheffield APRN.CNP documented in this encounterReg[facility]12-09-2024 Telephone encounter Note * Telephone Encounter - Jany Zaman APRN.CNP - 02/11/2024 2:06 PM EST The following approved medication requests have been transmitted electronically. Requested Prescriptions Pending Prescriptions Disp Refills atorvastatin (LIPITOR) 40 mg tablet 90 tablet 3 Sig: Take 1 tablet by mouth daily at bedtime. cetirizine (ZYRTEC) 10 mg tablet 90 tablet 1 Sig: Take 1 tablet by mouth once daily. Jany Zaman APRN.CNP [facility]12-09-2024 Miscellaneous Notes* Telephone Encounter - Jany Zaman APRN.CNP - 02/11/2024 2:06 PM EST The following approved medication requests have been transmitted electronically. Requested Prescriptions Pending Prescriptions Disp Refills atorvastatin (LIPITOR) 40 mg tablet 90 tablet 3 Sig: Take 1 tablet by mouth daily at bedtime. cetirizine (ZYRTEC) 10 mg tablet 90 tablet 1 Sig: Take 1 tablet by mouth once daily. Jany Zaman APRN.CNP * Telephone Encounter - Deirdre Orozco - 02/11/2024 10:54 AM EST Patient also calling for a refill of the Cetirizine 10 mg (not in current refill list). Patient has been identified by name and date of : Yes, Provider Dr. Murdock Patient phones for refill(s): Requested Prescriptions Pending Prescriptions Disp Refills atorvastatin (LIPITOR) 40 mg tablet 90 tablet 0 Sig: Take 1 tablet by mouth daily at bedtime. Date of last office visit in primary care: 01/28/2024 Date of next office visit in primary care: 05/26/2024 Please advise. Thank you. Deirdre Orozco. documented in this encounterReg[facility]12-09-2024 Telephone encounter Note * Telephone Encounter - Deirdre Orozco - 02/11/2024 10:54 AM EST Patient also calling for a refill of the Cetirizine 10 mg (not in current refill list). Patient has been identified by name and date of : Yes, Provider Dr. Murdock Patient phones for refill(s): Requested Prescriptions Pending Prescriptions Disp Refills atorvastatin (LIPITOR) 40 mg tablet 90 tablet 0 Sig: Take 1 tablet by mouth daily at bedtime. Date of last office visit in primary care: 01/28/2024 Date of next office visit in primary care: 05/26/2024 Please advise. Thank you. Deirdre Orozco. [facility]12-05-2024 NoteHNO ID: [id number] Author: COY HAMMONDS MA Service: ? Author Type: Corner Cutter Machine Operator Type: Progress Notes Filed: 02/07/2024 14:47 Note Text: POPULATION HEALTH NAVIGATION OUTREACH Action/FYI spoke to pt and scheduled wellness, hcc gap closure, bp to be addressed as not compliant not <130/80, I asked about colonoscopy pt wants to talk to pcp prior to scheduling Reason for Outreach Care Gap/HCC or Scheduling Wellness Visits Care Gaps due: Medicare Annual Wellness Visit Controlling Blood Pressure Colorectal Cancer Screening Patient Contacted: Spoke to patient/parent/or legal guardian Patient identified by name and : Yes Care Gap/HCC/Scheduling Wellness actions taken: Patient scheduled/pended orders: Medicare Annual Wellness Visit 05/26/2024 in [facility] with CONOR MURDOCK - 6 month follow up 09/03/2024 in [facility] with CONOR MURDOCK - medicare wellness, hcc gap closure, bp, colonoscopy HCC related Navigation Signature: Coy Hammonds MA February 07, 2024 2:[facility] History of Present illness Narrative* Coy Hammonds MA - 02/07/2024 2:45 PM EST POPULATION HEALTH NAVIGATION OUTREACH Action/FYI spoke to pt and scheduled wellness, hcc gap closure, bp to be addressed as not compliant not <130/80, I asked about colonoscopy pt wants to talk to pcp prior to scheduling Reason for Outreach Care Gap/HCC or Scheduling Wellness Visits Care Gaps due: Medicare Annual Wellness Visit Controlling Blood Pressure Colorectal Cancer Screening Patient Contacted: Spoke to patient/parent/or legal guardian Patient identified by name and : Yes Care Gap/HCC/Scheduling Wellness actions taken: Patient scheduled/pended orders: Medicare Annual Wellness Visit 05/26/2024 in [facility] with CONOR MURDOCK - 6 month follow up 09/03/2024 in [facility] with CONOR MURDOCK - medicare wellness, hcc gap closure, bp, colonoscopy HCC related Navigation Signature: Coy Hammonds MA February 07, 2024 2:45 PM documented in this encounterRegency [facility]12-05-2024 NotePatient Outreach (NETNAV) SG HERNANDEZ ([id number]) 1950 M DEF Date Time Provider Department 02/07/24 COY HAMMONDS During your visit today, we recorded the following information about you: Coy Hammonds MA 02/07/2024 2:47 PM Signed POPULATION HEALTH NAVIGATION OUTREACH Action/FYI spoke to pt and scheduled wellness, hcc gap closure, bp to be addressed as not compliant not <130/80, I asked about colonoscopy pt wants to talk to pcp prior to scheduling Reason for Outreach Care Gap/HCC or Scheduling Wellness Visits Care Gaps due: Medicare Annual Wellness Visit Controlling Blood Pressure Colorectal Cancer Screening Patient Contacted: Spoke to patient/parent/or legal guardian Patient identified by name and : Yes Care Gap/HCC/Scheduling Wellness actions taken: Patient scheduled/pended orders: Medicare Annual Wellness Visit 05/26/2024 in [facility] with CONOR MURDOCK - 6 month follow up 09/03/2024 in [facility] with CONOR MURDOCK - medicare wellness, hcc gap closure, bp, colonoscopy HCC related Navigation Signature: Coy Hammonds MA February 07, 2024 2:45 PM Allergies As of Date: 02/07/2024 Noted Allergy Reaction MELOXICAM 02/02/2021 8 - GI Upset Date Reviewed: 01/28/2024 Reviewed by: Jany Washington LPN - Fully Assessed Reason for Visit: Population Health Navigation Outreach [3910] Cmt: Vinita reynoso Prescriptions as of 02/07/2024 - roflumilast (DALIRESP) 500 mcg tab Take 500 mcg by mouth. - doxycycline (VIBRA-TABS) 100 mg tablet Take 1 tablet by mouth two times a day for 10 days. - busPIRone (BUSPAR) 5 mg tablet Take 1 tablet by mouth three times a day. - omeprazole (PRILOSEC) 40 mg capsule Take 1 capsule by mouth every afternoon. - oybmxxilkv-ktaxpdar-vnhsmnfxnh (BREZTRI) 160-9-4.8 mcg/actuation HFA aerosol inhaler Inhale 2 Puffs as instructed two times a day. - atorvastatin (LIPITOR) 40 mg tablet Take 1 tablet by mouth daily at bedtime. - carvedilol (COREG) 6.25 mg tablet Take 1 tablet by mouth two times a day with meals. - montelukast (SINGULAIR) 10 mg tablet Take 1 tablet by mouth daily at bedtime. - guaiFENesin (HUMIBID E) 200 mg tablet Take 400 mg by mouth every 4 hours as needed. - TURMERIC ORAL Take 1,500 mg by mouth once daily. - losartan (COZAAR) 100 mg tablet Take 0.5 tablets by mouth once daily. - albuterol (PROVENTIL) 2.5 mg /3 mL (0.083 %) nebulizer solution Inhale 1 mcg as instructed. - cholecalciferol (VITAMIN D3) 5,000 unit tab Take by mouth. - Apple Cider Vinegar 300 mg tab Take by mouth. - fluticasone (FLONASE) 50 mcg/actuation nasal spray Use in the nose. - VITAMIN B COMPLEX ORAL Vitamin B Complex Active CAP August 31, 2021 12:00am Problem List As Of Date 02/07/2024 Noted Resolved Hx of placement of stent in circumflex branch o*01/13/2021 Hyperlipidemia, mixed [E78.2] 01/13/2021 Hypertension, essential [I10] 01/13/2021 COPD with chronic bronchitis (HCC) [J44.89] 01/13/2021 Panic attacks [F41.0] 01/13/2021 Lumbar stenosis with neurogenic claudication [M*01/13/2021 03/30/2023 Acquired deafness, left [H91.92] 01/13/2021 Snoring [R06.83] 01/13/2021 Obesity, Class II, BMI 35-39.9 [E66.812] 01/13/2021 Focal sensory loss [R44.9] 01/13/2021 03/30/2023 Chronic prescription benzodiazepine use [Z79.89*01/13/2021 09/07/2021 Alcohol use [Z78.9] 01/13/2021 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*09/07/2021 Spinal cord stimulator status [Z96.89] 03/13/2022 DALIA (obstructive sleep apnea) [G47.33] 09/27/2022 Actinic keratosis [L57.0] 03/29/2023 Diagnosed: 03/29/2023 Allergic contact dermatitis [L23.9] 03/29/2023 Diagnosed: 03/29/2023 Allergic rhinitis [J30.9] 03/29/2023 Diagnosed: 03/29/2023 Chondrocalcinosis [M11.20] 03/29/2023 Diagnosed: 03/29/2023 Asthma [J45.909] 03/29/2023 Diagnosed: 03/29/2023 Encounter for other preprocedural examination [*03/29/2023 03/30/2023 Diagnosed: 03/29/2023 Epidermal cyst [L72.0] 03/29/2023 Diagnosed: 03/29/2023 Erectile dysfunction [N52.9] 03/29/2023 Diagnosed: 03/29/2023 History of percutaneous transluminal coronary a*03/29/2023 Diagnosed: 03/29/2023 Mild persistent asthma [J45.30] 03/29/2023 Diagnosed: 03/29/2023 Osteoarthritis of knee [M17.9] 03/29/2023 Diagnosed: 03/29/2023 Other benign neoplasm of skin of left upper whalen*03/29/2023 03/30/2023 Diagnosed: 03/29/2023 Other reduced mobility [Z74.09] 03/29/2023 Diagnosed: 03/29/2023 Pain in right knee [M25.561] 03/29/2023 03/30/2023 Diagnosed: 03/29/2023 Pain, unspecified [R52] 03/29/2023 03/30/2023 Diagnosed: 03/29/2023 Polyp of colon [K63.5] 03/29/2023 Diagnosed: 03/29/2023 Postlaminectomy syndrome, not elsewhere classif*03/29/2023 Diagnosed: 03/29/2023 Postnasal drip [R09.82] 03/29/2023 03/30/2023 Diagnosed: 03/29/2023 Shortness of breath [R06.02] 03/29/2023 0 (more content not included)... [facility]11-25-2024 NoteHNO ID: [id number] Author: SEVEN GRIDER APRN.SALES REPRESENTATIVE MEATS Service: ? Author Type: Nurse Practitioner Type: Progress Notes Filed: 01/28/2024 10:47 Note Text: Chief Complaint Patient presents with: Chest Congestion: Cough, drainage x3 days HPI Sg Hernandez is a 73 year old male who presents here today for Above Complaints. Patient is here with complaints of chest congestion, cough, sinus drainage. Has complaints of wheezing, shortness of breath with long distances. Present for about a week but stating that it is getting worse over the past 3 days. Has been having to wake up at night to give himself nebulizer treatments. Patient has a history of chronic bronchitis, COPD. Patient states that he gets symptoms like this a few times a year and has to be treated adequately. Occasionally needing a second round of antibiotics. Patient is using his Breztri inhaler as prescribed. He denies any fevers. States that he has some sick contacts including grandson. Patient stating that he does not wish to have COVID/flu/RSVtesting completed today. Requesting treated with antibiotics and steroids. Past medical history, appointments, medications, allergies reviewed. EXAM: BP 134/70 Pulse 79 Resp 20 Wt 127 kg (280 lb) SpO2 98% BMI 45.54 kg/m? General Appearance: Well appearing, alert, in no acute distress, well-hydrated, well nourished. and Overweight. Oropharynx: Lips, mucosa, and tongue normal, teeth and gums normal, oropharynx normal. Neck: Supple, no adenopathy Lungs: Positive findings: wheezing Cough. Heart: RRR without murmur, gallop, or rubs. No ectopy. ASSESSMENT/PLAN: 1. Acute bronchitis with chronic obstructive pulmonary disease (COPD) ([facility]) ([facility]) - ICD9: 491.22, ICD10: J44.0, J20.9 -With acute exacerbation. Start antibiotic, prednisone as prescribed. Discussed plenty of fluids. Discussed using inhalers as prescribed, nebulizers routinely as recommended. Discussed follow-up if he is worsening or not improving. Discussed to the nearest emergency room for shortness of breath that does not resolve. - PREDNISONE 10 MG TABLET - DOXYCYCLINE HYCLATE 100 MG TABLET Seven Grider APRN.STEVEN Medical Decision Making: Problems: Moderate: 1+ chronic illnesses with change Risk: Moderate: Drug management Medical Decision Making Level: 4 - Moderate This note was partly generated using [employer] voice recognition dictation and may contain some misspelled or inaccurate words missed on review.[facility]11-25-2024 History of Present illness Narrative* Seven Grider APRN.SALES REPRESENTATIVE MEATS - 01/28/2024 10:38 AM EST Chief Complaint Patient presents with: Chest Congestion: Cough, drainage x3 days HPI Sg Hernandez is a 73 year old male who presents here today for Above Complaints. Patient is here with complaints of chest congestion, cough, sinus drainage. Has complaints of wheezing, shortness of breath with long distances. Present for about a week but stating that it is getting worse over the past 3 days. Has been having to wake up at night to give himself nebulizer treatments. Patient has a history of chronic bronchitis, COPD. Patient states that he gets symptoms like this a few times a year and has to be treated adequately. Occasionally needing a second round of antibiotics. Patient is using his Breztri inhaler as prescribed. He denies any fevers. States that he has some sick contacts including grandson. Patient stating that he does not wish to have COVID/flu/RSV testing completed today. Requesting treated with antibiotics and steroids. Past medical history, appointments, medications, allergies reviewed. EXAM: BP 134/70 Pulse 79 Resp 20 Wt 127 kg (280 lb) SpO2 98% BMI 45.54 kg/m General Appearance: Well appearing, alert, in no acute distress, well-hydrated, well nourished. andOverweight. Oropharynx: Lips, mucosa, and tongue normal, teeth and gums normal, oropharynx normal. Neck: Supple, no adenopathy Lungs: Positive findings: wheezing Cough. Heart: RRR without murmur, gallop, or rubs. No ectopy. ASSESSMENT/PLAN: 1. Acute bronchitis with chronic obstructive pulmonary disease (COPD) (HCC) (HCC) - ICD9: 491.22, ICD10: J44.0, J20.9 -With acute exacerbation. Start antibiotic, prednisone as prescribed. Discussed plenty of fluids. Discussed using inhalers as prescribed, nebulizers routinely as recommended. Discussed follow-up if he is worsening or not improving. Discussed to the nearest emergency room for shortness of breath that does not resolve. - PREDNISONE 10 MG TABLET - DOXYCYCLINE HYCLATE 100 MG TABLET Seven Grider APRN.CNP Medical Decision Making: Problems: Moderate: 1+ chronic illnesses with change Risk: Moderate: Drug management Medical Decision Making Level: 4 - Moderate This note was partly generated using [employer] voice recognition dictation and may contain some misspelled or inaccurate words missed on review. documented in this encounterReg[facility] Telephone encounter Note * Telephone Encounter - Azul Butts - 12/03/2023 1:37 PM EDT Wilson is calling Conor Murdock MD today to request medication, not on his current list: Disp Refills Start End busPIRone (BUSPAR) 5 mg tablet 90 tablet 11 11/13/2022 11/13/2023 Sig: Take 1 tablet by mouth three times daily. Sent to pharmacy as: busPIRone (BUSPAR) 5 mg tablet Class: Normal Route: ORAL Order: [id number] E-Prescribing Status: Receipt confirmed by pharmacy (11/13/2022 1:11 PM EDT) Please send to Micki Reynoso today, he is out of medication. Patient has been identified by name and birthdate. Duration of symptoms: N/A Person calling: self Call patient at: on cell [phone] (home) [phone] (cell) Was an appointment scheduled: No Closing statement: Results or non-symptom based questions: Thank you for calling [facility], your call will be returned within the next business day. Azul Celaya [facility]09-30-2024 Miscellaneous Notes* Telephone Encounter - [place] Azul Celaya - 12/03/2023 1:37 PM EDT Wilson is calling Conor Murdock MD today to request medication, not on his current list: Disp Refills Start End busPIRone (BUSPAR) 5 mg tablet 90 tablet 11 11/13/2022 11/13/2023 Sig: Take 1 tablet by mouth three times daily. Sent to pharmacy as: busPIRone (BUSPAR) 5 mg tablet Class: Normal Route: ORAL Order: [id number] E-Prescribing Status: Receipt confirmed by pharmacy (11/13/2022 1:11 PM EDT) Please send to Micki Reynoso today, he is out of medication. Patient has been identified by name and birthdate. Duration of symptoms: N/A Person calling: self Call patient at: on cell [phone] (home) [phone] (cell) Was an appointment scheduled: No Closing statement: Results or non-symptom based questions: Thank you for calling [facility], your call will be returned within the next business day. Azul [place] Pss documented in this encounterRegency Hospital [facility]09-23-2024 NoteHNO ID: [id number] Author: CONOR MURDOCK MD Service: ? Author Type: Physician Type: Progress Notes Filed: 11/26/2023 15:06 Note Text: Patient presents with: 6 Month Exam HPI: Patient presents today for office visit for follow up. Saw ENT for complaints of post nasal drip. Was scoped in office and told he has GERD. Saw Pulmonary who also diagnosed it. Offered second opinion. Declines. Red flags for re-assessment reviewed with patient in detail. Was given Omeprazole 40 mg daily. No relief. Still with post nasal drip. Continues on his nasal sprays. Denies any heartburn symptoms. States he's never had heartburn. No indigestion. No GI concerns. Denies any abdominal pain. No nausea or vomiting. Denies any bloody or black stool. Chronic back pain. Has spinal cord [facility] HLD: No myalgias. HTN: Monitors BP at home. Avg 100's/60's Stable. Denies chest pain. No new or worsening shortness of breath. Denies headaches and dizziness. Denies palpitations and syncope. Edema to left ankle and foot if on it for long periods of time. Wears compression stockings. HLD:no issues with meds. Declines follow up [facility] cardiology etc. Has had ekgs Had a stress test a few years ago. Red flags for re-assessment reviewed with patient in detail. Fighting with the [place] [facility]. [facility] Reviewed labs done by [place] in [place]. MEDICATIONS: Current Outpatient Medications Medication Sig omeprazole (PRILOSEC) 40 mg capsule Take 1 capsule by mouth every afternoon. mxxvxifsyb-lzdkhbwi-oywaroqoyy (BREZTRI) 160-9-4.8 mcg/actuation HFA aerosol inhaler Inhale 2 Puffs as instructed two times a day. cetirizine (ZYRTEC) 10 mg tablet Take 1 tablet by mouth once daily. atorvastatin (LIPITOR) 40 mg tablet Take 1 tablet by mouth daily at bedtime. carvedilol (COREG) 6.25 mg tablet Take 1 tablet by mouth two times a day with meals. montelukast (SINGULAIR) 10 mg tablet Take 1 tablet by mouth daily at bedtime. guaiFENesin (HUMIBID E) 200 mg tablet Take 400 mg by mouth every 4 hours as needed. TURMERIC ORAL Take 1,500 mg by mouth once daily. losartan (COZAAR) 100 mg tablet Take 0.5 tablets by mouth once daily. albuterol (PROVENTIL) 2.5 mg /3 mL (0.083 %) nebulizer solution Inhale 1 mcg as instructed. cholecalciferol (VITAMIN D3) 5,000 unit tab Take by mouth. Apple Cider Vinegar 300 mg tab Take by mouth. fluticasone (FLONASE) 50 mcg/actuation nasal spray Use in the nose. VITAMIN B COMPLEX ORAL Vitamin B Complex Active CAP August 31, 2021 12:00am No current facility-administered medications for this visit. ALLERGIES: ALLERGIES Allergen Reactions Meloxicam GI Upset PAST MEDICAL HISTORY Diagnosis Date H/O gastroesophageal reflux (GERD) claims got it to go away with hot sauce History of spinal fracture L4/L5 with fragment in spinal cord Mixed hyperlipidemia Moderate persistent asthma without complication Other emphysema (HCC) Primary hypertension Spinal stenosis of lumbar region with neurogenic claudication PAST SURGICAL HISTORY Procedure Laterality Date APPENDECTOMY LAMINECTOMY,LUMBAR Bilateral L4/L5 PAST SURGICAL HISTORY OF left knee meniscus repair PAST SURGICAL HISTORY OF right knee repair twice PAST SURGICAL HISTORY OF lymphectomy left collarbone TONSILLECTOMY AND ADENOIDECTOMY No family history on file. Social History Tobacco Use Smoking status: Former Types: Cigarettes Start date: 04/15/2002 Smokeless tobacco: Never Substance Use Topics Alcohol use: Yes Alcohol/week: 12.0 standard drinks of alcohol Types: 12 Cans of Beer (12oz) per week Drug use: Not Currently Comment: remote marijuana, LSD, mushrooms young adult Reviewed current medications, allergies, past medical history, surgical history, family history and social history today. REVIEW OF SYSTEMS All other reviewed and negative other than HPI. HEALTH MAINTENANCE: Reviewed health maintenance issues today and recommended the following in detail. Depression Screening Never done Colorectal Cancer Screening- had colonscopy done he believes two or three years ago and was told it was ok for 10 years. Done at [place]. BP Controlled (<130/80) due on 09/28/2023 Covid-19 Vaccine( season) Never done Influenza Vaccine(1) due on 11/04/2023 VITALS: BP 138/64 Pulse 77 Ht 167 cm (5' 5.75) Wt 121 kg (266 lb 12.8 oz) SpO2 95% BMI 43.39 kg/m? Last 4 Encounter Wt Readings: Date: Wt: 08/07/2023 117 kg (258 lb) 07/26/2023 115.2 kg (254 lb) 03/30/2023 106.6 kg (235 lb) 10/13/2022 105.1 kg (231 lb 12.8 oz) PHYSICAL EXAMINATION: General appearance: Well appearing, alert, in no acute distress, well-hydrated, well nourished. Skin: Skin color, texture, turgor normal, no suspicious rashes or lesions Head: Normocephalic, no masses, lesions, tenderness or abnormalities Lungs: Lungs clear to au (more content not included)...[facility]09-23-2024 History of Present illness Narrative* Conor Murdock MD - 11/26/2023 2:36 PM EDT Patient presents with: 6 Month Exam HPI: Patient presents today for office visit for follow up. Saw ENT for complaints of post nasal drip. Was scoped in office and told he has GERD. Saw Pulmonary who also diagnosed it. Offered second opinion. Declines. Red flags for re-assessment reviewed with patient in detail. Was given Omeprazole 40 mg daily. No relief. Still with post nasal drip. Continues on his nasal sprays. Denies any heartburn symptoms. States he's never had heartburn. No indigestion. No GI concerns. Denies any abdominal pain. No nausea or vomiting. Denies any bloody or black stool. Chronic back pain. Has spinal cord stimulator [place] [facility]. HLD: No myalgias. HTN: Monitors BP at home. Avg 100's/60's Stable. Denies chest pain. No new or worsening shortness of breath. Denies headaches and dizziness. Denies palpitations and syncope. Edema to left ankle and foot if on it for long periods of time. Wears compression stockings. HLD:no issues with meds. Declines follow up [facility] cardiology etc. Has had ekgs Had a stress test a few years ago. Red flags for re-assessment reviewed with patient in detail. [facility] [place] [facility] labs [place] by [place] in [place]. MEDICATIONS: Current Outpatient Medications Medication Sig omeprazole (PRILOSEC) 40 mg capsule Take 1 capsule by mouth every afternoon. amevkkxfbq-qffkwmfy-zlholvwkgn (BREZTRI) 160-9-4.8 mcg/actuation HFA aerosol inhaler Inhale 2 Puffsas instructed two times a day. cetirizine (ZYRTEC) 10 mg tablet Take 1 tablet by mouth once daily. atorvastatin (LIPITOR) 40 mg tablet Take 1 tablet by mouth daily at bedtime. carvedilol (COREG) 6.25 mg tablet Take 1 tablet by mouth two times a day with meals. montelukast (SINGULAIR) 10 mg tablet Take 1 tablet by mouth daily at bedtime. guaiFENesin (HUMIBID E) 200 mg tablet Take 400 mg by mouth every 4 hours as needed. TURMERIC ORAL Take 1,500 mg by mouth once daily. losartan (COZAAR) 100 mg tablet Take 0.5 tablets by mouth once daily. albuterol (PROVENTIL) 2.5 mg /3 mL (0.083 %) nebulizer solution Inhale 1 mcg as instructed. cholecalciferol (VITAMIN D3) 5,000 unit tab Take by mouth. Apple Cider Vinegar 300 mg tab Take by mouth. fluticasone (FLONASE) 50 mcg/actuation nasal spray Use in the nose. VITAMIN B COMPLEX ORAL Vitamin B Complex Active CAP August 31, 2021 12:00am No current facility-administered medications for this visit. ALLERGIES: ALLERGIES Allergen Reactions Meloxicam GI Upset PAST MEDICAL HISTORY Diagnosis Date H/O gastroesophageal reflux (GERD) claims got it to go away with hot sauce History of spinal fracture L4/L5 with fragment in spinal cord Mixed hyperlipidemia Moderate persistent asthma without complication Other emphysema (HCC) Primary hypertension Spinal stenosis of lumbar region with neurogenic claudication PAST SURGICAL HISTORY Procedure Laterality Date APPENDECTOMY LAMINECTOMY,LUMBAR Bilateral L4/L5 PAST SURGICAL HISTORY OF left knee meniscus repair PAST SURGICAL HISTORY OF right knee repair twice PAST SURGICAL HISTORY OF lymphectomy left collarbone TONSILLECTOMY & ADENOIDECTOMY <AGE 13 No family history on file. Social History Tobacco Use Smoking status: Former Types: Cigarettes Start date: 04/15/2002 Smokeless tobacco: Never Substance Use Topics Alcohol use: Yes Alcohol/week: 12.0 standard drinks of alcohol Types: 12 Cans of Beer (12oz) per week Drug use: Not Currently Comment: remote marijuana, LSD, mushrooms young adult Reviewed current medications, allergies, past medical history, surgical history, family history andsocial history today. REVIEW OF SYSTEMS All other reviewed and negative other than HPI. HEALTH MAINTENANCE: Reviewed health maintenance issues today and recommended the following in detail. Depression Screening Never done Colorectal Cancer Screening- had colonscopy done he believes two or three years ago and was told itwas ok for 10 years. Done at [place]. BP Controlled (<130/80) due on 09/28/2023 Covid-19 Vaccine( season) Never done Influenza Vaccine(1) due on 11/04/2023 VITALS: BP 138/64 Pulse 77 Ht 167 cm (5' 5.75) Wt 121 kg (266 lb 12.8 oz) SpO2 95% BMI 43.39 kg/m Last 4 Encounter Wt Readings: Date: Wt: 08/07/2023 117 kg (258 lb) 07/26/2023 115.2 kg (254 lb) 03/30/2023 106.6 kg (235 lb) 10/13/2022 105.1 kg (231 lb 12.8 oz) PHYSICAL EXAMINATION: General appearance: Well appearing, alert, in no acute distress, well-hydrated, well nourished. Skin: Skin color, texture, turgor normal, no suspicious rashes or lesions Head: Normocephalic, no masses, lesions, tenderness or abnormalities Lungs: Lungs clear to auscultation. No wheezing, rhonchi, rales Heart: RRR without murmur, gallop, or rubs. No ectopy Abdomen: Normal abdominal exam, Abdomen soft, non-tender. Bowel sounds normal. No masses, organomegaly Extremities: No deformities, new edema, skin discoloration, clubbing or cyanosis. Good capillary refill. ASSESSMENT/PLAN: 1. Hypertension, essential - ICD9: 401.9, ICD10: I10 (primary diagnosis) - Controlled - Continue current medications 2. Hyperlipidemia, mixed - ICD9: 272.2, ICD10: E78.2 - Controlled - Continue current medications 3. 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- ICD9: 414.01, ICD10: I25.10 - stable. 4. DALIA (obstructive sleep apnea) - ICD9: 327.23, ICD10: G47.33 - stable. 5. COPD with chronic bronchitis (HCC) - ICD9: 491.20, ICD10: J44.89 - stable. 6. Platelets decreased (HCC) - ICD9: 287.5, ICD10: D69.6 - no changes. 7. Panic attacks - ICD9: 300.01, ICD10: F41.0 - stable. 8. Spinal cord stimulator status - ICD9: V45.89, ICD10: Z96.89 - [facility] 9. Bilateral carotid artery stenosis - ICD9: 433.10, 433.30, ICD10: I65.23 - monitored by [facility] 10. Vitamin D deficiency - ICD9: 268.9, ICD10: E55.9 - stable. 11. Screening for depression - ICD9: V79.0, ICD10: Z13.31 - DEPRESSION SCREENING Conor Murdock RTO in six months and prn. documented in this encounterReg[facility]24 Instructions* Patient Instructions* Jany Zaman APRN.CNS - 08/07/2023 3:44 PM EDT 1) Doxycycline 100mg 2 x day for 10 days 2) Medrol taper 3) Follow up in September unless you need seen again sooner if this doesn't resolve documented in this encounterReg[facility]06-04-2024 History of Present illness Narrative* Jany Zaman APRN.CNS - 08/07/2023 3:33 PM EDT This is a 72 year old male who presents today with: Patient presents with: Bronchitis: Follow up Sinusitis: Follow up HISTORY OF PRESENT ILLNESS: Sg Hernandez is a 72 year old male. Patient presents with: Bronchitis: Follow up Sinusitis: Follow up Sinuses draining all night, green. Brown is better. Coughing and spitting up. Congestion in chest. No N/V. Some diarrhea for a few days. Started Align. Feels some SOB with getting choked up. PAST MEDICAL HISTORY: PAST MEDICAL HISTORY Diagnosis Date H/O gastroesophageal reflux (GERD) claims got it to go away with hot sauce History of spinal fracture L4/L5 with fragment in spinal cord Mixed hyperlipidemia Moderate persistent asthma without complication Other emphysema (HCC) Primary hypertension Spinal stenosis of lumbar region with neurogenic claudication PAST SURGICAL HISTORY Procedure Laterality Date APPENDECTOMY LAMINECTOMY,LUMBAR Bilateral L4/L5 PAST SURGICAL HISTORY OF left knee meniscus repair PAST SURGICAL HISTORY OF right knee repair twice PAST SURGICAL HISTORY OF lymphectomy left collarbone TONSILLECTOMY & ADENOIDECTOMY <AGE 13 ALLERGIES Meloxicam MEDICATIONS Current Outpatient Medications Medication Sig sfummppwta-eoegyxoi-bzwadickjl (BREZTRI) 160-9-4.8 mcg/actuation HFA aerosol inhaler Inhale 2 Puffsas instructed two times a day. cetirizine (ZYRTEC) 10 mg tablet Take 1 tablet by mouth once daily. losartan (COZAAR) 50 mg tablet Take 50 mg by mouth once daily. atorvastatin (LIPITOR) 40 mg tablet Take 1 tablet by mouth daily at bedtime. carvedilol (COREG) 6.25 mg tablet Take 1 tablet by mouth two times a day with meals. atorvastatin (LIPITOR) 80 mg tablet Take 0.5 tablets by mouth once daily. montelukast (SINGULAIR) 10 mg tablet Take 1 tablet by mouth daily at bedtime. busPIRone (BUSPAR) 5 mg tablet Take 1 tablet by mouth three times daily. guaiFENesin (HUMIBID E) 200 mg tablet Take 400 mg by mouth every 4 hours as needed. TURMERIC ORAL Take 1,500 mg by mouth once daily. losartan (COZAAR) 100 mg tablet Take 0.5 tablets by mouth once daily. albuterol (PROVENTIL) 2.5 mg /3 mL (0.083 %) nebulizer solution Inhale 1 mcg as instructed. cholecalciferol (VITAMIN D3) 5,000 unit tab Take by mouth. Apple Cider Vinegar 300 mg tab Take by mouth. fluticasone (FLONASE) 50 mcg/actuation nasal spray Use in the nose. VITAMIN B COMPLEX ORAL Vitamin B Complex Active CAP August 31, 2021 12:00am No current facility-administered medications for this visit. No family history on file. Social History Tobacco Use Smoking status: Former Types: Cigarettes Start date: 04/15/2002 Smokeless tobacco: Never Substance Use Topics Alcohol use: Yes Alcohol/week: 12.0 standard drinks of alcohol Types: 12 Cans of Beer (12oz) per week Drug use: Not Currently Comment: remote marijuana, LSD, mushrooms young adult EXAM: BP 148/66 Pulse 75 Temp 37.4 C (99.4 F) (Left Tympanic) Resp 22 Wt 117 kg (258 lb) SpO2 95% BMI 41.96 kg/m PHYSICAL EXAM: Physical Exam Vitals reviewed. Constitutional: Appearance: Normal appearance. HENT: Head: Normocephalic. Right Ear: Tympanic membrane and ear canal normal. Left Ear: Tympanic membrane and ear canal normal. Nose: Nose normal. Mouth/Throat: Mouth: Mucous membranes are moist. Pharynx: Oropharynx is clear. Cardiovascular: Rate and Rhythm: Normal rate and regular rhythm. Pulmonary: Effort: Pulmonary effort is normal. No respiratory distress. Breath sounds: No stridor. Rhonchi present. No wheezing. Comments: Bronchial and LLL consolidation. Neurological: Mental Status: He is alert. LABS: kidney function is normal ASSESSMENT/PLAN: 1. Acute bronchitis with chronic obstructive pulmonary disease (COPD) ([facility]) ([facility]) - ICD9: 491.22, ICD10: J44.0, J20.9 - Doxycycline 100 mg 2 x day for 10 days - Medrol taper - Drink plenty of water Discussed treatment plan and patient voices understanding. Patient's questions answered appropriately. Medications and potential side effects were discussed and patient voices understanding. Return to the office as scheduled or as needed for worsening/no improvement. Jany Zaman APRN.CNS documented in this encounterRegency [facility]05-28-2024 Telephone encounter Note * Telephone Encounter - Jany Zaman APRN.CNS - 07/31/2023 11:31 AM EDT The following approved medication requests have been transmitted electronically. Requested Prescriptions Pending Prescriptions Disp Refills wdxmdnxrus-wacwnhsw-gexsfxramq (BREZTRI) 160-9-4.8 mcg/actuation HFA aerosol inhaler 3 Each 3 Sig: Inhale 2 Puffs as instructed two times a day. Jany Zaman APRN.CNS [facility]05-28-2024 Miscellaneous Notes* Telephone Encounter - Jany Zaman APRN.CNS - 07/31/2023 11:31 AM EDT The following approved medication requests have been transmitted electronically. Requested Prescriptions Pending Prescriptions Disp Refills xhhlkyzxpr-vkvsctgy-qnymkonsft (BREZTRI) 160-9-4.8 mcg/actuation HFA aerosol inhaler 3 Each 3 Sig: Inhale 2 Puffs as instructed two times a day. Jany Zaman APRN.CNS * Telephone Encounter - Dary Mejía - 07/27/2023 4:24 PM EDT Patient has been identified by name and date of : Yes, Provider Dr. Murdock Date 07-27-23 Time 4:25 pm Patient phones for refill(s): Requested Prescriptions Pending Prescriptions Disp Refills eezxwishcs-fvmxhjti-eahjnsnaar (BREZTRI) 160-9-4.8 mcg/actuation HFA aerosol inhaler Sig: Inhale 2 Puffs as instructed two times a day. Date of last office visit in primary care: 07/26/2023 Date of next office visit in primary care: 09/28/2023 Please advise. Thank you. Dary Celaya. documented in this encounterRegency [facility]05-24-2024 Telephone encounter Note * Telephone Encounter - Dary Mejía - 07/27/2023 4:24 PM EDT Patient has been identified by name and date of : Yes, Provider Dr. Murdock Date 07-27-23 Time 4:25 pm Patient phones for refill(s): Requested Prescriptions Pending Prescriptions Disp Refills tbjnhxlwxz-lawqvcvx-uckkkprbwa (BREZTRI) 160-9-4.8 mcg/actuation HFA aerosol inhaler Sig: Inhale 2 Puffs as instructed two times a day. Date of last office visit in primary care: 07/26/2023 Date of next office visit in primary care: 09/28/2023 Please advise. Thank you. Dary Celaya. [facility] Telephone encounter Note* Telephone Encounter - Jany Zaman APRN.CNS - 07/26/2023 12:25 PM EDT The following approved medication requests have been transmitted electronically. Requested Prescriptions Pending Prescriptions Disp Refills cetirizine (ZYRTEC) 10 mg tablet 90 tablet 1 Sig: Take 1 tablet by mouth once daily. Jany Zaman APRN.CNS [facility]05-23-2024 Miscellaneous Notes* Telephone Encounter - Jany Zaman APRN.CNS - 07/26/2023 12:25 PM EDT The following approved medication requests have been transmitted electronically. Requested Prescriptions Pending Prescriptions Disp Refills cetirizine (ZYRTEC) 10 mg tablet 90 tablet 1 Sig: Take 1 tablet by mouth once daily. Jany Zaman APRN.CNS * Telephone Encounter - Mel Ramirez - 07/26/2023 8:14 AM EDT Patient has been identified by name and date of : Yes, Provider Dr Murdock Date 07-26-23 Time 8:16A Patient phones for refill(s): Requested Prescriptions Pending Prescriptions Disp Refills cetirizine (ZYRTEC) 10 mg tablet Sig: Take by mouth. Date of last office visit in primary care: 03/30/2023 Date of next office visit in primary care: 09/28/2023 Please advise. Thank you. Mel Celaya. documented in this encounterRegency Hospital [facility]05-23-2024 Instructions* Patient Instructions* Jany Zaman APRN.CNS - 07/26/2023 10:51 AM EDT 1) Augmentin 2 x day for 10 days take with food 2) Eat yogurt with live culture in ingredients daily while on Augmentin 3) Saline nasal spray 5 x day while on Augmentin 4) See Dr. Murdock in September documented in this encounterRegency [facility]05-23-2024 History of Present illness Narrative* Jany Zaman APRN.CNS - 07/26/2023 10:43 AM EDT This is a 72 year old male who presents today with: Patient presents with: Chest Congestion: 3 days Ear Problem: Bilateral ear pain HISTORY OF PRESENT ILLNESS: Sg Hernandez is a 72 year old male. Patient presents with: Chest Congestion: 3 days Ear Problem: Bilateral ear pain Chest congestion. Productive with creamy white- yellow with chunks and some brown. Had sinus congestion and ears are gurgling. Taking OTC sinus medication, not effective. Has guaifenesin and tessalon Perles, not helping. A Lot of PND that is choking. [facility] 2 x [facility], had to stop a couple months ago due to the diarrhea. Some chills, no fever. No H/A but sinus pressure. Behind left eye, side of head. Discharged from [place] because of sinusitis. PAST MEDICAL HISTORY: PAST MEDICAL HISTORY Diagnosis Date H/O gastroesophageal reflux (GERD) claims got it to go away with hot sauce History of spinal fracture L4/L5 with fragment in spinal cord Mixed hyperlipidemia Moderate persistent asthma without complication Other emphysema (HCC) Primary hypertension Spinal stenosis of lumbar region with neurogenic claudication PAST SURGICAL HISTORY Procedure Laterality Date APPENDECTOMY LAMINECTOMY,LUMBAR Bilateral L4/L5 PAST SURGICAL HISTORY OF left knee meniscus repair PAST SURGICAL HISTORY OF right knee repair twice PAST SURGICAL HISTORY OF lymphectomy left collarbone TONSILLECTOMY & ADENOIDECTOMY <AGE 13 ALLERGIES Meloxicam MEDICATIONS Current Outpatient Medications Medication Sig hlyqrkcanj-cpavmgrq-jfppkkolkn (BREZTRI) 160-9-4.8 mcg/actuation HFA aerosol inhaler Inhale 2 Puffsas instructed two times a day. atorvastatin (LIPITOR) 40 mg tablet Take 1 tablet by mouth daily at bedtime. losartan (COZAAR) 50 mg tablet Take 50 mg by mouth once daily. carvedilol (COREG) 6.25 mg tablet Take 1 tablet by mouth two times a day with meals. montelukast (SINGULAIR) 10 mg tablet Take 1 tablet by mouth daily at bedtime. busPIRone (BUSPAR) 5 mg tablet Take 1 tablet by mouth three times daily. guaiFENesin (HUMIBID E) 200 mg tablet Take 400 mg by mouth every 4 hours as needed. TURMERIC ORAL Take 1,500 mg by mouth once daily. albuterol (PROVENTIL) 2.5 mg /3 mL (0.083 %) nebulizer solution Inhale 1 mcg as instructed. cetirizine (ZYRTEC) 10 mg tablet Take by mouth. cholecalciferol (VITAMIN D3) 5,000 unit tab Take by mouth. fluticasone (FLONASE) 50 mcg/actuation nasal spray Use in the nose. VITAMIN B COMPLEX ORAL Vitamin B Complex Active CAP August 31, 2021 12:00am atorvastatin (LIPITOR) 80 mg tablet Take 0.5 tablets by mouth once daily. losartan (COZAAR) 100 mg tablet Take 0.5 tablets by mouth once daily. Apple Cider Vinegar 300 mg tab Take by mouth. No current facility-administered medications for this visit. No family history on file. Social History Tobacco Use Smoking status: Former Types: Cigarettes Start date: 04/15/2002 Smokeless tobacco: Never Substance Use Topics Alcohol use: Yes Alcohol/week: 12.0 standard drinks of alcohol Types: 12 Cans of Beer (12oz) per week Drug use: Not Currently Comment: remote marijuana, LSD, mushrooms young adult EXAM: BP 142/68 Pulse 75 Resp 20 Wt 115.2 kg (254 lb) SpO2 95% BMI 41.31 kg/m PHYSICAL EXAM: Physical Exam LABS: ASSESSMENT/PLAN: 1. Acute frontal sinusitis, recurrence not specified - ICD9: 461.1, ICD10: J01.10 (primary diagnosis) - Will begin treatment with Augmentin 875 mg PO BID for 10 days 2. Acute bronchitis with chronic obstructive pulmonary disease (COPD) ([facility]) ([facility]) - ICD9: 491.22, ICD10: J44.0, J20.9 - Augmentin 2 x day for 10 days Discussed treatment plan and patient voices understanding. Patient's questions answered appropriately. Medications and potential side effects were discussed and patient voices understanding. Return to the office as scheduled or as needed for worsening/no improvement. Jany Zaman APRN.EMERGENCY ROOM SPECIALIST documented in this encounterReg[facility]24 Telephone encounter Note * Telephone Encounter - Mel Ramirez - 07/26/2023 8:14 AM EDT Patient has been identified by name and date of : Yes, Provider Dr Murdock Date 07-26-23 Time 8:16A Patient phones for refill(s): Requested Prescriptions Pending Prescriptions Disp Refills cetirizine (ZYRTEC) 10 mg tablet Sig: Take by mouth. Date of last office visit in primary care: 03/30/2023 Date of next office visit in primary care: 09/28/2023 Please advise. Thank you. Mel Celaya. [facility] Work Phone: [phone] 566-118803-27-2024 Miscellaneous Notes* Telephone Encounter - Conor Murdock MD - 05/30/2023 8:12 AM EDT ----- Message from RT Apolinar(R) sent at 05/30/2023 8:01 AM EDT ----- Regarding: Xray needed Good Morning Dr. Murdock, Can you please place an order for 2 view xray of the Lumbar spine STAT for this pt.? I need to verify the location of the generator & the leads of his spinal cord stimulator, so I can scan him tomorrow. He has not had anything here I can verify that with. Thank you! Janina documented in this encounterRegency [facility]03-21-2024 Miscellaneous Notes* Telephone Encounter - Conor Murdock MD - 05/24/2023 9:04 AM EDT ----- Message from RT Apolinar(R) sent at 05/24/2023 8:31 AM EDT ----- Regarding: MRI Orders Good Morning Dr. Murdock, Could you please put another MRI Wilson/zain order in? The previous one has beendiscontinued. Thanks, Janina documented in this encounterRegency [facility]03-18-2024 Miscellaneous Notes* Telephone Encounter - Dary Mejía - 05/21/2023 12:09 PM EDT Patient has been identified by name and date of : Yes, Provider Dr. Murdock Date 05-21-23 Time 12:11 pm Patient phones for refill(s): Requested Prescriptions Pending Prescriptions Disp Refills carvedilol (COREG) 6.25 mg tablet 60 tablet 0 Sig: Take 1 tablet by mouth two times a day with meals. Date of last office visit in primary care: 03/30/2023 Date of next office visit in primary care: 09/28/2023 Please advise. Thank you. Dary Celaya. documented in this encounterRegency [facility]02-19-2024 Miscellaneous Notes* Telephone Encounter - Sayra Flores - 04/23/2023 10:11 AM EST Patient has been identified by name and date of : Yes, Provider Steven Patient phones for refill(s): Requested Prescriptions Pending Prescriptions Disp Refills carvedilol (COREG) 6.25 mg tablet 60 tablet 0 Sig: Take 1 tablet by mouth two times a day with meals. Date of last office visit in primary care: 03/30/2023 Date of next office visit in primary care: 09/28/2023 Please advise. Thank you. Sayra Celaya. documented in this encounterRegency [facility]02-14-2024 Miscellaneous Notes* Telephone Encounter - Kassandra Hartman RN - 04/18/2023 2:13 PM EST Patient calls and notified of results and providers instructions. Patient verbalizes understanding. Patient transferred to schedule MRI. Kassandra Hartman RN * Telephone Encounter - Jany Washington LPN - 04/16/2023 1:13 PM EST Left message to return call * Telephone Encounter - Coonr Murdock MD - 04/16/2023 12:51 PM EST Us shows the one duct from his liver is mildly enlarged. That can be caused by things like stones etc. Recommend test to make sure no blockage. Please set up. Call if any RUQ wilson documented in this encounterRegency [facility]02-12-2024 History of Present illness Narrative* Khushboo Jang RDMS - 04/16/2023 11:30 AM EST Radiology Service Progress Note PATIENT NAME: Sg Hernandez DATE OF SERVICE: April 16, 2023 TIME: 11:46 AM PATIENT IDENTITY VERIFICATION COMPLETED USING TWO (2) IDENTIFIERS: Name and Date of confirmedby patient verbally. FALL SCREENING: Has the patient had 2 falls in the last year or 1 fall with injury or currently using an Ambulatory Assistive Device (Walker, Cane, Wheelchair, Crutches, etc.)? Yes, Patient High Riskfor Falls What interventions were put in place to prevent falls during this visit? Instructed Patient to Callfor Help if Needed, Offered Assistance with Transfers/Clothing, Instructed Patient to Remain Seated(Not on Exam Table) Until Exam, and Increased Observations by Caregivers PATIENT GENDER DATA: Male PATIENT RELEVANT IMPLANT DATA REVIEWED: Not Applicable PATIENT PRESENTS WITH AN IMPLANTABLE OR ATTACHED SERVICE PROMOTER SALESPERSON: No RADIOLOGY DEPARTMENT: Ultrasound PERIPHERAL IV DATA: Not applicable SIGNED BY: Khushboo Jang RDMS RVT April 16, 2023 11:46 AM documented in this encounterRegency Hospital [facility]01-29-2024 Miscellaneous Notes* Telephone Encounter - Kate Hyatt - 04/02/2023 9:23 AM EST 1st call attempt, pt answered but was not speaking * Telephone Encounter - Christie Bass MA - 04/02/2023 9:06 AM EST Pt informed, verbalized understanding. Please assist with scheduling liver US. Christie Bass * Telephone Encounter - Conor Murdock MD - 04/01/2023 6:34 PM EST Platelets are better. Liver still mildly up. Avoid any alcohol. Recheck liver us and do liver panel in one month. 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 findings, colonoscopy within the last 2 years which was clear Nocturia 1-2 a night, slight urinary frequency MEDICATIONS: Current Outpatient Medications Medication Sig MOMETASONE-FORMOTEROL INHALATION Inhale as instructed. metoprolol tartrate, short acting, (LOPRESSOR) 25 mg tablet Take 0.5 tablets by mouth twice daily. losartan (COZAAR) 100 mg tablet Take 50 mg by mouth once daily. busPIRone (BUSPAR) 5 mg tablet Take 5 mg by mouth three times daily. budesonide-formoterol (SYMBICORT) 80-4.5 mcg/actuation inhaler Inhale 2 Puffs as instructed twice daily. atorvastatin (LIPITOR) 80 mg tablet Take 40 mg by mouth once daily. tiotropium bromide (SPIRIVA RESPIMAT) 2.5 mcg/actuation inhaler Inhale 2 Puffs as instructed once daily. montelukast (SINGULAIR) 10 mg tablet Take 10 mg by mouth daily at bedtime. No current facility-administered medications for this visit. ALLERGIES: ALLERGIES No Known Allergies PAST MEDICAL HISTORY Diagnosis Date H/O gastroesophageal reflux (GERD) claims got it to go away with hot sauce History of spinal fracture L4/L5 with fragment in spinal cord Mixed hyperlipidemia Moderate persistent asthma without complication Other emphysema (HCC) Primary hypertension Spinal stenosis of lumbar region with neurogenic claudication PAST SURGICAL HISTORY Procedure Laterality Date APPENDECTOMY LAMINECTOMY,LUMBAR Bilateral L4/L5 PAST SURGICAL HISTORY OF left knee meniscus repair PAST SURGICAL HISTORY OF right knee repair twice PAST SURGICAL HISTORY OF lymphectomy left collarbone TONSILLECTOMY & ADENOIDECTOMY <AGE 13 No family history on file. Social History Tobacco Use Smoking status: Former Smoker Start date: 04/15/2002 Smokeless tobacco: Never Used Substance Use Topics Alcohol use: Yes Alcohol/week: 12.0 standard drinks Types: 12 Cans of Beer (12oz) per week Drug use: Not Currently Comment: remote marijuana, LSD, mushrooms young adult Reviewed current medications, allergies, past medical history, surgical history, family history andsocial history today. REVIEW OF SYSTEMS All other reviewed and negative other than HPI. HEALTH MAINTENANCE: Reviewed health maintenance issues today and recommended the following in detail. ABDOMINAL AORTIC ANEURYSM SCREENING -just done recently. COLORECTAL CANCER SCREENING-just had colonoscopy a year and a half ago. ADVANCE DIRECTIVE DISCUSSION Never done Says immunizations are up to date. Did not do flu and covid shots VITALS: BP 142/82 Pulse 80 Wt 108 kg (238 lb) BMI 38.71 kg/m Last 4 Encounter Wt Readings: Date: Wt: 09/07/2021 108 kg (238 lb) 01/13/2021 110.2 kg (243 lb) PHYSICAL EXAMINATION: General appearance: Well appearing, alert, in no acute distress, well-hydrated, well nourished. Skin: Skin color, texture, turgor normal, no suspicious rashes or lesions Head: Normocephalic, no masses, lesions, tenderness or abnormalities Neck: Supple, no adenopathy; thyroid symmetric, normal size, no bruits Lungs: Lungs clear to auscultation. No wheezing, rhonchi, rales Heart: RRR without murmur, gallop, or rubs. No ectopy Abdomen: Normal abdominal exam, Abdomen soft, non-tender. Bowel sounds normal. No masses, organomegaly Extremities: No deformities, edema, skin discoloration, clubbing or cyanosis. Good capillary refill. ASSESSMENT/PLAN: 1. Hyperlipidemia, mixed - ICD9: 272.2, ICD10: E78.2 (primary diagnosis) - get a copy of labs 2. Hypertension, essential - ICD9: 401.9, ICD10: I10 - suboptimal control. bp check in one month - Continue current medication(s) - Goal of BP <130/80 3. COPD with chronic bronchitis (HCC) - ICD9: 491.20, ICD10: J44.9 - per pulmonary 4. Lumbar stenosis with neurogenic claudication - ICD9: 724.03, ICD10: M48.062 - per pain management. 5. 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- ICD9: 414.01, ICD10: I25.10 - declines follow up. Feels well. Continue meds. Red flags for re-assessment reviewed with patient in detail. Conor Murdock RTO in six months. and prn. documented in this encounterRegency Hospital [facility]04-27-2022 History of Present illness Narrative* Ariana Mauri [place] - 06/29/2021 12:35 PM EDT POPULATION HEALTH NAVIGATION OUTREACH Action/GRADY berg Patient due for the following: Colorectal Cancer Screening Advance Directives Annual Exam /Follow up scheduled 07/25/2021. Appointment notes updated Unable to contact patient by phone, No answer Letter printed to [facility], to be mailed by Navigator on site Mailed letter 06/29/2021 MM Pt identified by name and : NO Outreach Outcome/Action Unable to reach patient: Phone number not valid / voicemail full Letter mailed Reason for Outreach Care Gap or Scheduling/Wellness visits Payer: Payor: [employer] MEDICARE / Plan: [employer] / Product Type: HMO / Care Gap Reviewed:: Colorectal Cancer Screening Reminder: Reminder note to check Health Maintenance for items below Health Maintenance items due: ABDOMINAL AORTIC ANEURYSM SCREENING Never done DEPRESSION SCREENING Never done SPIROMETRY Never done HEPATITIS C SCREENING Never done BP CONTROLLED (<130/80) Never done DTAP,TDAP,TD(1 - Tdap) Never done LIPID SCREEN Never done DIABETES SCREEN Never done COLORECTAL CANCER SCREENING Never done SHINGRIX VACCINE(1 of 2) Never done PNEUMOVAX AGE 65 AND OVER WITH 5YR LOOKBACK(1) Never done ADVANCE DIRECTIVE DISCUSSION Never done Message Sent to Practice: No Navigation Signature: Ariana Pereira June 29, 2021 12:35 PM documented [place] encounterJose [place] [address] History of Past illness Narrative* Problem Noted Date Resolved Date Chronic prescription benzodiazepine use 01/14/20 21 09/07/2021 documented as of this encounter (statuses as of 09/07/2021) [address]11-2021 History of Past illness Narrative* Problem Noted Date Resolved Date Chronic prescription benzodiazepine use 01/14/20 21 09/07/2021 documented as of this encounter (statuses as of 03/13/2022) [address]-2021 History of Past illness Narrative* Problem Noted Date Resolved Date Chronic prescription benzodiazepine use 01/14/20 21 09/07/2021 documented as of this encounter (statuses as of 08/03/2022) [place] [address]11-2021 History of Past illness Narrative* Problem Noted Date Resolved Date Chronic prescription benzodiazepine use 01/14/20 21 09/07/2021 documented as of this encounter (statuses as of 08/04/2022) [address]11-[address]21 History of Past illness Narrative* Problem Noted Date Resolved Date Chronic prescription benzodiazepine use 01/14/20 21 09/07/2021 documented as of this encounter (statuses as of 08/16/2022) [address]11-2021 History of Past illness Narrative* Problem Noted Date Resolved Date Chronic prescription benzodiazepine use 01/14/20 21 09/07/2021 documented as of this encounter (statuses as of 08/17/2022) [address]11-2021 History of Past illness Narrative* Problem Noted Date Resolved Date Chronic prescription benzodiazepine use 01/14/20 21 09/07/2021 documented as of this encounter (statuses as of 08/29/2022) [address]11-[address]21 History of Past illness Narrative* Problem Noted Date Resolved Date Chronic prescription benzodiazepine use 01/14/20 21 09/07/2021 documented as of this encounter (statuses as of 08/29/2022) [place] [address]-11-2021 History of Past illness Narrative* Problem Noted Date Diagnosed Date Resolved Date Chronic prescription benzodiazepine use 01/13/2021 09/07/2021 documented as of this encounter (statuses as of 10/01/2022) [facility] History of Past illness Narrative* Problem Noted Date Diagnosed Date Resolved Date Chronic prescription benzodiazepine use 01/13/2021 09/07/2021 documented as of this encounter (statuses as of 2022) [facility] History of Past illness Narrative* Problem Noted Date Diagnosed Date Resolved Date Chronic prescription benzodiazepine use 01/13/2021 09/07/2021 documented as of this encounter (statuses as of 11/13/2022) [facility] History of Past illness Narrative* Problem Noted Date Diagnosed Date Resolved Date Chronic prescription benzodiazepine use 01/13/2021 09/07/2021 documented as of this encounter (statuses as of 01/04/2023) [facility] noteNo assessment information availableWOhioHealth [facility] Work Phone: Evaluation note* Diagnosis Hyperlipidemia, mixed- Primary Mixed hyperlipidemia Hypertension, essential Unspecified essential hypertension COPD with chronic bronchitis (HCC) Obstructive chronic bronchitis without exacerbation Lumbar stenosis with neurogenic claudication Spinal stenosis, lumbar region, with neurogenic claudication 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 [facility] this [facility]* Diagnosis Hypertension, essential- Primary Unspecified essential hypertension Hyperlipidemia, mixed Mixed hyperlipidemia 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 Panic attacks Panic disorder without agoraphobia Obesity, Class II, BMI 35-39.9 Obesity, unspecified Hx of placement of stent in circumflex branch of left coronary artery Postsurgical percutaneous transluminal coronary angioplasty status Macrocytosis Other specified diseases of blood and blood-forming organs Spinal cord stimulator status Other postprocedural status COPD with chronic bronchitis (HCC) Obstructive chronic bronchitis without exacerbation documented [facility] this encounter [facility]* Diagnosis COPD with chronic bronchitis (HCC)- Primary Obstructive chronic bronchitis without exacerbation [facility]* Diagnosis Acute midline low back pain with left-sided sciatica- Primary documented in this encounter [facility] note* Diagnosis Neck pain- Primary Cervicalgia documented in this encounter [facility]* Diagnosis Elevated liver enzymes Other nonspecific abnormal serum enzyme levels [facility]* Diagnosis Abnormal results of liver function studies- Primary Nonspecific abnormal results of liver function study Bile duct abnormality Unspecified disorder of biliary tract [facility] this [facility]* Diagnosis Abnormal results of liver function studies Nonspecific abnormal results of liver function study [facility]* Diagnosis Elevated liver enzymes- Primary Other nonspecific abnormal serum enzyme levels [facility]* Diagnosis Postlaminectomy syndrome, not elsewhere classified- Primary [facility] this [facility]* Diagnosis Acute frontal sinusitis, recurrence not specified- Primary Acute bronchitis with chronic obstructive pulmonary disease (COPD) (HCC) (HCC) Obstructive chronic bronchitis with acute bronchitis Dyslipidemia Other and unspecified hyperlipidemia documented [facility] this encounter [facility]* Diagnosis Acute bronchitis with chronic obstructive pulmonary disease (COPD) (HCC) (HCC)- Primary Obstructive chronic bronchitis with acute bronchitis [facility]* Diagnosis Dyspnea, unspecified type- Primary Dyspnea, unspecified [facility] Dyspnea, unspecified type [facility] Diagnosis Hypertension, essential- Primary Unspecified essential hypertension Hyperlipidemia, mixed Mixed hyperlipidemia 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 DALIA (obstructive sleep apnea) Obstructive sleep apnea (adult) (pediatric) COPD with chronic bronchitis (HCC) Obstructive chronic bronchitis without exacerbation Platelets decreased (HCC) Thrombocytopenia, unspecified Panic attacks Panic disorder without agoraphobia Spinal cord stimulator status Other postprocedural status Bilateral carotid artery stenosis Occlusion and stenosis of carotid artery without mention of cerebral infarction Vitamin D deficiency Unspecified vitamin D deficiency Screening for depression [facility] Diagnosis Acute bronchitis with chronic obstructive pulmonary disease (COPD) (HCC) (HCC)- Primary Obstructive chronic bronchitis with acute bronchitis [facility] Diagnosis Dyslipidemia Other and unspecified hyperlipidemia [facility] Diagnosis Bacterial pneumonia- Primary Bacterial pneumonia, unspecified Acute cough [facility] Diagnosis Acute cough [facility] Diagnosis Abnormal x-ray- Primary Other nonspecific (abnormal) findings on radiological and other examinations of body structure Dyslipidemia Other and unspecified hyperlipidemia DALIA (obstructive sleep apnea) Obstructive sleep apnea (adult) (pediatric) Hypertension, essential Unspecified essential hypertension COPD with chronic bronchitis (HCC) Obstructive chronic bronchitis without exacerbation 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 Chronic ischemic heart disease Chronic ischemic heart disease, unspecified Vitamin D deficiency Unspecified vitamin D deficiency Chronic pain of left knee Pain in joint, lower leg Pain in joint of left hip Pain in joint, pelvic region and thigh Bilateral carotid artery stenosis Occlusion and stenosis of carotid artery without mention of cerebral infarction SOB (shortness of breath) Shortness of breath [facility] Diagnosis Abnormal x-ray Other nonspecific (abnormal) findings on radiological and other examinations of body structure Chronic pain of left knee Pain in joint, lower leg Pain in joint of left hip Pain in joint, pelvic region and thigh documented in this encounter [facility] for referral (narrative)* Diagnostic Procedure Only (Routine) - Closed Specialty Diagnoses / Procedures Referred By Contac t Referred To Contact US IMAGING Diagnoses Elevated liver enzymes Procedures US ABD RIGHT UPPER QUADRANT US ABDOMINAL REAL TIME W/IMAGE LIMITED Conor Murdock MD [address] [place] [id number] [place] [address] Referral ID Status Reason Start Date Expiration Date V isits Requested Visits Authorized [id number] Closed Auto-Generate d Referral 04/01/2023 04/30/2024 1 1 [facility] for referral (narrative)* Diagnostic Procedure Only (Routine) - Closed Specialty Diagnoses / Procedures Referred By Contac t Referred To Contact US IMAGING Diagnoses Elevated liver enzymes Procedures US ABD RIGHT UPPER QUADRANT US ABDOMINAL REAL TIME W/IMAGE LIMITED Conor Murdock MD [address] [place] [id number] [place] [address] Referral ID Status Reason Start Date Expiration Date V isits Requested Visits Authorized [id number] Closed Auto-Generate d Referral 04/01/2023 04/30/2024 1 1 [facility] for referral (narrative)* Diagnostic Procedure Only (Routine) - Closed Specialty Diagnoses / Procedures Referred By Dangac t Referred To Contact XR IMAGING Diagnoses Postlaminectomy syndrome, not elsewhere classified Procedures XR LUMBAR LIMITED 2V AP/LAT RADEX SPINE LUMBOSACRAL 2/3 VIEWS Conor Murdock MD [address] [place] [address] [place] [address] Referral ID Status Reason Start Date Expiration Date V isits Requested Visits Authorized [id number] Closed Auto-Generate d Referral 05/30/2023 06/28/2024 1 1 [facility] for referral (narrative)No reason for referral information availableWOhio[facility] Work Phone: Reason for visit Narrative* Diagnostic Procedure Only (Routine) - Closed Specialty Diagnoses / Procedures Referred By Dangac t Referred To Contact XR IMAGING Diagnoses Pain in joint of left hip Procedures XR HIP GENERAL 3V PELV/AP/LAT LEFT RADEX HIP UNILATERAL WITH PELVIS 2-3 VIEWS Conor Murdock MD [address] [place] [address] Phone: tel: fax: [place] [address] Referral ID Status Reason Start Date Expiration Date V isits Requested Visits Authorized [id number] Closed Auto-Generate d Referral 06/02/2024 07/02/2025 1 1 [facility] Chief Complaint and Reason for Visit Chief Complaint Chronic Obstructive Pulmonary Disease (COPD J44.9) Chief Complaint Chronic Obstructive Pulmonary Disease (COPD J44.9) copd Chief Complaint Admit Date COPD EXACERBATION W/ PNEUMONIA, CHF EXAC ERBATION August 19, 2024 5:23pm Advance Directives Advance Directive Response Recorded Date/ Time Living Will No August 31, 2021 9:22am Power of Razor Grinder No August 31 9:22am Advance Directives on File No August 31, 2021 9:22am Advance Directive Response Recorded Date/ Time Do you have a Healthcare Power of Razor Grinder? No August 19, 2024 1:40pm Summary Purpose Family History No Family History Records FoundNo Family History Records FoundNo Family History Records Found Reason for Referral Specialty Diagnoses / Procedures Referred By Contac t Referred To Contact Diagnoses COPD with chronic bronchitis ([place]) [place] [address] [place] [id number] Referral ID Status Reason Start Date Expiration Date Visits Re quested Visits Authorized [id number] Closed 1 1 Specialty Diagnoses / Procedures Referred By Contac t Referred To Contact MR IMAGING Diagnoses Abnormal results of liver function studies Procedures MRI 3D POST PROCESSING 3D RENDERING W/INTERP&POSTPROC DIFF WORK STATION Conor Murdock MD [facility] [place] [address] [place] [address] Referral ID Status Reason Start Date Expiration Date Visits Requested Visits Authorized [id number] Pending Review Auto-Generat ed Referral 04/16/2023 05/15/2024 1 1 Specialty Diagnoses / Procedures Referred By Contac t Referred To Contact MR IMAGING Diagnoses Abnormal results of liver function studies Procedures MRI PANC/ZAIN WO/W IVCON MRI ABDOMEN W/O & W/CONTRAST MATERIAL Conor Murdock MD [facility] [place] [address] [place] [address] Referral ID Status Reason Start Date Expiration Date Visits Requested Visits Authorized [id number] Pending Review Auto-Generat ed Referral 04/16/2023 05/15/2024 1 1 Specialty Diagnoses / Procedures Referred By Contac t Referred To Contact MR IMAGING Diagnoses Abnormal results of liver function studies Bile duct abnormality Procedures MRI 3D POST PROCESSING 3D RENDERING W/INTERP&POSTPROC [place] [address] [place] [address] [place] [address] Referral ID Status Reason Start Date Expiration Date Visits Requested Visits Authorized [id number] Authorized Auto-Generat ed Referral 05/24/2023 06/22/2024 1 1 Specialty Diagnoses / Procedures Referred By Contac t Referred To Contact MR IMAGING Diagnoses Abnormal results of liver function studies Bile duct abnormality Procedures MRI PANC/ZAIN WO/W IVCON MRI ABDOMEN W/O & W/CONTRAST MATERIAL Conor Murdock MD [address] [place] [address] [place] [address] Referral ID Status Reason Start Date Expiration Date V isits Requested Visits Authorized [id number] Authorized 05/24/2023 03/04/2024 1 1 Specialty Diagnoses / Procedures Referred By Contac t Referred To Contact Radiology Diagnoses Dyspnea, unspecified type Procedures XR CHEST PA+LAT 2 VIEWS Zari Matamoros [address] [place] [address] S [facility] [address] [place] [address] [place] [address] Referral ID Status Reason Start Date Expiration Date Visits Re quested Visits Authorized [id number] Closed 08/24/2023 08/23/2024 1 1 Additional Source Comments Source Comments (unrecognize d section and content) In the event this informatio n is protected by the Federal Confidentiality of Alcohol and Drug Abuse Patient Records regulations: The Federal rules restrict any use of the information to criminally investigate or prosecute any alcohol or drug abuse patient.[facility] the event this information is protected by the Federal Confidentiality of Alcohol and Drug Abuse Patient Records regulations: The Federal rules restrict any use of the information to criminally investigate or prosecute any alcohol or drug abuse patient.[facility] the event this information is protected by the Federal Confidentiality of Alcohol and Drug Abuse Patient Records regulations: The Federal rules restrict any use of the information to criminally investigate or prosecute any alcohol or drug abuse patient.[facility] the event this information is protected by the Federal Confidentiality of Alcohol and Drug Abuse Patient Records regulations: The Federal rules restrict any use of the information to criminally investigate or prosecute any alcohol or drug abuse patient.[facility] the event this information is protected by the Federal Confidentiality of Alcohol and Drug Abuse Patient Records regulations: The Federal rules restrict any use of the information to criminally investigate or prosecute any alcohol or drug abuse patient.[facility] the event this information is protected by the Federal Confidentiality of Alcohol and Drug Abuse Patient Records regulations: The Federal rules restrict any use of the information to criminally investigate or prosecute any alcohol or drug abuse patient.[facility] the event this information is protected by the Federal Confidentiality of Alcohol and Drug Abuse Patient Records regulations: The Federal rules restrict any use of the information to criminally investigate or prosecute any alcohol or drug abuse patient.[facility] the event this information is protected by the Federal Confidentiality of Alcohol and Drug Abuse Patient Records regulations: The Federal rules restrict any use of the information to criminally investigate or prosecute any alcohol or drug abuse patient.[facility] the event this information is protected by the Federal Confidentiality of Alcohol and Drug Abuse Patient Records regulations: The Federal rules restrict any use of the information to criminally investigate or prosecute any alcohol or drug abuse patient.[facility] the event this information is protected by the Federal Confidentiality of Alcohol and Drug Abuse Patient Records regulations: The Federal rules restrict any use of the information to criminally investigate or prosecute any alcohol or drug abuse patient.[facility] the event this information is protected by the Federal Confidentiality of Alcohol and Drug Abuse Patient Records regulations: The Federal rules restrict any use of the information to criminally investigate or prosecute any alcohol or drug abuse patient.[facility] the event this information is protected by the Federal Confidentiality of Alcohol and Drug Abuse Patient Records regulations: The Federal rules restrict any use of the information to criminally investigate or prosecute any alcohol or drug abuse patient.[facility] the event this information is protected by the Federal Confidentiality of Alcohol and Drug Abuse Patient Records regulations: The Federal rules restrict any use of the information to criminally investigate or prosecute any alcohol or drug abuse patient.[facility] the event this information is protected by the Federal Confidentiality of Alcohol and Drug Abuse Patient Records regulations: The Federal rules restrict any use of the information to criminally investigate or prosecute any alcohol or drug abuse patient.[facility] the event this information is protected by the Federal Confidentiality of Alcohol and Drug Abuse Patient Records regulations: The Federal rules restrict any use of the information to criminally investigate or prosecute any alcohol or drug abuse patient.[facility] the event this information is protected by the Federal Confidentiality of Alcohol and Drug Abuse Patient Records regulations: The Federal rules restrict any use of the information to criminally investigate or prosecute any alcohol or drug abuse patient.[facility] the event this information is protected by the Federal Confidentiality of Alcohol and Drug Abuse Patient Records regulations: The Federal rules restrict any use of the information to criminally investigate or prosecute any alcohol or drug abuse patient.[facility] the event this information is protected by the Federal Confidentiality of Alcohol and Drug Abuse Patient Records regulations: The Federal rules restrict any use of the information to criminally investigate or prosecute any alcohol or drug abuse patient.[facility] the event this information is protected by the Federal Confidentiality of Alcohol and Drug Abuse Patient Records regulations: The Federal rules restrict any use of the information to criminally investigate or prosecute any alcohol or drug abuse patient.[facility] the event this information is protected by the Federal Confidentiality of Alcohol and Drug Abuse Patient Records regulations: The Federal rules restrict any use of the information to criminally investigate or prosecute any alcohol or drug abuse patient.[facility] the event this information is protected by the Federal Confidentiality of Alcohol and Drug Abuse Patient Records regulations: The Federal rules restrict any use of the information to criminally investigate or prosecute any alcohol or drug abuse patient.[facility] the event this information is protected by the Federal Confidentiality of Alcohol and Drug Abuse Patient Records regulations: The Federal rules restrict any use of the information to criminally investigate or prosecute any alcohol or drug abuse patient.[facility] the event this information is protected by the Federal Confidentiality of Alcohol and Drug Abuse Patient Records regulations: The Federal rules restrict any use of the information to criminally investigate or prosecute any alcohol or drug abuse patient.[facility] the event this information is protected by the Federal Confidentiality of Alcohol and Drug Abuse Patient Records regulations: The Federal rules restrict any use of the information to criminally investigate or prosecute any alcohol or drug abuse patient.[facility] the event this information is protected by the Federal Confidentiality of Alcohol and Drug Abuse Patient Records regulations: The Federal rules restrict any use of the information to criminally investigate or prosecute any alcohol or drug abuse patient.[facility] the event this information is protected by the Federal Confidentiality of Alcohol and Drug Abuse Patient Records regulations: The Federal rules restrict any use of the information to criminally investigate or prosecute any alcohol or drug abuse patient.[facility] the event this information is protected by the Federal Confidentiality of Alcohol and Drug Abuse Patient Records regulations: The Federal rules restrict any use of the information to criminally investigate or prosecute any alcohol or drug abuse patient.[facility] the event this information is protected by the Federal Confidentiality of Alcohol and Drug Abuse Patient Records regulations: The Federal rules restrict any use of the information to criminally investigate or prosecute any alcohol or drug abuse patient.[facility] the event this information is protected by the Federal Confidentiality of Alcohol and Drug Abuse Patient Records regulations: The Federal rules restrict any use of the information to criminally investigate or prosecute any alcohol or drug abuse patient.[facility] the event this information is protected by the Federal Confidentiality of Alcohol and Drug Abuse Patient Records regulations: The Federal rules restrict any use of the information to criminally investigate or prosecute any alcohol or drug abuse patient.[facility] the event this information is protected by the Federal Confidentiality of Alcohol and Drug Abuse Patient Records regulations: The Federal rules restrict any use of the information to criminally investigate or prosecute any alcohol or drug abuse patient.[facility] the event this information is protected by the Federal Confidentiality of Alcohol and Drug Abuse Patient Records regulations: The Federal rules restrict any use of the information to criminally investigate or prosecute any alcohol or drug abuse patient.[facility] the event this information is protected by the Federal Confidentiality of Alcohol and Drug Abuse Patient Records regulations: The Federal rules restrict any use of the information to criminally investigate or prosecute any alcohol or drug abuse patient.[facility] the event this information is protected by the Federal Confidentiality of Alcohol and Drug Abuse Patient Records regulations: The Federal rules restrict any use of the information to criminally investigate or prosecute any alcohol or drug abuse patient.[facility] the event this information is protected by the Federal Confidentiality of Alcohol and Drug Abuse Patient Records regulations: The Federal rules restrict any use of the information to criminally investigate or prosecute any alcohol or drug abuse patient.[facility] the event this information is protected by the Federal Confidentiality of Alcohol and Drug Abuse Patient Records regulations: The Federal rules restrict any use of the information to criminally investigate or prosecute any alcohol or drug abuse patient.[facility] the event this information is protected by the Federal Confidentiality of Alcohol and Drug Abuse Patient Records regulations: The Federal rules restrict any use of the information to criminally investigate or prosecute any alcohol or drug abuse patient.[facility] the event this information is protected by the Federal Confidentiality of Alcohol and Drug Abuse Patient Records regulations: The Federal rules restrict any use of the information to criminally investigate or prosecute any alcohol or drug abuse patient.[facility] the event this information is protected by the Federal Confidentiality of Alcohol and Drug Abuse Patient Records regulations: The Federal rules restrict any use of the information to criminally investigate or prosecute any alcohol or drug abuse patient.[facility] the event this information is protected by the Federal Confidentiality of Alcohol and Drug Abuse Patient Records regulations: The Federal rules restrict any use of the information to criminally investigate or prosecute any alcohol or drug abuse patient.[facility] the event this information is protected by the Federal Confidentiality of Alcohol and Drug Abuse Patient Records regulations: The Federal rules restrict any use of the information to criminally investigate or prosecute any alcohol or drug abuse patient.[facility] the event this information is protected by the Federal Confidentiality of Alcohol and Drug Abuse Patient Records regulations: The Federal rules restrict any use of the information to criminally investigate or prosecute any alcohol or drug abuse patient.[facility] the event this information is protected by the Federal Confidentiality of Alcohol and Drug Abuse Patient Records regulations: The Federal rules restrict any use of the information to criminally investigate or prosecute any alcohol or drug abuse patient.[facility] the event this information is protected by the Federal Confidentiality of Alcohol and Drug Abuse Patient Records regulations: The Federal rules restrict any use of the information to criminally investigate or prosecute any alcohol or drug abuse patient.[facility] the event this information is protected by the Federal Confidentiality of Alcohol and Drug Abuse Patient Records regulations: The Federal rules restrict any use of the information to criminally investigate or prosecute any alcohol or drug abuse patient.[facility] the event this information is protected by the Federal Confidentiality of Alcohol and Drug Abuse Patient Records regulations: The Federal rules restrict any use of the information to criminally investigate or prosecute any alcohol or drug abuse patient.[facility] the event this information is protected by the Federal Confidentiality of Alcohol and Drug Abuse Patient Records regulations: The Federal rules restrict any use of the information to criminally investigate or prosecute any alcohol or drug abuse patient.[facility] the event this information is protected by the Federal Confidentiality of Alcohol and Drug Abuse Patient Records regulations: The Federal rules restrict any use of the information to criminally investigate or prosecute any alcohol or drug abuse patient.[facility] the event this information is protected by the Federal Confidentiality of Alcohol and Drug Abuse Patient Records regulations: The Federal rules restrict any use of the information to criminally investigate or prosecute any alcohol or drug abuse patient.[facility] Reason for Visit (unrecogniz ed section and content) Reason Onset Date Comments Population Health Navigation Outreach 06/29/2021 [employer] Reason Comments Follow Up 3 month Reason Comments 6 Month Exam Reason Comments Refill Request Reason Onset Date Comments Population Health Navigation Outreach 08/16/2022 [employer] Gaps Reason Onset Date Comments Opened In Error 08/17/2022 Reason Onset Date Comments Refill Request 08/28/2022 Reason Comments Medication Request Dulera inhaler Reason Comments Low Back Pain left side low back m igrating into hip and buttock x 2 days Reason Comments Pain, Sinus R side of face sinus pain and pressure x1 week Reason Onset Date Comments Refill Request 11/13/2022 Reason Onset Date Comments Refill Request 01/03/2023 Reason Comments Radiology US Specialty Diagnoses / Procedures Referred By Contac t Referred To Contact US IMAGING Diagnoses Elevated liver enzymes Procedures US ABD RIGHT UPPER QUADRANT US ABDOMINAL REAL TIME W/IMAGE LIMITED Conor Murdock MD [address] [place] [address] [place] [address] Referral ID Status Reason Start Date Expiration Date V isits Requested Visits Authorized [id number] Closed Auto-Generate d Referral 04/01/2023 04/30/2024 1 1 Reason Comments Results Reason Onset Date Comments Refill Request 04/23/2023 Reason Comments Results Reason Comments Patient Update Reason Comments Chest Congestion 3 days Ear Problem Bilateral ear pain Reason Onset Date Comments Refill Request 07/26/2023 Reason Onset Date Comments Refill Request 07/27/2023 Reason Comments Bronchitis Follow up Sinusitis Follow up Specialty Diagnoses / Procedures Referred By Contac t Referred To Contact Radiology Diagnoses Dyspnea, unspecified type Procedures XR CHEST PA+LAT 2 VIEWS Zari Matamoros [address] [place] [address] [facility] [address] [place] [address] [place] [address] Referral ID Status Reason Start Date Expiration Date Visits Re quested Visits Authorized [id number] Closed 08/24/2023 08/23/2024 1 1 Reason Comments Medication Request Buspirone Reason Comments Chest Congestion Cough, drainage x3 d ays Reason Onset Date Comments Population Health Navigation Outreach 02/07/2024 [employer] [place] Reason Onset Date Comments Refill Request 02/11/2024 Reason Comments Cough With SOB/wheeze, chaz al drainage & intermittent fever x1 week ; SOB & wheeze worsen x 2 days Reason Comments Letter No Show #1 Reason Onset Date Comments Population Health Navigation Outreach 05/30/2024 [employer] [place] Reason Comments 6 Month Exam Reason Onset Date Comments Refill Request 07/01/2024 Reason Onset Date Comments Population Health Navigation Outreach 07/03/2024 [employer] [place] Reason Onset Date Comments Population Health Navigation Outreach 08/04/2024 [employer] [place] Reason Onset Date Comments Transition Of Care 08/13/2024 Inbound call Care Teams (unrecognized sec tion and content) Loss Control Consultant Relationship Specialty Start Date End Date Conor Murdock MD [address] [place], [place] [address] PCP - General Family Practice 01/13/21 Loss Control Consultant Relationship Specialty Start Date End Date Conor Murdock MD [address] [place], [place] [address] PCP - General Family Practice 01/13/21 Loss Control Consultant Relationship Specialty Start Date End Date Conor Murdock MD [address] [place], [place] [address]221 PCP - General Family Medicine 01/13/21 Loss Control Consultant Relationship Specialty Start Date End Date Conor Murdock MD [address] [place], [place] [address] PCP - General Family Medicine 01/13/21 Loss Control Consultant Relationship Specialty Start Date End Date Conor Murdock MD [address] [place] [address] PCP - General Family Medicine 01/13/21 Loss Control Consultant Relationship Specialty Start Date End Date Conor Murdock MD [address] [place], [place] [address] PCP - General Family Medicine 01/13/21 Loss Control Consultant Relationship Specialty Start Date End Date Conor Murdock MD [address] [place], [place] [address] PCP - General Family Medicine 01/13/21 Loss Control Consultant Relationship Specialty Start Date End Date Conor Murdock MD [address] [place] [address] PCP - General Family Medicine 01/13/21 Loss Control Consultant Relationship Specialty Start Date End Date Conor Murdock MD [address] [place] [address] PCP - General Family Medicine 01/13/21 Loss Control Consultant Relationship Specialty Start Date End Date Conor Murdock MD [address] [place] [address] PCP - General Family Medicine 01/13/21 Loss Control Consultant Relationship Specialty Start Date End Date Conor Murdock MD [address] [place] [address] PCP - General Family Medicine 01/13/21 [facility] [address] [place] [address] 04/13/23 Loss Control Consultant Relationship Specialty Start Date End Date Conor Murdock MD [address] [place], [place] [address] PCP - General Family Medicine 01/13/21 [facility] [address] [place] [address] 04/13/23 Loss Control Consultant Relationship Specialty Start Date End Date Conor Murdock MD [address] [place] [address] PCP - General Family Medicine 01/13/21 [facility] [address] [place] [address] 04/13/23 Loss Control Consultant Relationship Specialty Start Date End Date Conor Murdock MD [address] [place] [address] PCP - General Family Medicine 01/13/21 [facility] [address] [place] [address] 04/13/23 Loss Control Consultant Relationship Specialty Start Date End Date Conor Murdock MD [address] [place] [address] PCP - General Family Medicine 01/13/21 [facility] [address] [place] [address] 04/13/23 Loss Control Consultant Relationship Specialty Start Date End Date Conor Murdock MD [address] [place] [address] PCP - General Family Medicine 01/13/21 [facility] [address] [place] [address] 04/13/23 Loss Control Consultant Relationship Specialty Start Date End Date Conor Murdock MD [address] [place] [address] PCP - General Family Medicine 01/13/21 [facility] [address] [place] [address] 04/13/23 Loss Control Consultant Relationship Specialty Start Date End Date Conor Murdock MD [address] [place] [address] PCP - General Family Medicine 01/13/21 [facility] [address] [place] [address] 04/13/23 Loss Control Consultant Relationship Specialty Start Date End Date Conor Murdock MD [address] [place] [address] PCP - General Family Medicine 01/13/21 [facility] [address] [place] [address] 04/13/23 Loss Control Consultant Relationship Specialty Start Date End Date Conor Murdock MD [address] [place] [address] PCP - General Family Medicine 01/13/21 [facility] [address] [place] [address] 04/13/23 Loss Control Consultant Relationship Specialty Start Date End Date Conor Murdock MD [address] [place] [address] PCP - General Family Medicine 01/13/21 [facility] [address] [place] [address] 04/13/23 Loss Control Consultant Relationship Specialty Start Date End Date Conor Murdock MD [address] [place] [address] PCP - General Family Medicine 01/13/21 Loss Control Consultant Relationship Specialty Start Date End Date Conor Murdock MD [address] [place] [address] PCP - General Family Medicine 01/13/21 Sarah Quinn APRN.SALES REPRESENTATIVE MEATS [address] [place] [address] Quantity Surveyor Family Medicine 02/11/24 Jany Zaman APRN.SALES REPRESENTATIVE MEATS [address] [place] [address] Quantity Surveyor Family Medicine 02/11/24 Loss Control Consultant Relationship Specialty Start Date End Date Conor Murdock MD [address] [place] [address] PCP - General Family Medicine 01/13/21 Sarah Quinn APRN.SALES REPRESENTATIVE MEATS [address] [place] [address] Quantity Surveyor Family Medicine 02/11/24 Jany Zaman APRN.SALES REPRESENTATIVE MEATS [address] [place] [address] Quantity Surveyor Family Medicine 02/11/24 Loss Control Consultant Relationship Specialty Start Date End Date Conor Murdock MD [address] [place] [address] PCP - General Family Medicine 01/13/21 Sarah Quinn, INTRAMURAL DIRECTOR.SALES REPRESENTATIVE MEATS [address] [place] [address] Quantity Surveyor Family Medicine 02/11/24 Jany Zaman INTRAMURAL DIRECTOR.SALES REPRESENTATIVE MEATS [address] [place] [address] Quantity Surveyor Family [facility] 02/11/24 Loss Control Consultant Relationship Specialty Start Date End Date Conor Murdock MD [address] [place] [address] PCP - General Family Medicine 01/13/21 Sarah Quinn, INTRAMURAL DIRECTOR.SALES REPRESENTATIVE MEATS [address] [place] [address] Quantity Surveyor Family Medicine 02/11/24 Jany Zaman INTRAMURAL DIRECTOR.SALES REPRESENTATIVE MEATS [address] [place] [address] Quantity Surveyor Family Medicine 02/11/24 Prasanth Mulligan, MIKE [address] [place] [id number] Upholstery Restorer 05/05/2405/05 Loss Control Consultant Relationship Specialty Start Date End Date Conor Murdock MD [address] [place] [address] PCP - General Family Medicine 01/13/21 Sarah Quinn APRN.SALES REPRESENTATIVE [employer]ATS [address] [place] [address] [facility] 02/11/24 Jany Zaman APRN.SALES REPRESENTATIVE MEATS [address] [place] [address] Quantity Surveyor Family [facility] 02/11/24 Prasanth Mulligan, MIKE [address] [place] [address] Upholstery Restorer 05/06/24 Loss Control Consultant Relationship Specialty Start Date End Date Conor Murdock MD [address] [place] [address] PCP - General Family Medicine 01/13/21 Sarah Quinn APRN.SALES REPRESENTATIVE MEATS [address] [place] [address] [facility] 02/11/24 Jany Zaman APRN.SALES REPRESENTATIVE MEATS [address] [place] [address] [facility] 02/11/24 Prasanth Mulligan RN [address] [place] [address] Upholstery Restorer 05/06/24 Loss Control Consultant Relationship Specialty Start Date End Date Conor Murdock MD [address] [place] [address] PCP - General Family Medicine 01/13/21 Sarah Quinn APRN.SALES REPRESENTATIVE MEATS [address] [facility] [place] [address] Quantity Surveyor Family Medicine 02/11/24 Jany Zaman APRN.SALES REPRESENTATIVE MEATS [address] [place] [address] Quantity Surveyor Family [facility] 02/11/24 Prasanth Mulligan, MIKE [address] [place] [address] Upholstery Restorer 05/06/24 Loss Control Consultant Relationship Specialty Start Date End Date Conor Murdock MD [address] [place] [address] PCP - General Family Medicine 01/13/21 Sarah Quinn INTRAMURAL DIRECTOR.SALES REPRESENTATIVE MEATS [address] [place] [address] Quantity Surveyor [facility] 02/11/24 Jany Zaman INTRAMURAL DIRECTOR.SALES REPRESENTATIVE MEATS [address] [place] [address] Quantity Surveyor [facility] 02/11/24 Prasanth Mulligan RN [address] [place] [address] Upholstery Restorer 05/06/24 Loss Control Consultant Relationship Specialty Start Date End Date Conor Murdock MD [address] [place] [address] PCP - General Family Medicine 01/13/21 Sarah Quinn, INTRAMURAL DIRECTOR.SALES REPRESENTATIVE MEATS [address] [place] [address] Quantity Surveyor [facility] 02/11/24 Jany Zaman INTRAMURAL DIRECTOR.SALES REPRESENTATIVE MEATS [address] [place] [address] Quantity Surveyor Family [facility] 02/11/24 Prasanth Mulligan RN [address] [place] [address] Upholstery Restorer 05/06/24 Loss Control Consultant Relationship Specialty Start Date End Date Conor Murdock MD [address] [place] [address] PCP - General Family Medicine 01/13/21 Sarah Quinn, INTRAMURAL DIRECTOR.SALES REPRESENTATIVE MEATS [address] [place] [address] Quantity Surveyor Family Medicine 02/11/24 Jany Zaman INTRAMURAL DIRECTOR.SALES REPRESENTATIVE MEATS [address] [place] [address] Quantity Surveyor Family [facility] 02/11/24 Prasanth Mulligan, MIKE [address] [place] [address] Upholstery Restorer 05/06/24 Loss Control Consultant Relationship Specialty Start Date End Date Conor Murdock MD [address] [place] [address] PCP - General Family Medicine 01/13/21 Sarah Quinn, INTRAMURAL DIRECTOR.SALES REPRESENTATIVE MEATS [address] [place] [address] Quantity Surveyor Family Medicine 02/11/24 Jany Zaman, INTRAMURAL DIRECTOR.SALES REPRESENTATIVE MEATS [address] [place] [address] Quantity Surveyor Family [facility] 02/11/24 Prasanth Mulligan RN [address] [place], [place] [address] Upholstery Restorer 05/06/24 Loss Control Consultant Relationship Specialty Start Date End Date Conor Murdock MD [address] [place] [address] PCP - General Family Medicine 01/13/21 Sarah Quinn APRN.SALES REPRESENTATIVE MEATS [address] [place] [address] [facility] 02/11/24 Jany Zaman APRN.SALES REPRESENTATIVE MEATS [address] [place] [address] Quantity Surveyor Family [facility] 02/11/24 Prasanth Mulligan, MIKE [address] [place] [address] Upholstery Restorer 05/06/24 Loss Control Consultant Relationship Specialty Start Date End Date Conor Murdock MD [address] [place] [address] PCP - General Family Medicine 01/13/21 Sarah Quinn APRN.SALES REPRESENTATIVE MEATS [address] [place] [address] [facility] 02/11/24 Jany Zaman APRN.SALES REPRESENTATIVE MEATS [address] [place] [address] [facility] 02/11/24 Prasanth Mulligan RN [address] [place] [address] Upholstery Restorer 05/06/24 Loss Control Consultant Relationship Specialty Start Date End Date Conor Murdock MD [address] [place] [address] PCP - General Family Medicine 01/13/21 Sarah Quinn APRN.SALES REPRESENTATIVE MEATS [address] [place] [address] Quantity Surveyor Family Medicine 02/11/24 Jany Zaman APRN.SALES REPRESENTATIVE MEATS [address] [place] [address] Quantity Surveyor Family Medicine 02/11/24 Prasanth Mulligan, RN [address] [place] [address] Upholstery Restorer 05/06/2408/03 Team Status: Active Member Role Status Dates [facility] Primary Care Provider Active Team Status: Active Member Role Status Dates [facility] Primary Care Provider Active Start: August 19, 2024 Dr. Froy Deleon , Emergency Provider Active Start: August 19, 2024 Dr. Isiah Black , DO Admit Provider Active Start: August 19, 2024 Dr. Isiah Black , DO Attending Provider Active Start: August 19, 2024 Goals (unrecognized section and content) Goals may be documented in a n alternate sectionGoals may be documented in an alternate sectionGoals may be documented in an alternate section (unrecognized sect ion and content) No Status Records FoundNo Status Records FoundNo Status Records Found INFORMATION SOURCE (unrecogn ized section and content) DATE CREATED AUTHOR 12/06/2021 [facility] DATE CREATED AUTHOR AUTHOR'S ORGANIZ ATION 08/27/2023 [facility] DATE CREATED AUTHOR AUTHOR'S ORGANIZ ATION 08/16/2024 [facility] FOR RECORDS PERTAINING TO PATIENTS WHO ARE OR HAVE BEEN ENROLLED IN A CHEMICAL DEPENDENCY/SUBSTANCEABUSE PROGRAM, SOME INFORMATION MAY BE OMITTED. This clinical summary was aggregated from multiple sources. Caution should be exercised in using it in the provision of clinical care. This summary normalizes information from multiple sources, and as a consequence, information in this document may materially change the coding, format and clinical context of patient data. In addition, data may be omitted in some cases. CLINICAL DECISIONS SHOULD BE BASED ON THE PRIMARY CLINICAL RECORDS. [employer] [facility]. provides no warranty or guarantee of the accuracy or completeness of information in this document.
[2024-08-20] MEDS: Ipratropium/Albuterol Sulfate 3 ML AMPUL.NEB INHALATION ×4 (03:56→15:08)
[2024-08-20] MEDS: MethylPREDNISolone 125 MG/2 ML Vial 60 MG IV ×2 (04:47→13:53)
[2024-08-20] MEDS: 0.9% Saline Lock 10 ML Syringe IV ×2 (04:47→13:53)
[2024-08-20 07:09] LABS: Hematocrit 41.7 % (40-54); Hemoglobin 14.1 g/dL (13.0-16.5); Mean Corp Hgb Conc 33.8 g/dL (32-36); Mean Corpuscular Hgb 33.3 pg (27.0-32.0); Mean Corpuscular Volume 98.3 fL (80-94); Mean Platelet Vol. 10.3 fl (6.2-12.0); Platelet Count 164 K/mm3 (150-450); RBC Distribution Width CV 14.1 % (11.6-14.6); Red Blood Count 4.24 M/mm3 (4.6-6.2); White Blood Count 19.3 K/mm3 (4.4-11.0)
[2024-08-20 07:50] LABS: Anion Gap 10 (5-15); BUN 12 mg/dL (4-19); BUN/Creat Ratio 16.3 RATIO (10-20); Calcium,Total 8.5 mg/dL (7.6-11.0); Carbon Dioxide 23.4 mmol/L (21.0-32.0); Chloride 103 mmol/L (98-108); Creatinine, Serum 0.76 mg/dL (0.70-1.20); EST Glomerular Filtration Rate 96 (>60); Glucose 254 mg/dL (70-99); Potassium 3.9 mmol/L (3.3-5.1); Sodium Level 136 mmol/L (133-145)
--- NOTE | 2024-08-20 07:55 | EX.PCM.CONCC ---
Assessment & Plan Assessment/Plan (1) COPD exacerbation: (2) Acute hypoxemic respiratory failure: PLAN: Plan RECOMMENDATIONS: 1. Supplemental oxygen to maintain saturations at or above 90%. 2. Continue empiric antimicrobials, pending sputum culture results. 3. Continue scheduled bronchodilators and IV steroids. 4. Recommend empiric BiPAP therapy with naps and nightly. 5. Continue appropriate DVT prophylaxis. 6. Encourage incentive spirometer use and mobilize patient as tolerated. IMPRESSIONS: 1. Shortness of breath and hypoxemia Most likely secondary to COPD/asthma with exacerbation related to bilateral pneumonia. The patient is currently followed by a poolroom table attendant in the [facility] and is maintained on a triple therapy inhaler regimen at his baseline. He does not have a baseline supplemental oxygen requirement, nonetheless. For now, the patient will be continued on supplemental oxygen to maintain saturations at or above 90% along with empiric antimicrobials, scheduled bronchodilators and IV steroids. 2. History of obstructive sleep apnea The patient reported that his PAP machine is no longer functional and that it was never replaced by the [facility] system. Accordingly, the patient has been noncompliant with nocturnal PAP therapy for approximately 1 year. In light of his history of obstructive sleep apnea, will place orders for empiric BiPAP therapy with naps and nightly. 3. Remote history of tobacco dependency/coronary artery disease/hypertension/hyperlipidemia/anxiety/obesity Complicates care, management, recovery and prognosis. Continue supportive care as noted above. This note was generated with [employer] dictation software. It may contain incorrect words, spelling, and punctuation that were not noted in checking the note before signing. HPI Consult Data Date of Consult: 08/20/24 HPI Narrative Reason for Consultation: COPD exacerbation HPI Narrative: The patient is a 73-year-old male, with a history as outlined below, who presented to the emergency department on August 19 with worsening shortness of breath. The patient reported that he has a chronic cough as well that is productive of sputum. He did report that when he checked his pulse oximetry reading at home that it was reading in the 70s. In addition, the patient reported the presence of subjective fevers. The patient reported that he is currently followed by a poolroom table attendant with the [facility] in [place] due to a history of asthma/COPD and obstructive sleep apnea. At his baseline, the patient does not utilize supplemental oxygen. He has a remote smoking history, having quit completely 20+ years ago. The patient reported that he is on a triple therapy inhaler regimen on an outpatient basis. Unfortunately, he did readily admit to noncompliance with prescribed nocturnal PAP therapy. He indicated that his CPAP machine became nonfunctional and that it was not replaced by the [place] [facility] system. On presentation to the emergency department, the patient was documented to be febrile, tachycardic and tachypneic. The patient was also notably hypertensive with a blood pressure of 190/61 mmHg. Laboratory evaluation revealed a white blood cell count of 12,000. Chemistry profile was unremarkable. Lactate was within normal limits. Urine analysis was unremarkable. CTA imaging of the chest demonstrated multifocal airspace disease bilaterally, predominantly involving the lower lobes. Sputum culture was obtained. Respiratory viral panel was negative. Strep and urine Legionella antigens were negative. The patient was subsequently placed on antimicrobials, bronchodilators and IV steroids. He was admitted to the progressive care unit for further management. [facility] Medical History (Updated 08/20/24 @ 00:[address] Isiah Black, ) Depression Kidney stones GERD (gastroesophageal reflux disease) Sleep apnea Asthma Hypertension Hyperlipidemia Chronic back pain Coronary artery disease Chronic sinusitis Allergic rhinitis Former smoker DALIA (obstructive sleep apnea) COPD (chronic obstructive pulmonary disease) Home Medications ?Medication ?Instructions ?Recorded ?Last Taken ?Type albuterol sulfate 2.5 mg/3 mL 2.5 mg inhalation Q4H PRN 08/31/21 08/19/24 History (0.083 %) solution for nebulization Shortness Of Breath Or Wheezing atorvastatin 40 mg tablet 40 mg PO QHS 08/31/21 08/18/24 History benzonatate 100 mg capsule 100 mg PO TID PRN Cough 08/31/21 Unknown History buspirone 5 mg tablet 5 mg PO BID 08/31/21 08/19/24 History cetirizine 10 mg tablet 10 mg PO DAILY 08/31/21 08/19/24 History cholecalciferol (vitamin D3) 125 125 mcg PO DAILY 08/31/21 08/19/24 History mcg (5,000 unit) tablet fluticasone propionate 50 2 spray intranasal BID 08/31/21 08/19/24 History mcg/actuation nasal spray,suspension losartan 50 mg tablet 50 mg PO DAILY 08/31/21 08/19/24 History vitamin B complex 1 cap PO DAILY 08/31/21 08/19/24 History TURMUERIC CURCUMIN PO DAILY 08/19/24 08/19/24 History albuterol sulfate 90 mcg/actuation 2 inh inhalation Q6H PRN shortness 08/19/24 08/19/24 History breath activated powder inhaler of breath or wheezing aspirin 81 mg tablet,delayed 81 mg PO DAILY 08/19/24 08/19/24 History release (Adult Aspirin Regimen) budesonide 160 mcg-glycopyr 9 2 inh inhalation BID 08/19/24 08/19/24 History mcg-formot 4.8 mcg/actuation HFA inhaler (Breztri Aerosphere) carvedilol 6.25 mg tablet 6.25 mg PO BID blood pressure 08/19/24 Unknown History montelukast 10 mg tablet 10 mg PO QHS breathing 08/19/24 Unknown History (Singulair) Allergy/AdvReac Type Severity Reaction Status Date / Time meloxicam AdvReac Nausea Verified 08/19/24 13:29 Surgical History (Updated 08/19/24 @ 17:52 by Olesya Braswell) History of appendectomy Social History Smoking Status: Former smoker ROS ROS Narrative 10 systems were reviewed with pertinent positives as noted in HPI above. Physical Exam Const alert, oriented x3 and no apparent distress General Appearance: cooperative HEENT normocephalic, head/scalp atraumatic and moist oral mucous membranes Eyes PERRL, EOMs intact bilaterally and conjunctivae normal Neck supple General: trachea midline Chest inspection of chest normal Resp normal respiratory effort and no use of accessory muscles Resp Narrative: Mild expiratory wheeze bilaterally Effort and Inspection: able to speak in complete sentences Cardio regular rate and regular rhythm GI normal to inspection, nondistended, normoactive bowel sounds Extremity General Extremity: edema bilateral lower extremity; Negative for clubbing Skin no rashes or lesions noted Neuro oriented x3, CN's II-XII intact bilaterally, moves all extremities and no focal motor deficits Psych cooperative and affect normal Lab / Micro Data 08/20/24 06:39 08/20/24 06:39 Labs: Laboratory Results - last 24 hr 08/19/24 14:10: Urine Color Yellow, Urine Clarity Clear, Urine pH 7.0, Ur Specific [place] 1.005, Urine Protein 15 H, Urine Glucose (UA) Normal, Urine Ketones Negative, Urine Occult Blood Negative, Urine Nitrite Negative, Urine Bilirubin Negative, Urine Urobilinogen Normal, Ur Leukocyte Esterase Negative, Urine RBC 0-5 SEEN, Urine WBC 0-5 SEEN, Ur Squamous Epith Cells 0-5 SEEN, Urine Bacteria RARE, Urine Mucus 2+ 08/19/24 14:30: Sodium 134, Potassium 4.6, Chloride 100, Carbon Dioxide 21.4, Anion Gap 12, BUN 11, Creatinine 0.81, Estim Creat Clear Calc 103.31, Est GFR (MDRD) Non-Af 94, BUN/Creatinine Ratio 13.7, Glucose 95, Calcium 8.9, Total Bilirubin 1.17, AST 39 H, ALT 33, Alkaline Phosphatase 101, Troponin T High Sens 10, NT pro BNP II 64, Total Protein 6.6, Albumin 3.8, Globulin 2.9, Albumin/Globulin Ratio 1.3 08/19/24 14:35: WBC 12.2 H, RBC 4.69, Hgb 15.7, Hct 46.3, MCV 98.7 H, MCH 33.5 H, MCHC 33.9, RDW Std Deviation 50.5 H, RDW Coeff of Madhavi 13.9, Plt Count 171, MPV 10.1, Immature Gran % (Auto) 0.200, Neut % (Auto) 83.9 H, Lymph % (Auto) 8.3 L, [place] % (Auto) 7.1, Eos % (Auto) 0.3, Baso % (Auto) 0.2, Absolute Neuts (auto) 10.3 H, Absolute Lymphs (auto) 1.01, Nucleated RBC % 0, PT Cancelled, INR Cancelled, APTT Cancelled, Lactic Acid Cancelled, Procalcitonin 0.88 H 08/19/24 15:15: PT 14.4, INR 1.1, APTT 25.2 08/19/24 16:45: Troponin T Hi Sens 2 Hr 14 08/19/24 19:58: Lactic Acid 1.7 08/19/24 20:25: Troponin T Hi Sens 4Hr 11 08/20/24 06:39: WBC 19.3 H, RBC 4.24 L, Hgb 14.1, Hct 41.7, MCV 98.3 H, MCH 33.3 H, MCHC 33.8, RDW Std Deviation 51.0 H, RDW Coeff of Madhavi 14.1, Plt Count 164, MPV 10.3, Sodium 136, Potassium 3.9, Chloride 103, Carbon Dioxide 23.4, Anion Gap 10, BUN 12, Creatinine 0.76, Estim Creat Clear Calc 104.60, Est GFR (MDRD) Non-Af 96, BUN/Creatinine Ratio 16.3, Glucose 254 H, Calcium 8.5 Micro: Microbiology 08/19/24 19:30 Mucosa - Nasopharyngeal Respiratory Panel (PCR) - Final 08/19/24 14:10 Urine, Random Streptococcus pneumoniae Antigen (M - Final 08/19/24 14:10 Urine, Clean Catch Legionella Antigen - Final 08/19/24 14:10 Mucosa - Nose SARS-CoV-2, Influenza & RSV (PCR) - Final Imaging Radiology Impression Chest X-Ray 08/19/24 14:00 IMPRESSION: Right lower lobe opacity may reflect pneumonia, aspiration, and/or atelectasis. Likely underlying bibasilar subsegmental atelectasis. Mild pulmonary vascular congestion and interstitial edema. Mild cardiomegaly. No pneumothorax. Reading Location: [id number] Chest CT 08/19/24 17:16 IMPRESSION: Extensive bilateral lower lobe, right middle lobe and lingular airspace disease. Minimal emphysematous changes. Atherosclerotic vascular disease. [facility] Charges/Coding Visit Charges Inpatient E&M: 96144 Init Hosp L3
[2024-08-20] MEDS: Aspirin E.C. 81 MG Tablet PO (09:32)
[2024-08-20] MEDS: Loratadine 10 MG Tablet PO (09:32)
[2024-08-20] MEDS: busPIRone 5 MG Tablet PO (09:32)
[2024-08-20] MEDS: Losartan Potassium 50 MG Tablet PO (09:32)
[2024-08-20] MEDS: Cholecalciferol (Vit D3) 125 MCG CAPSULE (5,000 UNITS) PO (09:33)
[2024-08-20] MEDS: Fluticasone 0.05% 1 SPRAY NASAL.SRY 2 SPRAY NASAL (09:33)
[2024-08-20] MEDS: Enoxaparin 40 MG/0.4 ML Syringe SC (09:33)
[2024-08-20] MEDS: Ceftriaxone 2 GM in 0.9% Normal Saline (50mL MB+) 50 ML IV (09:49)
[2024-08-20] MEDS: Carvedilol 6.25 MG Tablet PO (09:49)
[2024-08-20] MEDS: Azithromycin 500 MG in 0.9% Normal Saline (250mL Bag) 250 ML 255 MG IV (10:22)
--- NOTE | 2024-08-20 12:30 | CASEMGMT ---
RN CM Face to Face with patient for initial transition planning/care coordination assessment. RN CM introduced self and role at [facility]. Patient sitting in chair, alert and oriented, family at bedside. Patient willing to participate in assessment and is able to answer all questions appropriately. Care providers, pharmacy, and demographics verified. Strata: 1 PCP: Laney MURPHY Specialists: Yusuf Animal Ride Attendant Liborio Ut Preferred Pharmacy: [facility] Prescription Benefit: yes Living Will/HPOA: yes, daughter Rose LNOK:, daughter Living Arrangements: Patient lives with in a single story duplex with 2 steps and railing to enter the home. Patient is independent at home. Transportation: self, DME/HHC: Patient has shower chair, cane, walker, rollator, WC, walker, grab bars, nebulzer, pulse ox, glucometer, scooter at home. No previous HHC or SNF. Patient wishes to discharge home, denies need for home health at this time. Patient states he has no further needs or concerns at this time. CM to follow for discharge planning needs that may arise. Disposition Plan: Patient to discharge home with family support and follow-up up plans in place. Stephanie MCBRIDE, RN, CM
--- NOTE | 2024-08-20 14:46 | DCINST_ITS ---
Discharge Instructions Diet Discharge Diet: Low fat / Low cholesterol DC O2, CPAP, BIPAP needs Home O2 Discharge instructions: No Dressing / Incision Discharge Activity: Return to Normal Activity Dressing / Incision Call your doctor if you observe: Fever of 101 or Higher, Shortness of breath, Dizziness, Fainting spells, Swelling in the ankles, Chest pain and Increased palpitations (irregular heartbeat) Follow Up Care Test Results: Test results from this visit will be discussed in further detail at your follow-up appointment, if applicable. Discharge Plan Admission Admit Date/Time: 08/19/24 17:23 Attending Provider: Stone Grsisom Primary Care Provider: [facility],[place] Consulting Providers: Isiah Black; Con Apple; Chris Andino; Jose A Dickinson; Miguel Torres; Stewart Piper; Dharmesh Vasquez; Adama Mcfarlane; Katty Chanel; Davey Duran; George Eduardo; Harshad Cotto; Becki Lantigua; Sincere Rosas; Brianne Lemus; Sd Hampton; Abrahan Garcia; Hayes Han; Howard Pineda; Melanie Alejo; Arlet Ramsey; Guzman Meza; Eric Schafer; Conor Forbes Discharge Orders/Prescriptions Prescriptions: New prednisone 10 mg tablet 10 mg PO DAILY Qty: 32 0RF Rx Instructions: Take 4 tablets daily for 3 days then 3 tablets daily for 3 days then 2 tablets daily for 3 days then 1 tablet daily for 3 days then half tablet daily for 4 days levofloxacin 750 mg tablet 750 mg PO DAILY Qty: 7 0RF Continued losartan 50 mg Tablet 50 mg PO DAILY atorvastatin 40 mg Tablet 40 mg PO QHS buspirone 5 mg Tablet 5 mg PO BID albuterol sulfate 2.5 mg /3 mL (0.083 %) Solution For Nebulization 2.5 mg INHALATION Q4H PRN (Reason: Shortness Of Breath Or Wheezing) cetirizine 10 mg Tablet 10 mg PO DAILY benzonatate 100 mg Capsule 100 mg PO TID PRN (Reason: Cough) fluticasone propionate 50 mcg/actuation [place],Suspension 2 spray INTRANASAL BID Rx Instructions: administer into each nostril vitamin B complex Capsule 1 cap PO DAILY cholecalciferol (vitamin D3) 125 mcg (5,000 unit) Tablet 125 mcg PO DAILY Breztri Aerosphere 160-9-4.8 mcg/actuation HFA aerosol inhaler 2 inh inhalation BID aspirin [Adult Aspirin Regimen] 81 mg tablet,delayed release (DR/EC) 81 mg PO DAILY albuterol sulfate 90 mcg/actuation aerosol powdr breath activated 2 inh inhalation Q6H PRN (Reason: shortness of breath or wheezing) TURMUERIC CURCUMIN PO DAILY carvedilol 6.25 mg tablet 6.25 mg PO BID Rx Instructions: must administer with a meal/food montelukast [Singulair] 10 mg tablet 10 mg PO QHS [facility] - Disposition Disposition (needs filled in before D/C Order can be placed): Home, Self Care
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
== END 2024-08-20 16:25 | disposition home or self-care (01) | DRG 190 ==
LOC: ED 17:18 → PCU 17:34
PROVIDERS: Admitting Provider Hospitalist; Emergency Provider Emergency Medicine; Visit Provider Family Medicine
DX: J44.1 Chronic obstructive pulmonary disease with (acute) exacerbation (principal); J18.9 Pneumonia, unspecified organism; J96.01 Acute respiratory failure with hypoxia; J45.901 Unspecified asthma with (acute) exacerbation; Z68.41 Body mass index [BMI] 40.0-44.9, adult; I10 Essential (primary) hypertension; J44.0 Chronic obstructive pulmonary disease with (acute) lower respiratory infection; E78.5 Hyperlipidemia, unspecified; I25.10 Atherosclerotic heart disease of native coronary artery without angina pectoris; F41.9 Anxiety disorder, unspecified; G47.33 Obstructive sleep apnea (adult) (pediatric); E66.813 Obesity, class 3; Z87.891 Personal history of nicotine dependence
CPT/HCPCS: 36415; 71046; 71250; 80048; 80053; 81001; 83605; 83880; 84145; 84484; 85025; 85027; 85610; 85730; 87040; 87070; 87077; 87086; 87186; 87205; 87449; 87631; 87633; 87641; 93005; 94640; 94668; 99285; A4216; J0696